=== PATIENT | male | born 1955 | race Caucasian/White ===

== ENCOUNTER 2019-10-07 10:50 | Outpatient (CLI) | payer MEDICARE, SELFPAY ==
[2019-10-07 11:14] LABS: Basophils Absolute Auto 0.09 K/mm3 (0.00-0.10); Basophils Percent Auto 1.2 % (0.0-1.0); Eosinophils Absolute Auto 0.19 K/mm3 (0.02-0.50); Eosinophils Percent Auto 2.5 % (1.0-6.0); Hematocrit 47.1 % (37.0-46.0); Hemoglobin 16.1 g/dL (12.4-15.3); Immature Granulocyte Absolute 0.02 K/mm3 (0.00-0.00); Immature Granulocyte Percent A 0.3 % (0.0-0.0); Lymphocytes Absolute Auto 2.39 K/mm3 (1.10-4.50); Lymphocytes Percent Auto 31.4 % (18.0-42.0); Mean Corpuscular HGB Conc 34.2 g/dL (32.0-36.0); Mean Corpuscular Volume 87.7 fL (78.0-102.0); Monocytes Absolute Auto 0.43 K/mm3 (0.10-0.90); Monocytes Percent Auto 5.7 % (2.0-11.0); Neutrophils Absolute Auto 4.5 K/mm3 (1.7-7.2); Neutrophils Percent Auto 58.9 % (50.0-70.0); Platelet Count Result 320 K/mm3 (150-420); Red Blood Count 5.37 M/mm3 (4.70-6.10); Red Cell Distribution Width 14.2 % (11.6-14.4); White Blood Count 7.6 K/mm3 (4.8-10.8)
[2019-10-07 11:36] LABS: Hemoglobin A1C 9.5 % (<5.7)
[2019-10-07 11:40] LABS: Total Protein Urine Random 47.6 mg/dL (0.0-11.9)
[2019-10-07 11:48] LABS: MALB Creatinine Ratio 54.6 mg/g (0-30); Microalbumin Urine Random 180.8 mg/L
[2019-10-07 12:22] LABS: Alanine Aminotransferase 33 U/L (16-63); Albumin Level 4.6 g/dL (3.4-5.0); Alkaline Phosphatase 84 U/L (46-116); Anion Gap 16.6 mmol/L (7-16); Aspartate Amino Transferase 26 U/L (15-37); Bilirubin,Total 0.6 mg/dL (0.00-1.00); Blood Urea Nitrogen 21 mg/dL (7-18); Calcium 9.4 mg/dL (8.5-10.1); Carbon Dioxide 27 mmol/L (21-32); Chloride 100 mmol/L (98-108); Estimated Glomerular Filt Rate 38; Glucose 193 mg/dL (70-99); Osmolality Calculated 296 mOsm/kg (285-295); Phosphorus 4.5 mg/dL (2.6-4.7); Potassium 4.6 mmol/L (3.5-5.1); Sodium 139 mmol/L (136-145); Total Protein 8.2 g/dL (6.4-8.2)
[2019-10-07 12:25] LABS: Thyroid Stimulating Hormone Reflex 73.31 u/IU/mL (0.36-3.74)
[2019-10-07 12:39] LABS: Free T4 Free Thyroxine Reflex 0.35 ng/dL (0.76-1.46)
[2019-10-10 12:03] LABS: Vitamin D 25 Hydroxy 12 ng/mL (30-100)
[2019-10-10 13:45] LABS: Parathyroid Intact 71 pg/mL (14-64)
== END 2019-10-07 10:51 | disposition home or self-care (01) ==
LOC: CHSLAB 10:56
PROVIDERS: Family Provider Nurse Practitioner Family; PCP Family Medicine; Visit Provider Internal Medicine Nephrology
DX: N18.3 Chronic kidney disease, stage 3 (moderate) (principal); E03.9 Hypothyroidism, unspecified; E11.9 Type 2 diabetes mellitus without complications
CPT/HCPCS: 36415; 80053; 82043; 82306; 82570; 83036; 83970; 84100; 84156; 84439; 84443; 85025

== ENCOUNTER 2019-11-22 12:46 | Observation (INO) | payer MEDICARE, SELFPAY ==
[2019-11-22] VITALS (7 sets, daily range): BP systolic 147–181; BP diastolic 70–103; PULSE 85–112; RESP 12–21; TEMP 36.6; O2SAT 94–97; BMI 44.6
--- NOTE | ~2019-11-22 | CT_ITS ---
EXAMINATION: CT brain wo con EXAM DATE: 11/22/2019 13:36 INDICATION: Right-sided hemiparesis. History of stroke. High blood pressure. TECHNIQUE: Spiral CT of the head was performed without contrast. Axial, coronal and sagittal images were reviewed. The dose-length product (DLP) for this examination was 605.33 mGy-cm. The exposure w as tailored according to patient size, and iterative reconstruction (ASIR) was used as additional dos e reduction technique. There is no prior study for comparison. FINDINGS: There is no acute intraparenchymal hemorrhage. No evidence of intraparenchymal brain mass lesion. No evidence of acute infarction. Please note that initial head CT has limited sensitivity f or small or acute infarctions. There is mild periventricular and subcortical hypodensity, nonspecific but probably related to small vessel ischemic disease. There is mild to moderate prominence of the sulci and ventricles related to cerebral atrophy. There is intracranial carotid arteriosclerosis. There are no extra-axial collections. There is no mass effect or midline shift. The orbits are unr emarkable. Soft tissue is unremarkable. The visualized sinuses and mastoid air cells are well aerat ed. IMPRESSION: 1. No acute intracranial findings. 2. Chronic age related findings. Reviewed, dictated and finalized at location A.
--- NOTE | 2019-11-22 12:58 | ECG_ITS ---
Measurements Intervals [place] Rate: 85 P: 47 FL: 176 QRS: -44 QRSD: 110 T: 96 QT: 387 QTc: 461 Interpretive Statements SINUS RHYTHM LEFT AXIS DEVIATION [QRS AXIS < -30] POSSIBLE LEFT VENTRICULAR HYPERTROPHY MINIMAL Q WAVES- LATERAL LEADS CANNOT RULE OUT SEPTAL INFARCT, AGE INDETERMINATE ST-T WAVE ABNORMALITY IN LATERAL LEADS- CONSIDER ISCHEMIA BASELINE ARTIFACT- I, III, AVR, AVL ABNORMAL ECG Electronically Signed On 11-23-2019 8:10:11 CDT by Edward Paula D.O.
--- NOTE | 2019-11-22 13:09 | ED.GENADULT ---
HPI - General Adult General Chief complaint: Neuro Symptoms/Deficit Stated complaint: possible stroke Source: patient History of Present Illness HPI narrative: Ant is a 53M with a complex PMH most significant for hx of TIA, obesity, HTN, hx of tobacco abuse, PAD, DMII, and HLD presented to the ED with weakness in his left leg thinking he had a stroke. He went home from shopping and took a nap around 1400 yesterday (13 hours ago) and took a nap. He woke up and had pain on his right shoulder and had weakness in his left leg. He was unable to flex the leg at the hip. He also reported tingling in the right distal upper extremity. No CP, SOB, dizziness, vertigo, vision changes, hearing changes, syncope or near syncope. Related Data Home Medications Medication Instructions Recorded Confirmed albuterol 90 mcg/actuation aerosol mcg INHALATION 07/02/19 09/29/19 inhaler amlodipine 10 mg tablet 10 mg PO DAILY 07/02/19 09/29/19 aspirin 325 mg tablet 325 mg PO DAILY 07/02/19 09/29/19 atorvastatin 80 mg tablet 80 mg PO DAILY 07/02/19 09/29/19 carvedilol 25 mg tablet 25 mg PO Q12H 07/02/19 09/29/19 diclofenac sodium 50 mg 50 mg PO TID PRN 07/02/19 09/29/19 tablet,delayed release insulin aspart U-100 100 unit/mL 28 unit SUB-Q TID ml 07/02/19 09/29/19 subcutaneous solution insulin glargine 100 unit/mL 60 unit SUB-Q DAILY ml 07/02/19 09/29/19 subcutaneous solution nitroglycerin 0.4 mg sublingual 0.4 mg SUBLINGUAL Q5M PRN 07/02/19 09/29/19 tablet ranitidine HCl 150 mg tablet 150 mg PO BID PRN tablet 07/02/19 09/29/19 terazosin 5 mg capsule 5 mg PO DAILY 07/02/19 09/29/19 tiotropium bromide 18 mcg capsule 1 cap INHALATION DAILY 07/02/19 09/29/19 with inhalation device albuterol sulfate 90 mcg/actuation 1 inhalation INHALATION Q4-6H PRN 09/01/19 09/29/19 breath activated powder inhaler Allergies Allergy/AdvReac Type Severity Reaction Status Date / Time Penicillins Allergy Intermediate Unknown Verified 09/26/19 07:11 semaglutide [From Ozempic] Allergy Mild Unknown Verified 09/26/19 07:11 amoxicillin Allergy Unknown HEAD TURNS Verified 09/26/19 07:11 RED Review of Systems Constitutional: Constitutional: Denies chills, Reports fatigue, Denies fever(s) and Reports weakness Eyes: Eyes: Reports no additional eye complaints ENT: Comments: no additional complaints Cardiovascular: Cardiovascular: Denies chest pain and Denies radiating jaw, neck or arm pain Respiratory: Respiratory: Denies cough, Denies dyspnea and Denies wheezing Gastrointestinal: Gastrointestinal: Reports no additional gastrointestinal complaints Genitourinary: Genitourinary: Reports no additional male genitourinary complaints Musculoskeletal: Musculoskeletal: Reports as per HPI Integumentary/Breasts: Skin/Breast: Reports system reviewed and no additional complaints, except as docu Neurologic: Reports as per HPI Psychiatric: Psychiatric: Reports no additional psychiatric complaints Endocrine: Endocrine: Reports no additional endocrine complaints Hematologic/Lymphatic: Hematologic/Lymphatic: Reports no additional hematologic/lymphatic complaints Allergic/Immunologic: Allergic/Immunologic: Reports no additional allergic/immunologic complaints [facility] Past Medical History Medical History Chronic urticaria Colon cancer screening COPD (chronic obstructive pulmonary disease) Hyperlipidemia Hypothyroidism Morbid obesity with BMI of 45.0-49.9, adult Tobacco dependence Type 2 diabetes mellitus Surgical History Surgical History History of carpal tunnel surgery History of cervical discectomy History of vasectomy Status post trigger finger release Family History Family History Father , Unknown cause of No problems noted. Mother , Unknown cause o
[2019-11-22 13:37] LABS: Basophils Absolute Auto 0.06 K/mm3 (0.00-0.10); Basophils Percent Auto 0.8 % (0.0-1.0); Eosinophils Absolute Auto 0.13 K/mm3 (0.02-0.50); Eosinophils Percent Auto 1.6 % (1.0-6.0); Immature Granulocyte Absolute 0.04 K/mm3 (0.00-0.00); Immature Granulocyte Percent A 0.5 % (0.0-0.0); Lymphocytes Absolute Auto 1.99 K/mm3 (1.10-4.50); Lymphocytes Percent Auto 24.9 % (18.0-42.0); Mean Corpuscular HGB Conc 34.1 g/dL (32.0-36.0); Mean Corpuscular Hemoglobin 30.3 pg (27.0-31.0); Mean Corpuscular Volume 88.9 fL (78.0-102.0); Mean Platelet Volume 9.6 fl (8.7-11.0); Monocytes Absolute Auto 0.58 K/mm3 (0.10-0.90); Monocytes Percent Auto 7.3 % (2.0-11.0); Neutrophils Absolute Auto 5.2 K/mm3 (1.7-7.2); Neutrophils Percent Auto 64.9 % (50.0-70.0); Platelet Count Result 418 K/mm3 (150-420); Red Blood Count 4.95 M/mm3 (4.70-6.10)
[2019-11-22 13:43] LABS: Prothrombin Time 10.3 Seconds (9.64-11.0)
[2019-11-22 13:50] LABS: Alanine Aminotransferase 44 U/L (16-63); Albumin Level 4.1 g/dL (3.4-5.0); Alkaline Phosphatase 78 U/L (46-116); Aspartate Amino Transferase 27 U/L (15-37); Bilirubin,Total 0.5 mg/dL (0.00-1.00); Blood Urea Nitrogen 15 mg/dL (7-18); Calcium 8.8 mg/dL (8.5-10.1); Carbon Dioxide 28 mmol/L (21-32); Chloride 102 mmol/L (98-108); Estimated Glomerular Filt Rate 44; Glucose 106 mg/dL (70-99); Osmolality Calculated 294 mOsm/kg (285-295); Sodium 142 mmol/L (136-145); Total Protein 7.5 g/dL (6.4-8.2); Troponin I < 0.02 ng/mL (0.00-0.056)
[2019-11-22 14:28] LABS: Thyroid Stimulating Hormone 35.61 uIU/mL (0.36-3.74)
--- NOTE | 2019-11-22 15:36 | PM.IMHP ---
H&P: HPI History of Present Illness Chief complaint: possible stroke <Yolanda Taylor, ADINA - Last Filed: 11/22/19 17:06> Narrative: Ant Kinney is a 64 year old male admitted due to possible neuro symptoms similar to a TIA (or CVA at this point) that started yesterday afternoon. He was admitted for possible stroke due to right leg unilateral weakness. Head CT showed: no acute intraparenchymal hemorrhage. No evidence of intraparenchymal brain mass lesion. No evidence of acute infarction. There is mild periventricular and subcortical hypodensity, nonspecific but probably related to small vessel ischemic disease. There is mild to moderate prominence of the sulci and ventricles related to cerebral atrophy. There is intracranial carotid arteriosclerosis. There are no extra-axial collections. There is no mass effect or midline shift. The orbits are unremarkable. Soft tissue is unremarkable. The visualized sinuses and mastoid air cells are well aerated. IMPRESSION: 1. No acute intracranial findings. 2. Chronic age related findings Ant has a complex PMH most significant for hx of TIA, Morbid obesity with BMI of 45.0-49.9, deconditioning, Status post trigger finger release, chronic back pain with medical marijuana use, HTN, hx of tobacco abuse, PAD, DMII, pancreatic cyst (with history of biopsy in 2018 showing no cancer), pulmonary nodule, non-aneurysmal thoraco-abdominal aortic dissection, smoking cessation approximately 2 months ago, Chronic urticaria, COPD (chronic obstructive pulmonary disease), Hypothyroidism and HLD. He uses medical marijuana for chronic back pain. He presented to the ED with weakness in his left leg thinking he had a stroke. He went home from shopping and took a nap around 1400 yesterday (13 hours ago) and took a nap. He woke up and had pain on his right shoulder and had weakness in his left leg. He was unable to flex the leg at the hip. He also reported tingling in the right distal upper extremity. No CP, SOB, dizziness, vertigo, vision changes, hearing changes, syncope or near syncope. His blood pressure was elevated, with systolics greater than 180, so I restarted his Coreg. He has history of an aortic dissection, he claims it is from his heart down into his abdomen, and why he also has renal disease. He has had the advertising statistical clerk in [facility] as well as his PCP Dr. Schaefer who is monitoring this aortic dissection over the years. He has had CT scans completed at the [facility] as well as here at [facility]. His last CT scan in our system was April of 2019 that stated the chronic dissection was poorly visualized. So it is important that we control his blood pressure is to prevent further injury to the aortic dissection. He stated that he has had weakness in the past in the right leg and the physician that follows his aortic dissection stated that it may be contributing to his weakness in that leg. Ant specifically noticed changes in his right leg after prolonged walking, when the pain and claudication is at its worst. Upon my examination on the floor, He states that his right leg was significantly weak and felt like it was asleep , and continues to be heavy to lift finding himself shuffling his right leg/foot to walk across the room. He stated that he has had left hand numbness over the past 3-4 years, that includes the left hand thumb tip as well as 2nd and 3rd finger of the left hand. Over the course of the last 2-3 years he finds that this numbness is now spreading, affecting the bottom of both his feet, and starting in his right hand of the right hand thumb tip as well as 2nd and 3rd finger of the right hand. Ant is now seen Dr. Mirtha Kraft an parking enforcement officer in [place], [place]. He states that his best A1c was 7.9, but his last A1c was 9.8. He sees Dr. Brumfield the Mine Exploration Engineer for his chronic renal disease, his last visit with him was October 2019. Ant has hypothyroidism th
[2019-11-22 15:42] LABS: CRP < 0.2 mg/dL (0.0-0.9)
[2019-11-22 16:04] LABS: BNP 15 pg/mL (0-100)
[2019-11-22 16:11] LABS: Glucose Point of Care 92 (65-105)
[2019-11-22] MEDS: metFORMIN HCL XR 500 MG TAB.SR.24H PO (16:46)
[2019-11-22] MEDS: carvediloL 12.5 MG TABLET PO (16:50)
--- NOTE | 2019-11-22 18:21 | PC.NURSE ---
1815 ambulance here. hospice and aware of him being loaded per amb at this time.
[2019-11-22 18:35] LABS: Add Urine Microscopic? YES; Appearance Urine Clear (Clear); Bilirubin Urine Negative (Negative); Blood Urine Negative (Negative); Color Urine Yellow (Yellow); Glucose Urine UA Negative (Negative); Ketones Urine Negative (Negative); Leukocyte Esterase Ur Negative LEU/UL (Negative); Nitrate Urine Negative (Negative); Protein Urine 1+ (Negative); Specific Grav Ur >= 1.030 (1.010-1.020); Urobilinogen Urine 0.2 mg/dL (0.2-1.0)
[2019-11-22 19:08] LABS: Bacteria Urine None seen /hpf; RBC Urine None seen /hpf (0-2); Squamous Epithelial Cell Urine Rare /hpf (Few); WBC Urine None seen /hpf (0-3)
[2019-11-22 19:09] LABS: Mucus Urine Rare /lpf
[2019-11-22 19:51] LABS: Glucose Point of Care 95 (65-105)
[2019-11-22] MEDS: AMITRIPTYLINE HCL 25 MG TABLET 50 MG PO (21:08)
[2019-11-22] MEDS: carvediloL 12.5 MG TABLET 25 MG PO (21:08)
[2019-11-23] VITALS: BP 136/76; PULSE 66; RESP 12; TEMP 37.1; O2SAT 96
[2019-11-23 04:00] VITALS: BP 154/82; PULSE 53; RESP 12; TEMP 37.2; O2SAT 99
[2019-11-23 05:37] LABS: Mean Corpuscular HGB Conc 33.3 g/dL (32.0-36.0); Mean Corpuscular Hemoglobin 30.1 pg (27.0-31.0); Mean Corpuscular Volume 90.3 fL (78.0-102.0); Mean Platelet Volume 9.6 fl (8.7-11.0); Platelet Count Result 360 K/mm3 (150-420); Red Blood Count 4.65 M/mm3 (4.70-6.10); Red Cell Distribution Width 14.2 % (11.6-14.4); White Blood Count 7.3 K/mm3 (4.8-10.8)
[2019-11-23 06:13] LABS: Alanine Aminotransferase 39 U/L (16-63); Albumin Level 3.8 g/dL (3.4-5.0); Alkaline Phosphatase 67 U/L (46-116); Anion Gap 14.3 mmol/L (7-16); Aspartate Amino Transferase 23 U/L (15-37); Bilirubin,Total 0.5 mg/dL (0.00-1.00); Blood Urea Nitrogen 19 mg/dL (7-18); Calcium 8.8 mg/dL (8.5-10.1); Carbon Dioxide 28 mmol/L (21-32); Chloride 103 mmol/L (98-108); Creatine Kinase 585 U/L (39-308); Estimated CRCL calculation 54 ml/min; Estimated Glomerular Filt Rate 41; Glucose 130 mg/dL (70-99); Osmolality Calculated 296 mOsm/kg (285-295); Potassium 4.3 mmol/L (3.5-5.1); Sodium 141 mmol/L (136-145); Total Protein 6.6 g/dL (6.4-8.2)
[2019-11-23 06:23] LABS: Troponin I < 0.02 ng/mL (0.00-0.056)
[2019-11-23] MEDS: LEVOTHYROXINE SODIUM 75 MCG TABLET 150 MCG PO (06:27)
--- NOTE | 2019-11-23 06:30 | PC.NURSE ---
Doctor notified of CK-MB critical result
[2019-11-23 07:02] LABS: Glucose Point of Care 152 (65-105)
[2019-11-23 08:00] VITALS: BP 158/86; PULSE 63; PULSE 67; RESP 16; TEMP 36.6; O2SAT 95
--- NOTE | 2019-11-23 08:00 | ECG_ITS ---
Measurements Intervals [place] Rate: 62 P: 66 [place]: 172 QRS: -26 QRSD: 106 T: 105 QT: 460 QTc: 471 Interpretive Statements SINUS RHYTHM BORDERLINE ST-T WAVE ABNORMALITY- LATERAL LEADS BORDERLINE ECG Electronically Signed On 11-23-2019 15:14:55 CDT by Edward Paula D.O.
[2019-11-23 08:05] VITALS: BP 166/85; PULSE 71
[2019-11-23 08:10] VITALS: BP 155/80; PULSE 77
[2019-11-23 08:27] VITALS: PULSE 63
[2019-11-23] MEDS: ENOXAPARIN 40 MG/0.4 ML SYRINGE SUB-Q (08:27)
[2019-11-23] MEDS: TERAZOSIN HCL 5 MG CAPSULE PO (08:27)
[2019-11-23] MEDS: ASPIRIN 325 MG ENTERIC TABLET PO (08:27)
[2019-11-23] MEDS: carvediloL 12.5 MG TABLET 25 MG PO (08:27)
[2019-11-23] MEDS: metFORMIN HCL XR 500 MG TAB.SR.24H PO (08:28)
[2019-11-23] MEDS: AMLODIPINE BESYLATE 5 MG TABLET 10 MG PO (08:28)
[2019-11-23] MEDS: ACETAMINOPHEN 325 MG TABLET 650 MG PO (08:28)
[2019-11-23] MEDS: ATORVASTATIN 40 MG TABLET 80 MG PO (08:28)
[2019-11-23] MEDS: INSULIN GLARGINE (*BKC) 100 UNITS/ML 60 UNITS SUB-Q (08:31)
[2019-11-23] MEDS: SODIUM CHLORIDE 0.9% IV 500 ML IV CONT (10:12)
[2019-11-23 11:28] LABS: Glucose Point of Care 276 (65-105)
[2019-11-23] MEDS: CLOPIDOGREL BISULFATE 75 MG TABLET PO (12:47)
--- NOTE | 2019-11-23 12:47 | PM.DS ---
DS: Diagnosis Admitting Diagnosis Admitting Diagnosis: Hypothyroidism, unspecified Discharge Diagnosis (1) Hypothyroidism: Code(s): E03.9 - Hypothyroidism, unspecified Status: Acute Assessment and Plan: his TSH was over 30 at admission his levothyroxine dose at home was 100 mcg daily increased his levothyroxine dose to 150 mcg daily today he will have to follow-up with his PCP and get a repeat TSH blood work in 6 weeks continue to work on obesity with diet and exercise with a goal of significant weight loss in mind PT OT evaluation and treatment would greatly benefit from outpatient PT OT and can follow up with his PCP Dr. Ryan for those orders. 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 bedside glucose checks ordered hypoglycemia p.r.n. medications in place continued his home dose of metformin continued his home dose of aspart t.i.d., Glargine daily Ant is now seen Dr. Mirtha Kraft an globe mounter in [place], [place]. He states that his best A1c was 7.9, but his last A1c was 9.8. Dr. Brumfield the Treatment Coordinator for his chronic renal disease, his last visit with him was October 2019. he is having comorbidities such as peripheral neuropathy, vascular changes, hypertension, renal failure due to uncontrolled glucose levels for long periods of time would greatly benefit from outpatient PT OT and can follow up with his PCP Dr. Ryan for those orders. (3) Unilateral weakness: Code(s): R53.1 - Weakness Status: Acute Assessment and Plan: CVA likely as symptoms of right upper arm/right hand/right leg weakness have lasted since Sunday afternoon to this morning approximately 36 hours. history of TIAs in early with unilateral right facial numbness that lasted only seconds/minutes per patient report. Neurochecks without acute concerns. glucose checks showed control at this time CT head showed no acute findings. EKG showed NSR with a rate of 85, No ST elevation/depression, did have inverted T waves in aVL Telemetry monitoring overnight without acute concerns. TROPS x 2 WNL, elevated CKMB likely due to patient vasculopathy, encouraging him to follow up with his PCP and his Vascular surgeon this week for F/U Imaging on his Aortic Dissection. TSH elevated, increased levothryoxine dose. checking CRP <0.2, BNP 15 , Mag 2.0, phos levels 4.0. Today - patient stated that he was back to his baseline and ready to go home. would greatly benefit from outpatient PT OT and can follow up with his PCP Dr. Ryan for those orders. maintain systolic blood pressures from 100 to 150s. must continue to control blood pressure and diabetes to avoid further damage to vessels currently no symptoms of carotid stenosis affecting neuro status, no headaches, no vision changes, no loss of consciousness, no blindness, no new or acute unilateral weakness in upper extremities, no facial weakness is noted, and no weakness is noted in lower extremities today - resolved - no longer shuffling with ambulation and able to lift right leg completely off his bed and hold it and strength returned in dorsiflexion as well. (4) CKD (chronic kidney disease): Code(s): N18.9 - Chronic kidney disease, unspecified Status: Acute Assessment and Plan: creatinine today was 1.58 yesterday and 1.69 today (baseline past values 12/24/2018 Creatinine 1.4 and 10/07/2019 Creatinine 1.80) his creatinine level appears to be about baseline or better for his chronic renal disease
--- NOTE | 2019-11-23 13:47 | P.PNCROSS_ITS ---
Event Note Event Note Event Note: Dr. Coburn's and Yolanda Taylor's notes reviewed. Case discussed with both providers. Pt. alert and oriented. He has appropriate dialogue regarding his past symptoms, work up and need to follow up. There is occasional speech hesitancy which is not new. Sensory exam intact. Holds arms extends/finger to nose tests normal and equal. He walks without a limp or need of assistance. Mr. Henderson had weakness for 36 hours in right leg interfering with ambulation wh ich has now resolved. On yesterday's exam in the e.d. there was weakness with extending the right arm which resolved shortly thereafter. Yolanda Taylor's note documents carotid pathology which warrants vascular surgeon eval. Mr. Henderson has been on clopidogrel in the past for PAD but was taken off it because it wasn't necessary. There were no side effects. Pt does not have a. fib. Carotid ultrasound not available on Sunday, today. Pt needs vascular surgeon eval. In the mean time to continue statin, aspirin and start clopidogrel. He understands he's not to wait if he develops any symptoms of a CVA which were reviewed by Yolanda Taylor. I reviewed and agree with Yolanda Taylor's note.
--- NOTE | 2019-12-02 16:18 | PC.NURSE ---
DISCHARGE FOLLOW UP CALL: No answer, message left [phone]
--- NOTE | 2019-12-03 15:02 | PC.NURSE ---
DISCHARGE FOLLOW UP CALL: Doing ok, has had follow up and full body scan, indicates 100% blockage to left carotid. Patient has PT/OT and home health coming to house. States B/P still elevated 170/70's, educated on Na+ intake, pt reports eating a lot of processed foods (hot dogs, deli meat, canned soups, ramen...) States he saw his ordinary seaman 2 weeks ago and she wants him to start monitoring his carbohydrate intake, educated patient on reading labels. Pt has f/u appointment on December 09, 2019 with GI regarding mouth/throat swelling. Admission was great. Discharge went well. Staff were very good to me . No concerns.
== END 2019-11-23 13:15 | disposition home or self-care (01) ==
LOC: CHSED 12:48 → CHS2ND 14:27
PROVIDERS: Nurse Practitioner; Admitting Provider Family Medicine; Emergency Provider Family Medicine; PCP Family Medicine; Visit Provider Family Medicine
DX: R53.1 Weakness (principal); I73.9 Peripheral vascular disease, unspecified; J44.9 Chronic obstructive pulmonary disease, unspecified; I71.03 Dissection of thoracoabdominal aorta; N18.9 Chronic kidney disease, unspecified; I12.9 Hypertensive chronic kidney disease with stage 1 through stage 4 chronic kidney disease, or unspecified chronic kidney disease; E11.65 Type 2 diabetes mellitus with hyperglycemia; E11.22 Type 2 diabetes mellitus with diabetic chronic kidney disease; M54.9 Dorsalgia, unspecified; L50.8 Other urticaria; E78.5 Hyperlipidemia, unspecified; G89.29 Other chronic pain; E66.01 Morbid (severe) obesity due to excess calories; Z79.4 Long term (current) use of insulin; Z87.891 Personal history of nicotine dependence; Z86.73 Personal history of transient ischemic attack (TIA), and cerebral infarction without residual deficits; I65.22 Occlusion and stenosis of left carotid artery
CPT/HCPCS: 36415; 70450; 80053; 81001; 82550; 82553; 82948; 83735; 83880; 84100; 84443; 84484; 85025; 85027; 85610; 86140; 93005; 96360; 96361; 96372; 99285; A9270; G0378; J1650; J1815; J7040

== ENCOUNTER 2019-12-20 00:40 | Outpatient (CLI) | payer MEDICARE, SELFPAY | END 2019-12-20 00:41 | disposition home or self-care (01) | LOC: ANHCOVIDDT 00:40 | PROVIDERS: PCP Family Medicine; Visit Provider Internal Medicine Gastroenterology | DX: Z01.818 Encounter for other preprocedural examination (principal); Z11.59 Encounter for screening for other viral diseases | CPT/HCPCS: 87635; U0003 ==

== ENCOUNTER 2019-12-22 08:22 | Outpatient (CLI) | payer MEDICARE, SELFPAY ==
[2019-12-22 08:57] LABS: Hemoglobin A1C 8.5 % (<5.7)
[2019-12-22 10:00] LABS: Alanine Aminotransferase 30 U/L (16-63); Alkaline Phosphatase 63 U/L (46-116); Aspartate Amino Transferase 21 U/L (15-37); Bilirubin,Total 0.4 mg/dL (0.00-1.00); Blood Urea Nitrogen 16 mg/dL (7-18); Calcium 8.8 mg/dL (8.5-10.1); Carbon Dioxide 31 mmol/L (21-32); Chloride 102 mmol/L (98-108); Cholesterol 119 mg/dL (0-200); Estimated Glomerular Filt Rate 47; Free T3 1.29 pg/mL (2.18-3.98); Glucose 127 mg/dL (70-99); HDL Direct 44 mg/dL (40-60); LDL Cholesterol Calculated 58 mg/dL (<130); Osmolality Calculated 297 mOsm/kg (285-295); Sodium 142 mmol/L (136-145); Thyroid Stimulating Hormone 42.23 uIU/mL (0.36-3.74); Triglycerides 84 mg/dL (0-150)
[2019-12-22 10:23] LABS: MALB Creatinine Ratio 31.9 mg/g (0-30); Microalbumin Urine Random 45.3 mg/L
== END 2019-12-22 08:23 | disposition home or self-care (01) ==
LOC: CHSLAB 08:24
PROVIDERS: PCP Family Medicine; Visit Provider Internal Medicine Endocrinology, Diabetes & Metabolism
DX: E11.65 Type 2 diabetes mellitus with hyperglycemia (principal); E03.9 Hypothyroidism, unspecified; E78.5 Hyperlipidemia, unspecified
CPT/HCPCS: 36415; 80053; 80061; 82043; 83036; 84439; 84443; 84481

== ENCOUNTER 2019-12-23 00:39 | Day surgery (SDC) | payer MEDICARE, SELFPAY ==
[2019-12-04 13:51] VITALS: BMI 45.9
[2019-12-23 08:38] VITALS: BP 144/59; PULSE 109; RESP 22; TEMP 36.1; O2SAT 98
[2019-12-23] MEDS: LACTATED RINGERS 1,000 ML 150 ML IV CONT (08:59)
[2019-12-23 09:04] LABS: Glucose Point of Care 173 (65-105)
--- NOTE | 2019-12-23 09:14 | WPDANESEPPF ---
Anes - Initial Pre Proc Eval Procedure: Operation Date: 12/23/19 09:30 Proposed Procedures p Esophagogastroduodenoscopy - Neil De Leon MD Date/Time: 12/23/19 09:14 Surgeon: Neil De Leon MD Pre Op Diagnosis: Dysphagia Patient Data Age: 64 Gender: M Height: 5 ft 8 in Weight: 138 kg Last Vital Signs Temp 36.1 C L 12/23/19 08:38 Pulse 109 H 12/23/19 08:38 Resp 22 H 12/23/19 08:38 BP 144/59 H 12/23/19 08:38 Pulse Ox 98 12/23/19 08:38 Allergies Allergy/AdvReac Type Severity Reaction Status Date / Time Penicillins Allergy Intermediate Unknown Verified 12/23/19 08:37 semaglutide [From Ozempic] Allergy Mild Unknown Verified 12/23/19 08:37 amoxicillin Allergy Unknown HEAD TURNS Verified 12/23/19 08:37 RED Home Medications Medication Instructions Recorded Confirmed Type amlodipine 10 mg tablet 10 mg PO DAILY 07/02/19 12/17/19 History aspirin 325 mg tablet 325 mg PO DAILY 07/02/19 12/17/19 History atorvastatin 80 mg tablet 80 mg PO DAILY 07/02/19 12/17/19 History carvedilol 25 mg tablet 25 mg PO Q12H 07/02/19 12/23/19 History insulin aspart U-100 100 unit/mL 28 unit SUB-Q TID ml 07/02/19 12/17/19 History subcutaneous solution insulin glargine 100 unit/mL 60 unit SUB-Q DAILY ml 07/02/19 12/17/19 History subcutaneous solution nitroglycerin 0.4 mg sublingual 0.4 mg SUBLINGUAL Q5M PRN 07/02/19 12/17/19 History tablet ranitidine HCl 150 mg tablet 150 mg PO BID PRN tablet 07/02/19 12/04/19 History terazosin 5 mg capsule 5 mg PO DAILY 07/02/19 12/17/19 History tiotropium bromide 18 mcg capsule 1 cap INHALATION DAILY 07/02/19 12/17/19 History with inhalation device albuterol sulfate 90 mcg/actuation 1 inhalation INHALATION Q4-6H PRN 09/01/19 12/17/19 History breath activated powder inhaler ergocalciferol (vitamin D2) 1,250 1,250 mcg PO WEEKLY #10 cap 10/10/19 12/17/19 Rx mcg (50,000 unit) capsule clopidogrel 75 mg PO QAM 30 Days #30 tablet 11/23/19 12/17/19 Rx levothyroxine [Synthroid] 150 mcg PO DAILY@0630 30 Days #60 11/23/19 12/17/19 Rx tablet metformin 500 mg PO BID 30 Days #120 tablet 11/23/19 12/17/19 Rx losartan 50 mg tablet 50 mg PO DAILY #90 tablet 12/08/19 12/17/19 Rx diclofenac potassium 50 mg PO TID PRN 12/17/19 12/17/19 History finasteride [Proscar] 5 mg PO DAILY 12/17/19 12/17/19 History Laboratory Tests 12/23/19 09:01 POC Capillary Glucose 173 mg/dl H mg/dl (65-105) Patient hx anesthesia problems: none Family hx anesthesia problems: none PMFSH Past Medical History Medical History (Updated 12/23/19 @ 09:15 by Dillon Pretty MD) Chronic urticaria Colon cancer screening COPD (chronic obstructive pulmonary disease) Hyperlipidemia Hypothyroidism Morbid obesity with BMI of 45.0-49.9, adult PAYAM (obstructive sleep apnea) Tobacco dependence Type 2 diabetes mellitus Surgical History Surgical History History of carpal tunnel surgery History of cervical discectomy History of vasectomy Status post trigger finger release Family History Family History Father , Unknown cause of No problems noted. Mother , Unknown cause of No problems noted. Social History Social History Smoking packs per day: 1 Smoking cigarettes per day: 20.0 Years smoked: 50 Smoking pack-years: 50.00 Smoking status: Former smoker Tobacco type: cigarettes Second hand tobacco smoke exposure: No Smoking end date: 09/21/19 Alcohol intake: former Substance use: never Substance use type: marijuana Additional living arrangements comments: . 2 Children. Additional occupation/education comments: Worked at [employer] in [facility]. Gender identity (if verbalized by the patient): Male
--- NOTE | 2019-12-23 10:03 | PM.HPGS ---
History of Present Illness History of Present Illness Consent: Risks, benefits, and alternatives have been discussed and questions answered. Patient agrees to proceed with procedure. Chief complaint: Dysphagia Narrative: Ant Kinney is a 64 year old male here with dysphagia Review of Systems Constitutional: Constitutional: Denies headache(s) and Denies weakness Eyes: Eyes: Denies blurry vision ENT: Reports Normal hearing present, Denies headache(s) and Denies neck pain Cardiovascular: Cardiovascular: Denies chest pain and Denies dyspnea Respiratory: Respiratory: Denies dyspnea Gastrointestinal: Gastrointestinal: Reports no additional gastrointestinal complaints Genitourinary: Genitourinary: Denies dysuria Musculoskeletal: Musculoskeletal: Denies neck pain Integumentary/Breasts: Skin/Breast: Denies dry skin Neurologic: Reports Normal hearing present, Denies headache(s) and Denies weakness Psychiatric: Psychiatric: Denies anxiety Endocrine: Endocrine: Denies change in body appearance Hematologic/Lymphatic: Hematologic/Lymphatic: Denies easy bleeding Allergic/Immunologic: Allergic/Immunologic: Denies urticaria PMFSH Past Medical History Medical History (Updated 12/23/19 @ 09:15 by Dillon Pretty MD) Chronic urticaria Colon cancer screening COPD (chronic obstructive pulmonary disease) Hyperlipidemia Hypothyroidism Morbid obesity with BMI of 45.0-49.9, adult PAYAM (obstructive sleep apnea) Tobacco dependence Type 2 diabetes mellitus Surgical History Surgical History History of carpal tunnel surgery History of cervical discectomy History of vasectomy Status post trigger finger release Family History Family History Father , Unknown cause of No problems noted. Mother , Unknown cause of No problems noted. Social History Social History Smoking packs per day: 1 Smoking cigarettes per day: 20.0 Years smoked: 50 Smoking pack-years: 50.00 Smoking status: Former smoker Tobacco type: cigarettes Second hand tobacco smoke exposure: No Smoking end date: 09/21/19 Alcohol intake: former Substance use: never Substance use type: marijuana Additional living arrangements comments: . 2 Children. Additional occupation/education comments: Worked at [employer] in [facility]. Gender identity (if verbalized by the patient): Male Spiritual care concerns: No Agree to blood products: Yes Meds Home Medications and Allergies Home Medications Medication Instructions Recorded Confirmed Type amlodipine 10 mg tablet 10 mg PO DAILY 07/02/19 12/17/19 History aspirin 325 mg tablet 325 mg PO DAILY 07/02/19 12/17/19 History atorvastatin 80 mg tablet 80 mg PO DAILY 07/02/19 12/17/19 History carvedilol 25 mg tablet 25 mg PO Q12H 07/02/19 12/23/19 History insulin aspart U-100 100 unit/mL 28 unit SUB-Q TID ml 07/02/19 12/17/19 History subcutaneous solution insulin glargine 100 unit/mL 60 unit SUB-Q DAILY ml 07/02/19 12/17/19 History subcutaneous solution nitroglycerin 0.4 mg sublingual 0.4 mg SUBLINGUAL Q5M PRN 07/02/19 12/17/19 History tablet ranitidine HCl 150 mg tablet 150 mg PO BID PRN tablet 07/02/19 12/04/19 History terazosin 5 mg capsule 5 mg PO DAILY 07/02/19 12/17/19 History tiotropium bromide 18 mcg capsule 1 cap INHALATION DAILY 07/02/19 12/17/19 History with inhalation device albuterol sulfate 90 mcg/actuation 1 inhalation INHALATION Q4-6H PRN 09/01/19 12/17/19 History breath activated powder inhaler ergocalciferol (vitamin D2) 1,250 1,250 mcg PO WEEKLY #10 cap 10/10/19 12/17/19 Rx mcg (50,000 unit) capsule clopidogrel 75 mg PO QAM 30 Days #30 tablet 11/23/19 12/17/19 Rx levothyroxine [Synthroid] 150 mcg PO DAILY@0630 3
[2019-12-23 10:15] VITALS: BP 111/72; PULSE 88; RESP 16; O2SAT 92
[2019-12-23 10:25] VITALS: BP 120/69; PULSE 96; RESP 18; O2SAT 95
[2019-12-23 10:35] VITALS: BP 135/60; PULSE 94; RESP 18; O2SAT 95
[2019-12-23 10:55] LABS: Glucose Point of Care 153 (65-105)
== END 2019-12-23 10:55 | disposition home or self-care (01) ==
PROVIDERS: PCP Family Medicine; Visit Provider Internal Medicine Gastroenterology
PROC: 0DJ08ZZ Inspection of Upper Intestinal Tract, Via Natural or Artificial Opening Endoscopic (ICD-10-PCS; CPT 43235; principal; 2019-12-23 09:30)
DX: K21.9 Gastro-esophageal reflux disease without esophagitis (principal); K22.10 Ulcer of esophagus without bleeding; B37.81 Candidal esophagitis; K44.9 Diaphragmatic hernia without obstruction or gangrene; K29.50 Unspecified chronic gastritis without bleeding; K25.9 Gastric ulcer, unspecified as acute or chronic, without hemorrhage or perforation; K29.80 Duodenitis without bleeding; J44.9 Chronic obstructive pulmonary disease, unspecified; E11.9 Type 2 diabetes mellitus without complications; E78.5 Hyperlipidemia, unspecified; E03.9 Hypothyroidism, unspecified; G47.33 Obstructive sleep apnea (adult) (pediatric); E66.01 Morbid (severe) obesity due to excess calories; Z68.42 Body mass index [BMI] 45.0-49.9, adult; Z87.891 Personal history of nicotine dependence; Z79.82 Long term (current) use of aspirin; Z79.4 Long term (current) use of insulin; Z79.02 Long term (current) use of antithrombotics/antiplatelets; Z79.84 Long term (current) use of oral hypoglycemic drugs
CPT/HCPCS: 43239; 87081; 87635; 88305; 88312; C9803; J2704; J7120; U0003

== ENCOUNTER 2020-03-11 13:00 | Outpatient (RCR) | payer MEDICARE, SELFPAY ==
[2020-01-08 13:00] VITALS: BMI 46.4
== END 2020-04-07 23:59 | disposition home or self-care (01) ==
LOC: ANHDMC 13:00
PROVIDERS: PCP Family Medicine; Visit Provider Family Medicine
DX: E11.65 Type 2 diabetes mellitus with hyperglycemia (principal); Z71.3 Dietary counseling and surveillance; Z71.89 Other specified counseling
CPT/HCPCS: 97802; G0108

== ENCOUNTER 2020-03-17 10:28 | Outpatient (CLI) | payer MEDICARE, SELFPAY ==
[2020-03-17 10:53] LABS: Creatinine Urine 111.28 mg/dL (40-278)
[2020-03-17 10:57] LABS: Hemoglobin A1C 10.3 % (<5.7)
[2020-03-17 10:58] LABS: Microalbumin Urine Random 27.9 mg/L
[2020-03-17 12:11] LABS: Alanine Aminotransferase 40 U/L (16-63); Albumin Level 3.8 g/dL (3.4-5.0); Alkaline Phosphatase 69 U/L (46-116); Anion Gap 6 mmol/L (8-16); Aspartate Amino Transferase 22 U/L (15-37); Bilirubin,Total 0.6 mg/dL (0.00-1.00); Blood Urea Nitrogen 16 mg/dL (7-18); Calcium 9.3 mg/dL (8.5-10.1); Carbon Dioxide 32 mmol/L (21-32); Chloride 103 mmol/L (98-108); Estimated Glomerular Filt Rate 49; Free T3 1.59 pg/mL (2.18-3.98); Free T4 Free Thyroxine 0.89 ng/dL (0.76-1.46); Glucose 106 mg/dL (70-99); Osmolality Calculated 293 mOsm/kg (285-295); Potassium 4.7 mmol/L (3.5-5.1); Sodium 141 mmol/L (136-145); Thyroid Stimulating Hormone 28.96 uIU/mL (0.36-3.74)
== END 2020-03-17 10:29 | disposition home or self-care (01) ==
LOC: CHSLAB 10:30
PROVIDERS: PCP Family Medicine; Visit Provider Internal Medicine Endocrinology, Diabetes & Metabolism
DX: E03.9 Hypothyroidism, unspecified (principal); E11.65 Type 2 diabetes mellitus with hyperglycemia
CPT/HCPCS: 36415; 80053; 82043; 83036; 84439; 84443; 84481

== ENCOUNTER 2020-03-30 12:15 | Outpatient (CLI) | payer MEDICARE, SELFPAY ==
--- NOTE | ~2020-03-30 | XR_ITS ---
EXAMINATION: XR knee LT 3V DATE: 03/30/2020 13:18 INDICATION: Left knee pain. Osteoarthritis. TECHNIQUE: 3 views of left knee were obtained. COMPARISON: None. FINDINGS: Bone alignment is normal. No fracture. There is mild osteoarthritis of lateral and patellof emoral compartments. There is a small knee joint effusion. IMPRESSION: 1. Mild left knee osteoarthritis. 2. Small left knee joint effusion. Reviewed, dictated and finalized at location B.
--- NOTE | ~2020-03-30 | XR_ITS ---
EXAMINATION: XR knee RT 3V DATE: 03/30/2020 13:19 INDICATION: Right knee chronic pain. Osteoarthritis. TECHNIQUE: 3 views of right knee were obtained. COMPARISON: None. FINDINGS: Bone alignment is normal. No fracture. There is mild osteoarthritis of patellofemoral kaden rtment. No knee joint effusion. IMPRESSION: 1. Mild right knee osteoarthritis. Reviewed, dictated and finalized at location B.
--- NOTE | ~2020-03-30 | XR_ITS ---
EXAMINATION: XR shoulder LT min 2V DATE: 03/30/2020 13:19 INDICATION: Chronic left shoulder pain. TECHNIQUE: 5 views of left shoulder were obtained. COMPARISON: None. FINDINGS: Bone alignment is normal. No fracture. There is mild osteoarthritis of glenohumeral joint a nd moderate osteoarthritis of acromioclavicular joint. IMPRESSION: 1. Polyarticular osteoarthritis. Reviewed, dictated and finalized at location B.
--- NOTE | ~2020-03-30 | XR_ITS ---
EXAMINATION: XR hip RT 2V w AP pelvis DATE: 03/30/2020 13:19 INDICATION: Osteoarthritis. Chronic right hip pain. TECHNIQUE: An anteroposterior view of the pelvis on 2 radiographs and 2 views of right hip were obtai oseas. COMPARISON: None. FINDINGS: Bone alignment is normal. No fracture. There is mild osteoarthritis of the hips. IMPRESSION: 1. Mild osteoarthritis of the hips. Reviewed, dictated and finalized at location B.
== END 2020-03-30 12:16 | disposition home or self-care (01) ==
LOC: CHSIMG 12:19
PROVIDERS: PCP Family Medicine; Visit Provider Family Medicine
DX: M19.90 Unspecified osteoarthritis, unspecified site (principal)
CPT/HCPCS: 73030; 73502; 73562

== ENCOUNTER 2020-04-14 00:49 | Outpatient (CLI) | payer MEDICARE, SELFPAY ==
[2020-04-14 19:21] LABS: SARS-CoV-2 RNA PCR Negative
== END 2020-04-14 00:50 | disposition home or self-care (01) ==
LOC: ANHCOVIDDT 00:49
PROVIDERS: PCP Family Medicine; Visit Provider Internal Medicine Gastroenterology
DX: Z01.812 Encounter for preprocedural laboratory examination (principal); Z20.828 Contact with and (suspected) exposure to other viral communicable diseases
CPT/HCPCS: 87635; C9803; U0003

== ENCOUNTER 2020-04-16 01:43 | Day surgery (SDC) | payer MEDICARE, SELFPAY ==
[2020-04-07 10:36] VITALS: BMI 46.9
[2020-04-16 08:15] VITALS: BP 156/79; PULSE 65; RESP 20; TEMP 36.2; O2SAT 96; BMI 47.0
[2020-04-16 08:18] LABS: Glucose Point of Care 214 (65-105)
--- NOTE | 2020-04-16 08:18 | WPDANESEPPF ---
Anes - Initial Pre Proc Eval Procedure: Operation Date: 04/16/20 08:30 Proposed Procedures p Esophagogastroduodenoscopy - Neil De Leon MD Date/Time: 04/16/20 08:18 Surgeon: Neil De Leon MD Pre Op Diagnosis: Esophageal Ulcers without Bleeding Patient Data Age: 64 Gender: M Height: 1.73 m Weight: 140 kg Allergies Allergy/AdvReac Type Severity Reaction Status Date / Time Penicillins Allergy Intermediate Unknown Verified 04/16/20 08:04 semaglutide [From Ozempic] Allergy Mild Unknown Verified 04/16/20 08:04 amoxicillin Allergy Unknown HEAD TURNS Verified 04/16/20 08:04 RED Home Medications Medication Instructions Recorded Confirmed Type amlodipine 10 mg tablet 10 mg PO DAILY 07/02/19 04/16/20 History aspirin 325 mg tablet 325 mg PO DAILY 07/02/19 04/16/20 History atorvastatin 80 mg tablet 20 mg PO DAILY 07/02/19 12/17/19 History carvedilol 25 mg tablet 25 mg PO Q12H 07/02/19 04/16/20 History insulin aspart U-100 100 unit/mL 28 unit SUB-Q TID ml 07/02/19 04/16/20 History subcutaneous solution nitroglycerin 0.4 mg sublingual 0.4 mg SUBLINGUAL Q5M PRN 07/02/19 04/07/20 History tablet tiotropium bromide 18 mcg capsule 1 cap INHALATION DAILY 07/02/19 04/07/20 History with inhalation device albuterol sulfate 90 mcg/actuation 1 inhalation INHALATION Q4-6H PRN 09/01/19 04/16/20 History breath activated powder inhaler ergocalciferol (vitamin D2) 1,250 1,250 mcg PO WEEKLY #10 cap 10/10/19 04/07/20 Rx mcg (50,000 unit) capsule clopidogrel 75 mg PO QAM 30 Days #30 tablet 11/23/19 04/16/20 Rx metformin 500 mg PO BID 30 Days #120 tablet 11/23/19 04/16/20 Rx finasteride [Proscar] 5 mg PO DAILY 12/17/19 04/07/20 History pantoprazole [Protonix] 40 mg PO BID #60 tablet 12/23/19 04/07/20 Rx fluconazole 150 mg tablet 150 mg PO DAILY #7 tablet 12/31/19 04/07/20 Rx insulin degludec 100 unit/mL (3 75 unit SUB-Q DAILY ml 03/23/20 04/16/20 History mL) subcutaneous pen levothyroxine 125 mcg tablet 125 mcg PO DAILY 03/23/20 04/07/20 History losartan 50 mg tablet 50 mg PO DAILY #90 tablet 04/09/20 04/16/20 Rx Laboratory Tests 04/16/20 08:16 POC Capillary Glucose 214 mg/dl H mg/dl (65-105) Patient hx anesthesia problems: none Family hx anesthesia problems: none [facility] Past Medical History Medical History (Updated 03/23/20 @ 14:58 by Livan Ryan DO) Chronic urticaria Colon cancer screening COPD (chronic obstructive pulmonary disease) Hyperlipidemia Hypothyroidism Morbid obesity with BMI of 45.0-49.9, adult PAYAM (obstructive sleep apnea) Polyarthritis Tobacco dependence Type 2 diabetes mellitus Surgical History Surgical History History of carpal tunnel surgery History of cervical discectomy History of vasectomy Status post trigger finger release Social History Social History Smoking packs per day: 1 Smoking cigarettes per day: 20.0 Years smoked: 50 Smoking pack-years: 50.00 Smoking status: Former smoker Tobacco type: cigarettes Second hand tobacco smoke exposure: No Smoking end date: 09/21/19 Alcohol intake: former Substance use: never Substance use type: marijuana Living arrangements: alone Additional living arrangements comments: . 2 Children. Additional occupation/education comments: Worked at [employer] in [facility]. Gender identity (if verbalized by the patient): Male Spiritual care concerns: No Agree to blood products: Yes Anes - Eval Final PreProcedure Day of Procedure 04/16/20 08:18 Patient weight: morbidly obese Heart: regular rate and rhythm Lungs: clear to auscultation and normal air movement Airway: Mallampati scale class II Neurological: alert and oriented Last oral intake: >/= 8 hours ASA classification: IV Emergent: no Anesthetic plan: proceed Anesthesia type a
[2020-04-16] MEDS: LACTATED RINGERS 1,000 ML 150 ML IV CONT (08:26)
--- NOTE | 2020-04-16 08:29 | PM.HPGS ---
History of Present Illness History of Present Illness Consent: Risks, benefits, and alternatives have been discussed and questions answered. Patient agrees to proceed with procedure. Chief complaint: Esophageal Ulcers without Bleeding Narrative: Ant Kinney is a 64 year old male with esophagitis and erosive gastritis 12/2019 now on ppi bid and avoiding nsaid's, also treated for coleen esophagitis. Review of Systems Constitutional: Constitutional: Denies headache(s) and Denies weakness Eyes: Eyes: Denies blurry vision ENT: Reports Normal hearing present, Denies headache(s) and Denies neck pain Cardiovascular: Cardiovascular: Denies chest pain and Denies dyspnea Respiratory: Respiratory: Denies dyspnea Gastrointestinal: Gastrointestinal: Reports no additional gastrointestinal complaints Genitourinary: Genitourinary: Denies dysuria Musculoskeletal: Musculoskeletal: Denies neck pain Integumentary/Breasts: Skin/Breast: Denies dry skin Neurologic: Reports Normal hearing present, Denies headache(s) and Denies weakness Psychiatric: Psychiatric: Denies anxiety Endocrine: Endocrine: Denies change in body appearance Hematologic/Lymphatic: Hematologic/Lymphatic: Denies easy bleeding Allergic/Immunologic: Allergic/Immunologic: Denies urticaria PMFSH Past Medical History Medical History (Updated 04/16/20 @ 08:30 by Neil De Leon MD) Chronic urticaria Colon cancer screening COPD (chronic obstructive pulmonary disease) Functional burping disorder GERD (gastroesophageal reflux disease) Hyperlipidemia Hypothyroidism Morbid obesity with BMI of 45.0-49.9, adult PAYAM (obstructive sleep apnea) Polyarthritis Tobacco dependence Type 2 diabetes mellitus Ulcer, esophagus Surgical History Surgical History History of carpal tunnel surgery History of cervical discectomy History of vasectomy Status post trigger finger release Social History Social History Smoking packs per day: 1 Smoking cigarettes per day: 20.0 Years smoked: 50 Smoking pack-years: 50.00 Smoking status: Former smoker Tobacco type: cigarettes Second hand tobacco smoke exposure: No Smoking end date: 09/21/19 Alcohol intake: former Substance use: never Substance use type: marijuana Living arrangements: alone Additional living arrangements comments: . 2 Children. Additional occupation/education comments: Worked at [employer] in [facility]. Gender identity (if verbalized by the patient): Male Spiritual care concerns: No Agree to blood products: Yes Meds Home Medications and Allergies Home Medications Medication Instructions Recorded Confirmed Type amlodipine 10 mg tablet 10 mg PO DAILY 07/02/19 04/16/20 History aspirin 325 mg tablet 325 mg PO DAILY 07/02/19 04/16/20 History atorvastatin 80 mg tablet 20 mg PO DAILY 07/02/19 12/17/19 History carvedilol 25 mg tablet 25 mg PO Q12H 07/02/19 04/16/20 History insulin aspart U-100 100 unit/mL 28 unit SUB-Q TID ml 07/02/19 04/16/20 History subcutaneous solution nitroglycerin 0.4 mg sublingual 0.4 mg SUBLINGUAL Q5M PRN 07/02/19 04/07/20 History tablet tiotropium bromide 18 mcg capsule 1 cap INHALATION DAILY 07/02/19 04/07/20 History with inhalation device albuterol sulfate 90 mcg/actuation 1 inhalation INHALATION Q4-6H PRN 09/01/19 04/16/20 History breath activated powder inhaler ergocalciferol (vitamin D2) 1,250 1,250 mcg PO WEEKLY #10 cap 10/10/19 04/07/20 Rx mcg (50,000 unit) capsule clopidogrel 75 mg PO QAM 30 Days #30 tablet 11/23/19 04/16/20 Rx metformin 500 mg PO BID 30 Days #120 tablet 11/23/19 04/16/20 Rx finasteride [Proscar] 5 mg PO DAILY 12/17/19 04/07/20 History pantoprazole [Protonix] 40 mg PO BID #60 tablet 12/23/19 04/07/20 Rx fluconazole 150 mg tablet 150 mg PO DAILY #7 tablet 12/31/19 04/07/20 Rx insu
[2020-04-16] MEDS: BENZOCAINE (*SP) 60 ML SPRAY CAN (HURRICAINE) 1 SPRAY MUCOUS MEM (08:42)
[2020-04-16 08:52] VITALS: BP 118/73; PULSE 57; RESP 17; O2SAT 97
[2020-04-16 09:02] VITALS: BP 116/63; PULSE 59; RESP 19; O2SAT 97
[2020-04-16 09:12] VITALS: BP 117/62; PULSE 59; RESP 19; O2SAT 98
--- NOTE | 2020-04-16 09:38 | SUR.OPER ---
ENDOSCOPY PHASE 2 TEACHING COMPLETED. PT AND FAMILY VERBALIZED UNDERSTANDING.
== END 2020-04-16 09:45 | disposition home or self-care (01) ==
PROVIDERS: PCP Family Medicine; Visit Provider Internal Medicine Gastroenterology
PROC: 0DJ08ZZ Inspection of Upper Intestinal Tract, Via Natural or Artificial Opening Endoscopic (ICD-10-PCS; CPT 43235; principal; 2020-04-16 08:30)
DX: Z09 Encounter for follow-up examination after completed treatment for conditions other than malignant neoplasm (principal); K29.50 Unspecified chronic gastritis without bleeding; K44.9 Diaphragmatic hernia without obstruction or gangrene; J44.9 Chronic obstructive pulmonary disease, unspecified; E78.5 Hyperlipidemia, unspecified; E03.9 Hypothyroidism, unspecified; G47.33 Obstructive sleep apnea (adult) (pediatric); E11.9 Type 2 diabetes mellitus without complications; E66.01 Morbid (severe) obesity due to excess calories; Z68.42 Body mass index [BMI] 45.0-49.9, adult; Z79.4 Long term (current) use of insulin; Z79.82 Long term (current) use of aspirin; Z79.02 Long term (current) use of antithrombotics/antiplatelets; Z79.84 Long term (current) use of oral hypoglycemic drugs; Z87.891 Personal history of nicotine dependence
CPT/HCPCS: 43239; 88305; J2704; J7120

== ENCOUNTER 2020-04-25 12:21 | Outpatient (CLI) | payer MEDICARE, SELFPAY ==
--- NOTE | ~2020-04-25 | MR_ITS ---
. EXAMINATION: MR shoulder LT wo con DATE: 04/25/2020 13:36 INDICATION: Left shoulder pain. TECHNIQUE: Magnetic resonance imaging (MRI) of the left shoulder was performed without intravenous co ntrast. Sequences included axial PD-weighted FS FSE, coronal oblique PD-weighted FS FSE and T2-weight ed FS FSE, and sagittal oblique T2-weighted FS FSE and T1-weighted FSE. COMPARISON: Left shoulder radiographs 03/30/2020 FINDINGS: Coracoacromial arch: The acromion undersurface is flat in morphology (type I). There is moderate acromioclavicular joint o steoarthritis. There is mild subacromial/subdeltoid bursitis. Rotator cuff: There is severe supraspinatus tendinopathy. There is an articular sided partial-thickness tear of sup raspinatus and infraspinatus tendons measuring 1.9 cm anterior to posterior by 11 mm proximal to dist al by up to 90% tendon thickness in infraspinatus tendon. Teres minor tendon is normal. There is shelby re subscapularis tendinopathy with partial-thickness interstitial tear superiorly. There is no asymme tric fatty atrophy of the rotator cuff muscle bellies. Biceps tendon and glenoid labrum: Biceps tendon is partially medially displaced into the subscapularis tendon tear superiorly. There is a partial tear of intra-articular biceps tendon. There is extensive tearing of the glenoid labrum (S LAP tear). There is a 7 mm paralabral cyst at 8:00-9:00. Fluid: There is a small glenohumeral joint effusion. Bones/cartilage: The humeral head cartilage is normal. There is glenoid cartilage surface regularity. IMPRESSION: 1. Severe rotator cuff tendinopathy with partial-thickness tears involving supraspinatus, infraspinat us, and subscapularis tendons. 2. Partial-thickness tear of intra-articular biceps tendon, which is partially medially displaced int o the subscapularis tendon tear. 3. Mild glenoid chondrosis. SLAP tear. 4. Small glenohumeral joint effusion. 5. Moderate acromioclavicular joint osteoarthritis. 6. Mild subacromial/subdeltoid bursitis. Reviewed, dictated and finalized at location A. IMPRESSION: 1. Severe rotator cuff tendinopathy with partial-thickness tears involving supr aspinatus, infraspinatus, and subscapularis tendons. 2. Partial-thickness tear of intra-articular biceps tendon, which is partially medially displaced into the subscapularis tendon tear. 3. Mild glenoid chondrosis. SLAP tear. 4. Small glenohumeral joint effusion. 5. Moderate acromioclavicular joint osteoarthritis. 6. Mild subacromial/subdeltoid bursitis.
== END 2020-04-25 12:22 | disposition home or self-care (01) ==
PROVIDERS: PCP Family Medicine; Visit Provider Orthopaedic Surgery
DX: M75.102 Unspecified rotator cuff tear or rupture of left shoulder, not specified as traumatic (principal); S43.432A Superior glenoid labrum lesion of left shoulder, initial encounter; S46.212A Strain of muscle, fascia and tendon of other parts of biceps, left arm, initial encounter; M25.412 Effusion, left shoulder; M19.012 Primary osteoarthritis, left shoulder; M75.52 Bursitis of left shoulder
CPT/HCPCS: 73221

== ENCOUNTER 2020-05-05 10:02 | Outpatient (CLI) | payer MEDICARE, SELFPAY ==
[2020-05-05 10:15] LABS: Basophils Absolute Auto 0.07 K/mm3 (0.00-0.10); Basophils Percent Auto 0.9 % (0.0-1.0); Eosinophils Absolute Auto 0.21 K/mm3 (0.02-0.50); Eosinophils Percent Auto 2.6 % (1.0-6.0); Hematocrit 46.6 % (37.0-46.0); Hemoglobin 15.1 g/dL (12.4-15.3); Immature Granulocyte Absolute 0.03 K/mm3 (0.00-0.00); Immature Granulocyte Percent A 0.4 % (0.0-0.0); Lymphocytes Percent Auto 22.6 % (18.0-42.0); Mean Corpuscular HGB Conc 32.4 g/dL (32.0-36.0); Mean Corpuscular Hemoglobin 29.4 pg (27.0-31.0); Mean Corpuscular Volume 90.7 fL (78.0-102.0); Mean Platelet Volume 9.6 fl (8.7-11.0); Monocytes Absolute Auto 0.54 K/mm3 (0.10-0.90); Monocytes Percent Auto 6.8 % (2.0-11.0); Neutrophils Absolute Auto 5.3 K/mm3 (1.7-7.2); Neutrophils Percent Auto 66.7 % (50.0-70.0); Platelet Count Result 396 K/mm3 (150-420); Red Blood Count 5.14 M/mm3 (4.70-6.10); Red Cell Distribution Width 13.7 % (11.6-14.4)
[2020-05-05 10:34] LABS: Creatinine Urine 207.14 mg/dL (40-278); Total Protein Urine Random 39.7 mg/dL (0.0-11.9)
[2020-05-05 11:05] LABS: Albumin Level 4.3 g/dL (3.4-5.0); Anion Gap 10 mmol/L (8-16); Blood Urea Nitrogen 12 mg/dL (7-18); Calcium 9.2 mg/dL (8.5-10.1); Carbon Dioxide 28 mmol/L (21-32); Chloride 100 mmol/L (98-108); Estimated Glomerular Filt Rate 49; Glucose 318 mg/dL (70-99); Osmolality Calculated 297 mOsm/kg (285-295); Phosphorus 3.8 mg/dL (2.6-4.7); Potassium 4.9 mmol/L (3.5-5.1); Sodium 138 mmol/L (136-145)
[2020-05-08 11:14] LABS: Vitamin D 25 Hydroxy 14 ng/mL (30-100)
[2020-05-08 13:24] LABS: Parathyroid Intact 79 pg/mL (14-64)
== END 2020-05-05 10:03 | disposition home or self-care (01) ==
LOC: CHSLAB 10:04
PROVIDERS: PCP Family Medicine; Visit Provider Internal Medicine Nephrology
DX: N18.3 Chronic kidney disease, stage 3 (moderate) (principal)
CPT/HCPCS: 36415; 80069; 82306; 82570; 83970; 84156; 85025

== ENCOUNTER 2020-06-14 09:19 | Outpatient (CLI) | payer MEDICARE, SELFPAY ==
[2020-06-14 09:52] LABS: Creatinine Urine 175.73 mg/dL (40-278); MALB Creatinine Ratio 33.7 mg/g (0-30); Microalbumin Urine Random 59.3 mg/L
[2020-06-14 10:04] LABS: Hemoglobin A1C 9.1 % (<5.7)
[2020-06-14 10:55] LABS: Alanine Aminotransferase 35 U/L (16-63); Albumin Level 4.2 g/dL (3.4-5.0); Alkaline Phosphatase 66 U/L (46-116); Anion Gap 8 mmol/L (8-16); Aspartate Amino Transferase 15 U/L (15-37); Bilirubin,Total 0.6 mg/dL (0.00-1.00); Blood Urea Nitrogen 20 mg/dL (7-18); Carbon Dioxide 29 mmol/L (21-32); Chloride 100 mmol/L (98-108); Cholesterol 220 mg/dL (0-200); Estimated Glomerular Filt Rate 48; Free T4 Free Thyroxine 0.63 ng/dL (0.76-1.46); Glucose 203 mg/dL (70-99); HDL Direct 49 mg/dL (40-60); LDL Cholesterol Calculated 153 mg/dL (<130); Osmolality Calculated 292 mOsm/kg (285-295); Potassium 5.1 mmol/L (3.5-5.1); Sodium 137 mmol/L (136-145); Thyroid Stimulating Hormone 34.99 uIU/mL (0.36-3.74); Triglycerides 90 mg/dL (0-150)
== END 2020-06-14 09:20 | disposition home or self-care (01) ==
PROVIDERS: PCP Family Medicine; Visit Provider Internal Medicine Endocrinology, Diabetes & Metabolism
DX: E78.5 Hyperlipidemia, unspecified (principal); E11.65 Type 2 diabetes mellitus with hyperglycemia; E03.9 Hypothyroidism, unspecified
CPT/HCPCS: 36415; 80053; 80061; 82043; 83036; 84439; 84443

== ENCOUNTER 2020-06-22 14:15 | Outpatient (RCR) | payer MEDICARE, SELFPAY ==
[2020-04-08 12:59] VITALS: BMI 47.0
[2020-04-08 13:00] VITALS: BMI 47.0
[2020-05-25 09:30] VITALS: BMI 46.9
[2020-05-25 09:32] VITALS: BMI 46.9
== END 2020-06-22 16:51 | disposition home or self-care (01) ==
LOC: ANHDMC 14:15
PROVIDERS: PCP Family Medicine; Visit Provider Family Medicine
DX: E11.65 Type 2 diabetes mellitus with hyperglycemia (principal); Z71.3 Dietary counseling and surveillance; Z71.89 Other specified counseling
CPT/HCPCS: 97803; G0108

== ENCOUNTER 2020-09-13 08:38 | Outpatient (CLI) | payer MEDICARE, SELFPAY ==
[2020-09-13 09:08] LABS: Hemoglobin A1C 8.7 % (<5.7)
[2020-09-13 09:12] LABS: Creatinine Urine 220.31 mg/dL (40-278)
[2020-09-13 09:13] LABS: MALB Creatinine Ratio 84.8 mg/g (0-30); Microalbumin Urine Random 186.9 mg/L
[2020-09-13 10:03] LABS: Alanine Aminotransferase 35 U/L (16-63); Albumin Level 4.2 g/dL (3.4-5.0); Alkaline Phosphatase 79 U/L (46-116); Anion Gap 8 mmol/L (8-16); Aspartate Amino Transferase 16 U/L (15-37); Bilirubin,Total 0.4 mg/dL (0.00-1.00); Blood Urea Nitrogen 16 mg/dL (7-18); Calcium 9.3 mg/dL (8.5-10.1); Carbon Dioxide 32 mmol/L (21-32); Chloride 102 mmol/L (98-108); Cholesterol 173 mg/dL (0-200); Estimated Glomerular Filt Rate 33; Free T3 0.79 pg/mL (2.18-3.98); Free T4 Free Thyroxine 0.25 ng/dL (0.76-1.46); Glucose 162 mg/dL (70-99); HDL Direct 52 mg/dL (40-60); LDL Cholesterol Calculated 100 mg/dL (<130); Osmolality Calculated 299 mOsm/kg (285-295); Potassium 4.3 mmol/L (3.5-5.1); Sodium 142 mmol/L (136-145); Thyroid Stimulating Hormone 72.38 uIU/mL (0.36-3.74); Total Protein 7.5 g/dL (6.4-8.2); Triglycerides 104 mg/dL (0-150)
[2020-09-16 05:55] LABS: Thyroid Peroxidase Antibodies 2039 IU/mL (<9)
== END 2020-09-13 08:39 | disposition home or self-care (01) ==
LOC: CHSLAB 08:40
PROVIDERS: PCP Family Medicine; Visit Provider Internal Medicine Endocrinology, Diabetes & Metabolism
DX: E11.65 Type 2 diabetes mellitus with hyperglycemia (principal); E03.9 Hypothyroidism, unspecified; E78.5 Hyperlipidemia, unspecified
CPT/HCPCS: 36415; 80053; 80061; 82043; 83036; 84439; 84443; 84481; 86376

== ENCOUNTER 2020-10-06 12:40 | Outpatient (CLI) | payer MEDICARE, SELFPAY ==
--- NOTE | ~2020-10-06 | XR_ITS ---
EXAMINATION: XR barium swallow modified EXAM DATE: 10/06/2020 13:30 INDICATION: Dysphagia, dyspnea, enlarged tonsils. TECHNIQUE: Modified barium esophagram was performed by myself to administered fluoroscopy, in conjun ction with speech pathologist who administered barium in varying consistencies as per speech patholog ist documentation. This was recorded on tape. The DAP for this procedure was 7.0 Gycm2. FINDINGS: Oral stage: Reduced left labial closure. Pharyngeal phase: Reduced laryngeal elevation and tongue base retraction. Laryngeal penetration: Demonstrated mostly with uncontrolled thin liquids, mostly ejected. Aspiration: None. Laryngeal sensitivity: Present. IMPRESSION: Oral feedings recommended with limitations as per speech pathologist. Please refer to narendra nichole pathologist findings and specific feeding recommendations. Reviewed, dictated and finalized at location A. CE MACHINE INSPECTOR IMPRESSION: Oral feedings recommended with limitations as per speech pathologis t. Please refer to speech pathologist findings and specific feeding recommend ations.
--- NOTE | 2020-10-06 15:19 | STOPEVAL ---
SWALLOW STUDY Thank you for referring Ant Kinney to [facility].?This was an evaluation only. See results below. Referring Physician Date Admitting Provider: Attending Provider: Livan Ryan DO Referring Provider: AVELINO Outpatient Evaluation Start: 10/06/20 13:35 Freq: Status: Active Protocol: Document 10/06/20 13:35 MJB (Rec: 10/06/20 13:56 MJB [id number]) Therapy Assessment Status Assessment Status Assessment Status Evaluation Outpatient Past Medical History Past Medical History Source of Past Medical History Patient Neurological History Hx Transient Ischemic Attacks (TIA) Yes: 11/2019 Cardiovascular History Hx Vascular Surgery Yes: STATES NO SURGERY DISSECTED [place] 50% BLOOD FLOW TO RT LEG, DR. MARCUS @ [place] Respiratory History Hx Bronchitis Yes Hx Chronic Obstructive Pulmonary Disease Yes (COPD) Hx Sleep Apnea Yes Gastrointestinal History Hx Esophageal Disorders Yes: esophageal ulcers Hx Gastroesophageal Reflux Disease Yes: Takes Pantoprazole Hx Other Gastrointestinal Disorders Yes: 2017 GROWTH ON PANCERATIES = BX BENIGN Genitourinary History Hx Renal Disease Yes Musculoskeletal History Hx Spinal Surgery Yes: C SPINE DISKECTOMY Hematological History Hx Hematological Disorders No Significant History Endocrine History Hx Diabetes Yes: Type 2 Hx Hypothyroidism Yes HEENT History Hx Dental Problems Yes: FULL UPPER DENTURES Hx Other HEENT Disorders Yes: GLASSES, BILATERAL HEARING AIDS, [place] Integumentary History Hx Excision Skin Lesion Yes: MOLES X2 REMOVED-BENIGN Psychosocial History Hx Psychiatric Disorders No Significant History Pain History Has Past Pain Affected Your Daily Life Yes Anesthesia History Hx Anesthesia Reactions No Significant History Prior Level of Function Medications Home Meds (Include: OTC, RX, Vitamins, patient takes medication for Herbals, Dose, Route,and Frequency) GERD. See list of medications Query Text:Home Med Entries Will No for detail Longer Recall From Past Visits. Home Meds Must Be Re-entered With Each Visit. Home Setting Home Type House Living Situation Alone Support Available None Mobility Assistive Devices (Used Last 3 None Months) Prior Swallow Level Prior Intake Method Oral Prior Diet Regular (Level 7 Diet) Prior Liquid Consistency Thin (Level 0 Diet) Prior Cognition/Communication Prior Communication Level No Impairment Prior Cognitive Function Able
== END 2020-10-06 12:41 | disposition home or self-care (01) ==
LOC: CHSIMG 12:41
PROVIDERS: PCP Family Medicine; Visit Provider Family Medicine
DX: R13.10 Dysphagia, unspecified (principal)
CPT/HCPCS: 92611

== ENCOUNTER 2020-11-04 08:58 | Outpatient (CLI) | payer MEDICARE, SELFPAY ==
[2020-11-04 09:11] LABS: Basophils Absolute Auto 0.08 K/mm3 (0.00-0.10); Basophils Percent Auto 1.1 % (0.0-1.0); Eosinophils Absolute Auto 0.13 K/mm3 (0.02-0.50); Eosinophils Percent Auto 1.8 % (1.0-6.0); Hemoglobin 14.5 g/dL (12.4-15.3); Immature Granulocyte Absolute 0.03 K/mm3 (0.00-0.00); Immature Granulocyte Percent A 0.4 % (0.0-0.0); Lymphocytes Absolute Auto 1.81 K/mm3 (1.10-4.50); Lymphocytes Percent Auto 25.7 % (18.0-42.0); Mean Corpuscular Hemoglobin 30.2 pg (27.0-31.0); Mean Corpuscular Volume 91.7 fL (78.0-102.0); Mean Platelet Volume 9.6 fl (8.7-11.0); Monocytes Absolute Auto 0.49 K/mm3 (0.10-0.90); Neutrophils Absolute Auto 4.5 K/mm3 (1.7-7.2); Platelet Count Result 389 K/mm3 (150-420); Red Cell Distribution Width 13.3 % (11.6-14.4); White Blood Count 7.1 K/mm3 (4.8-10.8)
[2020-11-04 09:38] LABS: Creatinine Urine 142.37 mg/dL (40-278); Total Protein Urine Random 81.9 mg/dL (0.0-11.9); Ur Ttl Prot Creatinine Ratio 0.58 mg/mg (0-0.20)
[2020-11-04 09:51] LABS: Anion Gap 6 mmol/L (8-16); Blood Urea Nitrogen 19 mg/dL (7-18); Calcium 9.1 mg/dL (8.5-10.1); Carbon Dioxide 32 mmol/L (21-32); Chloride 103 mmol/L (98-108); Estimated Glomerular Filt Rate 33; Glucose 136 mg/dL (70-99); Osmolality Calculated 296 mOsm/kg (285-295); Phosphorus 4.2 mg/dL (2.6-4.7); Potassium 4.1 mmol/L (3.5-5.1); Sodium 141 mmol/L (136-145)
[2020-11-07 11:09] LABS: Parathyroid Intact 100 pg/mL (14-64)
[2020-11-08 13:43] LABS: Vitamin D 25 Hydroxy 20 ng/mL (30-100)
== END 2020-11-04 08:59 | disposition home or self-care (01) ==
LOC: CHSLAB 09:00
PROVIDERS: PCP Family Medicine; Visit Provider Internal Medicine Nephrology
DX: N18.31 Chronic kidney disease, stage 3a (principal)
CPT/HCPCS: 36415; 80069; 82306; 82570; 83970; 84156; 85025

== ENCOUNTER 2021-08-24 09:21 | Outpatient (CLI) | payer MEDICARE, SELFPAY ==
[2021-08-24 10:02] LABS: Hemoglobin A1C 9.7 % (<5.7)
[2021-08-24 10:42] LABS: Creatinine Urine 79.24 mg/dL (40-278)
[2021-08-24 11:17] LABS: MALB Creatinine Ratio 504.7 mg/g (0-30); Microalbumin Urine Random > 400.0 mg/L
[2021-08-24 11:49] LABS: Alanine Aminotransferase 40 U/L (16-63); Albumin Level 3.9 g/dL (3.4-5.0); Alkaline Phosphatase 104 U/L (46-116); Anion Gap 12 mmol/L (8-16); Aspartate Amino Transferase 15 U/L (15-37); Bilirubin,Total 0.5 mg/dL (0.00-1.00); Blood Urea Nitrogen 24 mg/dL (7-18); Calcium 8.7 mg/dL (8.5-10.1); Carbon Dioxide 27 mmol/L (21-32); Chloride 98 mmol/L (98-108); Cholesterol 264 mg/dL (0-200); Estimated Glomerular Filt Rate 29; Free T4 Free Thyroxine 0.81 ng/dL (0.76-1.46); Glucose 334 mg/dL (70-99); HDL Direct 47 mg/dL (40-60); LDL Cholesterol Calculated 179 mg/dL (<130); Osmolality Calculated 301 mOsm/kg (285-295); Potassium 4.7 mmol/L (3.5-5.1); Sodium 137 mmol/L (136-145); Thyroid Stimulating Hormone 37.62 uIU/mL (0.36-3.74); Total Protein 7.1 g/dL (6.4-8.2); Triglycerides 190 mg/dL (0-150)
== END 2021-08-24 09:22 | disposition home or self-care (01) ==
LOC: CHSLAB 09:25
PROVIDERS: PCP Family Medicine; Visit Provider Internal Medicine Endocrinology, Diabetes & Metabolism
DX: E11.65 Type 2 diabetes mellitus with hyperglycemia (principal); E78.5 Hyperlipidemia, unspecified
CPT/HCPCS: 36415; 80053; 80061; 82043; 83036; 84439; 84443

== ENCOUNTER 2021-09-28 09:41 | Observation (INO) | payer MEDICARE, SELFPAY ==
[2021-09-28] VITALS (10 sets, daily range): BP systolic 141–171; BP diastolic 56–92; PULSE 50–96; RESP 17–20; TEMP 35.7–36.3; O2SAT 96–100; BMI 46.1
--- NOTE | ~2021-09-28 | XR_ITS ---
XR chest 1V portable 09/28/2021 10:53 Indication: Shortness of breath. Procedure: AP portable chest Comparison: 11/12/2018 Findings: Heart size is normal. There is subsegmental atelectasis left midlung zone. Stable nodule ri ght upper lung, likely calcified granuloma. No focal pneumonia, edema, pleural effusion or pneumothor ax. Impression: 1: Subsegmental atelectasis left midlung. Reviewed, dictated and finalized at location B. YBOAT DECKHAND Impression: 1: Subsegmental atelectasis left midlung.
--- NOTE | ~2021-09-28 | CT_ITS ---
EXAMINATION: CT brain wo con DATE: 09/28/2021 10:52 INDICATION: Left leg weakness TECHNIQUE: Computed tomography (CT) of the head was performed without intravenous contrast. The dose- length product was 605.33 mGy-cm. Automated exposure control and iterative reconstruction technique w ere employed. COMPARISON: CT dated 11/22/2019 FINDINGS: There is a chronic right frontal lobe infarction anterior to the lateral ventricle. No vent riculomegaly or midline shift. No acute intracranial hemorrhage, infarction, mass or mass effect. Bas ilar cisterns are patent. Midline sagittal images are unremarkable. Structures of the posterior fossa are unremarkable. Paranasal sinuses and mastoids are pneumatized. No depressed skull fractures. Ther e is intracranial atherosclerosis. There are scattered mild periventricular and subcortical white mat ter changes, most likely related to small vessel ischemic disease (microangiopathy). IMPRESSION: 1. No acute intracranial abnormality. 2: Chronic right frontal lobe infarction. 3: Chronic age-related findings. Reviewed, dictated and finalized at location B. BORER
--- NOTE | 2021-09-28 09:56 | ED.NEUROSD ---
HPI - Neuro Symptoms/Deficit General Chief Complaint: Weakness Stated Complaint: thinks he is having a stroke Time Seen by Provider: 09/28/21 10:00 Source: patient Mode of arrival: ambulatory History of Present Illness HPI Narrative: 66-year-old male with obesity, smoker with hypertension, diabetes mellitus, hypothyroidism, dyslipidemia, CVA with chronic right-sided weakness, peripheral vascular disease( involvement of right superficial femoral artery and carotids), COPD, PAYAM presents to the ER with 2 day history of -- numbness of the left side of the face -- left leg weakness -- right-sided headache -- elevated blood sugars the patient has chronic right-sided weakness with intermittent weakness. Onset (ago): day(s) ( Two days.) Severity: moderate Quality: weak and numb Relieving factors: none Context: gradual onset On Anticoagulants: No Associated symptoms: denies other symptoms Treatments Prior to Arrival: other ( on Plavix) Related Data Home Medications Medication Instructions Recorded Confirmed amlodipine 10 mg tablet 10 mg PO DAILY 07/02/19 10/25/20 carvedilol 25 mg tablet 25 mg PO Q12H 07/02/19 10/25/20 melatonin 10 mg capsule 10 mg PO HS 04/20/20 10/25/20 albuterol 90 mcg INHALATION PRN PRN 06/15/20 10/25/20 insulin regular hum U-500 conc 60 unit SUBCUT QHS ml 11/11/20 insulin regular hum U-500 conc 75 unit SUBCUT .Q AM ml 11/11/20 levothyroxine 75 mcg capsule 75 mcg PO DAILY 11/11/20 tiotropium bromide 2.5 2 puff INHALATION DAILY 11/11/20 mcg/actuation mist for inhalation atorvastatin 20 mg tablet 80 mg PO DAILY tablet 08/04/21 levothyroxine 50 mcg capsule 100 mcg PO DAILY cap 08/04/21 dapagliflozin [Farxiga] 10 mg PO DAILY 09/28/21 09/28/21 insulin regular hum U-500 conc 20 unit SUBCUT QACLUNCH 09/28/21 09/28/21 [Humulin R U-500 (Conc) Insulin] insulin regular human [Humulin R 50 unit SUBCUT BID 09/28/21 09/28/21 Regular U-100 Insuln] semaglutide [Rybelsus] 7 mg PO DAILY 09/28/21 09/28/21 varenicline 0.5 mg PO BID 09/28/21 09/28/21 Allergies Allergy/AdvReac Type Severity Reaction Status Date / Time Penicillins Allergy Intermediate HEAD TURNS Verified 09/28/21 10:00 RED semaglutide [From Ozempic] Allergy Mild Rash Verified 09/28/21 10:00 amoxicillin Allergy Unknown HEAD TURNS Verified 09/28/21 10:00 RED dulaglutide [From Trulicity] Allergy Swelling Verified 09/28/21 10:00 of Lip/Tongue/Throat niacin AdvReac Unknown Verified 09/28/21 10:00 Review of Systems Review of Systems: All systems reviewed & are unremarkable except as noted in HPI and below Constitutional: Constitutional: Reports as per HPI and Reports no additional constitutional complaints Eyes: Eyes: Reports as per HPI and Reports no additional eye complaints ENT: Reports system reviewed and no additional complaints, except as documented Comments: hard of and uses hearing aids Cardiovascular: Cardiovascular: Reports as per HPI and Reports no additional cardiovascular complaints Respiratory: Comments: no cough or shortness of breath. Increased sputum production Gastrointestinal: Gastrointestinal: Reports as per HPI and Reports no additional gastrointestinal complaints Genitourinary: Genitourinary: Reports no additional male genitourinary complaints Musculoskeletal: Comments: diffuse joint pain predominantly of the right and right knee. Integumentary/Breasts: Skin/Breast: Reports system reviewed and no additional complaints, except as docu Neurologic: Reports system reviewed and no additional complaints, except as documented and Reports headache(s) Comments: Left facial numbness and left leg weakness. Chronic right-sided weakness Psychiatric: Psychiatric: Reports no additional psychiatric complaints and Reports as per HPI Hematologic/Lymphatic: Hematologic/Lymphatic: Reports no additional hematologic/lymphatic complaints Allergic/Immunologic: Allergic/Immunologic: Reports no additional allergi
--- NOTE | 2021-09-28 10:11 | ECG_ITS ---
Measurements Intervals [place] Rate: 47 P: 76 IA: 188 QRS: -48 QRSD: 108 T: 100 QT: 506 QTc: 447 Interpretive Statements SINUS BRADYCARDIA LEFT ANTERIOR FASCICULAR BLOCK LEFT VENTRICULAR HYPERTROPHY AND ST-T CHANGE MINIMAL Q WAVES- HIGH LATERAL LEADS CANNOT RULE OUT SEPTAL INFARCT, AGE INDETERMINATE BASELINE ARTIFACT- V5 ABNORMAL ECG Electronically Signed On 09-28-2021 14:01:39 WELDING MACHINE OPERATOR RESISTANCE by Edward Paula D.O.
[2021-09-28 10:39] LABS: Basophils Absolute Auto 0.06 K/mm3 (0.00-0.10); Basophils Percent Auto 0.8 % (0.0-1.0); Eosinophils Absolute Auto 0.21 K/mm3 (0.02-0.50); Eosinophils Percent Auto 2.7 % (1.0-6.0); Hematocrit 46.1 % (37.0-46.0); Hemoglobin 15.1 g/dL (12.4-15.3); Immature Granulocyte Absolute 0.05 K/mm3 (0.00-0.00); Immature Granulocyte Percent A 0.6 % (0.0-0.0); Lymphocytes Absolute Auto 1.37 K/mm3 (1.10-4.50); Lymphocytes Percent Auto 17.7 % (18.0-42.0); Mean Corpuscular HGB Conc 32.8 g/dL (32.0-36.0); Mean Corpuscular Hemoglobin 29.3 pg (27.0-31.0); Mean Corpuscular Volume 89.3 fL (78.0-102.0); Mean Platelet Volume 9.9 fl (8.7-11.0); Monocytes Absolute Auto 0.45 K/mm3 (0.10-0.90); Monocytes Percent Auto 5.8 % (2.0-11.0); Neutrophils Absolute Auto 5.6 K/mm3 (1.7-7.2); Neutrophils Percent Auto 72.4 % (50.0-70.0); Platelet Count Result 375 K/mm3 (150-420); Red Blood Count 5.16 M/mm3 (4.70-6.10); Red Cell Distribution Width 13.8 % (11.6-14.4); White Blood Count 7.7 K/mm3 (4.8-10.8)
[2021-09-28 10:55] LABS: INR 0.9; Partial Thromboplastin Time 27.9 SEC (23.90-30.70); Prothrombin Time 10.1 Seconds (9.50-12.10)
[2021-09-28 10:59] LABS: Lactic Acid Reflex 1.2 mmol/L (0.4-2.0); SARS-CoV-2 Ag Negative (Negative)
[2021-09-28 11:02] LABS: Alanine Aminotransferase 81 U/L (16-63); Albumin Level 3.3 g/dL (3.4-5.0); Alkaline Phosphatase 142 U/L (46-116); Anion Gap 9 mmol/L (8-16); Aspartate Amino Transferase 28 U/L (15-37); Bilirubin,Total 0.4 mg/dL (0.00-1.00); Blood Urea Nitrogen 20 mg/dL (7-18); Calcium 8.5 mg/dL (8.5-10.1); Carbon Dioxide 28 mmol/L (21-32); Chloride 103 mmol/L (98-108); Estimated CRCL calculation 34 ml/min; Estimated Glomerular Filt Rate 24; Glucose 262 mg/dL (70-99); NT Pro B Type Natriuretic Pept 364 pg/mL (0-125); Osmolality Calculated 301 mOsm/kg (285-295); Sodium 140 mmol/L (136-145); Total Protein 6.9 g/dL (6.4-8.2); Troponin I 15.9 ng/L (0.00-60.4)
--- NOTE | 2021-09-28 13:00 | ADMGEN ---
This patient, Ant Kinney, was admitted to 2nd Floor Room 204-1. Patient/family oriented to hospital policies and general routines including ID bracelet, bed and alarms, visiting hours, pain management, procedures, bathroom and other care routines, personal items, smoking policy, room service/diet, and visiting hours. Information on how to activate the Rapid Response Team has been discussed. Patient/Family are encouraged to report perceived risks to care and to ask questions if they do not understand what they are told or what they should do.
[2021-09-28] MEDS: SODIUM CHLORIDE 0.9% IV 1,000 ML 100 ML IV CONT ×2 (13:01→22:05)
--- NOTE | 2021-09-28 13:11 | PC.NURSE ---
Pt dexcom reading reports blood sugar of 135. Pt given lunch tray from kitchen. Per Malgorzata STOVE POLISHER, no insulin will be given at this time.
--- NOTE | 2021-09-28 14:00 | PCPTNOTE ---
No Care Plan initiated due to patient being discharged today.
--- NOTE | 2021-09-28 16:51 | PC.NURSE ---
PT blood sugar 140 on Dexcom device. Pt declines any insulin at this time.
[2021-09-28] MEDS: VARENICLINE 1 MG TABLET PO (16:54)
--- NOTE | 2021-09-28 21:30 | PC.NURSE ---
Patient's blood sugar is 157 per his Dexcom. Heart rate is 57. Patient refused his Coreg due to low heart rate. Patient denies pain/complaints/needs @ this time IV NS infusing to site in right hand without difficultly. No distress noted. Call light in reach.
[2021-09-28] MEDS: MELATONIN 5 MG TABLET 10 MG PO (21:36)
[2021-09-29] VITALS: BP 161/83; PULSE 58; RESP 18; TEMP 36.4; O2SAT 95
[2021-09-29] MEDS: HYDROcodone/acetaminophen (*CRX) 5-325 MG TABLET 1 TAB PO (00:54)
[2021-09-29 04:00] VITALS: BP 150/72; PULSE 55; RESP 18; TEMP 36.3; O2SAT 94
[2021-09-29 05:22] LABS: Hemoglobin 13.8 g/dL (12.4-15.3); Mean Corpuscular HGB Conc 32.9 g/dL (32.0-36.0); Mean Corpuscular Hemoglobin 29.7 pg (27.0-31.0); Mean Corpuscular Volume 90.3 fL (78.0-102.0); Mean Platelet Volume 9.9 fl (8.7-11.0); Platelet Count Result 373 K/mm3 (150-420); Red Blood Count 4.65 M/mm3 (4.70-6.10)
[2021-09-29 05:39] LABS: Alanine Aminotransferase 58 U/L (16-63); Albumin Level 2.9 g/dL (3.4-5.0); Alkaline Phosphatase 118 U/L (46-116); Anion Gap 9 mmol/L (8-16); Aspartate Amino Transferase 26 U/L (15-37); Bilirubin,Total 0.4 mg/dL (0.00-1.00); Blood Urea Nitrogen 18 mg/dL (7-18); Calcium 8.2 mg/dL (8.5-10.1); Carbon Dioxide 26 mmol/L (21-32); Chloride 105 mmol/L (98-108); Estimated CRCL calculation 39 ml/min; Estimated Glomerular Filt Rate 28; Glucose 202 mg/dL (70-99); Magnesium 2.3 mg/dL (1.8-2.4); Osmolality Calculated 297 mOsm/kg (285-295); Potassium 4.2 mmol/L (3.5-5.1); Sodium 140 mmol/L (136-145); Total Protein 6.1 g/dL (6.4-8.2)
[2021-09-29] MEDS: LEVOTHYROXINE SODIUM 100 MCG, LEVOTHYROXINE SODIUM 75 MCG 175 MCG PO (06:02)
--- NOTE | 2021-09-29 07:36 | PM.SD2 ---
Same Day Admit/Disch: HPI History of Present Illness Chief complaint: ACUTE KIDNEY INJURY TIA RULE OUT CVA Narrative: s a 66-year-old male who presented to our emergency department with complaints of right-sided facial numbness, and right-sided headache. Patient has a history of arthritis, constipation, COPD, diabetes, dysphagia, emphysema, GERD, hearing loss, hyperlipidemia, hypertension, hypothyroidism,, CAD, polyarthritis, stomach ulcer, stroke with left-sided residual, and tobacco dependency. According to patient he developed a headache with right-sided facial numbness on Sunday patient notes that he had numbness to his right lower extremity but that is not new to him he has neuropathy. During this assessment patient notes that he still continues to have slight numbness to the right side of his face but he no longer has a headache. WBCs 7.7, hemoglobin 15.1, hematocrit 46.1, platelets 375, sodium 140, potassium 4.0, BUN 20, creatinine 2.64, glucose 262, lactic acid 1.2, total bili 0.4, AST 28, ALT 81, magnesium 2.3, troponin 15.9, BNP 364, Covid negative, CT of the head does not indicate any acute intracranial abnormalities, CT of the chest indicates Subsegmental atelectasis left midlung. Patient being admitted to rule out CVA and acute on chronic kidney injury. The patient denies SOB, CP, palpitation, extremity numbness, lightheadedness, dizziness, constipation, diarrhea, chills, or fever. Spoke with patient's primary care physician recommended patient goes into a swing bed or SNF. Patient refuses to swing bed or SNF according to patient he has 5 cats at home that he needs to take care of and he has no one to take care of the cats. Patient did agree to outpatient PT/ OT. It was determined by physical therapy that patient did not require any additional therapy and he was safe to go home. During this hospital stay patient's heart rate in the 40s this day of discharge will decrease his carvedilol to 12.5 mg twice daily instead of 25 mg twice daily. [facility] Past Medical History Medical History Arthritis Chronic urticaria Colon cancer screening Constipation COPD (chronic obstructive pulmonary disease) Diabetes Dysphagia Emphysema of lung Functional burping disorder GERD (gastroesophageal reflux disease) Hearing loss Hospital discharge follow-up Hyperlipidemia Hypertension Hyperthyroidism Hypothyroidism Morbid obesity with BMI of 45.0-49.9, adult PAYAM (obstructive sleep apnea) Polyarthritis Stomach ulcer Stroke Tobacco dependence Type 2 diabetes mellitus Ulcer, esophagus Vision abnormalities Weight gain Surgical History Surgical History History of arthroscopy History of carpal tunnel surgery History of cervical discectomy History of vasectomy Status post trigger finger release Family History Family History Father , Unknown cause of No problems noted. Mother , Unknown cause of No problems noted. Sibling Hypertension Other Diabetes mellitus Parkinson disease Social History Social History Smoking packs per day: 1 Smoking cigarettes per day: 20.0 Years smoked: 40 Smoking pack-years: 40.00 Smoking status: Current every day smoker Tobacco type: cigarettes Second hand tobacco smoke exposure: No Additional smoking assessment comments: pt currently on Chantix to quit smoking Alcohol intake: current Alcohol use details: STATES MAYBE 1 DRINK/MONTH Substance use: never Substance use type: marijuana Last use: JANUARY 2020 Additional living arrangements comments: . 2 Children. Additional occupation/education comments: Worked at [employer] in [place]. 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 Gender identity (if verb
[2021-09-29 08:00] VITALS: BP 164/88; PULSE 64; RESP 20; TEMP 36; O2SAT 96
[2021-09-29] MEDS: VARENICLINE 1 MG TABLET PO (08:21)
--- NOTE | 2021-09-29 08:30 | ECG_ITS ---
Measurements Intervals [place] Rate: 65 P: 73 OK: 184 QRS: -43 QRSD: 125 T: 106 QT: 465 QTc: 485 Interpretive Statements SINUS RHYTHM LEFT AXIS DEVIATION INTRAVENTRICULAR CONDUCTION DELAY BORDERLINE R WAVE PROGRESSION, ANTERIOR LEADS MINIMAL Q WAVES- HIGH LATERAL LEADS ST-T WAVE ABNORMALITY IN HIGH LATERAL LEADS- CONSIDER ISCHEMIA ABNORMAL ECG Electronically Signed On 09-29-2021 9:16:50 INFORMATION AND DATA ARCHITECT ANALYST by Edward Paula D.O.
[2021-09-29 09:23] VITALS: PULSE 60
--- NOTE | 2021-09-29 09:53 | PC.NURSE ---
0948 dc instructions went over with him. vocalizes an understanding. iv removed and pressure applied. dc per wc to his personal auto.
--- NOTE | 2021-10-03 11:17 | PC.NURSE ---
discharge call back completed, no questions regarding stay, did receive dc instructions and did understand them, encouraged to call if questions arise
== END 2021-09-29 09:50 | disposition home or self-care (01) ==
LOC: CHSED 11:45 → CHS2ND 12:24
PROVIDERS: Nurse Practitioner; Admitting Provider Internal Medicine; Emergency Provider Internal Medicine Critical Care Medicine; PCP Family Medicine; Visit Provider Internal Medicine
DX: R20.0 Anesthesia of skin (principal); N17.9 Acute kidney failure, unspecified; N18.4 Chronic kidney disease, stage 4 (severe); I12.9 Hypertensive chronic kidney disease with stage 1 through stage 4 chronic kidney disease, or unspecified chronic kidney disease; E11.22 Type 2 diabetes mellitus with diabetic chronic kidney disease; E11.65 Type 2 diabetes mellitus with hyperglycemia; E11.51 Type 2 diabetes mellitus with diabetic peripheral angiopathy without gangrene; I73.9 Peripheral vascular disease, unspecified; I69.354 Hemiplegia and hemiparesis following cerebral infarction affecting left non-dominant side; E03.9 Hypothyroidism, unspecified; E66.01 Morbid (severe) obesity due to excess calories; E78.5 Hyperlipidemia, unspecified; J43.9 Emphysema, unspecified; K21.9 Gastro-esophageal reflux disease without esophagitis; L50.8 Other urticaria; G47.33 Obstructive sleep apnea (adult) (pediatric); R29.701 NIHSS score 1; F17.210 Nicotine dependence, cigarettes, uncomplicated; Z20.822 Contact with and (suspected) exposure to COVID-19; Z79.4 Long term (current) use of insulin; Z79.01 Long term (current) use of anticoagulants
CPT/HCPCS: 36415; 70450; 71045; 80053; 83605; 83735; 83880; 84484; 85025; 85027; 85610; 85730; 87426; 93005; 96360; 96361; 97161; 97165; 99285; A9270; C9803; G0378; J7030

== ENCOUNTER 2021-10-01 08:00 | Outpatient (CLI) | payer MEDICARE, SELFPAY ==
[2021-10-01 08:47] LABS: Alanine Aminotransferase 53 U/L (16-63); Albumin Level 3.3 g/dL (3.4-5.0); Alkaline Phosphatase 139 U/L (46-116); Anion Gap 6 mmol/L (8-16); Aspartate Amino Transferase 25 U/L (15-37); Bilirubin,Total 0.4 mg/dL (0.00-1.00); Blood Urea Nitrogen 16 mg/dL (7-18); Calcium 8.8 mg/dL (8.5-10.1); Carbon Dioxide 32 mmol/L (21-32); Chloride 104 mmol/L (98-108); Estimated Glomerular Filt Rate 26; Glucose 184 mg/dL (70-99); Osmolality Calculated 300 mOsm/kg (285-295); Sodium 142 mmol/L (136-145); Total Protein 7.1 g/dL (6.4-8.2)
== END 2021-10-01 08:01 | disposition home or self-care (01) ==
LOC: CHSIMG 08:02
PROVIDERS: PCP Family Medicine; Visit Provider Nurse Practitioner
DX: N17.9 Acute kidney failure, unspecified (principal); I63.9 Cerebral infarction, unspecified
CPT/HCPCS: 36415; 80053

== ENCOUNTER 2021-10-04 06:56 | Outpatient (CLI) | payer MEDICARE, SELFPAY ==
--- NOTE | ~2021-10-04 | MR_ITS ---
EXAMINATION: MR brain/brain stem wo con DATE: 10/04/2021 07:49 INDICATION: Cerebral infarction. TECHNIQUE: Magnetic resonance imaging (MRI) of the brain and brainstem was performed without intraven ous contrast. Sequences included sagittal and axial T1-weighted FSE, axial diffusion-weighted FS EPI, axial T2*-weighted GRE, axial T2-weighted FLAIR Propeller, and axial T2-weighted Propeller. Apparent diffusion coefficient (ADC) maps were created. COMPARISON: Head CT 09/28/2021 FINDINGS: There are scattered areas of nonspecific increased T2-weighted signal intensity in the cere bral white matter. There is a small acute infarct in right temporal lobe. There is a small old infarc t in right frontal lobe. There is no intracranial hemorrhage or abnormal mass lesion. The ventricles are normal in size. The mastoid air cells are normal. There is loss of the normal flow void in left i nternal carotid artery. There is mucosal thickening in the paranasal sinuses. IMPRESSION: 1. Small acute infarct in right temporal lobe. 2. Small old infarct in right frontal lobe. 3. Mild nonspecific cerebral white matter disease, which likely represents chronic small vessel ische edinson disease. 4. Loss of the normal flow void in left internal carotid artery, which may be secondary to thrombosis or slow flow. Consider carotid ultrasound. Reviewed, dictated and finalized at location A. STUDY MANAGER IMPRESSION: 1. Small acute infarct in right temporal lobe. 2. Small old infarct in right frontal lobe. 3. Mild nonspecific cerebral white matter disease, which likely represents brick pitcher sheila small vessel ischemic disease. 4. Loss of the normal flow void in left internal carotid artery, which may be s econdary to thrombosis or slow flow. Consider carotid ultrasound.
--- NOTE | 2021-10-04 09:16 | ECG_ITS ---
Measurements Intervals [place] Rate: 86 P: 72 [place]: 184 QRS: -48 QRSD: 123 T: 108 QT: 400 QTc: 481 Interpretive Statements SINUS RHYTHM LEFT ANTERIOR FASCICULAR BLOCK LEFT VENTRICULAR HYPERTROPHY AND ST-T CHANGE POSSIBLE ANTEROSEPTAL MYOCARDIAL INFARCTION , OF INDETERMINATE AGE Electronically Signed On 10-04-2021 12:32:51 PROBE OPERATOR by Jarret Rojas M.D.
[2021-10-04 10:03] LABS: Alanine Aminotransferase 56 U/L (16-63); Albumin Level 3.6 g/dL (3.4-5.0); Alkaline Phosphatase 165 U/L (46-116); Anion Gap 11 mmol/L (8-16); Aspartate Amino Transferase 28 U/L (15-37); Bilirubin,Total 0.4 mg/dL (0.00-1.00); Blood Urea Nitrogen 23 mg/dL (7-18); Calcium 9.2 mg/dL (8.5-10.1); Carbon Dioxide 28 mmol/L (21-32); Chloride 99 mmol/L (98-108); Estimated Glomerular Filt Rate 23; Potassium 4.3 mmol/L (3.5-5.1); Sodium 138 mmol/L (136-145); Total Protein 7.4 g/dL (6.4-8.2); Troponin I 18.2 ng/L (0.00-60.4)
[2021-10-04 10:08] LABS: Glucose 529 mg/dL (70-99); Osmolality Calculated 313 mOsm/kg (285-295)
== END 2021-10-04 06:57 | disposition home or self-care (01) ==
PROVIDERS: PCP Family Medicine; Visit Provider Nurse Practitioner
DX: N17.9 Acute kidney failure, unspecified (principal); I63.9 Cerebral infarction, unspecified; E11.59 Type 2 diabetes mellitus with other circulatory complications; I15.2 Hypertension secondary to endocrine disorders
CPT/HCPCS: 36415; 70551; 80053; 84484; 93005

== ENCOUNTER 2021-10-05 09:33 | Outpatient (CLI) | payer MEDICARE, SELFPAY ==
--- NOTE | ~2021-10-05 | US_ITS ---
EXAMINATION: US carotid duplex BI DATE: 10/05/2021 10:08 INDICATION: Cerebral infarction. Atherosclerosis. TECHNIQUE: Grayscale, color Doppler, and pulsed Doppler images of the cervical carotid arteries were obtained. The degree of vessel stenosis is placed in one of the following categories: normal, <50%, 5 0-69%, >=70% but less than near-occlusion, near-occlusion, or total occlusion. Note that percent sten osis relative to normal distal artery lumen diameter is indirectly measured from velocity measurement s as described by Jasper, et al. Radiology 2003; 229:340-346. Notes: Normal: Peak systolic velocity <125 centimeters/sec and no plaque <50%. Peak systolic velocity <125 ( EDV <40; ICA/CCA PSV ratio <2.0; used these factors only a tandem lesions or low cardiac output or co ntralateral disease) 50-69 %: PSV 125-230 (EDV 40-100; ratio 2-4) >= 70% but less than near occlusion: PSV greater than 230 (EDV > 100; ratio> 4.0) Near Occlusion: PSV that is variable; markedly narrowed lumen Occlusion: Absent flow on color/spectral Doppler and no lumen on hammonds scale. COMPARISON: None. FINDINGS: RIGHT: The right common carotid artery (CCA) peak systolic velocity (PSV) is 130 cm/s. The right internal ca rotid artery (ICA) PSV is 130 cm/s. The right ICA end-diastolic velocity (EDV) is 22 cm/s. The right ICA/CCA PSV ratio is 1.0. The external carotid artery (ECA) PSV is 114 cm/s. There is antegrade flow in the right vertebral artery. LEFT: No identifiable flow in the left common carotid artery. The left ICA PSV is 25 cm/s. The left ICA EDV is 13 cm/s. The ECA PSV is 61 cm/s. There is antegrade flow in the left vertebral artery. IMPRESSION: 1. 50-69% stenosis in the right internal carotid artery by sonographic criteria. 2. No identifiable flow in the left common carotid artery consistent with occlusion or near occlusion . Consider correlation with CT angiography. Reviewed, dictated and finalized at location A. INE FURNACE TENDER IMPRESSION: 1. 50-69% stenosis in the right internal carotid artery by sonographic criteria . 2. No identifiable flow in the left common carotid artery consistent with occlu simon or near occlusion. Consider correlation with CT angiography.
== END 2021-10-05 09:34 | disposition home or self-care (01) ==
LOC: CHSIMG 09:34
PROVIDERS: PCP Family Medicine; Visit Provider Family Medicine
DX: I63.9 Cerebral infarction, unspecified (principal)
CPT/HCPCS: 93880

== ENCOUNTER 2021-10-11 10:39 | Outpatient (CLI) | payer MEDICARE, SELFPAY ==
--- NOTE | ~2021-10-11 | US_ITS ---
EXAMINATION: US retroperitoneal comp DATE: 10/11/2021 10:57 INDICATION: Vitamin D deficiency, chronic kidney disease TECHNIQUE: Multiple grayscale and Doppler ultrasound images of the kidneys were obtained. COMPARISON: 12/22/2018 FINDINGS: The right kidney measures 12.1 x 5.8 x 6.7 cm. The left kidney measures 8.7 x 5.1 x 4.2 cm. The kidneys demonstrate normal parenchymal echogenicity. There is no hydronephrosis. The bladder is normal. IMPRESSION: 1. Chronic atrophy of the left kidney. Reviewed, dictated and finalized at location B. ESALE ACCOUNT MANAGER
[2021-10-11 11:08] LABS: Basophils Absolute Auto 0.08 K/mm3 (0.00-0.10); Basophils Percent Auto 0.9 % (0.0-1.0); Eosinophils Absolute Auto 0.24 K/mm3 (0.02-0.50); Eosinophils Percent Auto 2.7 % (1.0-6.0); Hematocrit 47.5 % (37.0-46.0); Hemoglobin 15.8 g/dL (12.4-15.3); Immature Granulocyte Absolute 0.04 K/mm3 (0.00-0.00); Immature Granulocyte Percent A 0.5 % (0.0-0.0); Lymphocytes Absolute Auto 1.99 K/mm3 (1.10-4.50); Lymphocytes Percent Auto 22.6 % (18.0-42.0); Mean Corpuscular HGB Conc 33.3 g/dL (32.0-36.0); Mean Corpuscular Hemoglobin 29.6 pg (27.0-31.0); Mean Platelet Volume 9.6 fl (8.7-11.0); Monocytes Absolute Auto 0.52 K/mm3 (0.10-0.90); Monocytes Percent Auto 5.9 % (2.0-11.0); Neutrophils Absolute Auto 5.9 K/mm3 (1.7-7.2); Neutrophils Percent Auto 67.4 % (50.0-70.0); Platelet Count Result 473 K/mm3 (150-420); Red Blood Count 5.34 M/mm3 (4.70-6.10); Red Cell Distribution Width 13.7 % (11.6-14.4); White Blood Count 8.8 K/mm3 (4.8-10.8)
[2021-10-11 11:18] LABS: Add Urine Microscopic? YES; Appearance Urine Clear (Clear); Bilirubin Urine Negative (Negative); Blood Urine 2+ (Negative); Color Urine Light Yellow (Yellow); Glucose Urine UA 3+ (Negative); Ketones Urine Negative (Negative); Leukocyte Esterase Ur Negative LEU/UL (Negative); Nitrate Urine Negative (Negative); Protein Urine 3+ (Negative); Urobilinogen Urine 0.2 mg/dL (0.2-1.0); pH Urine 6.5 (5.0-8.0)
[2021-10-11 11:37] LABS: WBC Urine None seen /hpf (0-3)
[2021-10-11 11:38] LABS: Bacteria Urine Trace /hpf
[2021-10-11 11:41] LABS: Creatinine Urine 95.06 mg/dL (40-278); Sodium Urine Random 53 mmol/L (20-110)
[2021-10-11 11:42] LABS: Total Protein Urine Random > 250.0 mg/dL (0.0-11.9); Ur Ttl Prot Creatinine Ratio 2.63 mg/mg (0-0.20)
[2021-10-11 11:53] LABS: Albumin Level 3.9 g/dL (3.4-5.0); Anion Gap 8 mmol/L (8-16); Blood Urea Nitrogen 18 mg/dL (7-18); Calcium 9.1 mg/dL (8.5-10.1); Carbon Dioxide 34 mmol/L (21-32); Chloride 102 mmol/L (98-108); Estimated Glomerular Filt Rate 25; Glucose 155 mg/dL (70-99); Osmolality Calculated 302 mOsm/kg (285-295); Phosphorus 4.6 mg/dL (2.6-4.7); Potassium 4.1 mmol/L (3.5-5.1); Sodium 144 mmol/L (136-145)
[2021-10-13 15:47] LABS: Vitamin D 25 Hydroxy 12 ng/mL (30-100)
[2021-10-14 16:36] LABS: Parathyroid Intact 199 pg/mL (14-64)
== END 2021-10-11 10:40 | disposition home or self-care (01) ==
LOC: CHSIMG 10:40
PROVIDERS: PCP Family Medicine; Visit Provider Internal Medicine Nephrology
DX: N18.4 Chronic kidney disease, stage 4 (severe) (principal); E55.9 Vitamin D deficiency, unspecified
CPT/HCPCS: 36415; 76770; 80069; 81001; 82306; 82570; 83970; 84156; 84300; 85025

== ENCOUNTER 2021-12-29 14:23 | Emergency (ER) | payer MEDICARE, SELFPAY ==
--- NOTE | ~2021-12-29 | XR_ITS ---
EXAMINATION: XR chest 1V portable 12/29/2021 15:22 INDICATION: History of COPD. PROCEDURE: AP portable chest COMPARISON: Comparison to multiple prior studies sequentially, with oldest reviewed study dated 07/06. FINDINGS: The lungs are clear. Stable calcified granuloma right upper lobe. The cardiomediastinal grover houette is within normal limits. There are no pleural effusions. There is no pneumothorax suspected . IMPRESSION: 1: NO ACUTE CARDIOPULMONARY DISEASE. Reviewed, dictated and finalized at location A.
--- NOTE | ~2021-12-29 | CT_ITS ---
EXAMINATION: CT brain wo con DATE: 12/29/2021 15:21 INDICATION: Blurred vision. Double vision. Dizziness. TECHNIQUE: Computed tomography (CT) of the head was performed without intravenous contrast. The dose- length product was 605.33 mGy-cm. Automated exposure control and iterative reconstruction technique w ere employed. COMPARISON: CT dated 09/28/2021 FINDINGS: There is a focal chronic right frontal lobe infarction. There are scattered mild periventri cular and subcortical white matter changes, most likely related to small vessel ischemic disease (edinson roangiopathy). No ventriculomegaly or midline shift. Basilar cisterns are patent. There is mucosal th ickening of the ethmoid air cells. Mastoids are pneumatized. No depressed skull fractures. No acute i ntracranial hemorrhage, infarction, mass or mass effect. IMPRESSION: 1. No acute intracranial abnormality. 2: Chronic right frontal lobe infarction. 3: Chronic age-related findings. Reviewed, dictated and finalized at location A.
[2021-12-29 14:23] VITALS: BP 178/107; PULSE 95; RESP 20; TEMP 36.5; O2SAT 95
--- NOTE | 2021-12-29 14:36 | ECG_ITS ---
Measurements Intervals [place] Rate: 84 P: [place]: 0 QRS: -53 QRSD: 123 T: 102 QT: 401 QTc: 475 Interpretive Statements SINUS RHYTHM LEFT ANTERIOR FASCICULAR BLOCK LEFT VENTRICULAR HYPERTROPHY AND ST-T CHANGE ABNORMAL ECG Electronically Signed On 12-29-2021 14:53:16 CDT by Edward Paula D.O.
[2021-12-29] MEDS: ONDANSETRON INJ 4 MG/2 ML VIAL IV PUSH (14:47)
--- NOTE | 2021-12-29 14:51 | ECG_ITS ---
Measurements Intervals [place] Rate: 95 P: 77 [place]: 184 QRS: -58 QRSD: 116 T: 95 QT: 396 QTc: 500 Interpretive Statements SINUS RHYTHM LEFT ANTERIOR FASCICULAR BLOCK LEFT VENTRICULAR HYPERTROPHY AND ST-T CHANGE ABNORMAL ECG Electronically Signed On 12-29-2021 15:18:05 CDT by Edward Paula D.O.
[2021-12-29 15:12] LABS: Basophils Absolute Auto 0.09 K/mm3 (0.00-0.10); Eosinophils Absolute Auto 0.16 K/mm3 (0.02-0.50); Eosinophils Percent Auto 1.7 % (1.0-6.0); Hematocrit 48.5 % (37.0-46.0); Hemoglobin 15.9 g/dL (12.4-15.3); Immature Granulocyte Absolute 0.04 K/mm3 (0.00-0.00); Immature Granulocyte Percent A 0.4 % (0.0-0.0); Lymphocytes Absolute Auto 1.58 K/mm3 (1.10-4.50); Mean Corpuscular HGB Conc 32.8 g/dL (32.0-36.0); Mean Corpuscular Hemoglobin 30.1 pg (27.0-31.0); Mean Corpuscular Volume 91.7 fL (78.0-102.0); Mean Platelet Volume 10.3 fl (8.7-11.0); Monocytes Absolute Auto 0.55 K/mm3 (0.10-0.90); Monocytes Percent Auto 5.9 % (2.0-11.0); Neutrophils Absolute Auto 6.9 K/mm3 (1.7-7.2); Platelet Count Result 414 K/mm3 (150-420); Red Blood Count 5.29 M/mm3 (4.70-6.10); Red Cell Distribution Width 13.3 % (11.6-14.4); White Blood Count 9.3 K/mm3 (4.8-10.8)
[2021-12-29 15:19] VITALS: PULSE 95
[2021-12-29 15:20] LABS: Hemoglobin A1C 8.8 % (<5.7)
--- NOTE | 2021-12-29 15:20 | ED.GENADULT ---
HPI - General Adult General Chief complaint: Unspecified Stated complaint: AMBULANCE Source: patient Mode of arrival: EMS Limitations: no limitations History of Present Illness HPI narrative: this is 66-year-old gentleman with a history of peripheral vascular disease has a stent placed in femoral artery has had carotid arterial occlusion is currently a tobacco user, with a history of diabetes and COPD with hypertension. All the patient stated that about 3:00 a.m. this morning about 12hours ago he developed blurry vision, with no other symptoms no neurological deficits there is no chest pain no shortness of breath no abdominal pain no fever chills no headaches. Patient does have peripheral vascular disease and had a ultrasound of his carotids performed in October which shows near occlusion of the left carotid with right carotid showing 50 to 69% blockage. Patient states it is his blood pressure and diabetes have not been well controlled. history of stroke, With no history of heart attacks. Otherwise no flank pain no dysuria no hematuria. Onset (ago): hour(s) Location: eyes Radiation: non-radiation Severity: mild Relieving factors: none Exacerbating factors: none Associated symptoms: denies other symptoms Treatments prior to arrival: none Related Data Home Medications Medication Instructions Recorded Confirmed amlodipine 10 mg tablet 10 mg PO DAILY 07/02/19 12/29/21 albuterol 90 mcg/actuation aerosol 90 mcg inhalation PRN PRN 06/15/20 12/29/21 inhaler Shortness Of Breath Or Wheezing levothyroxine 75 mcg capsule 75 mcg PO DAILY 11/11/20 12/29/21 tiotropium bromide 2.5 2 puff inhalation DAILY 11/11/20 12/29/21 mcg/actuation mist for inhalation (Spiriva Respimat) levothyroxine 50 mcg capsule 100 mcg PO DAILY 08/04/21 12/29/21 dapagliflozin 10 mg tablet 10 mg PO DAILY 09/28/21 12/29/21 ([facility]) insulin regular human 100 unit/mL 80 unit subcut BID 09/28/21 12/29/21 injection solution (Humulin R Regular U-100 Insulin) semaglutide 7 mg tablet (Rybelsus) 7 mg PO DAILY 09/28/21 12/29/21 varenicline 0.5 mg tablet 0.5 mg PO BID 09/28/21 12/29/21 Allergies Allergy/AdvReac Type Severity Reaction Status Date / Time Penicillins Allergy Intermediate HEAD TURNS Verified 10/04/21 07:31 RED semaglutide [From Ozempic] Allergy Mild Rash Verified 10/04/21 07:31 amoxicillin Allergy Unknown HEAD TURNS Verified 10/04/21 07:31 RED dulaglutide [From Trulicity] Allergy Swelling Verified 10/04/21 07:31 of Lip/Tongue/Throat niacin AdvReac Unknown Verified 10/04/21 07:31 Review of Systems Review of Systems: All systems reviewed & are unremarkable except as noted in HPI and below PMFSH Past Medical History Medical History Arthritis Chronic urticaria Colon cancer screening Constipation COPD (chronic obstructive pulmonary disease) Diabetes Dysphagia Emphysema of lung Functional burping disorder GERD (gastroesophageal reflux disease) Hearing loss Hospital discharge follow-up Hyperlipidemia Hypertension Hyperthyroidism Hypothyroidism Morbid obesity with BMI of 45.0-49.9, adult PAYAM (obstructive sleep apnea) Polyarthritis Stomach ulcer Stroke Tobacco dependence Type 2 diabetes mellitus Ulcer, esophagus Vision abnormalities Weight gain Surgical History Surgical History History of arthroscopy History of carpal tunnel surgery History of cervical discectomy History of vasectomy Status post trigger finger release Family History Family History Father , Unknown cause of No problems noted. Mother , Unknown cause of No problems noted. Sibling Hypertension Other Diabetes mellitus Parkinson disease Social History Social History Smo
[2021-12-29 15:25] VITALS: PULSE 98; RESP 18; O2SAT 95
[2021-12-29 15:38] VITALS: PULSE 100; RESP 18; O2SAT 100
[2021-12-29 15:39] LABS: Alanine Aminotransferase 26 U/L (16-63); Albumin Level 3.7 g/dL (3.4-5.0); Alkaline Phosphatase 85 U/L (46-116); Anion Gap 10 mmol/L (8-16); Aspartate Amino Transferase < 10 U/L (15-37); Bilirubin,Total 0.6 mg/dL (0.00-1.00); Blood Urea Nitrogen 18 mg/dL (7-18); CRP 0.8 mg/dL (0.0-0.9); Carbon Dioxide 26 mmol/L (21-32); Chloride 101 mmol/L (98-108); Estimated CRCL calculation 34 ml/min; Estimated Glomerular Filt Rate 25; Glucose 216 mg/dL (70-99); NT Pro B Type Natriuretic Pept 476 pg/mL (0-125); Osmolality Calculated 292 mOsm/kg (285-295); Potassium 3.5 mmol/L (3.5-5.1); Sodium 137 mmol/L (136-145); Total Protein 7.2 g/dL (6.4-8.2); Troponin I 12.3 ng/L (0.00-60.4)
[2021-12-29 15:46] LABS: Appearance Urine Clear (Clear); Bilirubin Urine Negative (Negative); Color Urine Light Yellow (Yellow); Glucose Urine UA 3+ (Negative); Ketones Urine Trace (Negative); Leukocyte Esterase Ur Negative (Negative); Nitrate Urine Negative (Negative); Protein Urine 3+ (Negative); Specific Grav Ur 1.025 (1.010-1.020); Urobilinogen Urine 0.2 mg/dL (0.2-1.0)
[2021-12-29 15:52] LABS: Amphetamine Screen Urine Negative (Negative); Barbiturate Screen Urine Negative (Negative); Benzodiazepines Screen Urine Negative (Negative); Cannabinoid Screen Urine Negative (Negative); Cocaine Screen Urine Negative (Negative); Methadone Screen Urine Negative (Negative); Opiate Screen Urine Negative (Negative); Phencyclidine Screen Urine Negative (Negative)
--- NOTE | 2021-12-29 15:52 | PC.NURSE ---
pt speaking with daughter on the phone, dr syed in with patient.
[2021-12-29 15:53] VITALS: BP 149/97; PULSE 88; RESP 20; TEMP 37.1; O2SAT 97
[2021-12-29 15:57] LABS: Add Urine Microscopic? YES; Blood Urine Trace-Intact (Negative); RBC Urine 0-2 /hpf (0-2); Squamous Epithelial Cell Urine Rare /hpf (Few); WBC Urine None seen /hpf (0-3)
[2021-12-29 15:58] LABS: Bacteria Urine Trace /hpf
[2021-12-29 15:59] VITALS: BP 149/98; PULSE 88; RESP 20; TEMP 36.6; O2SAT 97
[2021-12-29 16:04] LABS: Partial Thromboplastin Time 28.9 SEC (23.90-30.70); Prothrombin Time 10.3 Seconds (9.50-12.10)
[2022-01-03 14:43] LABS: Thyroid Stimulating Hormone Reflex 51.76 u/IU/mL (0.36-3.74)
[2022-01-03 15:00] LABS: Free T4 Free Thyroxine Reflex 0.66 ng/dL (0.76-1.46)
== END 2021-12-29 16:03 | disposition home or self-care (01) ==
PROVIDERS: Nurse Practitioner Family; Emergency Provider Emergency Medicine; PCP Family Medicine
DX: H53.8 Other visual disturbances (principal); I65.23 Occlusion and stenosis of bilateral carotid arteries; E11.51 Type 2 diabetes mellitus with diabetic peripheral angiopathy without gangrene; I73.9 Peripheral vascular disease, unspecified; I10 Essential (primary) hypertension; J44.9 Chronic obstructive pulmonary disease, unspecified; E78.5 Hyperlipidemia, unspecified; E03.9 Hypothyroidism, unspecified; E66.9 Obesity, unspecified; K27.9 Peptic ulcer, site unspecified, unspecified as acute or chronic, without hemorrhage or perforation; K21.9 Gastro-esophageal reflux disease without esophagitis; M13.0 Polyarthritis, unspecified; G47.33 Obstructive sleep apnea (adult) (pediatric); R13.10 Dysphagia, unspecified; Z95.820 Peripheral vascular angioplasty status with implants and grafts; Z79.4 Long term (current) use of insulin; Z86.73 Personal history of transient ischemic attack (TIA), and cerebral infarction without residual deficits; Z79.899 Other long term (current) drug therapy
CPT/HCPCS: 36415; 70450; 71045; 80053; 80307; 81001; 83036; 83605; 83880; 84439; 84443; 84484; 85025; 85610; 85730; 86140; 93005; 94640; 96374; 99284; J2405

== ENCOUNTER 2022-01-19 11:46 | Outpatient (CLI) | payer MEDICARE, SELFPAY ==
[2022-01-19 12:23] LABS: Hemoglobin A1C 9.1 % (<5.7)
[2022-01-19 12:28] LABS: Creatinine Urine 95.11 mg/dL (40-278)
[2022-01-19 12:38] LABS: Alanine Aminotransferase 29 U/L (16-63); Albumin Level 3.7 g/dL (3.4-5.0); Alkaline Phosphatase 101 U/L (46-116); Anion Gap 5 mmol/L (8-16); Aspartate Amino Transferase 15 U/L (15-37); Bilirubin,Total 0.4 mg/dL (0.00-1.00); Blood Urea Nitrogen 19 mg/dL (7-18); Calcium 8.7 mg/dL (8.5-10.1); Carbon Dioxide 29 mmol/L (21-32); Chloride 101 mmol/L (98-108); Cholesterol 183 mg/dL (0-200); Estimated Glomerular Filt Rate 29; Free T3 1.73 pg/mL (2.18-3.98); Free T4 Free Thyroxine 1.09 ng/dL (0.76-1.46); Glucose 273 mg/dL (70-99); HDL Direct 41 mg/dL (40-60); LDL Cholesterol Calculated 112 mg/dL (<130); Osmolality Calculated 292 mOsm/kg (285-295); Potassium 4.1 mmol/L (3.5-5.1); Sodium 135 mmol/L (136-145); Thyroid Stimulating Hormone 14.69 uIU/mL (0.36-3.74); Total Protein 7.9 g/dL (6.4-8.2); Triglycerides 148 mg/dL (0-150)
[2022-01-19 12:51] LABS: MALB Creatinine Ratio 420.5 mg/g (0-30); Microalbumin Urine Random > 400.0 mg/L
== END 2022-01-19 11:47 | disposition home or self-care (01) ==
LOC: CHSLAB 11:49
PROVIDERS: PCP Family Medicine; Visit Provider Nurse Practitioner
DX: E78.5 Hyperlipidemia, unspecified (principal); E11.65 Type 2 diabetes mellitus with hyperglycemia; E03.9 Hypothyroidism, unspecified
CPT/HCPCS: 36415; 80053; 80061; 82043; 83036; 84439; 84443; 84481

== ENCOUNTER 2022-02-10 10:48 | Outpatient (CLI) | payer MEDICARE, SELFPAY ==
[2022-02-10 11:11] LABS: Basophils Absolute Auto 0.05 K/mm3 (0.00-0.10); Basophils Percent Auto 0.6 % (0.0-1.0); Eosinophils Absolute Auto 0.17 K/mm3 (0.02-0.50); Eosinophils Percent Auto 2.1 % (1.0-6.0); Hematocrit 46.6 % (37.0-46.0); Hemoglobin 15.3 g/dL (12.4-15.3); Immature Granulocyte Absolute 0.04 K/mm3 (0.00-0.00); Immature Granulocyte Percent A 0.5 % (0.0-0.0); Lymphocytes Absolute Auto 1.61 K/mm3 (1.10-4.50); Lymphocytes Percent Auto 19.9 % (18.0-42.0); Mean Corpuscular HGB Conc 32.8 g/dL (32.0-36.0); Mean Corpuscular Hemoglobin 29.1 pg (27.0-31.0); Mean Corpuscular Volume 88.6 fL (78.0-102.0); Mean Platelet Volume 9.8 fl (8.7-11.0); Monocytes Absolute Auto 0.48 K/mm3 (0.10-0.90); Monocytes Percent Auto 5.9 % (2.0-11.0); Neutrophils Absolute Auto 5.8 K/mm3 (1.7-7.2); Platelet Count Result 400 K/mm3 (150-420); Red Blood Count 5.26 M/mm3 (4.70-6.10); Red Cell Distribution Width 13.2 % (11.6-14.4); White Blood Count 8.1 K/mm3 (4.8-10.8)
[2022-02-10 11:29] LABS: Albumin Level 3.6 g/dL (3.4-5.0); Anion Gap 6 mmol/L (8-16); Blood Urea Nitrogen 25 mg/dL (7-18); Calcium 9.1 mg/dL (8.5-10.1); Carbon Dioxide 30 mmol/L (21-32); Chloride 102 mmol/L (98-108); Estimated Glomerular Filt Rate 27; Glucose 300 mg/dL (70-99); Osmolality Calculated 301 mOsm/kg (285-295); Phosphorus 3.7 mg/dL (2.6-4.7); Potassium 4.5 mmol/L (3.5-5.1); Sodium 138 mmol/L (136-145)
[2022-02-10 11:34] LABS: Creatinine Urine 151.38 mg/dL (40-278)
[2022-02-10 11:35] LABS: Total Protein Urine Random > 250.0 mg/dL (0.0-11.9); Ur Ttl Prot Creatinine Ratio 1.65 mg/mg (0-0.20)
[2022-02-13 12:18] LABS: Parathyroid Intact 105 pg/mL (14-64)
[2022-02-14 20:22] LABS: Vitamin D 25 Hydroxy 15 ng/mL (30-100)
== END 2022-02-10 10:49 | disposition home or self-care (01) ==
LOC: CHSLAB 10:50
PROVIDERS: PCP Family Medicine; Visit Provider Internal Medicine Nephrology
DX: N18.4 Chronic kidney disease, stage 4 (severe) (principal); E53.9 Vitamin B deficiency, unspecified
CPT/HCPCS: 36415; 80069; 82306; 82570; 83970; 84156; 85025

== ENCOUNTER 2022-04-14 10:16 | Outpatient (CLI) | payer MEDICARE, SELFPAY ==
[2022-04-14 10:45] LABS: Hemoglobin A1C 8.9 % (<5.7)
[2022-04-14 11:05] LABS: Alanine Aminotransferase 22 U/L (16-63); Alkaline Phosphatase 70 U/L (46-116); Anion Gap 10 mmol/L (8-16); Aspartate Amino Transferase 14 U/L (15-37); Bilirubin,Total 0.4 mg/dL (0.00-1.00); Blood Urea Nitrogen 20 mg/dL (7-18); Calcium 8.9 mg/dL (8.5-10.1); Carbon Dioxide 26 mmol/L (21-32); Chloride 101 mmol/L (98-108); Cholesterol 188 mg/dL (0-200); Estimated Glomerular Filt Rate 27; Free T3 1.64 pg/mL (2.18-3.98); Free T4 Free Thyroxine 0.95 ng/dL (0.76-1.46); Glucose 210 mg/dL (70-99); HDL Direct 43 mg/dL (40-60); LDL Cholesterol Calculated 111 mg/dL (<130); Osmolality Calculated 292 mOsm/kg (285-295); Potassium 3.9 mmol/L (3.5-5.1); Sodium 137 mmol/L (136-145); Thyroid Stimulating Hormone 19.73 uIU/mL (0.36-3.74); Total Protein 7.5 g/dL (6.4-8.2); Triglycerides 172 mg/dL (0-150)
[2022-04-17 07:42] LABS: Microalbumin Urine Random 146.3 mg/L
[2022-04-17 07:43] LABS: MALB Creatinine Ratio 88.6 mg/g (0-30)
== END 2022-04-14 10:17 | disposition home or self-care (01) ==
LOC: CHSLAB 10:21
PROVIDERS: PCP Family Medicine; Visit Provider Nurse Practitioner
DX: E78.5 Hyperlipidemia, unspecified (principal); E11.65 Type 2 diabetes mellitus with hyperglycemia; E03.9 Hypothyroidism, unspecified
CPT/HCPCS: 36415; 80053; 80061; 82043; 83036; 84439; 84443; 84481

== ENCOUNTER 2023-02-13 12:10 | Outpatient (CLI) | payer MEDICARE, SELFPAY ==
[2023-02-13 12:25] LABS: Basophils Absolute Auto 0.08 K/mm3 (0.00-0.10); Basophils Percent Auto 1.5 % (0.0-1.0); Eosinophils Absolute Auto 0.14 K/mm3 (0.02-0.50); Eosinophils Percent Auto 2.7 % (1.0-6.0); Hematocrit 44.3 % (37.0-46.0); Hemoglobin 14.5 g/dL (12.4-15.3); Immature Granulocyte Absolute 0.01 K/mm3 (0.00-0.00); Immature Granulocyte Percent A 0.2 % (0.0-0.0); Lymphocytes Absolute Auto 1.42 K/mm3 (1.10-4.50); Mean Corpuscular HGB Conc 32.7 g/dL (32.0-36.0); Mean Corpuscular Hemoglobin 29.7 pg (27.0-31.0); Mean Corpuscular Volume 90.8 fL (78.0-102.0); Mean Platelet Volume 9.5 fl (8.7-11.0); Monocytes Absolute Auto 0.23 K/mm3 (0.10-0.90); Monocytes Percent Auto 4.4 % (2.0-11.0); Neutrophils Absolute Auto 3.4 K/mm3 (1.7-7.2); Neutrophils Percent Auto 64.2 % (50.0-70.0); Platelet Count Result 342 K/mm3 (150-420); Red Blood Count 4.88 M/mm3 (4.70-6.10); White Blood Count 5.3 K/mm3 (4.8-10.8)
[2023-02-13 13:10] LABS: Alanine Aminotransferase 42 U/L (16-63); Albumin Level 4.4 g/dL (3.4-5.0); Alkaline Phosphatase 102 U/L (46-116); Anion Gap 8 mmol/L (8-16); Aspartate Amino Transferase 47 U/L (15-37); Bilirubin,Total 0.6 mg/dL (0.00-1.00); Blood Urea Nitrogen 21 mg/dL (7-18); Carbon Dioxide 32 mmol/L (21-32); Chloride 102 mmol/L (98-108); Cholesterol 417 mg/dL (0-200); Estimated Glomerular Filt Rate 18; Glucose 79 mg/dL (70-99); HDL Direct 68 mg/dL (40-60); LDL Cholesterol Calculated 303 mg/dL (<130); Osmolality Calculated 296 mOsm/kg (285-295); Potassium 4.2 mmol/L (3.5-5.1); Sodium 142 mmol/L (136-145); Total Protein 7.6 g/dL (6.4-8.2); Triglycerides 228 mg/dL (0-150)
[2023-02-13 13:12] LABS: Thyroid Stimulating Hormone Reflex > 96.00 u/IU/mL (0.36-3.74)
[2023-02-13 13:14] LABS: Free T4 Free Thyroxine Reflex 0.16 ng/dL (0.76-1.46)
[2023-02-13 13:27] LABS: Hemoglobin A1C 9.6 % (<5.7)
== END 2023-02-13 12:11 | disposition home or self-care (01) ==
PROVIDERS: PCP Family Medicine; Visit Provider Family Medicine
DX: I15.2 Hypertension secondary to endocrine disorders (principal); E11.59 Type 2 diabetes mellitus with other circulatory complications
CPT/HCPCS: 36415; 80053; 80061; 83036; 84439; 84443; 85025

== ENCOUNTER 2023-03-17 09:14 | Emergency (ER) | payer MEDICARE, SELFPAY ==
[2023-03-17] VITALS (19 sets, daily range): BP systolic 155–179; BP diastolic 86–109; PULSE 60–68; RESP 14–20; TEMP 35.7–36.2; O2SAT 97–100
--- NOTE | ~2023-03-17 | XR_ITS ---
EXAMINATION: XR chest 1V portable INDICATION: Wheezing and congestion TECHNIQUE: Portable AP chest at 1007 hours COMPARISON: 12/09/2021 FINDINGS: There is a chronic calcified nodule of the right upper lobe. There are minimal airspace opa cities of the right midlung zone. No pleural effusion or pneumothorax. The cardiomediastinal silhouet te is normal. IMPRESSION: 1. Minimal airspace opacities of the right midlung zone, consistent with atelectasis versus pneumonia . Reviewed, dictated and finalized at location A. IMPRESSION: 1. Minimal airspace opacities of the right midlung zone, consistent with atelec tasis versus pneumonia.
--- NOTE | ~2023-03-17 | XR_ITS ---
EXAMINATION: XR finger 5th RT min 2V INDICATION: Right fifth finger pain, initial encounter TECHNIQUE: Three views of the right fifth finger are obtained. COMPARISON: None available FINDINGS: There is an acute, traumatic, closed, oblique intra-articular fracture at the lateral base of the fifth proximal phalanx which extends to the metacarpophalangeal joint. There is mild osteoarth ritis of the visualized interphalangeal joints. There is soft tissue swelling of the fifth finger. IMPRESSION: 1. Acute intra-articular fracture at the lateral base of the fifth proximal phalanx. Reviewed, dictated and finalized at location A. IMPRESSION: 1. Acute intra-articular fracture at the lateral base of the fifth proximal pha lanx.
--- NOTE | ~2023-03-17 | XR_ITS ---
EXAMINATION: XR knee LT 3V DATE: 03/17/2023 10:21 INDICATION: Left knee pain TECHNIQUE: Three views of the left knee were obtained on four radiographs. COMPARISON: 03/30/2020 FINDINGS: Alignment is normal. No fracture or osteochondral lesion. There is mild osteoarthritis. The re is a small knee joint effusion. There is mild anterior soft tissue swelling of the knee. IMPRESSION: 1. Mild soft tissue swelling of the knee without acute osseous abnormality. 2. Small knee joint effusion mild osteoarthritis. Reviewed, dictated and finalized at location A.
--- NOTE | 2023-03-17 09:18 | ECG_ITS ---
Measurements Intervals [place] Rate: 61 P: 79 CT: 201 QRS: -67 QRSD: 125 T: 92 QT: 473 QTc: 478 Interpretive Statements SINUS RHYTHM LEFT ANTERIOR FASCICULAR BLOCK [QRS AXIS <= -45, QR IN I, RS IN II] ABNORMAL QRS-T ANGLE [QRS-T AXIS DIFFERENCE > 60] PROLONGED QT INTERVAL ABNORMAL ECG COMPARED TO ECG 12/29/2021 14:57:21 PROLONGED QT INTERVAL NOW PRESENT Electronically Signed On 03-17-2023 12:44:28 CDT by Tunde Barrett M.D.
--- NOTE | 2023-03-17 09:20 | ED.FALL ---
HPI - Fall General Chief Complaint: Fall Stated Complaint: fall Time Seen by Provider: 03/17/23 09:18 Source: patient and EMS Mode of arrival: EMS Limitations: no limitations History of Present Illness HPI Narrative: patient is a 67-year-old diabetic male with 3 falls yesterday. Patient declines and denies any LOC or any neurological complaints. His falls were all mechanical and secondary to his peripheral neuropathy of diabetes. He injured his right small finger and his left knee. Unfortunately, the 3rd fall he stayed on the floor and could not get to help until this morning which was about 8-10 hours on the floor. No sustained head or neck injuries. MD complaint: fall Onset (ago): hour(s) (8) Fall from: standing Fall witnessed: no Place fall occurred: home Loss of consciousness: none Prolonged down time: yes Symptoms prior to fall: none Context: tripped/slipped and new medication ( Peripheral neuropathy medication makes him sleepy) Location of injury: other ( left knee and right small finger) Severity: mild Severity scale (1-10): 2 Quality: dull and aching Associated symptoms (after fall): denies Related Data Home Medications Medication Instructions Recorded Confirmed albuterol 90 mcg/actuation aerosol 90 mcg inhalation PRN PRN 06/15/20 02/20/23 inhaler Shortness Of Breath Or Wheezing tiotropium bromide 2.5 2 puff inhalation DAILY 11/11/20 02/20/23 mcg/actuation mist for inhalation (Spiriva Respimat) insulin regular human 100 unit/mL 80 unit subcut BID 09/28/21 02/20/23 injection solution (Humulin R Regular U-100 Insulin) varenicline 0.5 mg tablet 1 mg PO BID 01/03/22 02/20/23 Allergies Allergy/AdvReac Type Severity Reaction Status Date / Time Penicillins Allergy Intermediate HEAD TURNS Verified 03/17/23 09:45 RED semaglutide [From Ozempic] Allergy Mild Rash Verified 02/13/23 08:11 amoxicillin Allergy Unknown HEAD TURNS Verified 02/13/23 08:11 RED dulaglutide [From Trulicity] Allergy Swelling Verified 02/13/23 08:11 of Lip/Tongue/Throat niacin AdvReac Unknown Verified 02/13/23 08:11 Review of Systems Review of Systems: All systems reviewed & are unremarkable except as noted in HPI and below Constitutional: Constitutional: Reports no additional constitutional complaints Eyes: Eyes: Reports no additional eye complaints ENT: Reports system reviewed and no additional complaints, except as documented Cardiovascular: Cardiovascular: Reports no additional cardiovascular complaints Respiratory: Respiratory: Reports no additional respiratory complaints Gastrointestinal: Gastrointestinal: Reports no additional gastrointestinal complaints Genitourinary: Genitourinary: Reports no additional male genitourinary complaints Musculoskeletal: Musculoskeletal: Reports no additional musculoskeletal complaints Integumentary/Breasts: Skin/Breast: Reports system reviewed and no additional complaints, except as docu Neurologic: Reports system reviewed and no additional complaints, except as documented Psychiatric: Psychiatric: Reports no additional psychiatric complaints Endocrine: Endocrine: Reports no additional endocrine complaints Hematologic/Lymphatic: Hematologic/Lymphatic: Reports no additional hematologic/lymphatic complaints Allergic/Immunologic: Allergic/Immunologic: Reports no additional allergic/immunologic complaints PMFSH Past Medical History Medical History Abnormal EKG Acute CVA (cerebrovascular accident) Arthritis Chronic urticaria Colon cancer screening Constipation COPD (chronic obstructive pulmonary disease) Diabetes Dysphagia Emphysema of lung Functional burping disorder GERD (gastroesophageal reflux disease) Hearing loss Hospital discharge follow-up Hyperlipidemia Hypertension Hyperthyroidism Hypothyroidism Left facial numbness Morbid obesity with BMI of 45.0-49.9, adult PAYAM (obstructive sleep
[2023-03-17 09:38] LABS: Basophils Absolute Auto 0.07 K/mm3 (0.00-0.10); Basophils Percent Auto 1.2 % (0.0-1.0); Eosinophils Absolute Auto 0.14 K/mm3 (0.02-0.50); Eosinophils Percent Auto 2.4 % (1.0-6.0); Hematocrit 42.3 % (37.0-46.0); Immature Granulocyte Absolute 0.03 K/mm3 (0.00-0.00); Immature Granulocyte Percent A 0.5 % (0.0-0.0); Lymphocytes Absolute Auto 1.25 K/mm3 (1.10-4.50); Lymphocytes Percent Auto 21.3 % (18.0-42.0); Mean Corpuscular HGB Conc 33.1 g/dL (32.0-36.0); Mean Corpuscular Hemoglobin 30.1 pg (27.0-31.0); Mean Platelet Volume 9.6 fl (8.7-11.0); Monocytes Absolute Auto 0.27 K/mm3 (0.10-0.90); Monocytes Percent Auto 4.6 % (2.0-11.0); Neutrophils Absolute Auto 4.1 K/mm3 (1.7-7.2); Platelet Count Result 302 K/mm3 (150-420); Red Blood Count 4.65 M/mm3 (4.70-6.10); Red Cell Distribution Width 14.7 % (11.6-14.4); White Blood Count 5.9 K/mm3 (4.8-10.8)
[2023-03-17 09:53] LABS: Alanine Aminotransferase 37 U/L (16-63); Albumin Level 4.2 g/dL (3.4-5.0); Alkaline Phosphatase 109 U/L (46-116); Anion Gap 8 mmol/L (8-16); Aspartate Amino Transferase 33 U/L (15-37); Bilirubin,Total 0.7 mg/dL (0.00-1.00); Blood Urea Nitrogen 28 mg/dL (7-18); Calcium 10.1 mg/dL (8.5-10.1); Carbon Dioxide 29 mmol/L (21-32); Chloride 100 mmol/L (98-108); Estimated CRCL calculation 22 ml/min; Estimated Glomerular Filt Rate 16; Glucose 169 mg/dL (70-99); Magnesium 2.4 mg/dL (1.8-2.4); Osmolality Calculated 293 mOsm/kg (285-295); Potassium 4.1 mmol/L (3.5-5.1); Sodium 137 mmol/L (136-145); Total Protein 7.3 g/dL (6.4-8.2); Troponin I 25.7 ng/L (0.00-60.4)
[2023-03-17] MEDS: SODIUM CHLORIDE 0.9% IV 1,000 ML 999 ML IV CONT ×2 (09:53→10:52)
[2023-03-17 09:56] LABS: Lactic Acid Reflex 0.9 mmol/L (0.4-2.0)
[2023-03-17 10:07] LABS: Creatine Kinase 768 U/L (39-308)
[2023-03-17 12:28] LABS: Anion Gap 9 mmol/L (8-16); Blood Urea Nitrogen 27 mg/dL (7-18); Calcium 9.5 mg/dL (8.5-10.1); Carbon Dioxide 28 mmol/L (21-32); Chloride 103 mmol/L (98-108); Estimated CRCL calculation 24 ml/min; Estimated Glomerular Filt Rate 18; Glucose 159 mg/dL (70-99); Osmolality Calculated 298 mOsm/kg (285-295); Potassium 4.1 mmol/L (3.5-5.1); Sodium 140 mmol/L (136-145)
[2023-03-17 13:32] LABS: Appearance Urine Clear (Clear); Color Urine Yellow (Yellow); Protein Urine 3+ (Negative); Specific Grav Ur >= 1.030 (1.010-1.020)
[2023-03-17 13:33] LABS: Bilirubin Urine Negative (Negative); Blood Urine 1+ (Negative); Glucose Urine UA Negative (Negative); Ketones Urine Negative (Negative); Leukocyte Esterase Ur Negative LEU/UL (Negative); Nitrate Urine Negative (Negative); Urobilinogen Urine 0.2 mg/dL (0.2-1.0)
[2023-03-17] MEDS: AZITHROMYCIN 250 MG TABLET 500 MG PO (13:35)
[2023-03-17 13:38] LABS: Add Urine Microscopic? YES; Squamous Epithelial Cell Urine Rare /hpf (Few); WBC Urine None seen /hpf (0-3)
[2023-03-17 13:39] LABS: Bacteria Urine Trace /hpf
--- NOTE | 2023-03-23 13:34 | PC.NURSE ---
blood culture reviewed, no growth
== END 2023-03-17 15:01 | disposition short-term general hospital (02) ==
PROVIDERS: Emergency Provider Emergency Medicine; PCP Family Medicine
DX: S37.009A Unspecified injury of unspecified kidney, initial encounter (principal); R34 Anuria and oliguria; J18.9 Pneumonia, unspecified organism; S62.616A Displaced fracture of proximal phalanx of right little finger, initial encounter for closed fracture; E11.42 Type 2 diabetes mellitus with diabetic polyneuropathy; E78.5 Hyperlipidemia, unspecified; E03.9 Hypothyroidism, unspecified; I10 Essential (primary) hypertension; J43.9 Emphysema, unspecified; Z86.73 Personal history of transient ischemic attack (TIA), and cerebral infarction without residual deficits; W18.30XA Fall on same level, unspecified, initial encounter; Y92.009 Unspecified place in unspecified non-institutional (private) residence as the place of occurrence of the external cause
CPT/HCPCS: 29130; 36415; 71045; 73140; 73562; 80048; 80053; 81001; 82550; 83605; 83735; 84484; 85025; 87040; 93005; 96360; 96361; 99285; A9270; J7030

== ENCOUNTER 2023-03-17 15:40 | Inpatient (IN) | payer MEDICARE, SELFPAY ==
[2023-03-17] VITALS (7 sets, daily range): BP systolic 138–174; BP diastolic 63–94; PULSE 50–74; RESP 18–20; TEMP 36.2–36.4; O2SAT 97–100; BMI 43.4
--- NOTE | ~2023-03-17 | US_ITS ---
EXAMINATION: US venous doppler [facility] DATE: 03/23/2023 18:00 INDICATION: hypoxia . TECHNIQUE: Grayscale images without and with compression and Doppler images of the bilateral lower ex tremity veins were obtained. COMPARISON: 12/10/2018 FINDINGS: The right common femoral vein, profunda (deep) femoral vein, femoral vein, popliteal vein, peroneal v ein, posterior tibial veins, gastrocnemius vein, and greater saphenous vein are patent. The left common femoral vein, profunda (deep) femoral vein, femoral vein, popliteal vein, peroneal v ein, posterior tibial veins, gastrocnemius vein, and greater saphenous vein are patent. IMPRESSION: Patent bilateral lower extremity veins. No evidence of deep venous thrombosis. Reviewed, dictated and finalized at location K.
--- NOTE | ~2023-03-17 | XR_ITS ---
EXAMINATION: XR chest 2V DATE: 03/23/2023 16:46 INDICATION: Hypoxia TECHNIQUE: AP and lateral views of the chest are obtained. COMPARISON: 03/21/2023 FINDINGS: There are small pleural effusions. Minimal bibasilar airspace opacities are unchanged. A ca lcified nodule of the right lung is consistent with old granulomatous disease. The heart size is norm al. IMPRESSION: 1. Small pleural effusions with minimal bibasilar airspace opacities, atelectasis versus pneumonia. Reviewed, dictated and finalized at location B. IMPRESSION: 1. Small pleural effusions with minimal bibasilar airspace opacities, atelectas is versus pneumonia.
--- NOTE | ~2023-03-17 | CT_ITS ---
EXAMINATION: CT brain wo con DATE: 03/17/2023 20:01 INDICATION: Fall. TECHNIQUE: Computed tomography (CT) of the head was performed without intravenous contrast. The mA wa s adjusted according to patient size. Iterative reconstruction technique was employed. The dose-lengt h product was 681.00 mGy-cm. COMPARISON: Head CT 12/29/2021 FINDINGS: There is an old infarct in right frontal lobe. There is an old infarct in left frontopariet al region. There are scattered areas of low attenuation in the cerebral white matter. There is no int racranial hemorrhage, acute infarction, or abnormal intracranial mass lesion. The ventricles are norm al in size. There is mucosal thickening in the paranasal sinuses. The orbits are normal. The mastoid air cells are normal. There is a subcutaneous lipoma in left posterior scalp. IMPRESSION: 1. Old infarcts in right frontal lobe and left frontoparietal region. 2. Mild nonspecific cerebral white matter disease, which likely represents chronic small vessel ische edinson disease. Reviewed, dictated and finalized at location E. IMPRESSION: 1. Old infarcts in right frontal lobe and left frontoparietal region. 2. Mild nonspecific cerebral white matter disease, which likely represents sales producer sheila small vessel ischemic disease.
--- NOTE | ~2023-03-17 | XR_ITS ---
EXAM: XR abdomen/kub 1V DATE: 03/20/2023 15:41 HISTORY: Constipation . COMPARISON: None available. FINDINGS: Clear lung bases. Air distended stomach, otherwise normal bowel gas pattern. No organomega ly. No abnormal abdominal calcification. Regional bones and soft tissues normal for age. IMPRESSION: Air distended stomach. No radiographic evidence of obstruction or ileus. Reviewed, dictated and finalized at location K. IMPRESSION: Air distended stomach. No radiographic evidence of obstruction or i leus.
--- NOTE | ~2023-03-17 | XR_ITS ---
EXAMINATION: XR chest 1V portable DATE: 03/21/2023 05:26 INDICATION: Oxygen desaturation. TECHNIQUE: A single frontal view of the chest was obtained. COMPARISON: Chest single view 03/17/2023, chest CT 07/18/2018 FINDINGS: A calcified right lung nodule is consistent with old granulomatous disease. There are airsp sofía opacities in right lower lung zone. No pleural effusion or pneumothorax. The heart size is normal . IMPRESSION: 1. Airspace opacities in right lower lung zone, consistent with atelectasis versus pneumonia. Reviewed, dictated and finalized at location A. IMPRESSION: 1. Airspace opacities in right lower lung zone, consistent with atelectasis callie bobby pneumonia.
--- NOTE | ~2023-03-17 | US_ITS ---
EXAMINATION: US venous doppler UE DATE: 03/23/2023 18:01 INDICATION: edema . TECHNIQUE: Grayscale ultrasound images without and with compression and Doppler ultrasound images of the bilateral upper extremity veins were obtained. COMPARISON: None. FINDINGS: The visualized portions of the bilateral internal jugular vein, subclavian vein, axillary vein, brach ial veins, basilic vein, cephalic vein, radial vein, and ulnar vein are patent. IMPRESSION: No deep venous thrombosis. Reviewed, dictated and finalized at location K. IMPRESSION: No deep venous thrombosis.
--- NOTE | ~2023-03-17 | XR_ITS ---
EXAMINATION: XR barium swallow modified DATE: 03/24/2023 12:16 INDICATION: Dysphagia. TECHNIQUE: The patient was given barium-containing material of multiple consistencies to swallow by t he speech pathologist while I performed fluoroscopy. Fluoroscopy exposure time was 1.8 minutes. The n umber of fluoroscopy images saved to the PACS was 1. Dose-area product was 3.992 Gy-cm^2. FINDINGS: Sensitivity is decreased by obesity. There is reduced lingual movement. There is reduced tongue base retraction, reduced pharyngeal squeeze, and pyriform sinus residue. There is laryngeal penetration wi th thin liquids via cup. IMPRESSION: 1. Laryngeal penetration with thin liquids via cup. 2. Please refer to the speech therapy report for recommendations. Reviewed, dictated and finalized at location A.
--- NOTE | 2023-03-17 16:03 | ADMGEN ---
This patient, Ant Kinney, was admitted to 2 Medical Room 256-01. Patient/family oriented to hospital policies and general routines including ID bracelet, bed and alarms, visiting hours, pain management, procedures, bathroom and other care routines, personal items, smoking policy, room service/diet, and visiting hours. Information on how to activate the Rapid Response Team has been discussed. Patient/Family are encouraged to report perceived risks to care and to ask questions if they do not understand what they are told or what they should do. Report taken from Nida QUIROGA at [facility].
[2023-03-17 16:54] LABS: Glucose Point of Care 144 mg/dl (65-105)
[2023-03-17 16:59] LABS: Sodium 136 mmol/L (137-145)
[2023-03-17 17:04] LABS: Anion Gap 8 mmol/L (8-16); Blood Urea Nitrogen 26 mg/dL (9-20); Calcium 9.7 mg/dL (8.4-10.2); Carbon Dioxide 27 mmol/L (22-30); Chloride 101 mmol/L (98-107); Creatine Kinase 790 U/L (55-170); Estimated CRCL calculation 28 ml/min; Estimated Glomerular Filt Rate 21; Glucose 152 mg/dL (65-110); Magnesium 2.4 mg/dL (1.6-2.3); Phosphorus 4.2 mg/dL (2.5-4.5); Potassium 4.4 mmol/L (3.4-5.0)
--- NOTE | 2023-03-17 19:09 | PM.IMHP ---
H&P: HPI History of Present Illness Date/Time: 03/17/23 18:45 Chief Complaint: Fall, weakness. Narrative: This is a 67-year-old male smoker with chronic kidney disease, insulin-dependent diabetes, hypertension, chronic obstructive pulmonary disease, and hypothyroidism who presented to the emergency department the [facility] this morning via EMS from home for evaluation of weakness after a fall. The patient provides the following history. Last night around 21:00 he went to let his cats inside when he started to feel weak and ?my legs gave out? and he fell forward onto the floor. He apparently had 3 such falls yesterday and he believes there due to his diabetic peripheral neuropathy. After the 3rd fall he was unable to get himself up and he lay on the floor about 8 to 10 hours before he was able to call for help. He denies syncope, near syncope, head trauma, chest pain, pleuritic pain, shortness a breath, nausea, vomiting, sweats, fever, chills, and sweats. On arrival to the ED he complained of mild pain in the right 5th finger and the left knee with movement. Left knee x-ray showed mild soft tissue swelling. Right 5th finger x-ray showed an acute intra-articular fracture at the lateral base of the 5th proximal phalanx which was splinted. Labs were significant for a BUN of 28, creatinine 3.79, and a CK of 768. He was hydrated and despite IV fluids he was unable to produce a urine sample. Bladder scan showed nearly 400 cc of urine in the bladder and a Tatum catheter was inserted. Transfer was initiated to this facility for nephrology consultation given worsening renal function. With further questioning the patient reports that he saw Dr. Brumfield last month regarding his increasing creatinine. Review of Systems Review of Systems: Twelve systems were reviewed and are negative except for as per HPI. [facility] Past Medical History Medical History (Updated 03/17/23 @ 19:32 by Antionette Matias PA-C) Arthritis Cerebrovascular accident Chronic kidney disease, stage 4 (severe) Chronic obstructive pulmonary disease Chronic urticaria Dysphagia Emphysema of lung Functional burping disorder Gastroesophageal reflux disease Hearing loss Hyperlipidemia Hypertension Hyperthyroidism Hypothyroidism Left facial numbness Polyarthritis Stenosis of left carotid artery greater than 50% Stomach ulcer Tobacco dependence Type 2 diabetes mellitus Ulcer, esophagus Surgical History Surgical History History of arthroscopy History of carpal tunnel surgery History of cervical discectomy History of vasectomy Status post trigger finger release Family History Family History Father , Unknown cause of Cerebrovascular accident Mother , Unknown cause of Acute myocardial infarction Cerebrovascular accident Sibling Hypertension Other Diabetes mellitus Parkinson disease Social History Social History (Updated 03/17/23 @ 19:26 by Antionette Matias PA-C) Social History: Surrogate medical decision maker: Jaelyn Hankins, daughter. Code status: Full code. Smoking packs per day: 1 Smoking cigarettes per day: 20.0 Years smoked: 40 Smoking pack-years: 40.00 Smoking status: Former smoker Tobacco type: cigarettes Second hand tobacco smoke exposure: No Additional smoking assessment comments: pt currently on Chantix to quit smoking. Alcohol intake: never Alcohol use details: Perhaps 1 drink a month. Substance use: never Lack of Transportation: No Lack of Food: Never True Current Housing: I Have Housing Concerned About Future Housing: No Difficulty Paying Gas/Electric Bills: No Difficulty Paying for Meds: No Currently Unemployed: No Education: Bachelor's Degree Difficulty w/ Childcare or Family Care: No Living arrangements: alone Additional li
[2023-03-17 20:11] LABS: Free T4 Free Thyroxine Reflex < 0.07 ng/dL (0.78-2.19)
[2023-03-17] MEDS: LACTATED RINGERS 1,000 ML 100 ML IV CONT (20:20)
[2023-03-17] MEDS: carvediloL 12.5 MG TABLET PO (20:21)
[2023-03-17] MEDS: MELATONIN 5 MG TABLET 10 MG PO (20:21)
[2023-03-17] MEDS: amLODIPine BESYLATE 5 MG TABLET PO (20:22)
[2023-03-17 21:41] LABS: Glucose Point of Care 227 mg/dl (65-105)
[2023-03-17] MEDS: INSULIN ASPART (*BKC) 100 UNITS/ML SUB-Q (21:50)
[2023-03-18] VITALS (7 sets, daily range): BP systolic 119–145; BP diastolic 58–79; PULSE 44–59; RESP 18; TEMP 36.3–36.7; O2SAT 91–100
[2023-03-18 05:34] LABS: Hematocrit 37.9 % (42.0-52.0); Hemoglobin 12.3 g/dL (14.0-18.0); Mean Corpuscular HGB Conc 32.5 g/dl (32-36); Mean Corpuscular Hemoglobin 29.9 pg (26-34); Mean Corpuscular Volume 92.2 fl (80-100); Platelet Count Result 268 k/mm3 (150-375); Red Blood Count 4.11 M/mm3 (4.6-6.20); Red Cell Distribution Width 14.7 % (11.5-14.5)
[2023-03-18 05:39] LABS: Anion Gap 8 mmol/L (8-16); Blood Urea Nitrogen 25 mg/dL (9-20); Calcium 9.4 mg/dL (8.4-10.2); Carbon Dioxide 25 mmol/L (22-30); Chloride 102 mmol/L (98-107); Creatine Kinase 897 U/L (55-170); Estimated CRCL calculation 27 ml/min; Estimated Glomerular Filt Rate 20; Glucose 153 mg/dL (65-110); Potassium 3.9 mmol/L (3.4-5.0); Sodium 135 mmol/L (137-145)
[2023-03-18] MEDS: LACTATED RINGERS 1,000 ML 100 ML IV CONT ×2 (05:46→18:04)
[2023-03-18] MEDS: LEVOTHYROXINE SODIUM 125 MCG TABLET PO (05:47)
[2023-03-18 08:16] LABS: Glucose Point of Care 156 mg/dl (65-105)
[2023-03-18] MEDS: GABAPENTIN 300 MG CAPSULE PO ×3 (08:47→18:04)
[2023-03-18] MEDS: amLODIPine BESYLATE 5 MG TABLET 10 MG PO (08:48)
[2023-03-18] MEDS: CLOPIDOGREL BISULFATE 75 MG TABLET PO (08:48)
[2023-03-18] MEDS: carvediloL 12.5 MG TABLET PO (08:50)
[2023-03-18] MEDS: UMECLIDINIUM BROMIDE 62.5 MCG ELLIPTA 1 PUFF INHALATION (08:51)
--- NOTE | 2023-03-18 10:52 | PM.IMPN ---
Progress Note: A&P Assessment and Plan (1) Fall from ground level: Code(s): W18.30XA - Fall on same level, unspecified, initial encounter Status: Acute (2) Elevated creatine kinase level: Code(s): R74.8 - Abnormal levels of other serum enzymes Status: Acute (3) Urinary retention: Code(s): R33.9 - Retention of urine, unspecified Status: Acute (4) Chronic kidney disease, stage 4 (severe): Code(s): N18.4 - Chronic kidney disease, stage 4 (severe) Status: Acute (5) Fracture of phalanx of right little finger: Code(s): S62.606A - Fracture of unspecified phalanx of right little finger, initial encounter for closed fracture Status: Acute (6) Hypertension: Code(s): I10 - Essential (primary) hypertension Status: Acute (7) Hypothyroidism: Code(s): E03.9 - Hypothyroidism, unspecified Status: Acute (8) Type 2 diabetes mellitus: Qualifiers: Diabetes mellitus penitentiary insulin use: with intermediate frame tender use Diabetes mellitus complication status: with hyperglycemia Qualified Code(s): E11.65 - Type 2 diabetes mellitus with hyperglycemia; Z79.4 - long-term (current) use of insulin Code(s): E11.9 - Type 2 diabetes mellitus without complications Status: Acute Plan The patient presented to the emergency department for evaluation after his 3rd fall yesterday as detailed in HPI. Labs, imaging, EKG, and all reports were personally reviewed. The patient reports that it felt as though his legs gave out but he goes on to say that his neuropathy occasionally causes him to fall as well. He denied head trauma and loss of consciousness in the fall. Left knee x-ray did not show any acute fractures but noted mild swelling. He was found to have an intra-articular fracture of the proximal right 5th finger extending into the metacarpal phalangeal joint. Splint is currently in place and he will need to follow-up with the hand surgeon. His creatinine is a bit elevated from baseline but has improved with IV fluids. Total CK is up as well, likely due to being on the ground overnight. Continue judicious IV fluids with close monitoring of CK. Tatum catheter has been inserted for urinary retention, and this may be playing a part in his increasing creatinine as well. Blood pressures have been high however he did not take his medications yet today. Continue antihypertensives and monitor blood pressures closely. Resume levothyroxine and check TSH. Continue basal insulin. Initiate sliding scale insulin, Accu-Cheks, and hypoglycemic protocol. The rest of his home medications will be reviewed and resumed as appropriate. PT/OT consulted. Subjective Date/time seen: 03/18/23 10:52 Interval history: No new complaints Exam Narrative: General: Chronically ill-appearing male sitting up in bed eating dinner in no distress. Weight: 129.8 kg. BMI: 43.5. HEENT: Normocephalic, atraumatic. PERRL, EOMI. Sclera anicteric. Mild crusting over the right upper eyelid. Tacky mucous membranes. Oropharynx is crowded. Neck: Supple. Respiratory: Lungs are clear to auscultation bilaterally. Cardiovascular: Regular rate and rhythm with S1-S2. Gastrointestinal: Abdomen is soft, protuberant, nontender, and nondistended with positive bowel sounds. Skin: Warm and dry. Extremities: No cyanosis or clubbing. Trace pretibial edema bilaterally. Mild redness and swelling over the left knee. Right 5th finger is splinted. Peripheral pulses palpable. Neurological: Alert and oriented. Cranial nerves 2-12 are grossly intact. Speech is clear. No facial asymmetry. No gross focal deficits to casual conversation. Psychiatric: Pleasant and cooperative with appropriate mood and affect. Objective Data Vital Signs Vital Signs: Vital Signs - 24 hr 03/17/23 16:34 03/17/23 19:19 03/17/23 19:25 Temperature 97.1 F L 97.4 F L Pulse Rate 61 65 68 Respiratory Rate 20 18 18 Blood Pressure 174/94 H 163/6
[2023-03-18 11:50] LABS: Glucose Point of Care 149 mg/dl (65-105)
--- NOTE | 2023-03-18 13:50 | PC.NURSE ---
Refiner Operator reviewed Glory Pickard charting/assessments and agree with findings
[2023-03-18 17:03] LABS: Glucose Point of Care 195 mg/dl (65-105)
--- NOTE | 2023-03-18 19:34 | PC.NURSE ---
attempted to clarify patient's regular insulin dosage from home medications. patient unsure of which dose he takes and does not think his daughter would know, as she does not live close by.
[2023-03-18 20:06] LABS: Glucose Point of Care 155 mg/dl (65-105)
[2023-03-19] VITALS (12 sets, daily range): BP systolic 92–152; BP diastolic 60–92; PULSE 47–75; RESP 14–18; TEMP 36.3–37; O2SAT 92–100
[2023-03-19 05:35] LABS: Anion Gap 4 mmol/L (8-16); Blood Urea Nitrogen 24 mg/dL (9-20); Calcium 9.3 mg/dL (8.4-10.2); Carbon Dioxide 28 mmol/L (22-30); Chloride 100 mmol/L (98-107); Estimated CRCL calculation 29 ml/min; Estimated Glomerular Filt Rate 21; Glucose 157 mg/dL (65-110); Potassium 3.9 mmol/L (3.4-5.0); Sodium 132 mmol/L (137-145)
[2023-03-19] MEDS: LEVOTHYROXINE SODIUM 125 MCG TABLET PO (06:11)
[2023-03-19] MEDS: LACTATED RINGERS 1,000 ML 100 ML IV CONT ×2 (06:12→22:38)
[2023-03-19] MEDS: UMECLIDINIUM BROMIDE 62.5 MCG ELLIPTA 1 PUFF INHALATION (08:07)
[2023-03-19 08:11] LABS: Glucose Point of Care 144 mg/dl (65-105)
[2023-03-19] MEDS: GABAPENTIN 300 MG CAPSULE PO ×2 (08:49→17:37)
[2023-03-19] MEDS: polyethylene glycoL 3350 17 GM POWD.PACK PO (08:49)
[2023-03-19] MEDS: carvediloL 12.5 MG TABLET PO ×2 (08:50→21:03)
[2023-03-19] MEDS: amLODIPine BESYLATE 5 MG TABLET 10 MG PO (08:50)
[2023-03-19] MEDS: CLOPIDOGREL BISULFATE 75 MG TABLET PO (08:50)
--- NOTE | 2023-03-19 11:34 | PM.DS ---
DS: Admitting Diagnosis Discharge Date 03/19/23 Admitting Diagnosis weakness, fall, ckd DS: Discharge Diagnosis Discharge Diagnosis (1) Fall from ground level: Code(s): W18.30XA - Fall on same level, unspecified, initial encounter Status: Acute Assessment and Plan: pt ot recs noted, patient refused placement (2) Urinary retention: Code(s): R33.9 - Retention of urine, unspecified Status: Acute (3) Chronic kidney disease, stage 4 (severe): Code(s): N18.4 - Chronic kidney disease, stage 4 (severe) Status: Acute (4) Fracture of phalanx of right little finger: Code(s): S62.606A - Fracture of unspecified phalanx of right little finger, initial encounter for closed fracture Status: Acute (5) Hypertension: Code(s): I10 - Essential (primary) hypertension Status: Acute (6) Hypothyroidism: Code(s): E03.9 - Hypothyroidism, unspecified Status: Acute (7) Type 2 diabetes mellitus: Qualifiers: Diabetes mellitus application architect insulin use: with correction use Diabetes mellitus complication status: with hyperglycemia Qualified Code(s): E11.65 - Type 2 diabetes mellitus with hyperglycemia; Z79.4 - homebirth midwife (current) use of insulin Code(s): E11.9 - Type 2 diabetes mellitus without complications Status: Acute DS: Summary Hospital Course Hospital Course: Admitted for dehydration, ckd, weakness. He apparently has been weak over last several weeks and has had some falls. NO fractures or injuries. cr is 3.0 which is likely a new baseline. He does follow with renal and will need a follow up appointment.He missed his last appointment w nephrology and I explained to him that he needs a fu and he agreed to see them upon dc. He has also refused placement in rehab facility despite therapy and my recommendations. Otherwise patient can be dc. Time Spent with Patient Time attestation: Total time spent providing and/or coordinating discharge services: Exam Narrative: General: Chronically ill-appearing male sitting up in bed eating dinner in no distress. Weight: 129.8 kg. BMI: 43.5. HEENT: Normocephalic, atraumatic. PERRL, EOMI. Sclera anicteric. Mild crusting over the right upper eyelid. Tacky mucous membranes. Oropharynx is crowded. Neck: Supple. Respiratory: Lungs are clear to auscultation bilaterally. Cardiovascular: Regular rate and rhythm with S1-S2. Gastrointestinal: Abdomen is soft, protuberant, nontender, and nondistended with positive bowel sounds. Skin: Warm and dry. Extremities: No cyanosis or clubbing. Trace pretibial edema bilaterally. Mild redness and swelling over the left knee. Right 5th finger is splinted. Peripheral pulses palpable. Neurological: Alert and oriented. Cranial nerves 2-12 are grossly intact. Speech is clear. No facial asymmetry. No gross focal deficits to casual conversation. Psychiatric: Pleasant and cooperative with appropriate mood and affect. DS: Data Data Completed and Pending Labs on day of discharge: Labs from last 24 hours 03/19/23 03/19/23 03/18/23 08:00 04:59 20:02 Sodium 132 L Potassium 3.9 Chloride 100 Carbon Dioxide 28 Anion Gap 4 L BUN 24 H Creatinine 3.00 H Estim Creat Clear Calc 29 Estimated GFR 21 L Glucose 157 H POC Capillary Glucose 144 H 155 H Calcium 9.3 03/18/23 03/18/23 16:50 11:40 Sodium Potassium Chloride Carbon Dioxide Anion Gap BUN Creatinine Estim Creat Clear Calc Estimated GFR Glucose POC Capillary Glucose 195 H 149 H Calcium Discharge Plan Discharge Attending physician on discharge: Matt Allison Discharging Clinician: Matt Allison Patient Disposition: Home Health Service Activity: as tolerated Diet: as tolerated Patient Instructions: Antibiotic Form, Clopidogrel (By mouth), Urinary Retention in Men (GEN), Chronic Kidney Disease (DC), Pain Managemen
[2023-03-19 12:20] LABS: Glucose Point of Care 171 mg/dl (65-105)
[2023-03-19 12:53] LABS: Creatine Kinase 787 U/L (55-170)
--- NOTE | 2023-03-19 17:02 | PC.NURSE ---
Dr. Allison placed discharge orders for patient to go home. Expressed safety concerns to the doctor due to weakness and immobility. Dr. Allison stated that he's clear from medical standpoint to go home but will look at this chart for any concerns and place orders.
--- NOTE | 2023-03-19 17:09 | PC.NURSE ---
03/19/[address] Allison called to call results of his creatinine kinase. Results were read 1230pm.
[2023-03-19 17:17] LABS: Glucose Point of Care 182 mg/dl (65-105)
[2023-03-19 20:41] LABS: Glucose Point of Care 181 mg/dl (65-105)
[2023-03-19] MEDS: MELATONIN 5 MG TABLET 10 MG PO (21:03)
[2023-03-20] VITALS (12 sets, daily range): BP systolic 102–165; BP diastolic 53–99; PULSE 48–66; RESP 14–20; TEMP 35.7–36.7; O2SAT 91–97
[2023-03-20] MEDS: LEVOTHYROXINE SODIUM 125 MCG TABLET PO (06:40)
[2023-03-20 08:05] LABS: Creatine Kinase 850 U/L (55-170)
[2023-03-20 08:17] LABS: Glucose Point of Care 184 mg/dl (65-105)
[2023-03-20] MEDS: polyethylene glycoL 3350 17 GM POWD.PACK PO (09:39)
[2023-03-20] MEDS: LACTATED RINGERS 1,000 ML 100 ML IV CONT (09:39)
[2023-03-20] MEDS: GABAPENTIN 300 MG CAPSULE PO ×3 (09:40→17:18)
[2023-03-20] MEDS: CLOPIDOGREL BISULFATE 75 MG TABLET PO (09:40)
[2023-03-20] MEDS: UMECLIDINIUM BROMIDE 62.5 MCG ELLIPTA 1 PUFF INHALATION (10:11)
--- NOTE | 2023-03-20 10:57 | PM.IMPN ---
Progress Note: A&P Assessment and Plan (1) Fall from ground level: Code(s): W18.30XA - Fall on same level, unspecified, initial encounter Status: Acute Assessment and Plan: pt ot recs noted, patient refused placement (2) Urinary retention: Code(s): R33.9 - Retention of urine, unspecified Status: Acute (3) Chronic kidney disease, stage 4 (severe): Code(s): N18.4 - Chronic kidney disease, stage 4 (severe) Status: Acute Assessment and Plan: monitor cr, electrolytes (4) Fracture of phalanx of right little finger: Code(s): S62.606A - Fracture of unspecified phalanx of right little finger, initial encounter for closed fracture Status: Acute Assessment and Plan: splint (5) Hypertension: Code(s): I10 - Essential (primary) hypertension Status: Acute Assessment and Plan: monitor bp (6) Hypothyroidism: Code(s): E03.9 - Hypothyroidism, unspecified Status: Acute Assessment and Plan: chronic (7) Type 2 diabetes mellitus: Qualifiers: Diabetes mellitus terminal computer operator insulin use: with nursing home use Diabetes mellitus complication status: with hyperglycemia Qualified Code(s): E11.65 - Type 2 diabetes mellitus with hyperglycemia; Z79.4 - [facility] (current) use of insulin Code(s): E11.9 - Type 2 diabetes mellitus without complications Status: Acute Assessment and Plan: monitor bs (8) Rhabdomyolysis: Code(s): M62.82 - Rhabdomyolysis Status: Acute Assessment and Plan: will increase ivf ck elevated despite ivf consider muscle bx or outpatient referral if no improvement in next day or two recheck ck tomorrow Plan patient refusing placement Subjective Date/time seen: 03/20/23 10:57 Interval history: no new complaints still having weakness ck noted Exam Narrative: General: Chronically ill-appearing male sitting up in bed eating dinner in no distress. Weight: 129.8 kg. BMI: 43.5. HEENT: Normocephalic, atraumatic. PERRL, EOMI. Sclera anicteric. Mild crusting over the right upper eyelid. Tacky mucous membranes. Oropharynx is crowded. Neck: Supple. Respiratory: Lungs are clear to auscultation bilaterally. Cardiovascular: Regular rate and rhythm with S1-S2. Gastrointestinal: Abdomen is soft, protuberant, nontender, and nondistended with positive bowel sounds. Skin: Warm and dry. Extremities: No cyanosis or clubbing. Trace pretibial edema bilaterally. Mild redness and swelling over the left knee. Right 5th finger is splinted. Peripheral pulses palpable. Neurological: Alert and oriented. Cranial nerves 2-12 are grossly intact. Speech is clear. No facial asymmetry. No gross focal deficits to casual conversation. Psychiatric: Pleasant and cooperative with appropriate mood and affect. Objective Data Vital Signs Vital Signs: Vital Signs - 24 hr 03/19/23 14:04 03/19/23 14:05 03/19/23 14:00 Temperature 97.4 F L 97.4 F L 97.6 F Pulse Rate 47 L 51 L 48 L Respiratory Rate 18 18 18 Blood Pressure 108/69 152/63 H 92/60 L Pulse Oximetry 97 97 93 Oxygen Delivery 03/19/23 20:18 03/19/23 20:21 03/19/23 20:24 Temperature 98.0 F 98.0 F 98.0 F Pulse Rate 75 53 L 55 L Respiratory Rate 18 18 18 Blood Pressure 126/68 129/71 135/80 Pulse Oximetry 97 97 97 Oxygen Delivery 03/19/23 20:52 03/19/23 21:03 03/19/23 20:00 Temperature 98.0 F Pulse Rate 53 L 53 L Respiratory Rate 18 Blood Pressure 135/80 Pulse Oximetry 97 Oxygen Delivery Room Air 03/20/23 05:32 03/20/23 09:43 Temperature 98.0 F Pulse Rate 55 L 48 L Respiratory Rate 18 14 Blood Pressure 152/75 H 102/53 L Pulse Oximetry 92 97 Oxygen Delivery Intake/Output Intake/Output: Intake & Output 03/17/23 03/18/23 03/19/23 03/20/23 23:59 23:59 23:59 23:59 Intake Total 240 3420 3130 1240 Output Total 716 373 7830 1300 Balance -260 2608 1780 -60 Meds/Results Medicati
[2023-03-20 12:36] LABS: Glucose Point of Care 241 mg/dl (65-105)
[2023-03-20] MEDS: INSULIN ASPART (*BKC) 100 UNITS/ML SUB-Q ×3 (12:40→21:28)
[2023-03-20 17:11] LABS: Glucose Point of Care 219 mg/dl (65-105)
[2023-03-20] MEDS: LACTATED RINGERS 1,000 ML 150 ML IV CONT (17:18)
[2023-03-20] MEDS: carvediloL 12.5 MG TABLET PO (21:27)
[2023-03-20] MEDS: MELATONIN 5 MG TABLET 10 MG PO (21:27)
[2023-03-20 23:13] LABS: Glucose Point of Care 203 mg/dl (65-105)
[2023-03-21] VITALS (24 sets, daily range): BP systolic 109–153; BP diastolic 59–78; PULSE 45–72; RESP 16–26; TEMP 35.4–36.6; O2SAT 89–99
[2023-03-21] MEDS: LACTATED RINGERS 1,000 ML 150 ML IV CONT ×2 (00:13→06:57)
--- NOTE | 2023-03-21 01:29 | PCRCNOTE ---
Pt unable to participate in Apnea Link study due to extreme desaturation. Pt had to be placed on non rebreather in orer to attain SPO2 > 92%. RN and PA aware.
[2023-03-21 05:09] LABS: Basophils Absolute Auto 0.1 K/mm3 (0.0-0.1); Basophils Percent Auto 1.1 % (0.2-1.2); Eosinophils Absolute Auto 0.1 K/mm3 (0-0.3); Eosinophils Percent Auto 2.4 % (0-4.4); Hematocrit 36.3 % (42.0-52.0); Hemoglobin 11.8 g/dL (14.0-18.0); Immature Granulocyte Absolute 0.01 K/mm3 (0.00-0.031); Immature Granulocyte Percent A 0.2 % (0-0.5); Lymphocytes Absolute Auto 1.13 K/mm3 (0.9-3.2); Lymphocytes Percent Auto 20.5 % (18.3-44.2); Mean Corpuscular HGB Conc 32.5 g/dl (32-36); Mean Corpuscular Hemoglobin 29.9 pg (26-34); Mean Corpuscular Volume 91.9 fl (80-100); Mean Platelet Volume 10.2 fl (7.4-10.4); Monocytes Absolute Auto 0.3 K/mm3 (0.1-0.6); Monocytes Percent Auto 5.6 % (2.6-8.5); Neutrophils Absolute Auto 3.9 K/mm3 (1.3-6.7); Neutrophils Percent Auto 70.2 % (45.5-73.1); Platelet Count Result 256 k/mm3 (150-375); Red Blood Count 3.95 M/mm3 (4.6-6.20); Red Cell Distribution Width 14.9 % (11.5-14.5); White Blood Count 5.5 K/mm3 (4.5-10.0)
[2023-03-21 05:21] LABS: Anion Gap 3 mmol/L (8-16); Blood Urea Nitrogen 26 mg/dL (9-20); Calcium 9.1 mg/dL (8.4-10.2); Carbon Dioxide 29 mmol/L (22-30); Chloride 102 mmol/L (98-107); Creatine Kinase 871 U/L (55-170); Estimated CRCL calculation 30 ml/min; Estimated Glomerular Filt Rate 22; Glucose 152 mg/dL (65-110); Potassium 4.3 mmol/L (3.4-5.0); Sodium 134 mmol/L (137-145)
[2023-03-21 05:30] LABS: Alveolar/Arterial O2 Gradient 153.9 mmHg; Base Excess ABG -1.4 mEq/l (+/-2.0); Fractional Inspired Oxygen 40 %; Oxygen Content ABG 17.2 %vol (16.0-22.0); Oxygen Saturation ABG 95.7 % (95.0-100.0); Oxyhemoglobin 94.5 % THb (90.0-100.0); PCO2 ABG 42.9 mmHg (35.0-45.0); PO2 FiO2 Ratio Arterial Blood 2.05 %; Total Hemoglobin 12.9 g/dL (12.0-18.0); pH ABG 7.365 (7.350-7.450)
[2023-03-21 05:31] LABS: Device BIPAP; Site Drawn RIGHT BRACHIAL
[2023-03-21 05:32] LABS: Expiratory Pressure 8 cmH2O; Inspiratory Pressure 16 cmH2O
[2023-03-21] MEDS: LEVOTHYROXINE SODIUM 125 MCG TABLET PO (06:09)
[2023-03-21 06:49] LABS: Glucose Point of Care 150 mg/dl (65-105)
--- NOTE | 2023-03-21 06:49 | ECG_ITS ---
Measurements Intervals [place] Rate: 53 P: 70 IL: 207 QRS: -54 QRSD: 121 T: 68 QT: 483 QTc: 455 Interpretive Statements SINUS BRADYCARDIA LEFT ANTERIOR FASCICULAR BLOCK [QRS AXIS <= -45, QR IN I, RS IN II] SEPTAL MYOCARDIAL INFARCTION , OF INDETERMINATE AGE [40+ ms Q WAVE IN V1/V2] COMPARED TO ECG 03/17/2023 09:36:24 SINUS BRADYCARDIA NOW PRESENT Electronically Signed On 03-21-2023 15:26:51 CDT by Manuel See M.D.
[2023-03-21 08:01] LABS: Glucose Point of Care 138 mg/dl (65-105)
[2023-03-21] MEDS: amLODIPine BESYLATE 5 MG TABLET 10 MG PO (09:04)
[2023-03-21] MEDS: polyethylene glycoL 3350 17 GM POWD.PACK PO (09:05)
[2023-03-21] MEDS: carvediloL 12.5 MG TABLET PO (09:05)
[2023-03-21] MEDS: GABAPENTIN 300 MG CAPSULE PO ×2 (09:05→17:15)
[2023-03-21] MEDS: CLOPIDOGREL BISULFATE 75 MG TABLET PO (09:05)
--- NOTE | 2023-03-21 10:25 | PC.NURSE ---
This patient, Ant Kinney, was transferred to IMU on 03/21/23 at 1025. Personal belongings sent with patient. Report given to Sandra QUIROGA. Appropriate documentation sent with patient.
--- NOTE | 2023-03-21 10:32 | PM.IMPN ---
Progress Note: A&P Assessment and Plan (1) Acute respiratory failure: Code(s): J96.00 - Acute respiratory failure, unspecified whether with hypoxia or hypercapnia Status: Acute Assessment and Plan: Patient became hypoxic overnight. Not fully document about by report, SpO2 dropped into the 70% range. BiPAP started. ABG showed 7.36/43/82 on BiPAP. Chest x-ray shows airspace opacities in the right lower lung zone. No fevers. White count normal. Patient however has become hypothermic. He may have undiagnosed sleep apnea. Consider also aspiration. He is been weaned to 2 L oxygen. Moved IMU. continue to follow. Will need apnea link when better. (2) Hypothermia: Code(s): T68.XXXA - Hypothermia, initial encounter Status: Acute Assessment and Plan: Patient's been afebrile since admission. Temperature is been normal range except for overnight hours and this morning where his temperature is dropped to 95.7? this morning. His TSH is markedly elevated and Synthroid has been increased. Hypothyroidism could be causing his hypothermia. Consider also sepsis related to untreated pneumonia. Moved to IMU. Start Monique Hugger. Repeat cultures. Repeat UA. Start antibiotics. Bradycardia could be related to the hypothermia and/or hypothyroid and/or undx PAYAM. Monitr on tele. parameters on Core[facility] (3) Pneumonia: Qualifiers: Laterality: unspecified laterality Lung location: unspecified part of lung Pneumonia type: due to unspecified organism Qualified Code(s): J18.9 - Pneumonia, unspecified organism Code(s): J18.9 - Pneumonia, unspecified organism Status: Acute Assessment and Plan: Chest x-ray on admission showed minimal airspace opacities in right mid lung zone. Patient was afebrile. White count was normal. KUB yesterday showed clear lung bases but chest x-ray overnight again shows airspace opacities in the right lower lung zone. Chest x-ray this morning was reviewed and compared to admission chest x-ray and does show improvement. Patient may have had an occult pneumonia on admission. Blood cultures are no growth to date from admission. Will repeat blood cultures. Start antibiotics. (4) Rhabdomyolysis: Code(s): M62.82 - Rhabdomyolysis Status: Acute Assessment and Plan: Patient with elevated total creatinine kinase on admission and climbed 897. He was on high-dose atorvastatin but this has been stopped. Total CK has been running in the 800 range for the past few days. Probably related to his CKD. He has been on IV fluids and is positive almost 7 L. will stop IV fluids. Continue to monitor. He may need further workup if this does not improve. (5) Acute on chronic kidney failure: Qualifiers: Acute renal failure type: unspecified Chronic kidney disease stage: stage 4 (severe) Qualified Code(s): N17.9 - Acute kidney failure, unspecified; N18.4 - Chronic kidney disease, stage 4 (severe) Code(s): N17.9 - Acute kidney failure, unspecified; N18.9 - Chronic kidney disease, unspecified Status: Acute Assessment and Plan: Last year, creatinine ran mostly 2.2-2.7. Creatinine was higher at 3.4 and February. Creatinine admission was 3.8 but with IV fluids, and has trended down to 2.9. Will stop IV fluids. Serum bicarb and potassium level remained normal. He did have urine retention that may have contributed to this as well. Continue to follow. Consider amyloid given the enlarged tongu and renal failure. Check SPEP/UPEP (6) Fall from ground level: Code(s): W18.30XA - Fall on same level, unspecified, initial encounter Status: Acute Assessment and Plan: Patient felt weak and ?my legs gave out? and he fell forward onto the floor. He apparently had 3 such falls the day prior to admission that he feels is related to his diabetic peripheral neuropathy. After the 3rd fall he was unable to get himself up and he lay o
[2023-03-21] MEDS: CEFEPIME 2 GM/NS 50 ML 2 GM/50 ML BAG IVPB ×2 (10:47→22:22)
[2023-03-21] MEDS: VANCOMYCIN 1,250 MG/NS 250 ML 1,250 MG/250 ML BAG 166.67 MG IVPB ×2 (11:23→13:46)
--- NOTE | 2023-03-21 11:51 | PC.NURSE ---
Pt transfered from [facility] at 1040 for hypothermia to room 204 today via bed bear hugger applied to patient and is being monitored close.
--- NOTE | 2023-03-21 12:13 | PCSTNOTE ---
Please refer to the Bedside Swallow Evaluation in the EMR. Please note, silent aspiration cannot be ruled out at bedside.
[2023-03-21 12:23] LABS: Glucose Point of Care 158 mg/dl (65-105)
[2023-03-21 12:34] LABS: Appearance Urine Clear (Clear); Bacteria Urine Rare /hpf; Bilirubin Urine Negative (Negative); Blood Urine 3+ (Negative); Color Urine Yellow (Yellow); Glucose Urine UA Negative (Negative); Ketones Urine Negative (Negative); Leukocyte Esterase Ur 1+ LEU/UL (Negative); Nitrate Urine Negative (Negative); Non Pathogenic Casts 0-2; Protein Urine 1+ mg/dL (Negative); RBC Urine 21-50 /hpf (0-2); Specific Grav Ur 1.007 (1.001-1.035); Squamous Epithelial Cell Urine None seen /hpf (Few); Urobilinogen Urine 0.2 mg/dL (<2.0); pH Urine 5.5 (5.0-9.0)
[2023-03-21 12:45] LABS: Add Urine Microscopic? YES
[2023-03-21] MEDS: ALBUTEROL SULFATE (*SP) AEROSOL 1 PUFF INHALATION (16:14)
[2023-03-21 17:11] LABS: Glucose Point of Care 141 mg/dl (65-105)
[2023-03-21 21:00] LABS: Glucose Point of Care 145 mg/dl (65-105)
[2023-03-22] VITALS (23 sets, daily range): BP systolic 105–152; BP diastolic 68–98; PULSE 46–63; RESP 16–22; TEMP 36.1–36.6; O2SAT 91–100
[2023-03-22] MEDS: LEVOTHYROXINE SODIUM 125 MCG TABLET PO (06:24)
[2023-03-22 07:54] LABS: Glucose Point of Care 134 mg/dl (65-105)
[2023-03-22] MEDS: UMECLIDINIUM BROMIDE 62.5 MCG ELLIPTA 1 PUFF INHALATION (08:28)
[2023-03-22] MEDS: amLODIPine BESYLATE 5 MG TABLET 10 MG PO (09:01)
[2023-03-22] MEDS: CLOPIDOGREL BISULFATE 75 MG TABLET PO (09:01)
[2023-03-22] MEDS: polyethylene glycoL 3350 17 GM POWD.PACK PO (09:01)
[2023-03-22] MEDS: CEFEPIME 2 GM/NS 50 ML 2 GM/50 ML BAG IVPB ×2 (09:01→20:50)
[2023-03-22] MEDS: TAMSULOSIN HCL 0.4 MG CAPSULE PO (09:01)
[2023-03-22] MEDS: carvediloL 12.5 MG TABLET PO (09:01)
[2023-03-22] MEDS: GABAPENTIN 300 MG CAPSULE PO ×3 (09:02→17:28)
[2023-03-22 10:00] LABS: Basophils Absolute Auto 0.1 K/mm3 (0.0-0.1); Basophils Percent Auto 1.3 % (0.2-1.2); Eosinophils Absolute Auto 0.1 K/mm3 (0-0.3); Hematocrit 37.8 % (42.0-52.0); Hemoglobin 12.2 g/dL (14.0-18.0); Immature Granulocyte Absolute 0.02 K/mm3 (0.00-0.031); Immature Granulocyte Percent A 0.4 % (0-0.5); Lymphocytes Absolute Auto 1.29 K/mm3 (0.9-3.2); Lymphocytes Percent Auto 23.7 % (18.3-44.2); Mean Corpuscular HGB Conc 32.3 g/dl (32-36); Mean Corpuscular Volume 92.9 fl (80-100); Mean Platelet Volume 10.2 fl (7.4-10.4); Monocytes Absolute Auto 0.3 K/mm3 (0.1-0.6); Monocytes Percent Auto 5.7 % (2.6-8.5); Neutrophils Absolute Auto 3.6 K/mm3 (1.3-6.7); Neutrophils Percent Auto 66.9 % (45.5-73.1); Platelet Count Result 290 k/mm3 (150-375); Red Blood Count 4.07 M/mm3 (4.6-6.20); Red Cell Distribution Width 15.2 % (11.5-14.5); White Blood Count 5.4 K/mm3 (4.5-10.0)
[2023-03-22 10:17] LABS: Alanine Aminotransferase 26 U/L (6-50); Albumin Level 3.6 g/dL (3.5-5.1); Alkaline Phosphatase 68 U/L (38-126); Anion Gap 2 mmol/L (8-16); Aspartate Amino Transferase 44 U/L (17-59); Bilirubin,Total 0.7 mg/dL (0.2-1.3); Blood Urea Nitrogen 24 mg/dL (9-20); CRP 0.7 mg/dL (<1.0); Calcium 9.3 mg/dL (8.4-10.2); Carbon Dioxide 28 mmol/L (22-30); Chloride 102 mmol/L (98-107); Estimated CRCL calculation 27 ml/min; Estimated Glomerular Filt Rate 19; Glucose 131 mg/dL (65-110); Potassium 4.3 mmol/L (3.4-5.0); Sodium 132 mmol/L (137-145)
[2023-03-22 11:05] LABS: Creatine Kinase 704 U/L (55-170)
[2023-03-22 11:42] LABS: Glucose Point of Care 139 mg/dl (65-105)
--- NOTE | 2023-03-22 13:56 | PCOTNOTE ---
Spoke with Hospitalist, who confirmed pt. able to continue to participate in therapy services on this date. Nursing Updated.
--- NOTE | 2023-03-22 14:11 | PCOTNOTE ---
Attempted to see pt. for occupational therapy re-evaluation. Pt. distracted and wanting to call daughter on the phone, declining therapy at this time. Nursing aware. Following.
--- NOTE | 2023-03-22 15:18 | PM.IMPN ---
Progress Note: A&P Assessment and Plan (1) Acute respiratory failure: Code(s): J96.00 - Acute respiratory failure, unspecified whether with hypoxia or hypercapnia Status: Acute Assessment and Plan: Patient developed hypoxic. Not fully document about by report, SpO2 dropped into the 70% range. BiPAP started. ABG showed 7.36/43/82 on BiPAP. Chest x-ray shows airspace opacities in the right lower lung zone. No fevers but became hypothermic. White count normal. He may have undiagnosed sleep apnea. Consider also aspiration. He is stable at 2 L oxygen. Continue to follow. Will need apnea link when better. Continue PT/OT. ST consulted as well. (2) Hypothermia: Code(s): T68.XXXA - Hypothermia, initial encounter Status: Acute Assessment and Plan: Patient became hypothermic with temperature that dropped to 95.7?. His TSH is markedly elevated and Synthroid was increased. Hypothyroidism could be causing his hypothermia. Consider also sepsis related to untreated pneumonia. Moved to IMU. Started Monique Hugger and emp improved and able to come off of this. BCx NGTD. UC pending. Continue antibiotics. Bradycardia could be related to the hypothermia and/or hypothyroid and/or undx PAYAM. Monitor on tele. (3) Pneumonia: Qualifiers: Laterality: unspecified laterality Lung location: unspecified part of lung Pneumonia type: due to unspecified organism Qualified Code(s): J18.9 - Pneumonia, unspecified organism Code(s): J18.9 - Pneumonia, unspecified organism Status: Acute Assessment and Plan: Chest x-ray on admission showed minimal airspace opacities in right mid lung zone. Patient was afebrile. White count was normal. Repeat CXR again shows airspace opacities in the right lower lung zone. Patient may have had an occult pneumonia on admission. Blood cultures are no growth to date from admission. Will repeat blood cultures NGTD. Continue antibiotics. (4) Rhabdomyolysis: Code(s): M62.82 - Rhabdomyolysis Status: Acute Assessment and Plan: Patient with elevated total creatinine kinase on admission and climbed 897. He was on high-dose atorvastatin but this has been stopped. Total CK has been running in the 800 range for the past few days. Probably related to his CKD. He was on IV fluids but positive almost 7 L. IV fluids stopped. Continue to monitor. He may need further workup if this does not improve. (5) Acute on chronic kidney failure: Qualifiers: Acute renal failure type: unspecified Chronic kidney disease stage: stage 4 (severe) Qualified Code(s): N17.9 - Acute kidney failure, unspecified; N18.4 - Chronic kidney disease, stage 4 (severe) Code(s): N17.9 - Acute kidney failure, unspecified; N18.9 - Chronic kidney disease, unspecified Status: Acute Assessment and Plan: Last year, creatinine ran mostly 2.2-2.7. Creatinine was higher at 3.4 in February. Creatinine admission was 3.8 but with IV fluids, Cr trended down to 2.9. Serum bicarb and potassium level remained normal. He did have urine retention that may have contributed to this as well. Cr up again to 3.2 today. Continue to follow. Consider amyloid given the enlarged tongue and renal failure; SPEP/UPEP ordered (6) Fall from ground level: Code(s): W18.30XA - Fall on same level, unspecified, initial encounter Status: Acute Assessment and Plan: Patient felt weak and ?my legs gave out? and he fell forward onto the floor. He apparently had 3 such falls the day prior to admission that he feels is related to his diabetic peripheral neuropathy. After the 3rd fall he was unable to get himself up and he lay on the floor about 8-10 hours before he was able to call for help. Patient presented after having falls at home. Rt hand xray showing acute fracture of the fifth proximal phalanx. Left knee xray showing mild soft tissue swelling and small effusion. CT brain
[2023-03-22 16:48] LABS: Glucose Point of Care 167 mg/dl (65-105)
[2023-03-22 20:30] LABS: Glucose Point of Care 141 mg/dl (65-105)
[2023-03-22] MEDS: MELATONIN 5 MG TABLET 10 MG PO (20:50)
[2023-03-22] MEDS: ALBUTEROL SULFATE NEB 2.5 MG/3 ML INH INHALATION (21:09)
[2023-03-23] VITALS (26 sets, daily range): BP systolic 127–156; BP diastolic 52–92; PULSE 49–63; RESP 17–22; TEMP 36.2–36.7; O2SAT 95–100
[2023-03-23] MEDS: ALBUTEROL SULFATE NEB 2.5 MG/3 ML INH INHALATION ×4 (02:40→19:23)
[2023-03-23 05:18] LABS: Basophils Absolute Auto 0.1 K/mm3 (0.0-0.1); Eosinophils Absolute Auto 0.1 K/mm3 (0-0.3); Eosinophils Percent Auto 1.8 % (0-4.4); Hematocrit 35.6 % (42.0-52.0); Hemoglobin 11.5 g/dL (14.0-18.0); Immature Granulocyte Absolute 0.02 K/mm3 (0.00-0.031); Immature Granulocyte Percent A 0.4 % (0-0.5); Lymphocytes Absolute Auto 1.24 K/mm3 (0.9-3.2); Lymphocytes Percent Auto 25.3 % (18.3-44.2); Mean Corpuscular HGB Conc 32.3 g/dl (32-36); Mean Corpuscular Hemoglobin 29.6 pg (26-34); Mean Corpuscular Volume 91.5 fl (80-100); Mean Platelet Volume 10.4 fl (7.4-10.4); Monocytes Absolute Auto 0.3 K/mm3 (0.1-0.6); Monocytes Percent Auto 5.5 % (2.6-8.5); Neutrophils Absolute Auto 3.2 K/mm3 (1.3-6.7); Platelet Count Result 258 k/mm3 (150-375); Red Blood Count 3.89 M/mm3 (4.6-6.20); Red Cell Distribution Width 14.9 % (11.5-14.5); White Blood Count 4.9 K/mm3 (4.5-10.0)
[2023-03-23 05:23] LABS: Estimated CRCL calculation 29 ml/min; Estimated Glomerular Filt Rate 21
[2023-03-23 05:27] LABS: Albumin Level 3.6 g/dL (3.5-5.1); Anion Gap 5 mmol/L (8-16); Blood Urea Nitrogen 25 mg/dL (9-20); Calcium 9.3 mg/dL (8.4-10.2); Carbon Dioxide 26 mmol/L (22-30); Chloride 102 mmol/L (98-107); Estimated CRCL calculation 28 ml/min; Estimated Glomerular Filt Rate 20; Glucose 151 mg/dL (65-110); Magnesium 2.3 mg/dL (1.6-2.3); Phosphorus 4.4 mg/dL (2.5-4.5); Sodium 133 mmol/L (137-145)
[2023-03-23] MEDS: LEVOTHYROXINE SODIUM 125 MCG TABLET PO (06:45)
[2023-03-23] MEDS: UMECLIDINIUM BROMIDE 62.5 MCG ELLIPTA 1 PUFF INHALATION (07:10)
[2023-03-23 08:35] LABS: Glucose Point of Care 136 mg/dl (65-105)
[2023-03-23] MEDS: carvediloL 12.5 MG TABLET PO ×2 (09:07→20:20)
[2023-03-23] MEDS: GABAPENTIN 300 MG CAPSULE PO ×3 (09:07→18:21)
[2023-03-23] MEDS: CLOPIDOGREL BISULFATE 75 MG TABLET PO (09:07)
[2023-03-23] MEDS: TAMSULOSIN HCL 0.4 MG CAPSULE PO (09:07)
[2023-03-23] MEDS: amLODIPine BESYLATE 5 MG TABLET 10 MG PO (09:07)
[2023-03-23] MEDS: CEFEPIME 2 GM/NS 50 ML 2 GM/50 ML BAG IVPB ×2 (09:07→20:22)
--- NOTE | 2023-03-23 10:33 | PM.IMPN ---
Progress Note: A&P Assessment and Plan (1) Acute respiratory failure: Code(s): J96.00 - Acute respiratory failure, unspecified whether with hypoxia or hypercapnia Status: Acute Assessment and Plan: Patient developed hypoxic with SpO2 dropping into the 70% range. BiPAP started. ABG showed 7.36/43/82 on BiPAP. Chest x-ray shows airspace opacities in the right lower lung zone. No fevers but became hypothermic. White count normal. Suspect PNA. He may have undiagnosed sleep apnea. Consider also aspiration. He is on 4L oxygen but can be weaned. Continue to follow. Check apnea link once off O2. Check UE venous doppler. Consider VQ scan. (2) Hypothermia: Code(s): T68.XXXA - Hypothermia, initial encounter Status: Acute Assessment and Plan: Patient became hypothermic with temperature that dropped to 95.7?. His TSH is markedly elevated and Synthroid was increased. Hypothyroidism could be causing his hypothermia. Consider also sepsis related to untreated pneumonia. Moved to IMU. Started Monique Hugger and Temp improved and able to come off of this. BCx NGTD. UCx negative. Continue antibiotics. Bradycardia could be related to the hypothermia and/or hypothyroid and/or undx PAYAM. Monitor on tele. (3) Pneumonia: Qualifiers: Laterality: unspecified laterality Lung location: unspecified part of lung Pneumonia type: due to unspecified organism Qualified Code(s): J18.9 - Pneumonia, unspecified organism Code(s): J18.9 - Pneumonia, unspecified organism Status: Acute Assessment and Plan: Chest x-ray on admission showed minimal airspace opacities in right mid lung zone. Patient was afebrile. White count was normal. Repeat CXR again shows airspace opacities in the right lower lung zone. Patient may have had an occult pneumonia on admission. Blood cultures are no growth to date from admission. Repeat blood cultures NGTD. Continue antibiotics. Wean o2 as toelrated (4) Rhabdomyolysis: Code(s): M62.82 - Rhabdomyolysis Status: Acute Assessment and Plan: Patient with elevated total creatinine kinase on admission and climbed 897. He was on high-dose atorvastatin but this has been stopped. Total CK has been running in the 800 range for the past few days. Probably related to his CKD. He was on IV fluids but positive almost 7 L. IV fluids stopped. Continue to monitor. He may need further workup if this does not improve. (5) Acute on chronic kidney failure: Qualifiers: Acute renal failure type: unspecified Chronic kidney disease stage: stage 4 (severe) Qualified Code(s): N17.9 - Acute kidney failure, unspecified; N18.4 - Chronic kidney disease, stage 4 (severe) Code(s): N17.9 - Acute kidney failure, unspecified; N18.9 - Chronic kidney disease, unspecified Status: Acute Assessment and Plan: Last year, creatinine ran mostly 2.2-2.7. Creatinine was higher at 3.4 in February. Creatinine admission was 3.8 but with IV fluids, Cr trended down to 2.9. Serum bicarb and potassium level remained normal. He did have urine retention that may have contributed to this as well. Cr stable at 3.0 today. Continue to follow. Consider amyloid given the enlarged tongue and renal failure; SPEP/UPEP ordered (6) Fall from ground level: Code(s): W18.30XA - Fall on same level, unspecified, initial encounter Status: Acute Assessment and Plan: Patient felt weak and ?my legs gave out? and he fell forward onto the floor. He apparently had 3 such falls the day prior to admission that he feels is related to his diabetic peripheral neuropathy. After the 3rd fall he was unable to get himself up and he lay on the floor about 8-10 hours before he was able to call for help. Patient presented after having falls at home. Rt hand xray showing acute fracture of the fifth proximal phalanx. Left knee xray showing mild soft tissue swelling and small effusion. C
[2023-03-23 12:53] LABS: Glucose Point of Care 139 mg/dl (65-105)
--- NOTE | 2023-03-23 15:16 | PCSTNOTE ---
Modified Barium Swallow will be completed Sunday.
[2023-03-23 17:17] LABS: Glucose Point of Care 139 mg/dl (65-105)
[2023-03-23 20:58] LABS: Glucose Point of Care 124 mg/dl (65-105)
[2023-03-24] VITALS (26 sets, daily range): BP systolic 114–150; BP diastolic 63–95; PULSE 52–82; RESP 16–22; TEMP 36.5–36.7; O2SAT 92–99
[2023-03-24] MEDS: ALBUTEROL SULFATE NEB 2.5 MG/3 ML INH INHALATION ×4 (01:39→20:28)
[2023-03-24 05:11] LABS: Basophils Absolute Auto 0.1 K/mm3 (0.0-0.1); Eosinophils Absolute Auto 0.1 K/mm3 (0-0.3); Hematocrit 34.3 % (42.0-52.0); Hemoglobin 10.9 g/dL (14.0-18.0); Immature Granulocyte Absolute 0.03 K/mm3 (0.00-0.031); Immature Granulocyte Percent A 0.6 % (0-0.5); Lymphocytes Absolute Auto 1.08 K/mm3 (0.9-3.2); Mean Corpuscular HGB Conc 31.8 g/dl (32-36); Mean Corpuscular Hemoglobin 29.9 pg (26-34); Mean Platelet Volume 10.5 fl (7.4-10.4); Monocytes Absolute Auto 0.3 K/mm3 (0.1-0.6); Monocytes Percent Auto 6.7 % (2.6-8.5); Neutrophils Absolute Auto 3.3 K/mm3 (1.3-6.7); Neutrophils Percent Auto 67.7 % (45.5-73.1); Platelet Count Result 237 k/mm3 (150-375); Red Blood Count 3.65 M/mm3 (4.6-6.20); Red Cell Distribution Width 15.1 % (11.5-14.5); White Blood Count 4.9 K/mm3 (4.5-10.0)
[2023-03-24 05:28] LABS: Anion Gap 8 mmol/L (8-16); Blood Urea Nitrogen 26 mg/dL (9-20); Carbon Dioxide 26 mmol/L (22-30); Chloride 101 mmol/L (98-107); Estimated CRCL calculation 30 ml/min; Estimated Glomerular Filt Rate 22; Glucose 127 mg/dL (65-110); Potassium 4.3 mmol/L (3.4-5.0); Sodium 135 mmol/L (137-145)
[2023-03-24 05:44] LABS: NT Pro B Type Natriuretic Pept 650 pg/mL (19.9-100)
[2023-03-24] MEDS: LEVOTHYROXINE SODIUM 125 MCG TABLET PO (06:23)
[2023-03-24] MEDS: UMECLIDINIUM BROMIDE 62.5 MCG ELLIPTA 1 PUFF INHALATION (08:09)
[2023-03-24] MEDS: GABAPENTIN 300 MG CAPSULE PO ×3 (08:49→19:30)
[2023-03-24] MEDS: amLODIPine BESYLATE 5 MG TABLET 10 MG PO (08:49)
[2023-03-24] MEDS: CLOPIDOGREL BISULFATE 75 MG TABLET PO (08:49)
[2023-03-24] MEDS: carvediloL 12.5 MG TABLET PO ×2 (08:49→22:18)
[2023-03-24] MEDS: TAMSULOSIN HCL 0.4 MG CAPSULE PO (08:50)
[2023-03-24] MEDS: CEFEPIME 2 GM/NS 50 ML 2 GM/50 ML BAG IVPB ×2 (08:51→22:19)
--- NOTE | 2023-03-24 10:05 | PM.IMPN ---
Progress Note: A&P Assessment and Plan (1) Acute respiratory failure: Code(s): J96.00 - Acute respiratory failure, unspecified whether with hypoxia or hypercapnia Status: Acute Assessment and Plan: Patient developed hypoxic with SpO2 dropping into the 70% range. BiPAP started. ABG showed 7.36/43/82 on BiPAP. Chest x-ray shows airspace opacities in the right lower lung zone. No fevers but became hypothermic. White count normal. Suspect PNA. He may have undiagnosed sleep apnea. Consider also aspiration. UE/LE venous doppler negative for DVT. Continue to follow. Check apnea link once off O2. Wean O2 as tolerated. (2) Hypothermia: Code(s): T68.XXXA - Hypothermia, initial encounter Status: Acute Assessment and Plan: Patient became hypothermic with temperature that dropped to 95.7?. His TSH is markedly elevated and Synthroid was increased. Hypothyroidism could be the etiology of hypothermia. Consider also sepsis related to untreated pneumonia. Moved to IMU. Started Monique Hugger and Temp improved and able to come off of this. BCx NGTD. UCx negative. Continue antibiotics. Bradycardia could be related to the hypothermia and/or hypothyroid and/or undx PAYAM. Monitor on tele. (3) Pneumonia: Qualifiers: Laterality: unspecified laterality Lung location: unspecified part of lung Pneumonia type: due to unspecified organism Qualified Code(s): J18.9 - Pneumonia, unspecified organism Code(s): J18.9 - Pneumonia, unspecified organism Status: Acute Assessment and Plan: Chest x-ray on admission showed minimal airspace opacities in right mid lung zone. Patient was afebrile. White count was normal. Repeat CXR again shows airspace opacities in the right lower lung zone. Patient may have had an occult pneumonia on admission. Blood cultures are NGTD from admission. Repeat blood cultures NGTD. CXR 03/23 reviewed showing minimal bibasilar airspace disease. Continue antibiotics and change to oral. Wean O2 as tolerated. ST saw him om 03/21 and recommended [address]PO. Repeat ST evaluation on 03/23 recommended MBS but could not complete so hopefully today. (4) Rhabdomyolysis: Code(s): M62.82 - Rhabdomyolysis Status: Acute Assessment and Plan: Patient with elevated total creatinine kinase on admission and climbed 897. He was on high-dose atorvastatin but this has been stopped. Total CK has been running in the 800 range for the past few days. Probably related to his CKD. He was on IV fluids and was fluid positive. IV fluids stopped. Continue to monitor. He may need further workup if this does not improve. (5) Acute on chronic kidney failure: Qualifiers: Acute renal failure type: unspecified Chronic kidney disease stage: stage 4 (severe) Qualified Code(s): N17.9 - Acute kidney failure, unspecified; N18.4 - Chronic kidney disease, stage 4 (severe) Code(s): N17.9 - Acute kidney failure, unspecified; N18.9 - Chronic kidney disease, unspecified Status: Acute Assessment and Plan: Last year, creatinine ran mostly 2.2-2.7. Creatinine was higher at 3.4 in February. Creatinine admission was 3.8 but with IV fluids, Cr trended down to 2.9. Serum bicarb and potassium level remained normal. He did have urine retention that may have contributed to this as well. Cr stable at 2.9 today. Continue to follow. Consider amyloid given the enlarged tongue and renal failure; SPEP/UPEP ordered (6) Fall from ground level: Code(s): W18.30XA - Fall on same level, unspecified, initial encounter Status: Acute Assessment and Plan: Patient felt weak and ?my legs gave out? and he fell forward onto the floor. He apparently had 3 such falls the day prior to admission that he feels is related to his diabetic peripheral neuropathy. After the 3rd fall he was unable to get himself up and he lay on the floor about 8-10 hours before he was able to call for help.
[2023-03-24 10:37] LABS: Vancomycin Trough 16.9 ug/mL (10.0-20.0)
[2023-03-24 10:38] LABS: Creatine Kinase 676 U/L (55-170)
[2023-03-24 11:26] LABS: Glucose Point of Care 130 mg/dl (65-105)
--- NOTE | 2023-03-24 12:35 | PCSTNOTE ---
Modified barium swallow study completed. Patient was given thin, mildly thickened, pureed, mixed, and solid consistencies in varying amounts. One episode of penetration occurred with thin liquid by cup. Patient consistently had trace residue in pyriform sinuses which was reduced with multiple swallows. No aspiration was observed. Recommendations: minced moist diet with mildly thickened liquids. Swallowing precaution recommendations placed in chart. Speech therapy treatment for improved swallowing function including laryngeal elevation, tongue base, and laryngeal adduction exercises. Thank you for the referral of this patient.
[2023-03-24 12:39] LABS: Glucose Point of Care 139 mg/dl (65-105)
[2023-03-24 12:58] LABS: Free T4 Free Thyroxine 0.33 ng/mL (0.78-2.19)
[2023-03-24] MEDS: ENOXAPARIN 40 MG/0.4 ML SYRINGE SUB-Q (13:31)
[2023-03-24] MEDS: DEXTROSE 5%/0.9% SOD CHL 1,000 ML 100 ML IV CONT (13:33)
[2023-03-24 16:49] LABS: Glucose Point of Care 146 mg/dl (65-105)
[2023-03-24 20:17] LABS: Glucose Point of Care 174 mg/dl (65-105)
[2023-03-24] MEDS: MELATONIN 5 MG TABLET 10 MG PO (22:24)
[2023-03-25] VITALS (27 sets, daily range): BP systolic 116–142; BP diastolic 60–75; PULSE 44–63; RESP 12–20; TEMP 36.2–36.6; O2SAT 92–99
[2023-03-25] MEDS: DEXTROSE 5%/0.9% SOD CHL 1,000 ML 100 ML IV CONT (01:50)
[2023-03-25] MEDS: ALBUTEROL SULFATE NEB 2.5 MG/3 ML INH INHALATION ×4 (02:15→20:06)
--- NOTE | 2023-03-25 05:02 | PCRCNOTE ---
Patient still requiring bipap overnight. Unable to do apnea link.
[2023-03-25 05:58] LABS: Anion Gap 4 mmol/L (8-16); Blood Urea Nitrogen 24 mg/dL (9-20); Carbon Dioxide 27 mmol/L (22-30); Chloride 103 mmol/L (98-107); Estimated CRCL calculation 31 ml/min; Estimated Glomerular Filt Rate 23; Glucose 187 mg/dL (65-110); Potassium 3.8 mmol/L (3.4-5.0); Sodium 134 mmol/L (137-145)
[2023-03-25] MEDS: LEVOTHYROXINE SODIUM INJ 100 MCG/5 ML VIAL 62.5 MCG IV PUSH (06:19)
[2023-03-25 08:38] LABS: Glucose Point of Care 179 mg/dl (65-105)
[2023-03-25] MEDS: UMECLIDINIUM BROMIDE 62.5 MCG ELLIPTA 1 PUFF INHALATION (08:58)
[2023-03-25] MEDS: CEFDINIR 300 MG CAPSULE PO ×2 (09:04→20:44)
[2023-03-25] MEDS: amLODIPine BESYLATE 5 MG TABLET 10 MG PO (09:04)
[2023-03-25] MEDS: DOXYCYCLINE HYCLATE 100 MG TABLET PO ×2 (09:05→20:44)
[2023-03-25] MEDS: TAMSULOSIN HCL 0.4 MG CAPSULE PO (09:05)
[2023-03-25] MEDS: ENOXAPARIN 40 MG/0.4 ML SYRINGE SUB-Q (09:06)
[2023-03-25] MEDS: GABAPENTIN 300 MG CAPSULE PO ×3 (09:06→20:44)
[2023-03-25] MEDS: CLOPIDOGREL BISULFATE 75 MG TABLET PO (09:07)
[2023-03-25] MEDS: polyethylene glycoL 3350 17 GM POWD.PACK PO (09:07)
[2023-03-25 12:14] LABS: Glucose Point of Care 180 mg/dl (65-105)
[2023-03-25 13:38] LABS: Creatine Kinase 500 U/L (55-170)
--- NOTE | 2023-03-25 14:50 | PM.IMPN ---
Progress Note: A&P Assessment and Plan (1) Acute respiratory failure: Code(s): J96.00 - Acute respiratory failure, unspecified whether with hypoxia or hypercapnia Status: Acute Assessment and Plan: Patient developed hypoxic with SpO2 dropping into the 70% range. BiPAP started. ABG showed 7.36/43/82 on BiPAP. Chest x-ray shows airspace opacities in the right lower lung zone. No fevers but became hypothermic. White count normal. Suspect PNA. He may have undiagnosed sleep apnea. Consider also aspiration. He did pass the swallow study but does required modifications. UE/LE venous doppler negative for DVT. Continue to follow. Wean O2 as tolerated. Will need sleep study after discharge. Check ABG in the morning. (2) Hypothermia: Code(s): T68.XXXA - Hypothermia, initial encounter Status: Acute Assessment and Plan: Patient became hypothermic with temperature that dropped to 95.7?. His TSH is markedly elevated and Synthroid was increased. Hypothyroidism could be the etiology of hypothermia. Consider also sepsis related to untreated pneumonia. Moved to IMU. Started Monique Hugger and Temp improved and able to come off of this. BCx NGTD. UCx negative. Continue antibiotics. Bradycardia could be related to the hypothermia and/or hypothyroid and/or undx PAYAM. Monitor on tele. (3) Pneumonia: Qualifiers: Laterality: unspecified laterality Lung location: unspecified part of lung Pneumonia type: due to unspecified organism Qualified Code(s): J18.9 - Pneumonia, unspecified organism Code(s): J18.9 - Pneumonia, unspecified organism Status: Acute Assessment and Plan: Chest x-ray on admission showed minimal airspace opacities in right mid lung zone. Patient was afebrile. White count was normal. Repeat CXR again shows airspace opacities in the right lower lung zone. Patient may have had an occult pneumonia on admission. Blood cultures are NGTD from admission. Repeat blood cultures NGTD. CXR 03/23 reviewed showing minimal bibasilar airspace disease. Continue antibiotics and change to oral. Wean O2 as tolerated. ST saw him om 03/21 and recommended NPO. MBS 03/24 recommended minced/moist with level 2 thickened liquids. (4) Rhabdomyolysis: Code(s): M62.82 - Rhabdomyolysis Status: Acute Assessment and Plan: Patient with elevated total creatinine kinase on admission and climbed 897 related to falls and laying on the ground. He was on high-dose atorvastatin but this has been stopped. Total CK was running in the 800 range but now trending down. Probably related to his CKD. He was on IV fluids and was fluid positive. IV fluids stopped. Continue to monitor. (5) Acute on chronic kidney failure: Qualifiers: Acute renal failure type: unspecified Chronic kidney disease stage: stage 4 (severe) Qualified Code(s): N17.9 - Acute kidney failure, unspecified; N18.4 - Chronic kidney disease, stage 4 (severe) Code(s): N17.9 - Acute kidney failure, unspecified; N18.9 - Chronic kidney disease, unspecified Status: Acute Assessment and Plan: Last year, creatinine ran mostly 2.2-2.7. Creatinine was higher at 3.4 in February. Creatinine on admission was 3.8 but with IV fluids, Cr trended down to 2.9. Serum bicarb and potassium level remained normal. He did have urine retention that may have contributed to this as well. SPEP/UPEP pending. Cr stable at 2.8 today. Continue to follow. (6) Fall from ground level: Code(s): W18.30XA - Fall on same level, unspecified, initial encounter Status: Acute Assessment and Plan: Patient felt weak and ?my legs gave out? and he fell forward onto the floor. He apparently had 3 such falls the day prior to admission that he feels is related to his diabetic peripheral neuropathy. After the 3rd fall he was unable to get himself up and he lay on the floor about 8-10 hours before he was able to call for
[2023-03-25 17:09] LABS: Glucose Point of Care 181 mg/dl (65-105)
--- NOTE | 2023-03-25 18:17 | PC.NURSE ---
This patient, Ant Kinney, was received from [facility] on 03/25/23 at 1817. Patient/family oriented to unit policies and routines.
[2023-03-25] MEDS: MELATONIN 5 MG TABLET 10 MG PO (20:44)
[2023-03-25 20:55] LABS: Glucose Point of Care 158 mg/dl (65-105)
[2023-03-26] VITALS (27 sets, daily range): BP systolic 136–161; BP diastolic 72–80; PULSE 27–94; RESP 15–22; TEMP 36.4–36.6; O2SAT 58–97
[2023-03-26] MEDS: ALBUTEROL SULFATE NEB 2.5 MG/3 ML INH INHALATION ×4 (02:05→19:47)
--- NOTE | 2023-03-26 02:09 | PCRCNOTE ---
Apnea Link not done this evening. pt still requiring bipap
--- NOTE | 2023-03-26 05:55 | PCRCNOTE ---
Pt refused ABG draw this AM
[2023-03-26] MEDS: LEVOTHYROXINE SODIUM INJ 100 MCG/5 ML VIAL 62.5 MCG IV PUSH (06:00)
[2023-03-26 06:45] LABS: Hematocrit 33.1 % (42.0-52.0); Hemoglobin 10.8 g/dL (14.0-18.0); Mean Corpuscular HGB Conc 32.6 g/dl (32-36); Mean Corpuscular Hemoglobin 30.3 pg (26-34); Platelet Count Result 230 k/mm3 (150-375); Red Blood Count 3.56 M/mm3 (4.6-6.20); Red Cell Distribution Width 15.3 % (11.5-14.5); White Blood Count 3.9 K/mm3 (4.5-10.0)
[2023-03-26 06:58] LABS: Albumin Level 3.3 g/dL (3.5-5.1); Anion Gap 1 mmol/L (8-16); Blood Urea Nitrogen 23 mg/dL (9-20); Calcium 9.3 mg/dL (8.4-10.2); Carbon Dioxide 26 mmol/L (22-30); Chloride 104 mmol/L (98-107); Estimated CRCL calculation 34 ml/min; Estimated Glomerular Filt Rate 25; Glucose 136 mg/dL (65-110); Magnesium 2.4 mg/dL (1.6-2.3); Phosphorus 3.9 mg/dL (2.5-4.5); Potassium 3.9 mmol/L (3.4-5.0); Sodium 131 mmol/L (137-145)
[2023-03-26] MEDS: UMECLIDINIUM BROMIDE 62.5 MCG ELLIPTA 1 PUFF INHALATION (07:49)
[2023-03-26] MEDS: DOXYCYCLINE HYCLATE 100 MG TABLET PO ×2 (10:06→20:35)
[2023-03-26] MEDS: amLODIPine BESYLATE 5 MG TABLET 10 MG PO (10:06)
[2023-03-26] MEDS: ENOXAPARIN 40 MG/0.4 ML SYRINGE SUB-Q (10:07)
[2023-03-26] MEDS: CEFDINIR 300 MG CAPSULE PO ×2 (10:07→20:35)
[2023-03-26] MEDS: GABAPENTIN 300 MG CAPSULE PO ×2 (10:07→20:35)
[2023-03-26] MEDS: TAMSULOSIN HCL 0.4 MG CAPSULE PO (10:07)
[2023-03-26] MEDS: polyethylene glycoL 3350 17 GM POWD.PACK PO (10:08)
--- NOTE | 2023-03-26 10:16 | PCSTNOTE ---
Spoke with JUNAID Collins, concerning patient's response to oral diet and she reported that he seems to be tolerating both thickened liquids and Minced and Moist Diet. Will consider advancing diet tomorrow if the rest of today's meals are consumed without difficulty.
[2023-03-26] MEDS: CLOPIDOGREL BISULFATE 75 MG TABLET PO (10:19)
--- NOTE | 2023-03-26 15:44 | PM.IMPN ---
Progress Note: A&P Assessment and Plan (1) Acute respiratory failure: Code(s): J96.00 - Acute respiratory failure, unspecified whether with hypoxia or hypercapnia Status: Acute Assessment and Plan: Patient developed hypoxic with SpO2 dropping into the 70% range. BiPAP started. ABG showed 7.36/43/82 on BiPAP. Chest x-ray shows airspace opacities in the right lower lung zone. No fevers but became hypothermic. White count normal. Suspect PNA. He may have undiagnosed sleep apnea. Consider also aspiration. He did pass the swallow study but does required modifications. UE/LE venous doppler negative for DVT. Continue to follow. Wean O2 as tolerated. Will need sleep study after discharge. He refused ABG this morning. (2) Hypothermia: Code(s): T68.XXXA - Hypothermia, initial encounter Status: Acute Assessment and Plan: Patient became hypothermic with temperature that dropped to 95.7?. His TSH is markedly elevated and Synthroid was increased. Hypothyroidism could be the etiology of hypothermia. Consider also sepsis related to untreated pneumonia. Moved to IMU. Started Monique Hugger and Temp improved and able to come off of this. BCx NGTD. UCx negative. Continue antibiotics. Bradycardia could be related to the hypothermia and/or hypothyroid and/or undx PAYAM. Monitor on tele. (3) Pneumonia: Qualifiers: Laterality: unspecified laterality Lung location: unspecified part of lung Pneumonia type: due to unspecified organism Qualified Code(s): J18.9 - Pneumonia, unspecified organism Code(s): J18.9 - Pneumonia, unspecified organism Status: Acute Assessment and Plan: Chest x-ray on admission showed minimal airspace opacities in right mid lung zone. Patient was afebrile. White count was normal. Repeat CXR again shows airspace opacities in the right lower lung zone. Patient may have had an occult pneumonia on admission. Blood cultures are NGTD from admission. Repeat blood cultures NGTD. CXR 03/23 reviewed showing minimal bibasilar airspace disease. ST saw him om 03/21 and recommended NPO. MBS 03/24 recommended minced/moist with level 2 thickened liquids. Diet started. Continue antibiotics and changed to oral. Wean O2 as tolerated. (4) Rhabdomyolysis: Code(s): M62.82 - Rhabdomyolysis Status: Acute Assessment and Plan: Patient with elevated total creatinine kinase on admission and climbed 897 related to falls and laying on the ground. He was on high-dose atorvastatin but this has been stopped. Total CK was running in the 800 range but now trending down. Probably related to his CKD. He was on IV fluids and was fluid positive. IV fluids stopped. Continue to monitor. (5) Acute on chronic kidney failure: Qualifiers: Acute renal failure type: unspecified Chronic kidney disease stage: stage 4 (severe) Qualified Code(s): N17.9 - Acute kidney failure, unspecified; N18.4 - Chronic kidney disease, stage 4 (severe) Code(s): N17.9 - Acute kidney failure, unspecified; N18.9 - Chronic kidney disease, unspecified Status: Acute Assessment and Plan: Last year, creatinine ran mostly 2.2-2.7. Creatinine was higher at 3.4 in February. Creatinine on admission was 3.8 but with IV fluids, Cr trended down. Serum bicarb and potassium level remained normal. He did have urine retention that may have contributed to this as well. SPEP/UPEP pending. Cr stable at 2.6 today. Continue to follow. (6) Fall from ground level: Code(s): W18.30XA - Fall on same level, unspecified, initial encounter Status: Acute Assessment and Plan: Patient felt weak and ?my legs gave out? and he fell forward onto the floor. He apparently had 3 such falls the day prior to admission that he feels is related to his diabetic peripheral neuropathy. After the 3rd fall he was unable to get himself up and he lay on the floor about 8-10 hours before he was able to
[2023-03-26 16:02] LABS: Albumin 3.7; Alpha 1 Globulin 0.2; Alpha 2 Globulin 0.5; Beta 1 Globulin 0.4; Gamma Globulin 0.7; Protein, Total 5.8
[2023-03-26 16:58] LABS: Glucose Point of Care 144 mg/dl (65-105)
[2023-03-26] MEDS: MELATONIN 5 MG TABLET 10 MG PO (20:35)
[2023-03-26] MEDS: carvediloL 12.5 MG TABLET PO (20:35)
[2023-03-26 21:28] LABS: Glucose Point of Care 144 mg/dl (65-105)
[2023-03-27] VITALS (15 sets, daily range): BP systolic 123–127; BP diastolic 64–67; PULSE 52–67; RESP 16–18; TEMP 36.3–36.6; O2SAT 93–97
[2023-03-27] MEDS: ALBUTEROL SULFATE NEB 2.5 MG/3 ML INH INHALATION ×3 (02:05→14:49)
[2023-03-27] MEDS: LEVOTHYROXINE SODIUM INJ 100 MCG/5 ML VIAL 62.5 MCG IV PUSH (04:47)
[2023-03-27 08:17] LABS: Glucose Point of Care 151 mg/dl (65-105)
[2023-03-27] MEDS: UMECLIDINIUM BROMIDE 62.5 MCG ELLIPTA 1 PUFF INHALATION (08:36)
[2023-03-27] MEDS: CLOPIDOGREL BISULFATE 75 MG TABLET PO (09:24)
[2023-03-27] MEDS: TAMSULOSIN HCL 0.4 MG CAPSULE PO (09:24)
[2023-03-27] MEDS: amLODIPine BESYLATE 5 MG TABLET 10 MG PO (09:24)
[2023-03-27] MEDS: CEFDINIR 300 MG CAPSULE PO (09:25)
[2023-03-27] MEDS: GABAPENTIN 300 MG CAPSULE PO (09:25)
[2023-03-27] MEDS: DOXYCYCLINE HYCLATE 100 MG TABLET PO (09:25)
[2023-03-27] MEDS: ENOXAPARIN 40 MG/0.4 ML SYRINGE SUB-Q (09:25)
[2023-03-27] MEDS: polyethylene glycoL 3350 17 GM POWD.PACK PO (09:25)
[2023-03-27] MEDS: carvediloL 12.5 MG TABLET PO (09:26)
--- NOTE | 2023-03-27 10:55 | PCNWS ---
Weekly nutritional screen. Patient is tolerating current diet with adequate intake. No weight loss reported. No nutritional needs at this time.
[2023-03-27 12:04] LABS: Glucose Point of Care 156 mg/dl (65-105)
[2023-03-27 12:42] LABS: Glucose Point of Care 179 mg/dl (65-105)
[2023-03-27 13:59] LABS: Glucose Point of Care 135 mg/dl (65-105)
--- NOTE | 2023-03-27 15:05 | PM.DS ---
DS: Admitting Diagnosis Discharge Date 03/27/23 Admitting Diagnosis Fall DS: Discharge Diagnosis Discharge Diagnosis (1) Acute respiratory failure: Code(s): J96.00 - Acute respiratory failure, unspecified whether with hypoxia or hypercapnia Status: Acute (2) Hypothermia: Code(s): T68.XXXA - Hypothermia, initial encounter Status: Acute (3) Pneumonia: Qualifiers: Laterality: unspecified laterality Lung location: unspecified part of lung Pneumonia type: due to unspecified organism Qualified Code(s): J18.9 - Pneumonia, unspecified organism Code(s): J18.9 - Pneumonia, unspecified organism Status: Acute (4) Rhabdomyolysis: Code(s): M62.82 - Rhabdomyolysis Status: Acute (5) Acute on chronic kidney failure: Qualifiers: Acute renal failure type: unspecified Chronic kidney disease stage: stage 4 (severe) Qualified Code(s): N17.9 - Acute kidney failure, unspecified; N18.4 - Chronic kidney disease, stage 4 (severe) Code(s): N17.9 - Acute kidney failure, unspecified; N18.9 - Chronic kidney disease, unspecified Status: Acute (6) Fall from ground level: Code(s): W18.30XA - Fall on same level, unspecified, initial encounter Status: Acute (7) Urinary retention: Code(s): R33.9 - Retention of urine, unspecified Status: Acute (8) Hypothyroidism: Code(s): E03.9 - Hypothyroidism, unspecified Status: Acute (9) Type 2 diabetes mellitus: Qualifiers: Diabetes mellitus complication status: with hyperglycemia Diabetes mellitus long wall mining machine helper insulin use: with long wall mining machine helper use Qualified Code(s): E11.65 - Type 2 diabetes mellitus with hyperglycemia; Z79.4 - termite control servicer (current) use of insulin Code(s): E11.9 - Type 2 diabetes mellitus without complications Status: Acute (10) Fracture of phalanx of right little finger: Code(s): S62.606A - Fracture of unspecified phalanx of right little finger, initial encounter for closed fracture Status: Acute (11) Hypertension: Code(s): I10 - Essential (primary) hypertension Status: Acute DS: Summary Hospital Course Reason for hospitalization: 67yo male with CKD, DM, HTN and COPD and hypothyroidism who was transferred from [facility] who initially was evaluated for weakness after a fall at home.?Please see H&P for details. Hospital Course: Patient felt weak and ?my legs gave out? and he fell forward onto the floor. He apparently had 3 such falls the day prior to admission that he feels is related to his diabetic peripheral neuropathy. After the 3rd fall he was unable to get himself up and he lay on the floor about 8-10 hours before he was able to call for help. Patient presented after having falls at home. Rt hand xray showing acute fracture of the fifth proximal phalanx. The Rt 5th finger was splinted. Left knee xray showing mild soft tissue swelling and small effusion. CT brain showing no acute findings. Patient had rhabdomyolysis with elevated total creatinine kinase on admission and climbed 897 related to falls and laying on the ground.? He was on high-dose atorvastatin and this was stopped.? Total CK trended down slowly probably related to his CKD.? He was started on IV fluids. He had urinary retention as well. He was unable to produce a urine sample. Bladder scan showed nearly 400 cc of urine in the bladder and a Tatum catheter was inserted. He was not able to move around well. Plan for Tatum trial when more ambulatory. Flomax was started. Patient has known hypothyroidism. TSH has been elevated since 2019. TSH was 82.5 here. FT4 <0.07. He is noncompliant with his medications at home. Treated with IV levothyroxine and oral dose was increased from 75mcg to 125mcg. Repeat TSH 74.8 and FT4 0.33. Encouraged compliance. Weakness felt related to his severe hypothyroidism. During his hospitalization, the patient developed hypoxic with SpO2 dropping int
[2023-03-27 17:16] LABS: Glucose Point of Care 172 mg/dl (65-105)
--- NOTE | 2023-03-27 19:49 | PC.NURSE ---
Patient was picked up by EMS. Report given to facility and packet given to patient.
[2023-03-29 01:20] LABS: Creatinine, Random Urine 77 mg/dL (20-320); Total Protein/Creatinine Ratio 532 mg/g creat (25-148)
[2023-04-01 14:56] LABS: Z Score Male -1.9 SD (-2.0 - +2.0)
== END 2023-03-27 19:59 | disposition swing bed (61) | DRG 643 ==
LOC: ANH2MED 03-20 14:53 → ANHIMU 03-21 10:20 → ANH3MED 03-25 18:07
PROVIDERS: Chiropractor; Internal Medicine; Physician Assistant; Admitting Provider Student in an Organized Health Care Education/Training Program; PCP Family Medicine; Visit Provider Internal Medicine
DX: E03.9 Hypothyroidism, unspecified (principal); J18.9 Pneumonia, unspecified organism; J96.01 Acute respiratory failure with hypoxia; M62.82 Rhabdomyolysis; J44.0 Chronic obstructive pulmonary disease with (acute) lower respiratory infection; N18.4 Chronic kidney disease, stage 4 (severe); N17.9 Acute kidney failure, unspecified; R53.1 Weakness; Z91.199 Patient's noncompliance with other medical treatment and regimen due to unspecified reason; E11.42 Type 2 diabetes mellitus with diabetic polyneuropathy; S62.616A Displaced fracture of proximal phalanx of right little finger, initial encounter for closed fracture; W18.30XA Fall on same level, unspecified, initial encounter; E11.22 Type 2 diabetes mellitus with diabetic chronic kidney disease; R68.0 Hypothermia, not associated with low environmental temperature; I12.9 Hypertensive chronic kidney disease with stage 1 through stage 4 chronic kidney disease, or unspecified chronic kidney disease; E11.65 Type 2 diabetes mellitus with hyperglycemia; G47.33 Obstructive sleep apnea (adult) (pediatric); M19.90 Unspecified osteoarthritis, unspecified site; K21.9 Gastro-esophageal reflux disease without esophagitis; R33.9 Retention of urine, unspecified; E78.5 Hyperlipidemia, unspecified; Z79.4 Long term (current) use of insulin; Z87.891 Personal history of nicotine dependence; Z86.73 Personal history of transient ischemic attack (TIA), and cerebral infarction without residual deficits
CPT/HCPCS: 36415; 36600; 70450; 71045; 71046; 74018; 80048; 80053; 80069; 80202; 81001; 82550; 82565; 82570; 82805; 82948; 83735; 83880; 84100; 84155; 84156; 84165; 84166; 84305; 84439; 84443; 85025; 85027; 86140; 87040; 87086; 87088; 92526; 92610; 92611; 93005; 93970; 94002; 94003; 94640; 96360; 96361; 97110; 97116; 97161; 97165; 97168; 97530; 97535; A9270; G0378; G0379; J0692; J1650; J1815; J3370; J7042; J7120

== ENCOUNTER 2023-03-27 20:37 | Inpatient (IN) | payer MEDICARE, SELFPAY ==
[2023-03-27 20:52] VITALS: BMI 45.8
--- NOTE | 2023-03-27 21:05 | ADMGEN ---
This patient, Ant Kinney, was admitted to 2nd Floor Room 205-2. Patient oriented to hospital policies and general routines including ID bracelet, bed and alarms, visiting hours, pain management, procedures, bathroom and other care routines, personal items, smoking policy, room service/diet, and visiting hours. Information on how to activate the Rapid Response Team has been discussed. Patientare encouraged to report perceived risks to care and to ask questions if they do not understand what they are told or what they should do.
[2023-03-27 21:15] VITALS: O2SAT 91
[2023-03-27] MEDS: MELATONIN 5 MG TABLET 10 MG PO (21:53)
[2023-03-27] MEDS: GABAPENTIN 300 MG CAPSULE PO (21:53)
[2023-03-27] MEDS: ACETAMINOPHEN 325 MG TABLET 650 MG PO (21:53)
[2023-03-27] MEDS: CEFDINIR 300 MG CAPSULE PO (21:53)
[2023-03-27] MEDS: DOXYCYCLINE HYCLATE 100 MG TABLET PO (21:53)
[2023-03-27 22:06] VITALS: O2SAT 91
--- NOTE | 2023-03-27 22:10 | PC.NURSE ---
This RN asked the pt, Ant, if he knew why he was taking antibiotics. Pt stated he believes it was to treat some slight pneumonia while he was at the previous facility.
[2023-03-27 23:22] VITALS: BP 140/80; PULSE 54; RESP 19; TEMP 36.1; O2SAT 91
[2023-03-28 00:34] LABS: Glucose Point of Care 158 mg/dl (65-105)
--- NOTE | 2023-03-28 01:49 | PC.NURSE ---
Pt had spilled his drink. This RN cleaned/dried up mess w/towels and wet cloth. Pt's phone and tablet did appear to have some liquid on them; phone working as usual thus far. Items placed near pt again once they were dried off. Pt ambulated using walker, gait belt, and 1 assist from the bottom of the bed to higher up nearer the HOB. Pt tolerated activity well, and had no c/o dizziness. Pt now laying in bed w/side railsx3 raised, call light w/in reach, bed in lowest position, night light on, and personal items near him for pt safety.
[2023-03-28 05:12] LABS: Basophils Absolute Auto 0.05 K/mm3 (0.00-0.10); Basophils Percent Auto 1.2 % (0.0-1.0); Eosinophils Absolute Auto 0.11 K/mm3 (0.02-0.50); Eosinophils Percent Auto 2.7 % (1.0-6.0); Hematocrit 34.7 % (37.0-46.0); Hemoglobin 11.3 g/dL (12.4-15.3); Immature Granulocyte Absolute 0.02 K/mm3 (0.00-0.00); Immature Granulocyte Percent A 0.5 % (0.0-0.0); Lymphocytes Absolute Auto 1.04 K/mm3 (1.10-4.50); Lymphocytes Percent Auto 25.5 % (18.0-42.0); Mean Corpuscular HGB Conc 32.6 g/dL (32.0-36.0); Mean Corpuscular Hemoglobin 30.1 pg (27.0-31.0); Mean Corpuscular Volume 92.5 fL (78.0-102.0); Mean Platelet Volume 10.6 fl (8.7-11.0); Monocytes Absolute Auto 0.35 K/mm3 (0.10-0.90); Monocytes Percent Auto 8.6 % (2.0-11.0); Neutrophils Absolute Auto 2.5 K/mm3 (1.7-7.2); Neutrophils Percent Auto 61.5 % (50.0-70.0); Platelet Count Result 239 K/mm3 (150-420); Red Blood Count 3.75 M/mm3 (4.70-6.10); Red Cell Distribution Width 15.5 % (11.6-14.4); White Blood Count 4.1 K/mm3 (4.8-10.8)
[2023-03-28 05:28] LABS: Alanine Aminotransferase 30 U/L (16-63); Albumin Level 3.3 g/dL (3.4-5.0); Alkaline Phosphatase 72 U/L (46-116); Anion Gap 8 mmol/L (8-16); Aspartate Amino Transferase 25 U/L (15-37); Bilirubin,Total 0.6 mg/dL (0.00-1.00); Blood Urea Nitrogen 20 mg/dL (7-18); Calcium 9.3 mg/dL (8.5-10.1); Carbon Dioxide 29 mmol/L (21-32); Chloride 103 mmol/L (98-108); Estimated CRCL calculation 33 ml/min; Estimated Glomerular Filt Rate 24; Glucose 162 mg/dL (70-99); Magnesium 2.2 mg/dL (1.8-2.4); Osmolality Calculated 296 mOsm/kg (285-295); Potassium 3.9 mmol/L (3.5-5.1); Sodium 140 mmol/L (136-145); Total Protein 6.3 g/dL (6.4-8.2)
[2023-03-28 05:30] VITALS: O2SAT 95
[2023-03-28] MEDS: LEVOTHYROXINE SODIUM 25 MCG TABLET PO (06:49)
[2023-03-28] MEDS: LEVOTHYROXINE SODIUM 100 MCG TABLET PO (06:49)
[2023-03-28 07:56] LABS: Glucose Point of Care 157 mg/dl (65-105)
[2023-03-28 08:00] VITALS: BP 129/60; PULSE 61; RESP 16; TEMP 35.9; O2SAT 91
[2023-03-28] MEDS: UMECLIDINIUM BROMIDE 62.5 MCG ELLIPTA 1 PUFF INHALATION (09:38)
[2023-03-28] MEDS: HEPARIN SODIUM 5,000 UNITS/ML VIAL 5000 UNITS SUB-Q ×2 (09:38→20:57)
[2023-03-28 09:39] VITALS: PULSE 61
[2023-03-28] MEDS: CLOPIDOGREL BISULFATE 75 MG TABLET PO (09:39)
[2023-03-28] MEDS: amLODIPine BESYLATE 5 MG TABLET 10 MG PO (09:39)
[2023-03-28] MEDS: CEFDINIR 300 MG CAPSULE PO ×2 (09:39→20:57)
[2023-03-28] MEDS: carvediloL 12.5 MG TABLET PO ×2 (09:39→16:48)
[2023-03-28] MEDS: TAMSULOSIN HCL 0.4 MG CAPSULE PO (09:40)
[2023-03-28] MEDS: DOXYCYCLINE HYCLATE 100 MG TABLET PO ×2 (09:40→20:58)
[2023-03-28] MEDS: polyethylene glycoL 3350 17 GM POWD.PACK PO (09:41)
--- NOTE | 2023-03-28 11:09 | PM.IMHP ---
H&P: HPI History of Present Illness Date/Time: 03/28/23 10:30 Chief Complaint: Generalized weakness Narrative: Mr. Kinney is a 67-year-old gentleman who presented to [facility] for rehab after a fall at home and hospitalization at outside facility. Patient was discharged from [facility] on 03/27/2023 after being hospitalized for rhabdomyolysis, acute kidney injury, and pneumonia. Patient had initially been hospitalized outside facility after falling at home and lying on the ground overnight. Patient was noted to be hypothermic, acute kidney injury have acute kidney injury, and elevation in his creatinine kinase, and a fracture to his 5th proximal phalanx of the right hand. Patient was hydrated throughout hospitalization. Unfortunately, patient was unable to urinate and a Tatum catheter had to be placed. Patient was then started on Flomax. Nephrology was also consulted during hospitalization for worsening renal function. nephrology was not able to see the patient as he was to be discharged for rehab at [facility], but patient refused to do so. Patient was then kept in the hospital and had physical therapy and occupational therapy working with him. In hospitalization patient did require a BiPAP at night. Patient states that he had never been diagnosed with sleep apnea and does not believe he has sleep apnea. Patient had an ABG while on BiPAP and a follow-up was to be performed, but patient refused to have a follow-up ABG. Patient was also noted to be bradycardic throughout hospitalization and it was stated was secondary to patient's hypothyroidism and most likely undiagnosed obstructive sleep apnea. On discharge patient's creatinine in was 2.6. Told patient states that who is ready for therapy so he can go home. Patient states that he has not had any shortness of breath recently. Patient states prior to admission he had no dyspnea on exertion or shortness of breath at home. Patient states that he does not believe he snores and he has never woken up gasping for air. Patient is now requiring oxygen at 3 L per nasal cannula continuously to keep saturations in the mid 90s. Patient states that he has never worn oxygen at home. Patient states that his been over a year, prior to hospitalization, since he has taken home medications. Patient states that he had been having trouble swallowing and he was unable to take his medications for the year. Patient did speak with care coordination and states that he had been sitting his medications up at home by himself, but did not speak of if he was taking them or not. At this time patient denies any chest pain, shortness of breath, lightheadedness, dizziness, syncopal, or near syncopal episodes. Patient is denying any pain. Patient denies any nausea, vomiting, constipation, or diarrhea. Review of Systems Review of Systems: A 12 point review of systems was completed with patient all pertinent positive and negative per HPI the remainder are unremarkable. COUNTS INCLUDE 234 BEDS AT THE [facility] Past Medical History Medical History Arthritis Cerebrovascular accident Chronic kidney disease, stage 4 (severe) Chronic obstructive pulmonary disease Chronic urticaria Dysphagia Emphysema of lung Functional burping disorder Gastroesophageal reflux disease Hearing loss Hyperlipidemia Hypertension Hyperthyroidism Hypothyroidism Left facial numbness Polyarthritis Stenosis of left carotid artery greater than 50% Stomach ulcer Tobacco dependence Type 2 diabetes mellitus Ulcer, esophagus Surgical History Surgical History History of arthroscopy History of carpal tunnel surgery History of cervical discectomy History of vasectomy Status post trigger finger release Family History Family History Father , Unknown
[2023-03-28 11:39] LABS: Glucose Point of Care 193 mg/dl (65-105)
[2023-03-28 15:39] VITALS: BP 145/75; PULSE 59; RESP 16; TEMP 36.6; O2SAT 93
--- NOTE | 2023-03-28 16:25 | PC.NURSE ---
pt up on commode, ST in room for eval
[2023-03-28 16:48] VITALS: PULSE 64
[2023-03-28 16:50] LABS: Glucose Point of Care 173 mg/dl (65-105)
[2023-03-28 19:17] VITALS: O2SAT 94
[2023-03-28] MEDS: GABAPENTIN 300 MG CAPSULE PO (20:57)
[2023-03-28] MEDS: MELATONIN 5 MG TABLET 10 MG PO (20:57)
[2023-03-29] VITALS (7 sets, daily range): BP systolic 122–141; BP diastolic 62–74; PULSE 49–62; RESP 14–18; TEMP 36.2–36.4; O2SAT 92–95
[2023-03-29 03:48] LABS: Glucose Point of Care 183 mg/dl (65-105)
--- NOTE | 2023-03-29 04:20 | PC.NURSE ---
Warehouse Delivery Driver called to pt room, states he needs to use bedside commode, attempts made to assist pt to sit up unsuccessful, pt states I can't get up , bedpan offered and accepted by pt, when commercial real estate underwriter returned from obtaining bedpan, pt was again attempting to get up, pt able to sit on side of bed with commercial real estate underwriter assist, transferred with walker, gait belt, and unsteady gait to commode, once sitting on commode, pt said ouch , when asked what hurt, pt started to handle his scrotum, when asked if his scrotum got pinched, pt said yes, then instructed commercial real estate underwriter that he needed help to release his pinched scrotum, assistance provided, but no pinching was noted, thickened fluids given.
[2023-03-29] MEDS: LEVOTHYROXINE SODIUM 100 MCG TABLET PO (05:41)
[2023-03-29] MEDS: BISACODYL 5 MG TABLET EC PO ×2 (05:41→08:53)
[2023-03-29] MEDS: LEVOTHYROXINE SODIUM 25 MCG TABLET PO (05:41)
[2023-03-29 07:45] LABS: Glucose Point of Care 322 mg/dl (65-105)
[2023-03-29] MEDS: DOXYCYCLINE HYCLATE 100 MG TABLET PO ×2 (08:24→20:20)
[2023-03-29] MEDS: CEFDINIR 300 MG CAPSULE PO ×2 (08:24→20:20)
[2023-03-29] MEDS: TAMSULOSIN HCL 0.4 MG CAPSULE PO (08:24)
[2023-03-29] MEDS: amLODIPine BESYLATE 5 MG TABLET 10 MG PO (08:24)
[2023-03-29] MEDS: CLOPIDOGREL BISULFATE 75 MG TABLET PO (08:24)
[2023-03-29] MEDS: HEPARIN SODIUM 5,000 UNITS/ML VIAL 5000 UNITS SUB-Q ×2 (08:25→20:18)
[2023-03-29] MEDS: carvediloL 12.5 MG TABLET PO (08:25)
[2023-03-29] MEDS: polyethylene glycoL 3350 17 GM POWD.PACK PO (08:28)
[2023-03-29] MEDS: UMECLIDINIUM BROMIDE 62.5 MCG ELLIPTA 1 PUFF INHALATION (08:31)
[2023-03-29] MEDS: INSULIN HUMAN LISPRO (*BKC) 1,000 UNITS/10 ML VIAL SUB-Q (08:32)
[2023-03-29 11:33] LABS: Hemoglobin A1C 8.5 % (<5.7)
[2023-03-29 11:56] LABS: Glucose Point of Care 136 mg/dl (65-105)
[2023-03-29 16:36] LABS: Glucose Point of Care 118 mg/dl (65-105)
[2023-03-29] MEDS: ACETAMINOPHEN 325 MG TABLET 650 MG PO (20:21)
[2023-03-29] MEDS: MELATONIN 5 MG TABLET 10 MG PO (20:21)
[2023-03-29] MEDS: GABAPENTIN 300 MG CAPSULE PO (20:21)
[2023-03-30] VITALS (8 sets, daily range): BP systolic 124–148; BP diastolic 60–78; PULSE 55–62; RESP 16–18; TEMP 36.3–36.6; O2SAT 92–96
[2023-03-30 00:30] LABS: Glucose Point of Care 185 mg/dl (65-105)
[2023-03-30] MEDS: LEVOTHYROXINE SODIUM 25 MCG TABLET PO (05:35)
[2023-03-30] MEDS: LEVOTHYROXINE SODIUM 100 MCG TABLET PO (05:35)
--- NOTE | 2023-03-30 05:57 | PC.NURSE ---
On 03/30/23, the SEO SPECIALIST, Teodora Shaikh, provided care and completed [facility] documentation on this patient. I have reviewed the SEO SPECIALIST's documentation and agree with the findings.
[2023-03-30 07:41] LABS: Glucose Point of Care 137 mg/dl (65-105)
[2023-03-30] MEDS: UMECLIDINIUM BROMIDE 62.5 MCG ELLIPTA 1 PUFF INHALATION (08:59)
[2023-03-30] MEDS: polyethylene glycoL 3350 17 GM POWD.PACK PO (09:00)
[2023-03-30] MEDS: TAMSULOSIN HCL 0.4 MG CAPSULE PO (09:00)
[2023-03-30] MEDS: HEPARIN SODIUM 5,000 UNITS/ML VIAL 5000 UNITS SUB-Q ×2 (09:00→20:17)
[2023-03-30] MEDS: amLODIPine BESYLATE 5 MG TABLET 10 MG PO (09:00)
[2023-03-30] MEDS: CEFDINIR 300 MG CAPSULE PO ×2 (09:00→20:18)
[2023-03-30] MEDS: carvediloL 12.5 MG TABLET PO ×2 (09:01→16:40)
[2023-03-30] MEDS: CLOPIDOGREL BISULFATE 75 MG TABLET PO (09:02)
[2023-03-30] MEDS: EMPAGLIFLOZIN 10 MG TABLET PO (09:02)
[2023-03-30] MEDS: DOXYCYCLINE HYCLATE 100 MG TABLET PO ×2 (09:03→20:18)
[2023-03-30 12:13] LABS: Glucose Point of Care 195 mg/dl (65-105)
[2023-03-30 16:27] LABS: Glucose Point of Care 135 mg/dl (65-105)
[2023-03-30] MEDS: GABAPENTIN 300 MG CAPSULE PO (20:18)
[2023-03-30] MEDS: MELATONIN 5 MG TABLET 10 MG PO (20:18)
[2023-03-30 20:21] LABS: Glucose Point of Care 175 mg/dl (65-105)
[2023-03-31] MEDS: LEVOTHYROXINE SODIUM 100 MCG TABLET PO (06:44)
[2023-03-31] MEDS: LEVOTHYROXINE SODIUM 25 MCG TABLET PO (06:44)
[2023-03-31 06:50] VITALS: PULSE 58; RESP 16; O2SAT 92
[2023-03-31 07:51] LABS: Glucose Point of Care 133 mg/dl (65-105)
[2023-03-31 08:00] VITALS: BP 133/69; PULSE 57; RESP 14; RESP 16; TEMP 36.3; O2SAT 95
[2023-03-31] MEDS: UMECLIDINIUM BROMIDE 62.5 MCG ELLIPTA 1 PUFF INHALATION (09:29)
[2023-03-31 09:30] VITALS: PULSE 57
[2023-03-31] MEDS: HEPARIN SODIUM 5,000 UNITS/ML VIAL 5000 UNITS SUB-Q ×2 (09:30→20:57)
[2023-03-31] MEDS: TAMSULOSIN HCL 0.4 MG CAPSULE PO (09:30)
[2023-03-31] MEDS: EMPAGLIFLOZIN 10 MG TABLET PO (09:30)
[2023-03-31] MEDS: CLOPIDOGREL BISULFATE 75 MG TABLET PO (09:30)
[2023-03-31] MEDS: carvediloL 12.5 MG TABLET PO ×2 (09:30→17:25)
[2023-03-31] MEDS: amLODIPine BESYLATE 5 MG TABLET 10 MG PO (09:31)
[2023-03-31 12:06] LABS: Glucose Point of Care 196 mg/dl (65-105)
[2023-03-31 16:35] VITALS: BP 127/77; PULSE 58; RESP 18; TEMP 36.4; O2SAT 98
[2023-03-31 17:04] LABS: Glucose Point of Care 136 mg/dl (65-105)
[2023-03-31 17:25] VITALS: PULSE 58
[2023-03-31 20:00] VITALS: O2SAT 92
[2023-03-31] MEDS: MELATONIN 5 MG TABLET 10 MG PO (20:56)
[2023-03-31] MEDS: GABAPENTIN 300 MG CAPSULE PO (20:56)
[2023-03-31 21:00] LABS: Glucose Point of Care 166 mg/dl (65-105)
[2023-04-01] VITALS (8 sets, daily range): BP systolic 116–139; BP diastolic 55–68; PULSE 53–60; RESP 14–18; TEMP 36.3–36.4; O2SAT 92–97
[2023-04-01] MEDS: LEVOTHYROXINE SODIUM 100 MCG TABLET PO (06:48)
[2023-04-01] MEDS: LEVOTHYROXINE SODIUM 25 MCG TABLET PO (06:48)
[2023-04-01 08:13] LABS: Glucose Point of Care 134 mg/dl (65-105)
[2023-04-01] MEDS: amLODIPine BESYLATE 5 MG TABLET 10 MG PO (09:04)
[2023-04-01] MEDS: polyethylene glycoL 3350 17 GM POWD.PACK PO (09:04)
[2023-04-01] MEDS: UMECLIDINIUM BROMIDE 62.5 MCG ELLIPTA 1 PUFF INHALATION (09:04)
[2023-04-01] MEDS: TAMSULOSIN HCL 0.4 MG CAPSULE PO (09:04)
[2023-04-01] MEDS: HEPARIN SODIUM 5,000 UNITS/ML VIAL 5000 UNITS SUB-Q ×2 (09:04→20:08)
[2023-04-01] MEDS: CLOPIDOGREL BISULFATE 75 MG TABLET PO (09:04)
[2023-04-01] MEDS: carvediloL 12.5 MG TABLET PO ×2 (09:05→17:12)
[2023-04-01] MEDS: EMPAGLIFLOZIN 10 MG TABLET PO (09:05)
[2023-04-01 11:53] LABS: Glucose Point of Care 163 mg/dl (65-105)
[2023-04-01 16:46] LABS: Glucose Point of Care 131 mg/dl (65-105)
[2023-04-01] MEDS: MELATONIN 5 MG TABLET 10 MG PO (20:08)
[2023-04-01] MEDS: GABAPENTIN 300 MG CAPSULE PO (20:08)
[2023-04-01 20:11] LABS: Glucose Point of Care 156 mg/dl (65-105)
[2023-04-02] VITALS (8 sets, daily range): BP systolic 117–135; BP diastolic 60–63; PULSE 48–61; RESP 18–20; TEMP 36.2–36.4; O2SAT 93–97
[2023-04-02] MEDS: LEVOTHYROXINE SODIUM 25 MCG TABLET PO (06:25)
[2023-04-02] MEDS: LEVOTHYROXINE SODIUM 100 MCG TABLET PO (06:25)
[2023-04-02 07:25] LABS: Glucose Point of Care 127 mg/dl (65-105)
[2023-04-02] MEDS: HEPARIN SODIUM 5,000 UNITS/ML VIAL 5000 UNITS SUB-Q ×2 (08:45→20:35)
[2023-04-02] MEDS: UMECLIDINIUM BROMIDE 62.5 MCG ELLIPTA 1 PUFF INHALATION (08:45)
[2023-04-02] MEDS: carvediloL 12.5 MG TABLET PO ×2 (08:46→16:50)
[2023-04-02] MEDS: polyethylene glycoL 3350 17 GM POWD.PACK PO (08:46)
[2023-04-02] MEDS: CLOPIDOGREL BISULFATE 75 MG TABLET PO (08:46)
[2023-04-02] MEDS: TAMSULOSIN HCL 0.4 MG CAPSULE PO (08:46)
[2023-04-02] MEDS: amLODIPine BESYLATE 5 MG TABLET 10 MG PO (08:46)
[2023-04-02] MEDS: EMPAGLIFLOZIN 10 MG TABLET PO (08:47)
[2023-04-02] MEDS: IPRATROPIUM 0.5 MG/ALBUTEROL SULFATE 2.5 MG AMPUL.NEB 3 ML INHALATION (10:01)
[2023-04-02 11:35] LABS: Glucose Point of Care 193 mg/dl (65-105)
[2023-04-02 16:28] LABS: Glucose Point of Care 135 mg/dl (65-105)
[2023-04-02] MEDS: MELATONIN 5 MG TABLET 10 MG PO (20:33)
[2023-04-02] MEDS: GABAPENTIN 300 MG CAPSULE PO (20:33)
[2023-04-02] MEDS: ACETAMINOPHEN 325 MG TABLET 650 MG PO (20:33)
[2023-04-02 20:38] LABS: Glucose Point of Care 151 mg/dl (65-105)
[2023-04-03] VITALS: BP 137/60; PULSE 54; RESP 17; TEMP 36.2; O2SAT 93
[2023-04-03] MEDS: LEVOTHYROXINE SODIUM 100 MCG TABLET PO (07:09)
[2023-04-03] MEDS: LEVOTHYROXINE SODIUM 25 MCG TABLET PO (07:09)
[2023-04-03 07:30] VITALS: BP 132/70; PULSE 59; RESP 18; TEMP 35.8; O2SAT 93
[2023-04-03 07:49] LABS: Glucose Point of Care 136 mg/dl (65-105)
[2023-04-03 09:31] VITALS: PULSE 59
[2023-04-03] MEDS: TAMSULOSIN HCL 0.4 MG CAPSULE PO (09:31)
[2023-04-03] MEDS: carvediloL 12.5 MG TABLET PO ×2 (09:31→16:53)
[2023-04-03] MEDS: CLOPIDOGREL BISULFATE 75 MG TABLET PO (09:31)
[2023-04-03] MEDS: EMPAGLIFLOZIN 10 MG TABLET PO (09:31)
[2023-04-03] MEDS: amLODIPine BESYLATE 5 MG TABLET 10 MG PO (09:31)
[2023-04-03] MEDS: HEPARIN SODIUM 5,000 UNITS/ML VIAL 5000 UNITS SUB-Q ×2 (09:32→20:39)
[2023-04-03] MEDS: UMECLIDINIUM BROMIDE 62.5 MCG ELLIPTA 1 PUFF INHALATION (09:32)
[2023-04-03 11:58] LABS: Glucose Point of Care 165 mg/dl (65-105)
--- OUTSIDE RECORDS SUMMARY | 2023-04-03 14:18 | XMS_ITS | Continuity of Care Document ---
Author Name Unknown Address [address] [place] [id number] [facility] Address [address] [place] [address] Phone Support Name Relationship Address Phone DO Livan Ryan Primary Care Provider [address] [place] [address] MD Ritesh Lu Emergency Provider [address] [place] [address] Unavailable DO Miryam Olmedo LKeyshawn Admit [place] [address] MD Johnathan Quispe [place]ending [place] [address] MD Matt [place] [address] MD Mer[place] [address] SARAI Matias Other [place] [address] MD Johnnie Almonte [place] [address] MD Manuel See K. Other Provider [address] [address] MD Steven Cao V. Other Provider [facility] [place] [place] [address] Care Teams Patient Care Team Team Status: Active Member Role Status Dates Anita Galeana NP Family Provider Active Livan Ryan DO Primary Care Provider Active Visit Care Team Team Status: Inactive Member Role Status Dates Livan Ryan , Primary Care Provider Active Ritesh Lu MD Emergency Provider Active
[2023-04-03 16:00] VITALS: BP 151/68; PULSE 55; RESP 18; TEMP 36.1; O2SAT 94
[2023-04-03 16:52] LABS: Glucose Point of Care 169 mg/dl (65-105)
[2023-04-03 16:53] VITALS: PULSE 55
[2023-04-03] MEDS: GABAPENTIN 300 MG CAPSULE PO (20:40)
[2023-04-03] MEDS: MELATONIN 5 MG TABLET 10 MG PO (20:40)
[2023-04-03 20:53] LABS: Glucose Point of Care 188 mg/dl (65-105)
[2023-04-04] VITALS (7 sets, daily range): BP systolic 123–135; BP diastolic 61–63; PULSE 49–68; RESP 14–20; TEMP 36.1–37; O2SAT 90–93
[2023-04-04] MEDS: LEVOTHYROXINE SODIUM 100 MCG TABLET PO (06:15)
[2023-04-04] MEDS: LEVOTHYROXINE SODIUM 25 MCG TABLET PO (06:15)
[2023-04-04] MEDS: HEPARIN SODIUM 5,000 UNITS/ML VIAL 5000 UNITS SUB-Q ×2 (08:56→20:04)
[2023-04-04] MEDS: UMECLIDINIUM BROMIDE 62.5 MCG ELLIPTA 1 PUFF INHALATION (08:56)
[2023-04-04] MEDS: amLODIPine BESYLATE 5 MG TABLET 10 MG PO (08:57)
[2023-04-04] MEDS: carvediloL 12.5 MG TABLET PO (08:57)
[2023-04-04] MEDS: TAMSULOSIN HCL 0.4 MG CAPSULE PO (08:58)
[2023-04-04] MEDS: CLOPIDOGREL BISULFATE 75 MG TABLET PO (08:58)
[2023-04-04] MEDS: EMPAGLIFLOZIN 10 MG TABLET PO (09:05)
[2023-04-04 11:30] LABS: Glucose Point of Care 161 mg/dl (65-105)
--- NOTE | 2023-04-04 12:07 | P.PNCROSS_ITS ---
Event Note Event Note Event Note: Patient is wanting the splint off and his finger efrain taped together order alondra magdalena and nursing staff monitoring .
--- NOTE | 2023-04-04 12:07 | PM.EVENT ---
Event Note Event Note Event Note: Patient is wanting the splint off and his finger efrain taped together order placed and nursing staff monitoring .
--- NOTE | 2023-04-04 16:23 | PC.NURSE ---
Patient's daughter here. Patient had her bring in dexometer blood glucose monitoring system. Explained process to both 2 times process for approval process for using system at the hospital
[2023-04-04 16:27] LABS: Glucose Point of Care 159 mg/dl (65-105)
[2023-04-04] MEDS: GABAPENTIN 300 MG CAPSULE PO (20:04)
[2023-04-04] MEDS: MELATONIN 5 MG TABLET 10 MG PO (20:04)
[2023-04-04 20:18] LABS: Glucose Point of Care 158 mg/dl (65-105)
[2023-04-05] MEDS: LEVOTHYROXINE SODIUM 100 MCG TABLET PO (06:19)
[2023-04-05] MEDS: LEVOTHYROXINE SODIUM 25 MCG TABLET PO (06:19)
--- NOTE | 2023-04-05 07:00 | PC.NURSE ---
Patient refusing blood sugar sticks. Patient has CGM Dex com on. Using to obtain blood sugar.
[2023-04-05 07:50] VITALS: BP 129/58; PULSE 55; RESP 18; TEMP 35.7; O2SAT 93
[2023-04-05 09:20] VITALS: PULSE 55
[2023-04-05] MEDS: CLOPIDOGREL BISULFATE 75 MG TABLET PO (09:20)
[2023-04-05] MEDS: UMECLIDINIUM BROMIDE 62.5 MCG ELLIPTA 1 PUFF INHALATION (09:20)
[2023-04-05] MEDS: EMPAGLIFLOZIN 10 MG TABLET PO (09:20)
[2023-04-05] MEDS: carvediloL 12.5 MG TABLET PO ×2 (09:20→17:45)
[2023-04-05] MEDS: TAMSULOSIN HCL 0.4 MG CAPSULE PO (09:21)
[2023-04-05] MEDS: amLODIPine BESYLATE 5 MG TABLET 10 MG PO (09:21)
[2023-04-05] MEDS: ACETAMINOPHEN 325 MG TABLET 650 MG PO (09:27)
[2023-04-05] MEDS: HEPARIN SODIUM 5,000 UNITS/ML VIAL 5000 UNITS SUB-Q ×2 (09:27→20:20)
--- NOTE | 2023-04-05 10:54 | PM.IMPN ---
Progress Note: A&P Assessment and Plan (1) Physical debility: Code(s): R53.81 - Other malaise Status: Acute Assessment and Plan: PT/OT consulted and recommendations are appreciated (2) Urinary retention: Code(s): R33.9 - Retention of urine, unspecified Status: Acute Assessment and Plan: Calle in place Flomax has been on for 1 week D/C Calle today and attempt voiding trial urology follow up at discharge (3) Chronic kidney disease, stage 4 (severe): Code(s): N18.4 - Chronic kidney disease, stage 4 (severe) Status: Acute Assessment and Plan: Cr is at baseline, 2.61 on recent labs. Follows with nephrology outpatient. Avoid nephrotoxic agents (4) Fracture of phalanx of right little finger: Code(s): S62.606A - Fracture of unspecified phalanx of right little finger, initial encounter for closed fracture Status: Acute Assessment and Plan: Patient refused splint yesterday due to it getting caught on things Praful tape applied Minimal swelling present and patient denies pain (5) Type 2 diabetes mellitus: Qualifiers: Diabetes mellitus terminal clerk insulin use: with care home use Diabetes mellitus complication status: with hyperglycemia Qualified Code(s): E11.65 - Type 2 diabetes mellitus with hyperglycemia; Z79.4 - watermaster (current) use of insulin Code(s): E11.9 - Type 2 diabetes mellitus without complications Status: Acute Assessment and Plan: 03/29 hgb A1C is 8.5 Blood glucose has been well controlled while hospitalized Sliding scale insulin and Jardiance Complaining of bilateral peripheral neuropathy. Was on gabapentin 300 mg HS. Will try changing to gabapentin 100 mg TID and see if this helps him work with therpay. Subjective Date/time seen: 04/05/23 10:54 Interval history: 04/05: Patient is seen today sitting up in his chair. He is finishing his breakfast and has already worked with therapy. He seems to have functional slowing likely related to his recent non-compliance with Synthroid and high TSH. He says that he is feeling okay but has had complaints of peripheral neuropathy to his bilateral lower extremities that has made it difficult to walk with therapy. Per therapy note from today he is demonstrating gait deviation and his ambulation distance has decreased. Patient states that he lives at home alone but his daughterJaelyn is close by to assist as needed. Per care coordination, patient had previously had help at home assistance but they were unable to provide much assistance as his living quarters is severely limited to pathways. There are concerns for hoarding tendencies. Care coordination has provided the patient with resources for assisted living. It seems as the safest option for him would to not return home as he has such gait instability and history of medication non-compliance. The patient is alert and orientated x 4 and has capacity to make his own decisions. He is due for his review today. He would likely benefit from further therapy services but care home placement needs to be discussed. He also has a calle catheter that has been in place for over a week. He has been on flomax during that time so I will attempt void trial again today in hopes that recent dosing with flomax will promote emptying. Review of Systems Review of Systems: All systems reviewed & are unremarkable except as noted in HPI and below Exam Narrative: General: well appearing, well developed, well nourished, appears stated age. HEENT: normocephalic, atraumatic. Mucous membranes moist. EOMI, PERRLA, bilateral sclera anicteric, no conjunctival injection. Neck supple without JVD, lymphadenopathy, or bruit. Respiratory: clear to auscultation bilaterally. No rales/rhonic/wheezes. Cardiovascular: Regular rate and rhythm, normal S1-S2 upon auscultation but difficult to hear likely due to habitus. No murmurs, rubs, or clicks. PMI is nondisplac
[2023-04-05] MEDS: GABAPENTIN 100 MG CAPSULE PO ×2 (13:16→17:45)
[2023-04-05 16:30] VITALS: BP 135/62; PULSE 54; RESP 18; TEMP 35.8; O2SAT 94
[2023-04-05 17:45] VITALS: PULSE 54
[2023-04-05] MEDS: MELATONIN 5 MG TABLET 10 MG PO (20:20)
[2023-04-05 23:12] VITALS: BP 132/55; PULSE 58; RESP 14; TEMP 36.2; O2SAT 93
--- NOTE | 2023-04-06 05:39 | PC.NURSE ---
Blankets changed after pt had incontinent void. Pt then used urinal to void completely.
[2023-04-06] MEDS: LEVOTHYROXINE SODIUM 25 MCG TABLET PO (06:35)
[2023-04-06] MEDS: LEVOTHYROXINE SODIUM 100 MCG TABLET PO (06:35)
[2023-04-06 08:00] VITALS: BP 157/72; PULSE 51; RESP 16; TEMP 35.8; O2SAT 93
--- NOTE | 2023-04-06 08:00 | PC.NURSE ---
Pt refused fingerstick blood sugar. Dexcom device reads 139.
--- NOTE | 2023-04-06 09:57 | PC.NURSE ---
SEC REPORTING CONSULTANT notified of patient continuing to refuse finger sticks. Order obtained to use CGM to obtain blood sugar. Patient CGM agreement signed and placed in chart.
[2023-04-06] MEDS: GABAPENTIN 100 MG CAPSULE PO ×2 (11:16→17:38)
[2023-04-06] MEDS: TAMSULOSIN HCL 0.4 MG CAPSULE PO (11:16)
[2023-04-06] MEDS: UMECLIDINIUM BROMIDE 62.5 MCG ELLIPTA 1 PUFF INHALATION (11:16)
[2023-04-06 11:17] VITALS: PULSE 55
[2023-04-06] MEDS: CLOPIDOGREL BISULFATE 75 MG TABLET PO (11:17)
[2023-04-06] MEDS: carvediloL 12.5 MG TABLET PO ×2 (11:17→17:38)
[2023-04-06] MEDS: EMPAGLIFLOZIN 10 MG TABLET PO (11:17)
[2023-04-06] MEDS: amLODIPine BESYLATE 5 MG TABLET 10 MG PO (11:17)
[2023-04-06] MEDS: HEPARIN SODIUM 5,000 UNITS/ML VIAL 5000 UNITS SUB-Q ×2 (11:17→20:50)
--- NOTE | 2023-04-06 12:00 | PC.NURSE ---
Pt has dexcom device. Blood sugar recorded at 212 at this time.
[2023-04-06] MEDS: INSULIN HUMAN LISPRO (*BKC) 1,000 UNITS/10 ML VIAL SUB-Q (12:17)
[2023-04-06 16:00] VITALS: BP 148/70; PULSE 57; RESP 17; TEMP 36; O2SAT 94
--- NOTE | 2023-04-06 17:00 | PC.NURSE ---
Pt has dex[employer] It device. Registering 128 at this time.
[2023-04-06 17:38] VITALS: PULSE 57
[2023-04-06] MEDS: MELATONIN 5 MG TABLET 10 MG PO (20:51)
--- NOTE | 2023-04-06 20:54 | PC.NURSE ---
Blood [id number]
[2023-04-07] VITALS: BP 145/63; PULSE 73; RESP 18; TEMP 35.9; O2SAT 95
[2023-04-07] MEDS: LEVOTHYROXINE SODIUM 100 MCG TABLET PO (06:05)
[2023-04-07] MEDS: LEVOTHYROXINE SODIUM 25 MCG TABLET PO (06:05)
--- NOTE | 2023-04-07 06:10 | PC.NURSE ---
On 04/07/23, the INSPECTOR METAL FABRICATING, [Iliana Franklin ], provided care and completed [facility] on this patient. I have reviewed the INSPECTOR METAL FABRICATING's documentation and agree with the findings.
[2023-04-07 08:00] VITALS: BP 143/62; PULSE 49; RESP 16; TEMP 36.2; O2SAT 93
[2023-04-07 08:15] VITALS: PULSE 49
[2023-04-07] MEDS: TAMSULOSIN HCL 0.4 MG CAPSULE PO (08:54)
[2023-04-07] MEDS: CLOPIDOGREL BISULFATE 75 MG TABLET PO (08:54)
[2023-04-07] MEDS: GABAPENTIN 100 MG CAPSULE PO ×3 (08:54→17:12)
[2023-04-07] MEDS: HEPARIN SODIUM 5,000 UNITS/ML VIAL 5000 UNITS SUB-Q ×2 (08:54→20:27)
[2023-04-07] MEDS: EMPAGLIFLOZIN 10 MG TABLET PO (08:54)
[2023-04-07] MEDS: amLODIPine BESYLATE 5 MG TABLET 10 MG PO (08:54)
[2023-04-07] MEDS: UMECLIDINIUM BROMIDE 62.5 MCG ELLIPTA 1 PUFF INHALATION (09:08)
--- NOTE | 2023-04-07 11:43 | PC.NURSE ---
BG 184 on patients glucose scanner
[2023-04-07 16:00] VITALS: BP 128/64; PULSE 57; RESP 16; TEMP 36.4; O2SAT 95
--- NOTE | 2023-04-07 16:55 | PC.NURSE ---
Blood glucose 192 on dexcom
[2023-04-07 17:12] VITALS: PULSE 57
[2023-04-07] MEDS: carvediloL 12.5 MG TABLET PO (17:12)
[2023-04-07] MEDS: MELATONIN 5 MG TABLET 10 MG PO (20:27)
--- NOTE | 2023-04-07 20:47 | PC.NURSE ---
AC of 192 per dexcom scanner
--- NOTE | 2023-04-07 23:58 | PC.NURSE ---
pt incont of urine, linen changed and gown, pt attempted to use urinal again with nurse assistance, warm blanket applied, call light in reach, no other complaints at this time
[2023-04-07 23:59] VITALS: BP 146/69; PULSE 53; RESP 16; TEMP 36.6; O2SAT 93
[2023-04-08] MEDS: LEVOTHYROXINE SODIUM 100 MCG TABLET PO (06:36)
[2023-04-08] MEDS: LEVOTHYROXINE SODIUM 25 MCG TABLET PO (06:36)
[2023-04-08 08:00] VITALS: BP 132/64; PULSE 55; RESP 16; TEMP 36.6; O2SAT 95
[2023-04-08] MEDS: amLODIPine BESYLATE 5 MG TABLET 10 MG PO (08:33)
[2023-04-08] MEDS: EMPAGLIFLOZIN 10 MG TABLET PO (08:33)
[2023-04-08 08:34] VITALS: PULSE 57
[2023-04-08] MEDS: CLOPIDOGREL BISULFATE 75 MG TABLET PO (08:34)
[2023-04-08] MEDS: HEPARIN SODIUM 5,000 UNITS/ML VIAL 5000 UNITS SUB-Q ×2 (08:34→20:10)
[2023-04-08] MEDS: carvediloL 12.5 MG TABLET PO ×2 (08:34→16:32)
[2023-04-08] MEDS: GABAPENTIN 100 MG CAPSULE PO ×3 (08:34→16:32)
[2023-04-08] MEDS: TAMSULOSIN HCL 0.4 MG CAPSULE PO (08:34)
[2023-04-08] MEDS: UMECLIDINIUM BROMIDE 62.5 MCG ELLIPTA 1 PUFF INHALATION (08:36)
[2023-04-08 16:00] VITALS: BP 146/61; PULSE 59; RESP 14; TEMP 36.4; O2SAT 96
[2023-04-08 16:32] VITALS: PULSE 59
[2023-04-08] MEDS: MELATONIN 5 MG TABLET 10 MG PO (20:10)
--- NOTE | 2023-04-08 20:14 | PC.NURSE ---
Pt refused finger stick w/our glucometer. Pt's Dexcom used in place to verify HS bg level.
[2023-04-08 23:03] VITALS: BP 130/64; PULSE 50; RESP 14; TEMP 36.6; O2SAT 95
[2023-04-09 05:19] LABS: Hematocrit 33.1 % (37.0-46.0); Hemoglobin 10.9 g/dL (12.4-15.3); Mean Corpuscular HGB Conc 32.9 g/dL (32.0-36.0); Mean Corpuscular Hemoglobin 30.6 pg (27.0-31.0); Mean Platelet Volume 10.2 fl (8.7-11.0); Platelet Count Result 345 K/mm3 (150-420); Red Blood Count 3.56 M/mm3 (4.70-6.10); Red Cell Distribution Width 15.6 % (11.6-14.4); White Blood Count 4.8 K/mm3 (4.8-10.8)
[2023-04-09 05:31] LABS: Alanine Aminotransferase 27 U/L (16-63); Albumin Level 3.5 g/dL (3.4-5.0); Alkaline Phosphatase 77 U/L (46-116); Anion Gap 7 mmol/L (8-16); Aspartate Amino Transferase 16 U/L (15-37); Bilirubin,Total 0.5 mg/dL (0.00-1.00); Blood Urea Nitrogen 35 mg/dL (7-18); Calcium 8.9 mg/dL (8.5-10.1); Carbon Dioxide 27 mmol/L (21-32); Chloride 104 mmol/L (98-108); Estimated CRCL calculation 33 ml/min; Estimated Glomerular Filt Rate 25; Glucose 130 mg/dL (70-99); Osmolality Calculated 296 mOsm/kg (285-295); Potassium 4.2 mmol/L (3.5-5.1); Sodium 138 mmol/L (136-145); Total Protein 6.5 g/dL (6.4-8.2)
[2023-04-09] MEDS: LEVOTHYROXINE SODIUM 100 MCG TABLET PO (05:34)
[2023-04-09] MEDS: LEVOTHYROXINE SODIUM 25 MCG TABLET PO (05:34)
[2023-04-09 05:47] LABS: INR 1.1; Partial Thromboplastin Time 31.9 SEC (23.90-30.70); Prothrombin Time 11.5 Seconds (9.50-12.10)
--- NOTE | 2023-04-09 07:55 | PC.NURSE ---
Pt has [employer] device. Registering 137 at this time.
[2023-04-09 08:00] VITALS: BP 124/54; PULSE 58; RESP 17; TEMP 36.2; O2SAT 95
[2023-04-09] MEDS: HEPARIN SODIUM 5,000 UNITS/ML VIAL 5000 UNITS SUB-Q ×2 (08:45→20:12)
[2023-04-09 08:46] VITALS: PULSE 58
[2023-04-09] MEDS: TAMSULOSIN HCL 0.4 MG CAPSULE PO (08:46)
[2023-04-09] MEDS: carvediloL 12.5 MG TABLET PO ×2 (08:46→17:31)
[2023-04-09] MEDS: CLOPIDOGREL BISULFATE 75 MG TABLET PO (08:46)
[2023-04-09] MEDS: UMECLIDINIUM BROMIDE 62.5 MCG ELLIPTA 1 PUFF INHALATION (08:46)
[2023-04-09] MEDS: GABAPENTIN 100 MG CAPSULE PO ×3 (08:46→17:31)
[2023-04-09] MEDS: EMPAGLIFLOZIN 10 MG TABLET PO (08:46)
[2023-04-09] MEDS: amLODIPine BESYLATE 5 MG TABLET 10 MG PO (08:46)
[2023-04-09 16:00] VITALS: BP 141/71; PULSE 70; RESP 17; TEMP 36.1; O2SAT 95
--- NOTE | 2023-04-09 16:49 | PC.NURSE ---
Pt has dex[employer]le[employer] device. Registering 190 at this time.
[2023-04-09 17:31] VITALS: PULSE 70
[2023-04-09] MEDS: MELATONIN 5 MG TABLET 10 MG PO (20:11)
--- NOTE | 2023-04-09 20:16 | PC.NURSE ---
dexcon scan of 214
[2023-04-10] VITALS: BP 134/64; PULSE 55; RESP 16; TEMP 36.4; O2SAT 94
[2023-04-10] MEDS: LEVOTHYROXINE SODIUM 100 MCG TABLET PO (06:48)
[2023-04-10] MEDS: LEVOTHYROXINE SODIUM 25 MCG TABLET PO (06:48)
[2023-04-10 08:00] VITALS: BP 148/64; PULSE 66; RESP 16; TEMP 36.2; O2SAT 92
--- NOTE | 2023-04-10 08:41 | PC.NURSE ---
Patient refused finger stick by nurse. Dexcom utilized for blood glucose result. Blood glucose at this time is 141.
[2023-04-10] MEDS: HEPARIN SODIUM 5,000 UNITS/ML VIAL 5000 UNITS SUB-Q ×2 (09:22→20:39)
[2023-04-10] MEDS: UMECLIDINIUM BROMIDE 62.5 MCG ELLIPTA 1 PUFF INHALATION (09:22)
[2023-04-10 09:23] VITALS: PULSE 70
[2023-04-10] MEDS: GABAPENTIN 100 MG CAPSULE PO ×3 (09:23→17:12)
[2023-04-10] MEDS: amLODIPine BESYLATE 5 MG TABLET 10 MG PO (09:23)
[2023-04-10] MEDS: CLOPIDOGREL BISULFATE 75 MG TABLET PO (09:23)
[2023-04-10] MEDS: EMPAGLIFLOZIN 10 MG TABLET PO (09:23)
[2023-04-10] MEDS: carvediloL 12.5 MG TABLET PO ×2 (09:23→17:12)
[2023-04-10] MEDS: TAMSULOSIN HCL 0.4 MG CAPSULE PO (09:23)
--- NOTE | 2023-04-10 13:36 | P.PNCROSS_ITS ---
Event Note Event Note Event Note: I have seen patient participate with PT/OT today and he requires the use of a w heeled walker for ambulation support at home. 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
[2023-04-10 16:35] VITALS: BP 133/55; PULSE 53; RESP 18; TEMP 36.3; O2SAT 96
[2023-04-10 17:12] VITALS: PULSE 53
[2023-04-10] MEDS: MELATONIN 5 MG TABLET 10 MG PO (20:39)
--- NOTE | 2023-04-10 20:41 | PC.NURSE ---
dexcom scan of 223
[2023-04-10 23:26] VITALS: BP 119/57; PULSE 65; RESP 18; TEMP 36.6; O2SAT 95
--- NOTE | 2023-04-10 23:28 | PC.NURSE ---
Pt sleeping, will open eyes slightly but doesn't want to be disturbed at this time since sleeping. VSS, call sparrow at pt. side. RR even and nonlabored.
--- NOTE | 2023-04-11 02:45 | PC.NURSE ---
Pt called stating he is wet and cold, pt urinated on floor and all over bedding. Pt assisted c changing and drying self, assisted to chair c SBA and then back to bed. Pt states he slept thru using his urinal.
[2023-04-11] MEDS: LEVOTHYROXINE SODIUM 100 MCG TABLET PO (06:19)
[2023-04-11] MEDS: LEVOTHYROXINE SODIUM 25 MCG TABLET PO (06:19)
--- NOTE | 2023-04-11 07:26 | PM.DS ---
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: with animal care worker use Qualified Code(s): E11.65 - Type 2 diabetes mellitus with hyperglycemia; Z79.4 - airplane pilot photogrammetry (current) use of insulin Code(s): E11.9 - Type 2 diabetes mellitus without complications Status: Acute (3) Urinary retention: Code(s): R33.9 - Retention of urine, unspecified Status: Acute (4) Hypothyroidism: Code(s): E03.9 - Hypothyroidism, unspecified Status: Acute (5) Chronic kidney disease, stage 4 (severe): Code(s): N18.4 - Chronic kidney disease, stage 4 (severe) Status: Acute DS: Summary Hospital Course Reason for hospitalization: patient was admitted to [facility] for acute rehabilitation. Hospital Course: During hospital stay patient participated with physical therapy and occupational therapy gaining strength and cup acid he to stand and sit, ambulate with wheeled walker, dress himself. initially patient was admitted on oxygen therapy but has since been on room air without dyspnea. Patient had Tatum catheter in place upon admission but was able to past void trial after 1 week of tamsulosin treatment. Tamsulosin is to continue upon discharge. Family was recommending fpc placement but patient wanted to return home to independent living. He will have home health to continue therapy treatment. He will have assistance with preparing his medications. He was noncompliant with medications for over a year prior to acute hospitalization. Patient is using continuous glucose monitor and blood sugars have been under control with use of Jardiance. Pharmacy was contacted and verified that Jardiance is 47 dollars per month. There was trial of insulin previously but patient having difficulty drawing up insulin or using a pen. Since he did so well on Jardiance in the hospital this was the preferred treatment method after consultation with social service coordinator and pharmacy. New prescriptions for all home medications were written. Status at Discharge Cognitive/behavioral status at discharge: awake, alert, oriented and pleasant Functional status at discharge: uses cane/walker Overall status at discharge: patient is progressing back to baseline Time Spent with Patient Time attestation: Total time spent providing and/or coordinating discharge services: 65 minutes Time spent: Greater than 30 minutes Exam Narrative: General: well appearing, well developed, well nourished, appears stated age. HEENT: normocephalic, atraumatic. Mucous membranes moist. EOMI, PERRLA, bilateral sclera anicteric, no conjunctival injection. Neck supple without JVD, lymphadenopathy, or bruit. Respiratory: clear to auscultation bilaterally. No rales/rhonic/wheezes. Cardiovascular: Regular rate and rhythm, normal S1-S2 upon auscultation but difficult to hear likely due to habitus. No murmurs, rubs, or clicks. PMI is nondisplaced, capillary re-fill less than 3 second. Abdomen: Soft, round, no pulsatile masses, non-distended and non-tender. No rebound, no guarding. No CVA tenderness, no hepatosplenomegaly. Bowel sounds present to all four quadrants. No high pitch or tinkling sounds, resonant to percussion. Extremities: No cyanosis or clubbing. Dependent non-pitting edema present. Pulses are palpable 2/2. Active ROM to all four extremities with generalized weakness. Neuro: Alert and orientated x 4. PERRLA. Functional slowing of speech pattern. Cranial nerves 2-12 intact without focal deficit. ambulatory with steady gait with the use of a 2 wh
[2023-04-11 08:00] VITALS: BP 157/64; PULSE 54; RESP 16; TEMP 36.2; O2SAT 93
--- NOTE | 2023-04-11 08:01 | PC.NURSE ---
Patient refused finger stick by nurse. Dexcom utilized for blood glucose result. Blood glucose at this time is 148.
[2023-04-11] MEDS: HEPARIN SODIUM 5,000 UNITS/ML VIAL 5000 UNITS SUB-Q (08:54)
[2023-04-11 08:56] VITALS: PULSE 54
[2023-04-11] MEDS: EMPAGLIFLOZIN 10 MG TABLET PO (08:56)
[2023-04-11] MEDS: CLOPIDOGREL BISULFATE 75 MG TABLET PO (08:56)
[2023-04-11] MEDS: amLODIPine BESYLATE 5 MG TABLET 10 MG PO (08:56)
[2023-04-11] MEDS: GABAPENTIN 100 MG CAPSULE PO ×2 (08:56→13:01)
[2023-04-11] MEDS: TAMSULOSIN HCL 0.4 MG CAPSULE PO (08:56)
[2023-04-11] MEDS: carvediloL 12.5 MG TABLET PO (08:56)
[2023-04-11] MEDS: UMECLIDINIUM BROMIDE 62.5 MCG ELLIPTA 1 PUFF INHALATION (08:57)
--- NOTE | 2023-04-11 11:38 | PC.NURSE ---
Patient refused finger stick by nurse. Dexcom utilized for blood glucose result. Blood glucose at this time is 196.
--- NOTE | 2023-04-11 16:52 | PC.NURSE ---
Discharge instructions reviewed with patient and daughter. All questions answered. Medications reviewed in depth and it was reinforced to call the hospital with any questions or issues after discharge. Pt was transported via wheelchair to front of hospital and assisted into private vehicle.
--- NOTE | 2023-04-12 11:31 | PC.NURSE ---
Discharge call back complete, states [facility] came in, walked out to make a call and came back in to tell him they can't help him, states needs someone to help clean, states daughter will not help him she wants to put him in a longterm, states needs assistance with groceries, can cook himself, states needs help cleaning, advised will check in with case management and see what arrangements they made for him at discharge for house cleaning, if any, advised lift chair is slow, leave a message on the phone if he doesn't pear picker,
--- NOTE | 2023-04-12 16:15 | PCCCNOTE ---
Followed up with [facility] following notification from [facility] product support manager that during the follow up phone call Ant told her that [facility] nurse came this morning and told him that they would not be able to come see him any more. Spoke to Patito QUIROGA and she states when the RN went to get the pt some pants to put on there where alot of flys sitting on his clothes and there was cat feces all over on the floor. This urgent care nurse practitioner called the pt back and explained to him the reason they would not be coming back and to reach out to his family MD to get a order for OP therapy if he could arrange transportation. He agreed his home is cluttered and there is cat feces on floor. He also has not berry picker his medication from the pharmacy as he did not think they would have it ready for him. Explained the importance of him taking his meds and reminded him that he thought they may deliver the meds to him. [facility] was making a report to [facility].
== END 2023-04-11 16:45 | disposition home health service (06) | DRG 948 ==
PROVIDERS: Nurse Practitioner; Nurse Practitioner Adult Health; Admitting Provider Internal Medicine; PCP Family Medicine; Visit Provider Internal Medicine
DX: R53.81 Other malaise (principal); N18.4 Chronic kidney disease, stage 4 (severe); I12.9 Hypertensive chronic kidney disease with stage 1 through stage 4 chronic kidney disease, or unspecified chronic kidney disease; E11.22 Type 2 diabetes mellitus with diabetic chronic kidney disease; E11.42 Type 2 diabetes mellitus with diabetic polyneuropathy; E03.9 Hypothyroidism, unspecified; E78.5 Hyperlipidemia, unspecified; I65.22 Occlusion and stenosis of left carotid artery; K21.9 Gastro-esophageal reflux disease without esophagitis; R13.10 Dysphagia, unspecified; R33.9 Retention of urine, unspecified; M19.90 Unspecified osteoarthritis, unspecified site; S62.606D Fracture of unspecified phalanx of right little finger, subsequent encounter for fracture with routine healing; Z87.11 Personal history of peptic ulcer disease; Z86.73 Personal history of transient ischemic attack (TIA), and cerebral infarction without residual deficits; Z87.891 Personal history of nicotine dependence; Z79.4 Long term (current) use of insulin
CPT/HCPCS: 36415; 80053; 82948; 83036; 83735; 85025; 85027; 85610; 85730; 92526; 92610; 94640; 97110; 97161; 97165; 97530; 97535; A9270; J1644; J1815

== ENCOUNTER 2024-06-03 17:52 | Observation (INO) | payer MEDICARE, SELFPAY ==
[2024-06-03] VITALS (15 sets, daily range): BP systolic 127–180; BP diastolic 80–118; PULSE 67–76; RESP 10–22; TEMP 36.2–36.6; O2SAT 93–97; BMI 37.7
--- NOTE | ~2024-06-03 | XR_ITS ---
EXAMINATION: XR chest 1V portable Exam Date/Time: 06/03/2024 16:20 CDT HISTORY: ams Comparison: 03/23/2023, 12/29/2021. RESULT: Lines, tubes, and devices: None. Lungs and pleura: Stable old granuloma/hamartoma in the right upper lung, otherwise clear. Cardiomediastinal silhouette: Stable. Other: No acute osseous or upper abdominal finding. IMPRESSION: No acute cardiopulmonary process. Reviewed, dictated and finalized at location K.
--- NOTE | ~2024-06-03 | CT_ITS ---
EXAMINATION: CT brain wo con DATE: 06/03/2024 18:36 INDICATION: ams . TECHNIQUE: Computed tomography (CT) of the head was performed without intravenous contrast. The mA wa s adjusted according to patient size. Iterative reconstruction technique was employed. The dose-lengt h product was 681.00 mGy-cm. COMPARISON: 03/17/2023. FINDINGS: No acute intracranial hemorrhage or extra-axial fluid collection. No hydrocephalus, mass, or herniation. No acute ischemic infarct. Unremarkable dural venous sinus attenuation. No acute osseous abnormality. The aerated spaces are clear. Moderate atrophy and chronic white matter change. Atherosclerotic intracranial calcification. Small o ld chronic infarct in the right frontal lobe white matter. Old focal right basal ganglia lacunar infa rcts. 3.6 cm subcutaneous lipoma in the posterior left upper neck/lower scalp IMPRESSION: No acute intracranial process. Reviewed, dictated and finalized at location K.
--- NOTE | 2024-06-03 17:54 | ED_ITS ---
HPI - Weakness General Chief complaint: Weakness Stated complaint: GENERALIZED WEAKNESS Time Seen by Provider: 06/03/24 17:52 Source: patient and EMS Mode of arrival: EMS Limitations: altered mental status ( Initially considered but EMS says that this is his baseline) History of Present Illness HPI Narrative: patient is a 5-year-old male with diabetes and hypertension here with generalized weakness. His power is out today as an aside. He is noncompliant with his medications and has stopped them at this time. No chest pain or shortness of breath. No nausea vomiting or diarrhea. He claims in March he wa s in the hospital and they left a urinary catheter in for a week or 2 and further has urinary incontinence and urgency. MD Complaint: generalized weakness Onset (ago): day(s) (3) Duration: constant Location: generalized Migration: none Severity: moderate Severity scale (1-10): 5 Quality: tingling, numbness and other ( Numbness and tingling is chronic in his hands and feet from his diabetic neuropathy) Relieving factors: none Exacerbating factors: other ( patient is not very mobile and uses a walker from time to time; family is concerned and would like to discuss placement) Context: other ( noncompliant and stopped home medications) Associated symptoms: denies other symptoms Related Data Allergies Allergy/AdvReac Type Severity Reaction Status Date / Time amoxicillin Allergy Unknown HEAD TURNS Verified 06/03/24 17:53 RED Penicillins Allergy Unknown Unknown,HEAD Verified 06/03/24 17:53 TURNS RED semaglutide Allergy Unknown Unknown,Kevin Verified 06/03/24 17:53 h dulaglutide [From Trulicity] Allergy Swelling Verified 06/03/24 17:53 of Lip/Tongue/Throat niacin AdvReac Unknown Verified 06/03/24 17:53 Review of Systems Review of Systems: All systems reviewed & are unremarkable except as noted in HPI and below Constitutional: Constitutional: Reports no additional constitutional complaints Eyes: Eyes: Reports no additional eye complaints ENT: Reports system reviewed and no additional complaints, except as documented Cardiovascular: Cardiovascular: Reports no additional cardiovascular complaints Respiratory: Respiratory: Reports no additional respiratory complaints Gastrointestinal: Gastrointestinal: Reports no additional gastrointestinal complaints Genitourinary: Genitourinary: Reports no additional male genitourinary complaints Musculoskeletal: Musculoskeletal: Reports no additional musculoskeletal comp laints Integumentary/Breasts: Skin/Breast: Reports system reviewed and no additional complaints, except as docu Neurologic: Reports system reviewed and no additional complaints, except as documented Psychiatric: Psychiatric: Reports no additional psychiatric complaints Endocrine: Endocrine: Reports no additional endocrine complaints Hematologic/Lymphatic: Hematologic/Lymphatic: Reports no additional hematologic/lymphatic complaints Allergic/Immunologic: Allergic/Immunologic: Reports no additional allergic/immunologic complaints FOR[facility]LY [facility] Past Medical History Medical History Acute kidney injury Arthritis Cerebrovascular accident Chronic kidney disease, stage 4 (severe) Chronic obstructive pulmonary disease Chronic urticaria Dysphagia Emphysema of lung Functional burping disorder Gastroesophageal reflux disease Hearing loss Hyperlipidemia Hypertension Hyperthyroidism Hypothyroidism Left facial numbness Polyarthritis Stenosis of left carotid artery greater than 50% Stomach ulcer Tobacco dependence Type 2 diabetes mellitus Ulcer, esophagus Surgical History Surgical History History of arthroscopy History of carpal tunnel surgery History of cervical discectomy History of vasectomy Status post trigger finger release Family History Family History Father , Unknown cause of Cerebrovascular accident Mother , Unknown cause of Acute myocardial infarction Cerebrovascular accident Sibling Hypertension Other Diabetes mellitus Parkinson disease Social History Social History Social History: Surrogate medical decision maker: Jaelyn Hankins, daughter. Code status: Full code. Smoking packs per day: 0.5 Smoking cigarettes per day: 10.0 Years smoked: 52 Smoking pack-years: 26.00 Smoking status: Former smoker Tobacco type: cigarettes Second hand tobacco smoke exposure: No Additional smoking assessment comments: pt currently on Chantix to quit smoking. Alcohol intake: never Alcohol use details: Perhaps 1 drink a month. Substance use: never Substance use type: prescription drug Lack of Transportation: No Lack of Food: Never True Current Housing: I Have Housing Concerned About Future Housing: YES Difficulty Paying Gas/Electric Bills: No Difficulty Paying for Meds: No Currently Unemployed: No Education: Bachelor's Degree Difficulty w/ Childcare or Family Care: No Living arrangements: alone Additional living arrangements comments: . 2 Children. Lives in [place]. Occupation/Education: occupation Additional occupation/education comments: Worked at [employer] in [employer] [facility] [employer]. Currently working at [employer]. Spiritual care concerns: No Agree to blood products: Yes Exam Const: General: healthy appearing Nutritional Appearance: well nourished Orientation/consciousness: patient oriented x3 ( baseline according to EMS at this time) Limitations: no limitations Other: no altered mental status appreciated based on EMS knowing the patient and said this is his baseline HENMT: Head: normal to inspection Ears: external ears normal Face/Nose/Sinus: Normal external nose present Eyes: Conjunctivae: conjunctivae normal Pupils: Equal, round and reactive pupils present EOM: EOMs intact bilaterally Neck: Neck: normal visual inspection Chest: Chest palpation & inspection: normal inspection of the chest Resp: Effort & Inspection: normal respiratory effort and not labored Auscultation: clear to auscultation bilaterally and no crackles Cardio: Rate: regular rate Rhythm: regular rhythm Heart sounds: no murmurs GI: Inspection: non-distended GI Palp: Yes Soft to palpation and No Tenderness to palpation present (GI) Auscultation: normal bowel sounds : General: Yes bladder normal to palpation Back/Spine/Pelvis: Back: no CVA tenderness Skin: General skin exam: normal color Rashes: rash noted Wounds: no wounds Other: right lower abdomen and right upper thigh have a conglomerate of dermatitis seen but does not appear to be infectious at this time or insect related Neuro: General: patient oriented x3, moves all extremities, no meningeal signs, no focal motor deficits and CN's II-XI intact bilaterally Cranial nerves: Yes Nystagmus not present Speech: normal speech Gait exam (Neuro): gait abnormal ( patient required full assistance to get onto the stretcher via EMS) Extrem: General: normal to inspection, no clubbing, cyanosis or edema and no pedal edema Psych: Mental Status: mental status grossly normal Affect: normal affect Attitude: cooperative Course Vital Signs Vital signs: Vital Signs Pulse Rate 76 06/03/24 17:52 Oxygen Delivery Room Air 06/03/24 17:52 Temperature 36.6 C 06/03/24 18:16 Pulse Rate 71 06/03/24 19:31 Respiratory Rate 12 06/03/24 19:31 Blood Pressure 163/83 H 06/03/24 19:31 Pulse Oximetry 96 06/03/24 19:31 Oxygen Delivery Room Air 06/03/24 19:31 MDM - Weakness MDM Narrative Medical decision making narrative: patient is a 68 year-old male with multiple medical problems here with noncompl iance of medications and generalized weakness. We will do a complete workup at this time. Plans to admit the patient at this facility if stable for further discussion of treatment and placement. Lab Data Attestation: I reviewed the patient's lab results. 06/03/24 18:15 06/03/24 18:15 Labs: Lab Results 06/03/24 06/03/24 Range/Units 18:15 19:31 WBC 6.9 (4.8-10.8) K/mm3 RBC 4.31 L (4.70-6.10) M/mm3 Hgb 13.0 (12.4-15.3) g/dL Hct 38.5 (37.0-46.0) % MCV 89.3 (78.0-102.0) fL MCH 30.2 (27.0-31.0) pg MCHC 33.8 (32-36) g/dL RDW 13.8 (11.6-14.4) % Plt Count 425 H (150-420) K/mm3 MPV 9.6 (8.7-11.0) fl Immature Gran % (Auto) 0.4 H (0.0-0.0) % Neut % (Auto) 72.6 H (50.0-70.0) % Lymph % (Auto) 18.5 (18.0-42.0) % [place] % (Auto) 5.7 (2.0-11.0) % Eos % (Auto) 1.5 (1.0-6.0) % Baso % (Auto) 1.3 H (0.0-1.0) % Lymph # (Auto) 1.27 (1.10-4.50) K/mm3 [place] # (Auto) 0.39 (0.10-0.90) K/mm3 Eos # (Auto) 0.10 (0.02-0.50) K/mm3 Baso # (Auto) 0.09 (0.00-0.10) K/mm3 Abs Immat Gran (auto) 0.03 H (0.00-0.00) K/mm3 Absolute Neuts (auto) 4.98 (1.70-7.20) K/mm3 Absolute Nucleated RBC 0.00 (0.00-0.00) K/mm3 Nucleated RBC % 0.0 (0-0.0) % Sodium 137 (136-145) mmol/L Potassium 4.4 (3.5-5.1) mmol/L Chloride 100 (98-108) mmol/L Carbon Dioxide 29 (21-32) mmol/L Anion Gap 8 (4-12) mmol/L BUN 30 H (7-18) mg/dL Creatinine 3.03 H (0.70-1.30) mg/dL Estim Creat Clear Calc 29 ml/min Estimated GFR 21 L (59 - ) Glucose 286 H (70-99) mg/dL Hemoglobin A1c 9.9 H (<5.7) % Calculated Osmolality 300 H (285-295) mOsm/kg Lactic Acid 0.9 (0.4-2.0) mmol/L Calcium 9.4 (8.5-10.1) mg/dL Magnesium 2.4 (1.8-2.4) mg/dL Total Bilirubin 0.5 (0.00-1.00) mg/dL AST 25 (15-37) U/L ALT 38 (16-63) U/L Alkaline Phosphatase 113 (46-116) U/L Troponin I 30.9 (0.00-60.4) ng/L Total Protein 7.0 (6.4-8.2) g/dL Albumin 3.7 (3.4-5.0) g/dL TSH > 96.00 H (0.36-3.74) uIU/mL Urine Color Yellow (Yellow) Urine Appearance Clear (Clear) Urine pH 5.5 (5.0-8.0) Ur Specific [place] >= 1.030 H (1.010-1.020) Urine Protein 3+ H (Negative) Urine Glucose (UA) Trace H (Negative) Urine Ketones Negative (Negative) Ur Blood (Man) Negative (Negative) Urine Nitrate Negative (Negative) Urine Bilirubin Negative (Negative) Urine Urobilinogen 1.0 (0.2-1.0) mg/dL Leukocyte Esterase Rfl Negative (Negative) KYRA/UL Urine RBC 0-2 (0-2) /hpf Urine WBC 0-3 (0-3) /hpf Amorphous Sediment Few H (None) Urine Bacteria Trace (None) /hpf Imaging Data Attestation: I personally reviewed and interpreted this imaging study as follows: Radiologist's impression: CT scan of the head is negative for acute process chest x-ray is negative for acute process ECG Data EKG #1: Attestation: I personally reviewed and interpreted this ECG as follows: ECG completion date: 06/03/24 ECG completion time: 19:10 EKG Interpretation: normal rate, sinus rhythm, no ectopy, non-specific ST changes, normal QRS, widened QRS ( IVCD), normal QT and NL axis Discharge Plan Discharge Clinical Impression: Chronic renal disease, Hypertension, Diabetes mellitus type 2 with complications, Hypothyroidism Patient Disposition: Acute Care Hospital [facility] Condition: Stable Prescriptions: No Action gabapentin 100 mg Capsule 100 mg PO TID Qty: 90 0RF Jardiance 10 mg Tablet 10 mg PO DAILY Qty: 30 0RF albuterol sulfate 90 mcg/actuation HFA aerosol inhaler 2 puff inhalation QID PRN (Reason: shortness of breath or wheezing) Qty: 8.5 0RF atorvastatin 80 mg tablet 80 mg PO DAILY Qty: 30 0RF polyethylene glycol 3350 [Miralax] 17 gram Powder In Packet 17 g PO QAM Qty: 30 0RF amlodipine 10 mg Tablet 10 mg PO DAILY Qty: 30 0RF Spiriva Respimat 2.5 mcg/actuation mist 2 puff inhalation DAILY 30 Days Qty: 4 0RF clopidogrel [Plavix] 75 mg Tablet 75 mg PO DAILY Qty: 30 0RF carvedilol 25 mg tablet 25 mg PO Q12H Qty: 180 0RF Rx Instructions: must administer with a meal/food levothyroxine 75 mcg tablet 75 mcg PO DAILY Qty: 90 0RF insulin glargine U-300 conc 300 unit/mL (3 mL) insulin pen 30 unit subcut QHS Qty: 6 1RF Lyumjev KwikPen U-100 Insulin 100 unit/mL insulin pen 30 unit subcut .TID with meal Qty: 15 3RF Rx Instructions: please check your blood sugar before eating and 2 hours after you eat. DO NOT TAKE if you do not eat your meal. Follow-up/Referrals: Livan Ryan DO [Primary Care Provider] - Time of Disposition: 20:07
--- NOTE | 2024-06-03 17:58 | ECG_ITS ---
Test Date: 2024-06-03 18:38:42 Measurements Intervals Russell Rate: 70 P: 64 NV: 189 QRS: -66 QRSD: 122 T: 85 QT: 443 QTc: 480 Interpretive Statements SINUS RHYTHM POSSIBLE RIGHT VENTRICULAR CONDUCTION DELAY [RSR (QR) IN V1/V2] LEFT ANTERIOR FASCICULAR BLOCK [QRS AXIS <= -45, QR IN I, RS IN II] SEPTAL MYOCARDIAL INFARCTION , PROBABLY OLD [40+ ms Q WAVE IN V1/V2] No previous ECG available for comparison Electronically Signed On 06-04-2024 14:20:45 CDT by Manuel See M.D.
[2024-06-03 18:18] LABS: Basophils Absolute Auto 0.09 K/mm3 (0.00-0.10); Basophils Percent Auto 1.3 % (0.0-1.0); Eosinophils Percent Auto 1.5 % (1.0-6.0); Hematocrit 38.5 % (37.0-46.0); Immature Granulocyte Absolute 0.03 K/mm3 (0.00-0.00); Immature Granulocyte Percent A 0.4 % (0.0-0.0); Lymphocytes Absolute Auto 1.27 K/mm3 (1.10-4.50); Lymphocytes Percent Auto 18.5 % (18.0-42.0); Mean Corpuscular HGB Conc 33.8 g/dL (32-36); Mean Corpuscular Hemoglobin 30.2 pg (27.0-31.0); Mean Corpuscular Volume 89.3 fL (78.0-102.0); Mean Platelet Volume 9.6 fl (8.7-11.0); Monocytes Absolute Auto 0.39 K/mm3 (0.10-0.90); Monocytes Percent Auto 5.7 % (2.0-11.0); Neutrophils Absolute Auto 4.98 K/mm3 (1.70-7.20); Neutrophils Percent Auto 72.6 % (50.0-70.0); Platelet Count Result 425 K/mm3 (150-420); Red Blood Count 4.31 M/mm3 (4.70-6.10); Red Cell Distribution Width 13.8 % (11.6-14.4); White Blood Count 6.9 K/mm3 (4.8-10.8)
[2024-06-03 18:31] LABS: Hemoglobin A1C 9.9 % (<5.7)
[2024-06-03 18:40] LABS: Lactic Acid Reflex 0.9 mmol/L (0.4-2.0)
--- NOTE | 2024-06-03 18:41 | PC.NURSE ---
PT HAS RETURNED FROM CT, IS AWAITING RESULTS AT THIS TIME. PT DENIES ANY NEEDS OR COMPLAINTS. BLANKET PROVIDED. IV SITE ESTABLISHED WITHOUT DIFFICULTY. PT REPORTS HE NORMALLY AMBULATES WITH A WALKER AT HOME, BUT IS ONLY ABLE TO MAKE IT FROM HIS CHAIR TO THE RR AND BACK BEFORE HIS LEGS ARE TOO TIRED TO CONTINUE. PER EMS THE HOME IS UNKEMPT, AND DAUGHTER IS WANTING PT PLACED IN A ALF.
[2024-06-03 18:44] LABS: Alanine Aminotransferase 38 U/L (16-63); Albumin Level 3.7 g/dL (3.4-5.0); Alkaline Phosphatase 113 U/L (46-116); Anion Gap 8 mmol/L (4-12); Aspartate Amino Transferase 25 U/L (15-37); Bilirubin,Total 0.5 mg/dL (0.00-1.00); Blood Urea Nitrogen 30 mg/dL (7-18); Calcium 9.4 mg/dL (8.5-10.1); Carbon Dioxide 29 mmol/L (21-32); Chloride 100 mmol/L (98-108); Estimated CRCL calculation 29 ml/min; Estimated Glomerular Filt Rate 21; Glucose 286 mg/dL (70-99); Magnesium 2.4 mg/dL (1.8-2.4); Osmolality Calculated 300 mOsm/kg (285-295); Potassium 4.4 mmol/L (3.5-5.1); Sodium 137 mmol/L (136-145); Troponin I 30.9 ng/L (0.00-60.4)
--- NOTE | 2024-06-03 18:45 | PC.NURSE ---
PT IS PLACED IN URINAL, AWARE OF THE NEED FOR URINE COLLECTION, REPORTS HE WILL LET US KNOW WHEN HE HAS GONE.
[2024-06-03 18:50] LABS: Thyroid Stimulating Hormone > 96.00 uIU/mL (0.36-3.74)
--- NOTE | 2024-06-03 18:55 | PC.NURSE ---
assumed care. report received from demar gordon
--- NOTE | 2024-06-03 19:10 | PC.NURSE ---
patient is resting on stretcher. call light in reach. patient has urinal in the bed.
--- NOTE | 2024-06-03 19:21 | PC.NURSE ---
nato Mcgarry, at the bedside completing straight cath
[2024-06-03 19:34] LABS: Add Urine Microscopic? YES; Appearance Urine Clear (Clear); Bilirubin Urine Negative (Negative); Blood Urine Negative (Negative); Color Urine Yellow (Yellow); Glucose Urine UA Trace (Negative); Ketones Urine Negative (Negative); Leukocyte Esterase Ur Negative LEU/UL (Negative); Nitrate Urine Negative (Negative); Protein Urine 3+ (Negative); Specific Grav Ur >= 1.030 (1.010-1.020); pH Urine 5.5 (5.0-8.0)
[2024-06-03 19:39] LABS: Amorphous Sediment Urine Few; Bacteria Urine Trace /hpf; RBC Urine 0-2 /hpf (0-2); WBC Urine 0-3 /hpf (0-3)
[2024-06-03 20:38] LABS: Glucose Point of Care 281 mg/dl (65-105)
--- NOTE | 2024-06-03 21:30 | ADMGEN ---
This patient, Ant Kinney, was admitted to 2nd Floor Room 227-1. Patient/family oriented to hospital policies and general routines including ID bracelet, bed and alarms, visiting hours, pain management, procedures, bathroom and other care routines, personal items, smoking policy, room service/diet, and visiting hours. Information on how to activate the Rapid Response Team has been discussed. Patient/Family are encouraged to report perceived risks to care and to ask questions if they do not understand what they are told or what they should do. Pt thinks it has been over week since his bowels have moved, however, he had dried bm on his buttocks. Patient would like information on nursing homes; says he's ready to go to one.
[2024-06-04] VITALS: BP 133/85; PULSE 72; RESP 18; TEMP 36.4; O2SAT 94
[2024-06-04 04:00] VITALS: BP 136/78; PULSE 48; RESP 18; TEMP 36.1; O2SAT 93
[2024-06-04 05:41] LABS: Basophils Absolute Auto 0.12 K/mm3 (0.00-0.10); Basophils Percent Auto 1.9 % (0.0-1.0); Eosinophils Absolute Auto 0.18 K/mm3 (0.02-0.50); Eosinophils Percent Auto 2.8 % (1.0-6.0); Hematocrit 41.1 % (37.0-46.0); Hemoglobin 13.5 g/dL (12.4-15.3); Immature Granulocyte Absolute 0.03 K/mm3 (0.00-0.00); Immature Granulocyte Percent A 0.5 % (0.0-0.0); Lymphocytes Absolute Auto 1.61 K/mm3 (1.10-4.50); Lymphocytes Percent Auto 25.2 % (18.0-42.0); Mean Corpuscular HGB Conc 32.8 g/dL (32-36); Mean Corpuscular Hemoglobin 29.5 pg (27.0-31.0); Mean Corpuscular Volume 89.7 fL (78.0-102.0); Mean Platelet Volume 9.6 fl (8.7-11.0); Monocytes Absolute Auto 0.37 K/mm3 (0.10-0.90); Monocytes Percent Auto 5.8 % (2.0-11.0); Neutrophils Absolute Auto 4.09 K/mm3 (1.70-7.20); Neutrophils Percent Auto 63.8 % (50.0-70.0); Platelet Count Result 414 K/mm3 (150-420); Red Blood Count 4.58 M/mm3 (4.70-6.10); White Blood Count 6.4 K/mm3 (4.8-10.8)
[2024-06-04 05:56] LABS: Alanine Aminotransferase 42 U/L (16-63); Albumin Level 3.6 g/dL (3.4-5.0); Alkaline Phosphatase 109 U/L (46-116); Anion Gap 6 mmol/L (4-12); Aspartate Amino Transferase 26 U/L (15-37); Bilirubin,Total 0.7 mg/dL (0.00-1.00); Blood Urea Nitrogen 28 mg/dL (7-18); Calcium 9.4 mg/dL (8.5-10.1); Carbon Dioxide 29 mmol/L (21-32); Chloride 100 mmol/L (98-108); Estimated CRCL calculation 28 ml/min; Estimated Glomerular Filt Rate 21; Glucose 216 mg/dL (70-99); Osmolality Calculated 292 mOsm/kg (285-295); Potassium 4.3 mmol/L (3.5-5.1); Sodium 135 mmol/L (136-145)
[2024-06-04 08:00] VITALS: BP 141/80; PULSE 62; RESP 16; TEMP 35.5; O2SAT 94
[2024-06-04] MEDS: INSULIN HUMAN LISPRO (*BKC) 1,000 UNITS/10 ML VIAL SUB-Q ×2 (08:20→12:58)
--- NOTE | 2024-06-04 08:32 | PC.NURSE ---
Pt blood sugar is 216 per AM labs. sliding scale insulin given.
[2024-06-04] MEDS: UMECLIDINIUM BROMIDE 62.5 MCG ELLIPTA 1 PUFF INHALATION (09:14)
[2024-06-04] MEDS: ATORVASTATIN 40 MG TABLET 80 MG PO (09:15)
[2024-06-04] MEDS: ENOXAPARIN 40 MG/0.4 ML SYRINGE SUB-Q (09:15)
[2024-06-04] MEDS: polyethylene glycoL 3350 17 GM POWD.PACK PO (09:15)
[2024-06-04] MEDS: LEVOTHYROXINE SODIUM 75 MCG TABLET PO (09:16)
[2024-06-04] MEDS: GABAPENTIN 100 MG CAPSULE PO ×3 (09:16→16:57)
[2024-06-04] MEDS: EMPAGLIFLOZIN 10 MG TABLET PO (09:16)
[2024-06-04] MEDS: amLODIPine BESYLATE 5 MG TABLET 10 MG PO (09:16)
[2024-06-04 09:17] VITALS: PULSE 62
[2024-06-04] MEDS: carvediloL 12.5 MG TABLET 25 MG PO ×2 (09:17→20:37)
[2024-06-04] MEDS: CLOPIDOGREL BISULFATE 75 MG TABLET PO (09:22)
[2024-06-04 10:06] LABS: Free T3 < 0.50 pg/mL (2.18-3.98)
[2024-06-04 12:00] VITALS: BP 141/80; PULSE 78; RESP 16; TEMP 36.4; O2SAT 94
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
[2024-06-04 12:47] LABS: Glucose Point of Care 254 mg/dl (65-105)
[2024-06-04] MEDS: IPRATROPIUM 0.5 MG/ALBUTEROL SULFATE 2.5 MG AMPUL.NEB 3 ML INHALATION (13:29)
[2024-06-04 16:00] VITALS: BP 107/51; PULSE 58; RESP 18; TEMP 36.6; O2SAT 95
[2024-06-04 17:04] LABS: Glucose Point of Care 184 mg/dl (65-105)
[2024-06-04] MEDS: TOLNAFTATE 1% POWDER 45 GM BTL 1 APPLIC TOPICAL (20:37)
[2024-06-04] MEDS: INSULIN GLARGINE (*BKC) 1,000 UNITS/10 ML VIAL 30 UNITS SUB-Q (20:39)
[2024-06-04 20:42] LABS: Glucose Point of Care 145 mg/dl (65-105)
[2024-06-05] VITALS: BP 131/76; PULSE 64; RESP 18; TEMP 36.8; O2SAT 95
[2024-06-05] MEDS: LEVOTHYROXINE SODIUM 75 MCG TABLET PO (05:40)
[2024-06-05 07:57] LABS: Glucose Point of Care 173 mg/dl (65-105)
[2024-06-05 08:00] VITALS: BP 120/66; PULSE 84; RESP 20; TEMP 35.8; O2SAT 98
--- NOTE | 2024-06-05 08:33 | P.PNIM_ITS ---
Progress Note: A&P Assessment and Plan (1) Physical debility: Code(s): R53.81 - Other malaise Status: Acute Assessment and Plan: patient with worsening weakness and inability to complete ADLs. He has been admitted for PT and OT and assistance in [place] [facility] [place]. * PT OT consulted, recommendations appreciated * care coordination is assisting with [place] [facility] [place] * fall precautions (2) Hypothyroidism: Qualifiers: Hypothyroidism type: unspecified Qualified Code(s): E03.9 - Hypothyroidism, unspecified Code(s): E03.9 - Hypothyroidism, unspecified Status: Acute Assessment and Plan: patient has not been taking his medications for over a month. TSH was greater than 96 on admission. * T3-T4 pending * resume levothyroxine 75 mcg (3) Diabetes mellitus type 2 with complications: Code(s): E11.8 - Type 2 diabetes mellitus with unspecified complications Status: Acute Assessment and Plan: history of diabetes previously had a DEXAcom but has not had refills on that for over a month. Hemoglobin A1c 9.6% on admission. * Lantus 30 units at night * Accu-Cheks a.c. HS * high-dose sliding scale insulin with 6 units lispro during meals * hypoglycemia protocol ordered (4) Chronic renal disease: Qualifiers: Chronic kidney disease stage: unspecified stage Qualified Code(s): N18.9 - Chronic kidney disease, unspecified Code(s): N18.9 - Chronic kidney disease, unspecified Status: Acute Assessment and Plan: CKD 2.92, BUN 28 * Stable CKD * renally dose medications * avoid nephrotoxins (5) COPD (chronic obstructive pulmonary disease): Qualifiers: COPD type: unspecified COPD Qualified Code(s): J44.9 - Chronic obstructive pulmonary disease, unspecified Code(s): J44.9 - Chronic obstructive pulmonary disease, unspecified Status: Acute Assessment and Plan: respiratory status stable. He has a chronic runny nose but no shortness of breath, cough, or congestion. Chest x-ray shows no cardiopulmonary active disease. * Resume inhalers * DuoNebs p.r.n. * Claritin daily Plan referrals have been sent for [place] [facility] placement. Subjective Date/time seen: 06/05/24 08:33 Interval history: No acute events overnight. He has been [facility] [place] [facility] And we are awaiting insurance authorization. he has no complaints. Review of Systems Review of Systems: Chronic runny nose, generalized weakness, excoriation to right thigh, groin irritation Exam Narrative: General: appears comfortable, in no acute distress Respiratory: breathing is unlabored with even chest rise/fall, lungs are clear without wheezing, rhonchi, and crackles Cardiovascular: Rate and rhythm regular, normal s1s2, no murmur Abdomen: Soft, round, non-tender, active bowel sounds Extremities: No cyanosis, edema, clubbing. Pulses 2/2 Neuro: A&O x 4 with delayed responses, appears to have cognitive delays Skin: Warm, dry, intact. Erythema with excoriation to right upper thigh, bilater al groin with moisture Objective Data Vital Signs Vital Signs: Vital Signs - 24 hr 06/04/24 09:17 06/04/24 12:00 06/04/24 16:00 Temperature 97.6 F 98 F Pulse Rate 62 78 58 L Respiratory Rate 16 18 Blood Pressure 141/80 H 107/51 L Pulse Oximetry 94 95 Oxygen Delivery Room Air Room Air 06/05/24 00:00 Temperature 98.2 F Pulse Rate 64 Respiratory Rate 18 Blood Pressure 131/76 Pulse Oximetry 95 Oxygen Delivery Room Air Intake/Output Intake/Output: Intake & Output 06/02/24 06/03/24 06/04/24 06/05/24 23:59 23:59 23:59 23:59 Intake Total 1050 550 Output Total 100 200 Balance -100 850 550 Meds/Results Medications: Active Medications Generic Name Dose Route Start Last Admin Trade Name Freq PRN Reason Stop Dose Admin Acetaminophen 650 mg 06/03/24 19:55 Acetaminophen 325 Mg Tablet PO Q4H PRN Mild Pain (1-3) or Fever Albuterol 2 puff 06/04/24 08:17 Albuterol Sulfate (*Sp) Inhaler INHALATION QID PRN shortness of breath or wheezing Albuterol/Ipratropium 3 ml 06/04/24 12:50 06/05/24 06:31 Ipratropium 0.5 Mg/Albuterol Sulfate 2.5 Mg Ampul.Neb 3 Ml INHALATION Not Given Q6HRT KRUPA Amlodipine Besylate 10 mg 06/04/24 09:00 06/04/24 09:16 Amlodipine Besylate 5 Mg Tablet PO 10 mg DAILY KRUPA Administration Atorvastatin Calcium 80 mg 06/04/24 09:00 06/04/24 09:15 Atorvastatin 40 Mg Tablet PO 80 mg DAILY KRUPA Administration Carvedilol 25 mg 06/04/24 09:00 06/04/24 20:37 Carvedilol 12.5 Mg Tablet PO 25 mg Q12HR KRUPA Administration Clopidogrel Bisulfate 75 mg 06/04/24 09:00 06/04/24 09:22 Clopidogrel Bisulfate 75 Mg Tablet PO 75 mg DAILY KRUPA Administration Dextrose 12.5 gm 06/03/24 21:04 Dextrose 50% 25 Gm/50 Ml Syringe IV PUSH PRN PRN Hypoglycemia Protocol Empagliflozin 10 mg 06/04/24 09:00 06/04/24 09:16 Empagliflozin 10 Mg Tablet PO 10 mg DAILY KRUPA Administration Enoxaparin Sodium 40 mg 06/04/24 09:00 06/04/24 09:15 Enoxaparin 40 Mg/0.4 Ml Syringe SUB-Q 40 mg DAILY KRUPA Administration Gabapentin 100 mg 06/04/24 09:00 06/04/24 16:57 Gabapentin 100 Mg Capsule PO 100 mg TID KRUPA Administration Glucagon 1 mg 06/03/24 21:04 Glucagon For Inj 1 Mg Vial IM PRN PRN Hypoglycemia Protocol Glucose 15 gm 06/03/24 21:04 Glucose Oral Gel 15 Gm Of Glucse In 37.5 Gm Tube PO PRN PRN Hypoglycemia Protocol Dextrose 1,000 mls @ 100 mls/hr 06/03/24 21:04 Dextrose 5% 1,000 Ml IVPB PRN PRN Hypoglycemia Protocol Insulin Glargine 30 units 06/04/24 21:00 06/04/24 20:39 Insulin Glargine (*Bkc) 1,000 Units/10 Ml Vial SUB-Q 30 units HS KRUPA Administration Insulin Human Lispro 4 - 8 units 06/04/24 12:00 06/04/24 16:59 Insulin Human Lispro (*Bkc) 1,000 Units/10 Ml Vial SUB-Q Not Given TIDWM [facility] Protocol Insulin Human Lispro 6 units 06/04/24 17:00 06/04/24 17:02 Insulin Human Lispro (*Bkc) 1,000 Units/10 Ml Vial 0.05 units/kg (6 units) Not Given SUB-Q TIDWM [facility] Levothyroxine Sodium 75 mcg 06/04/24 09:00 06/05/24 05:40 Levothyroxine Sodium 75 Mcg Tablet PO 75 mcg DAILY@0630 KRUPA Administration Loratadine 10 mg 06/05/24 09:00 Loratadine 10 Mg Tablet PO QAM KRUPA Ondansetron HCl 4 mg 06/03/24 19:55 Ondansetron Inj 4 Mg/2 Ml Vial IV PUSH Q8H PRN Nausea Polyethylene Glycol 17 gm 06/04/24 09:00 06/04/24 09:15 Polyethylene Glycol 3350 17 Gm Powd.Pack PO 17 gm QAM KRUPA Administration Tolnaftate 1 applic 06/04/24 21:00 06/04/24 20:37 Tolnaftate 1% Powder 45 Gm Btl TOPICAL 1 applic Q12HR KRUPA Administration Umeclidinium [place] 1 puff 06/04/24 09:00 06/04/24 09:14 Umeclidinium [place] 62.5 Mcg Ellipta INHALATION 1 puff DAILY KRUPA Administration Radiology Results: ITS Impressions Head CT 06/03/24 18:54 IMPRESSION: No acute intracranial process. Chest X-Ray 06/03/24 18:58 IMPRESSION: No acute cardiopulmonary process. Labs Labs: Laboratory Results - last 24 hr 06/04/24 06/04/24 06/04/24 05:03 12:41 16:59 POC Capillary Glucose 254 H 184 H Free T3 pg/mL < 0.50 L 06/04/24 06/05/24 20:36 07:51 POC Capillary Glucose 145 H 173 H Free T3 pg/mL Quality VTE Prophylaxis VTE prophylaxis: pharmacologic ordered
[2024-06-05] MEDS: ENOXAPARIN 40 MG/0.4 ML SYRINGE SUB-Q (09:27)
[2024-06-05] MEDS: polyethylene glycoL 3350 17 GM POWD.PACK PO (09:27)
[2024-06-05] MEDS: ATORVASTATIN 40 MG TABLET 80 MG PO (09:27)
[2024-06-05] MEDS: LORATADINE 10 MG TABLET PO (09:27)
[2024-06-05 09:28] VITALS: PULSE 84
[2024-06-05] MEDS: carvediloL 12.5 MG TABLET 25 MG PO (09:28)
[2024-06-05] MEDS: amLODIPine BESYLATE 5 MG TABLET 10 MG PO (09:28)
[2024-06-05] MEDS: GABAPENTIN 100 MG CAPSULE PO (09:28)
[2024-06-05] MEDS: UMECLIDINIUM BROMIDE 62.5 MCG ELLIPTA 1 PUFF INHALATION (09:29)
[2024-06-05] MEDS: EMPAGLIFLOZIN 10 MG TABLET PO (09:29)
[2024-06-05] MEDS: TOLNAFTATE 1% POWDER 45 GM BTL 1 APPLIC TOPICAL (09:30)
[2024-06-05] MEDS: INSULIN HUMAN LISPRO (*BKC) 1,000 UNITS/10 ML VIAL 6 UNITS SUB-Q (09:57)
[2024-06-05 11:50] LABS: Glucose Point of Care 260 mg/dl (65-105)
[2024-06-05 12:02] LABS: Free T4 Free Thyroxine 0.15 ng/dL (0.76-1.46)
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
--- NOTE | 2024-06-05 13:33 | PC.NURSE ---
Called discharge report to Katina at [facility].
--- NOTE | 2024-06-05 16:15 | PC.NURSE ---
nh staff here with wc. up with 2 assist and pauline lugo to wc. incont of urine. bath given. care turned over to nh staff.
--- NOTE | 2024-06-06 09:44 | PC.NURSE ---
Patient returned to ED from [facility] due to low heart rate, patient transfered to another facility from the ED
[2024-06-07 12:08] LABS: T4 Thyroxine <0.7 mcg/dL (4.9-10.5)
== END 2024-06-05 16:00 ==
LOC: CHSED 19:08 → CHS2ND 20:07
PROVIDERS: Nurse Practitioner Acute Care; Admitting Provider Internal Medicine; Emergency Provider Emergency Medicine; PCP Family Medicine; Visit Provider Internal Medicine
DX: R53.81 Other malaise (principal); I12.9 Hypertensive chronic kidney disease with stage 1 through stage 4 chronic kidney disease, or unspecified chronic kidney disease; E11.22 Type 2 diabetes mellitus with diabetic chronic kidney disease; N18.4 Chronic kidney disease, stage 4 (severe); J43.9 Emphysema, unspecified; E78.5 Hyperlipidemia, unspecified; E11.40 Type 2 diabetes mellitus with diabetic neuropathy, unspecified; E03.9 Hypothyroidism, unspecified; K21.9 Gastro-esophageal reflux disease without esophagitis; M13.0 Polyarthritis, unspecified; Z86.73 Personal history of transient ischemic attack (TIA), and cerebral infarction without residual deficits; Z87.891 Personal history of nicotine dependence; Z79.84 Long term (current) use of oral hypoglycemic drugs; Z79.51 Long term (current) use of inhaled steroids; Z79.02 Long term (current) use of antithrombotics/antiplatelets; Z79.4 Long term (current) use of insulin
CPT/HCPCS: 36415; 70450; 71045; 80053; 81001; 82948; 83036; 83605; 83735; 84436; 84439; 84443; 84481; 84484; 85025; 87040; 93005; 96372; 97162; 97165; 97530; 99285; A9270; G0378; J1650; J1815

== ENCOUNTER 2024-06-05 18:16 | Emergency (ER) | payer MEDICARE, SELFPAY ==
[2024-06-05] VITALS (59 sets, daily range): BP systolic 76–145; BP diastolic 51–109; PULSE 41–52; RESP 8–21; TEMP 36.3; O2SAT 90–100
[2024-06-05] MEDS: SODIUM CHLORIDE 0.9% IV 1,000 ML 999 ML IV CONT (18:30)
--- NOTE | 2024-06-05 18:43 | ECG_ITS ---
Test Date: 2024-06-05 19:01:32 Measurements Intervals [place] Rate: 44 P: 248 ID: [id number] QRS: -61 QRSD: 126 T: 180 QT: 577 QTc: 495 Interpretive Statements SINUS BRADYCARDIA LEFT ANTERIOR FASCICULAR BLOCK CANNOT R/O SEPTAL INFARCT, AGE INDETERMINATE PROLONGED QT INTERVAL BASELINE ARTIFACT- I, II, III, AVR, AVL, AVF, V1-V6 ABNORMAL ECG Compared to ECG 06/03/2024 18:38:42 HEART RATE HAS DECREASED Prolonged QT interval now present Electronically Signed On 06-06-2024 06:38:22 CDT by Edward Paula D.O.
[2024-06-05] MEDS: GLUCAGON FOR INJ 1 MG VIAL 0.5 MG IV PUSH ×3 (18:48→19:13)
[2024-06-05 19:03] LABS: Basophils Absolute Auto 0.14 K/mm3 (0.00-0.10); Basophils Percent Auto 1.8 % (0.0-1.0); Eosinophils Percent Auto 2.5 % (1.0-6.0); Hematocrit 37.3 % (37.0-46.0); Hemoglobin 12.3 g/dL (12.4-15.3); Immature Granulocyte Absolute 0.07 K/mm3 (0.00-0.00); Immature Granulocyte Percent A 0.9 % (0.0-0.0); Lymphocytes Absolute Auto 1.59 K/mm3 (1.10-4.50); Lymphocytes Percent Auto 20.2 % (18.0-42.0); Mean Corpuscular Hemoglobin 30.4 pg (27.0-31.0); Mean Corpuscular Volume 92.1 fL (78.0-102.0); Mean Platelet Volume 10.4 fl (8.7-11.0); Monocytes Absolute Auto 0.46 K/mm3 (0.10-0.90); Monocytes Percent Auto 5.9 % (2.0-11.0); Neutrophils Percent Auto 68.7 % (50.0-70.0); Platelet Count Result 392 K/mm3 (150-420); Red Blood Count 4.05 M/mm3 (4.70-6.10); Red Cell Distribution Width 14.4 % (11.6-14.4); White Blood Count 7.9 K/mm3 (4.8-10.8)
--- NOTE | 2024-06-05 19:20 | ED_ITS ---
HPI - Arrhythmia/Palpitations General Chief Complaint: Arrhythmia/Palpitations Stated Complaint: hypotensive; bradycardic Source: patient and EMS Mode of arrival: EMS Limitations: physical limitation History of Present Illness HPI narrative: this is a 68-year-old male patient recently discharged from the hospital to a care home with history of CVA/COPD hyperlipidemia diabetes hypertension, presents with some hypotensive episode along with bradycardia has been on Coreg 25mg b.i.d.. Otherwise patient denies any chest pain or shortness of breath no abdominal pain no dysuria no flank pain no fever chills no nausea vomiting. Patient is a DNR. Onset (ago): hour(s) Duration: constant Severity: moderate Arrhythmia history: other ( bradycardia) Associated symptoms: denies other symptoms Related Data Home Medications Medication Instructions Recorded Confirmed loratadine 10 mg tablet 10 mg PO DAILY 06/05/24 06/05/24 Allergies Allergy/AdvReac Type Severity Reaction Status Date / Time amoxicillin Allergy Unknown HEAD TURNS Verified 06/05/24 18:39 RED Penicillins Allergy Unknown Unknown,HEAD Verified 06/05/24 18:39 TURNS RED semaglutide Allergy Unknown Unknown,Kevin Verified 06/05/24 18:39 h dulaglutide [From Trulicity] Allergy Swelling Verified 06/05/24 18:39 of Lip/Tongue/Throat niacin AdvReac Unknown Verified 06/05/24 18:39 Review of Systems Review of Systems: All systems reviewed & are unremarkable except as noted in HPI and below PMFSH Past Medical History Medical History Acute kidney injury Arthritis Cerebrovascular accident Chronic kidney disease, stage 4 (severe) Chronic obstructive pulmonary disease Chronic urticaria Dysphagia Emphysema of lung Functional burping disorder Gastroesophageal reflux disease Hearing loss Hyperlipidemia Hypertension Hyperthyroidism Hypothyroidism Left facial numbness Polyarthritis Stenosis of left carotid artery greater than 50% Stomach ulcer Tobacco dependence Type 2 diabetes mellitus Ulcer, esophagus Surgical History Surgical History History of arthroscopy History of carpal tunnel surgery History of cervical discectomy History of vasectomy Status post trigger finger release Family History Family History Father , Unknown cause of Cerebrovascular accident Mother , Unknown cause of Acute myocardial infarction Cerebrovascular accident Sibling Hypertension Other Diabetes mellitus Parkinson disease Social History Social History Social History: Surrogate medical decision maker: Jaelyn Hankins, daughter. Code status: Full code. Smoking packs per day: 1 Smoking cigarettes per day: 20.0 Years smoked: 40 Smoking pack-years: 40.00 Smoking status: Former smoker Tobacco type: cigarettes Second hand tobacco smoke exposure: No Smoking end date: 12/05/23 Alcohol intake: former Alcohol use details: Perhaps 1 drink a month. Substance use: former Substance use type: does not use Do You Feel Safe in your Home?: No Lack of Transportation: YES Lack of Food: Sometimes True Current Housing: I Have Housing Concerned About Future Housing: YES Difficulty Paying Gas/Electric Bills: No Difficulty Paying for Meds: No Currently Unemployed: YES Education: Bachelor's Degree Difficulty w/ Childcare or Family Care: No Living arrangements: alone Additional living arrangements comments: . 2 Children. Lives in [place]. Occupation/Education: occupation Additional occupation/education comments: Worked at [employer] in [facility]. Spiritual care concerns: No Agree to blood products: Yes Exam Const: General: no acute distress Nutritional Appearance: obese Orientation/consciousness: patient oriented x3 Limitations: no limitations Eyes: Conjunctivae: conjunctivae normal Neck: Neck: normal visual inspection Chest: Chest palpation & inspection: normal inspection of the chest Resp: Effort & Inspection: normal respiratory effort Auscultation: clear to auscultation bilaterally Cardio: Rate: bradycardic Rhythm: regular rhythm GI: GI Palp: Yes Soft to palpation Auscultation: normal bowel sounds Skin: General skin exam: normal color Rashes: no rashes Neuro: General: patient oriented x3, moves all extremities and no meningeal signs Cranial nerves: Yes Nystagmus not present Speech: normal speech Extrem: General: normal to inspection and no pedal edema Course Course Emergency Course: Patient discharged today hospital to the care home patient is a DNR history of diabetes with blood sugars are 193 prior to arrival, patient was bradycardic in the low 40s and hypotensive received a L of fluid and 1.5mg IV glucagon for a beta clement reversal. Current blood pressure 123/62 and heart rate currently between 46 and 50 to and has been steady. EKG shows a junctional bradycardia with a left anterior fascicular block. Patient with elevated TSH of over 100 and lethargic with being hypotensive and bradycardic consistent with myxedema. Patient started on dobutamine 2.5mcg and given a dose of hydrocortisone 100mg IV and Synthroid 50mcg IV. Spoke with general lithographic worker at in [facility] which accepts the patient for transfer. Vital Signs Vital signs: Vital Signs Temperature 36.3 C L 06/05/24 18:31 Pulse Rate 44 L 06/05/24 18:31 Respiratory Rate 11 L 06/05/24 18:31 Blood Pressure 81/71 L 06/05/24 18:31 Pulse Oximetry 92 06/05/24 18:31 Oxygen Delivery High Flow Nasal Cannula 06/05/24 18:31 Oxygen Flow Rate 4 06/05/24 18:31 Temperature 36.3 C L 06/05/24 18:31 Pulse Rate 49 L 06/05/24 21:30 Respiratory Rate 18 06/05/24 21:30 Blood Pressure 120/60 06/05/24 21:21 Pulse Oximetry 96 06/05/24 21:21 Oxygen Delivery Nasal Cannula 06/05/24 20:05 Oxygen Flow Rate 2 06/05/24 20:32 MDM - Arrhythmia/Palpitations Lab Data 06/05/24 18:58 06/05/24 18:58 Labs: Lab Results 06/05/24 Range/Units 18:58 WBC 7.9 (4.8-10.8) K/mm3 RBC 4.05 L (4.70-6.10) M/mm3 Hgb 12.3 L (12.4-15.3) g/dL Hct 37.3 (37.0-46.0) % MCV 92.1 (78.0-102.0) fL MCH 30.4 (27.0-31.0) pg MCHC 33.0 (32-36) g/dL RDW 14.4 (11.6-14.4) % Plt Count 392 (150-420) K/mm3 MPV 10.4 (8.7-11.0) fl Immature Gran % (Auto) 0.9 H (0.0-0.0) % Neut % (Auto) 68.7 (50.0-70.0) % Lymph % (Auto) 20.2 (18.0-42.0) % [place] % (Auto) 5.9 (2.0-11.0) % Eos % (Auto) 2.5 (1.0-6.0) % Baso % (Auto) 1.8 H (0.0-1.0) % Lymph # (Auto) 1.59 (1.10-4.50) K/mm3 [place] # (Auto) 0.46 (0.10-0.90) K/mm3 Eos # (Auto) 0.20 (0.02-0.50) K/mm3 Baso # (Auto) 0.14 H (0.00-0.10) K/mm3 Abs Immat Gran (auto) 0.07 H (0.00-0.00) K/mm3 Absolute Neuts (auto) 5.40 (1.70-7.20) K/mm3 Absolute Nucleated RBC 0.00 (0.00-0.00) K/mm3 Nucleated RBC % 0.0 (0-0.0) % Sodium 134 L (136-145) mmol/L Potassium 5.3 H (3.5-5.1) mmol/L Chloride 101 (98-108) mmol/L Carbon Dioxide 24 (21-32) mmol/L Anion Gap 9 (4-12) mmol/L BUN 37 H (7-18) mg/dL Creatinine 3.10 H (0.70-1.30) mg/dL Estim Creat Clear Calc 28 ml/min Estimated GFR 20 L (59 - ) Glucose 235 H (70-99) mg/dL Calculated Osmolality 294 (285-295) mOsm/kg Calcium 8.9 (8.5-10.1) mg/dL Total Bilirubin 0.5 (0.00-1.00) mg/dL AST 28 (15-37) U/L ALT 35 (16-63) U/L Alkaline Phosphatase 90 (46-116) U/L NT-Pro-B Natriuret Pep 1999 H (0-125) pg/mL Total Protein 6.0 L (6.4-8.2) g/dL Albumin 2.8 L (3.4-5.0) g/dL TSH > 100.00 H (0.36-3.74) uIU/mL Discharge Plan Discharge Clinical Impression: Myxedema Patient Disposition: Acute Care Hospital Condition: Stable Prescriptions: No Action tolnaftate 1 % Powder 1 applic topical Q12HR Qty: 45 0RF insulin lispro 100 unit/mL insulin pen See Rx Instructions .ROUTE .COMPLEX Qty: 15 0RF Rx Instructions: Lispro insulin 6 units TID with meals Lispro insulin per sliding scale Glucose less than 70-200 mg/dl-------no insulin glucose 201-250------4 units sub-q glucose 251-300------5 units sub-q glucose 301-350------6 units sub-q glucose 351-400------8 units sub-q glucose greater than 401----call your primary care provider for further instructions. loratadine 10 mg Tablet 10 mg PO DAILY gabapentin 100 mg Capsule 100 mg PO TID Qty: 90 0RF Jardiance 10 mg Tablet 10 mg PO DAILY Qty: 30 0RF albuterol sulfate 90 mcg/actuation HFA aerosol inhaler 2 puff inhalation QID PRN (Reason: shortness of breath or wheezing) Qty: 8.5 0RF atorvastatin 80 mg tablet 80 mg PO DAILY Qty: 30 0RF polyethylene glycol 3350 [Miralax] 17 gram Powder In Packet 17 g PO QAM Qty: 30 0RF amlodipine 10 mg Tablet 10 mg PO DAILY Qty: 30 0RF Spiriva Respimat 2.5 mcg/actuation mist 2 puff inhalation DAILY 30 Days Qty: 4 0RF clopidogrel [Plavix] 75 mg Tablet 75 mg PO DAILY Qty: 30 0RF carvedilol 25 mg tablet 25 mg PO Q12H Qty: 180 0RF Rx Instructions: must administer with a meal/food levothyroxine 75 mcg tablet 75 mcg PO DAILY Qty: 90 0RF insulin glargine U-300 conc 300 unit/mL (3 mL) insulin pen 30 unit subcut QHS Qty: 6 1RF Follow-up/Referrals: Livan Ryan DO [Primary Care Provider] - Time of Disposition: 22:17
[2024-06-05 19:29] LABS: Alanine Aminotransferase 35 U/L (16-63); Albumin Level 2.8 g/dL (3.4-5.0); Alkaline Phosphatase 90 U/L (46-116); Anion Gap 9 mmol/L (4-12); Aspartate Amino Transferase 28 U/L (15-37); Bilirubin,Total 0.5 mg/dL (0.00-1.00); Blood Urea Nitrogen 37 mg/dL (7-18); Calcium 8.9 mg/dL (8.5-10.1); Carbon Dioxide 24 mmol/L (21-32); Chloride 101 mmol/L (98-108); Estimated CRCL calculation 28 ml/min; Estimated Glomerular Filt Rate 20; Glucose 235 mg/dL (70-99); NT Pro B Type Natriuretic Pept 1999 pg/mL (0-125); Osmolality Calculated 294 mOsm/kg (285-295); Potassium 5.3 mmol/L (3.5-5.1); Sodium 134 mmol/L (136-145)
[2024-06-05 19:31] LABS: Thyroid Stimulating Hormone > 100.00 uIU/mL (0.36-3.74)
--- NOTE | 2024-06-05 19:31 | PC.NURSE ---
pt aware urine specimen is needed. unable to urinate at this time
[2024-06-05] MEDS: LEVOTHYROXINE SODIUM INJ 100 MCG/5 ML VIAL 50 MCG IV PUSH (19:52)
[2024-06-05] MEDS: SODIUM CHLORIDE 0.9% IV 1,000 ML 150 ML IV CONT (19:55)
[2024-06-05] MEDS: DOPamine 400 MG/D5W 250 ML 400 MG/250 ML BAG 25.52 MG IV CONT (20:54)
--- NOTE | 2024-06-05 21:02 | PC.NURSE ---
attempted to call daughter (spring) to give update, will call back, did leave a voicemail.
[2024-06-05] MEDS: DOBUTamine 250 MG/D5W 250 ML 250 MG/250 ML BAG 20.41 MG IV CONT (21:14)
[2024-06-05] MEDS: HYDROCORTISONE SODIUM SUCCINATE 100 MG/2 ML VIAL IV PUSH (21:15)
[2024-06-05 23:02] LABS: Add Urine Microscopic? YES; Appearance Urine Clear (Clear); Bilirubin Urine Negative (Negative); Blood Urine Negative (Negative); Color Urine Light Yellow (Yellow); Glucose Urine UA 3+ (Negative); Ketones Urine Negative (Negative); Leukocyte Esterase Ur Negative LEU/UL (Negative); Nitrate Urine Negative (Negative); Protein Urine 1+ (Negative); Urobilinogen Urine 0.2 mg/dL (0.2-1.0); pH Urine 5.5 (5.0-8.0)
[2024-06-05 23:09] LABS: Bacteria Urine None seen /hpf; RBC Urine 0-2 /hpf (0-2); Squamous Epithelial Cell Urine None seen /hpf (Few); WBC Urine 0-3 /hpf (0-3)
== END 2024-06-05 23:37 | disposition short-term general hospital (02) ==
PROVIDERS: Emergency Provider Emergency Medicine; PCP Family Medicine
DX: E03.9 Hypothyroidism, unspecified (principal); E78.5 Hyperlipidemia, unspecified; I12.9 Hypertensive chronic kidney disease with stage 1 through stage 4 chronic kidney disease, or unspecified chronic kidney disease; E11.22 Type 2 diabetes mellitus with diabetic chronic kidney disease; N18.4 Chronic kidney disease, stage 4 (severe); J44.9 Chronic obstructive pulmonary disease, unspecified; Z86.73 Personal history of transient ischemic attack (TIA), and cerebral infarction without residual deficits; Z79.899 Other long term (current) drug therapy; Z87.891 Personal history of nicotine dependence
CPT/HCPCS: 36415; 80053; 81001; 83880; 84443; 85025; 93005; 96361; 96365; 96366; 96375; 96376; 99285; J0650; J1250; J1265; J1610; J1720; J7030

== ENCOUNTER 2024-12-03 07:01 | Outpatient (NON) | payer MEDICARE, SELFPAY ==
--- OUTSIDE RECORDS SUMMARY | 2024-12-03 07:05 | XMS_ITS | Clinical Summary ---
Author Organization [facility] Address [address] [place] [address] Care Team Providers Care Blanket Inspector Name Role Phone Unavailable Primary Care Provider Unavailabl e Source Comments [facility],non-owned Affiliates and Associated Physician Practices is amultiple site organization consisting of ambulatory clinics and hospital sitesin [place], [place], [place] and [place]. This disclosure is being madepursuant to the Care Everywhere program and may not contain all information available regarding this patient. Last updated 18.[facility] Allergies Active Allergy Reactions Criticality Noted Date Comments Amoxicillin Other Medium 06/06/2024 Flushing (redness) of head Dulaglutide Angioedema High 06/06/2024 Niacin Unknown 06/06/2024 Penicillins Other Medium 06/06/2024 Flushing (redness) of head Semaglutide Rash Medium 06/06/2024 Medications * Be aware that medications may not be up to date on this document. Alwaysverify current medications with the patient. aspirin (Aspirin) 325 MG tablet Take 1 (one) tablet by mouth once daily Active carvedilol (Coreg) 25 MG tablet Take 1 (one) tablet by mouth 2 times daily with morning and evening meal Active hydrALAZINE (Apresoline) 25 MG tablet Take 1 (one) tablet by mouth 2 times daily Active levothyroxine (Synthroid) 200 MCG tablet Take 1 (one) tablet by mouth daily before breakfast Active meloxicam (Mobic) 15 MG tablet Take 1 (one) tablet by mouth once daily Active amLODIPine (Norvasc) 10 MG tablet Take 1 (one) tablet by mouth once daily Active senna-docusate (SB Docusate Sodium/Senna) 8.6-50 MG tablet Take 1 (one) tablet by mouth once daily Active albuterol HFA (Proventil; Ventolin; Proair) 108 (90 Base) MCG/ACT inhaler Inhale 2 (two) puffs by mouth every 6 hours as needed Active Insulin Glargine, 2 Unit Dial, (Toujeo Max SoloStar) pen Inject 30 (thirty) Units subcutaneously at bedtime Active Insulin Lispro-aabc (Lyumjev) 100 UNIT/ML SOLN 30 Units by Injection route 3 times daily before meals Active pantoprazole EC (Protonix) 40 MG tablet Take 1 (one) tablet by mouth once daily Active atorvastatin (Lipitor) 80 MG tablet Take 1 (one) tablet by mouth at bedtime Active Melatonin (MelatoninMax Gummies) 10 MG CHEW Take 10 mg by mouth at bedtime Active sodium bicarbonate 650 MG tablet Take 1 (one) tablet by mouth 2 times daily 60 tablet 06/16/20 24 Active sertraline (Zoloft) 50 MG tablet Take 1 (one) tablet by mouth once daily 30 tablet 06/17/20 24 Active sevelamer carbonate (Renvela) 800 MG Take 1 (one) tablet by mouth 3 times daily with meals 90 tablet 06/16/20 24 Active levothyroxine (Synthroid) 175 MCG tablet Take 1 (one) tablet by mouth once daily 30 tablet 06/16/20 24 Active liothyronine (Cytomel) 5 MCG tablet Take 2 (two) tablets by mouth once daily 30 tablet 06/16/20 24 Active Active Problems Problem Noted Date Diagnosed Date Suicide ideation 06/14/2024 Assessment & Plan (06/15/2024 9:16 AM SUGGESTION CLERK): Patient has talked to multiple members of the medical care team and told them that he wants to . Evaluated by psych. Started on Zoloft Assessment & Plan (06/14/2024 2:34 PM SUGGESTION CLERK): Patient has talked to multiple members of the medical care team and told them that he wants to . Evaluated by psych. Started on Zoloft Acute hypoxic respiratory failure 06/14/2024 Assessment & Plan (06/15/2024 10:54 AM SUGGESTION CLERK): Respiratory failure occurred during hospital stay due to aspiration. Patient is now on comfort care measures. Patient understands risk of continuing with comfort eating. Appreciate pulmonary's assistance. Continue with oxygen as needed. Last dose of Rocephin today. Assessment & Plan (06/14/2024 2:34 PM SUGGESTION CLERK): Respiratory failure occurred during hospital stay due to aspiration. Patient is now on comfort care measures. Patient understands risk of continuing with comfort eating.. Appreciate pulmonary's assistance. Continue with oxygen as needed. Continue with Rocephin (today is day 4.) Aspiration pneumonia of left lower lobe 06/14/20 24 Assessment & Plan (06/15/2024 10:54 AM SUGGESTION CLERK): Patient now comfort care only. Waiting on hospice. Patient understands risk of aspiration with comfort eating. Complete antibiotic treatment today. Assessment & Plan (06/14/2024 2:34 PM SUGGESTION CLERK): Patient now comfort care only. Waiting on hospice. Patient understands risk of aspiration with comfort eating. Continue antibiotic treatment to complete course. Depressive disorder 06/06/2024 Benign essential hypertension 06/06/2024 Gastroesophageal reflux disease 06/06/2024 History of colonic polyps 06/06/2024 Overview (06/06/2024): Aug 18, 2014 Entered By: FRANK SHUKLA Comment: S/P Excision of 7 polyps, May 2014. History of stroke without residual deficits 08/2023 Multiple nodules of lung 06/06/2024 Overview (06/06/2024): Feb 05, 2018 Entered By: TANYA LOPEZ Comment: RUL nodule [id number] Assessment & Plan (06/15/2024 9:16 AM SUGGESTION CLERK): No further workup needed. Assessment & Plan (06/14/2024 2:34 PM SUGGESTION CLERK): No further workup needed. 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 Initially treated with levothyroxine IV. Endocrinology on case. Symptoms improved since receiving treatment. Continue current regimen of levothyroxine 175 mcg and Cytomel 10 mg a day Patient is now refusing to take levothyroxine. Continue with comfort care measures and encourage him to take medication. Assessment & Plan (06/14/2024 2:34 PM SUGGESTION CLERK): Secondary to severe hypothyroidism due to noncompliance. Initially treated with levothyroxine IV. Endocrinology on case. Symptoms improved since receiving treatment. Continue current regimen of levothyroxine 175 mcg and Cytomel 10 mg a day Bradycardia 06/05/2024 Assessment & Plan (06/15/2024 9:16 AM SUGGESTION CLERK): Secondary to severe hypothyroidism Resolved as hypothyroid treatment continues. Assessment & Plan (06/14/2024 2:34 PM SUGGESTION CLERK): Secondary to severe hypothyroidism Resolved as hypothyroid treatment continues. Aortic dissection 03/03/2022 Abdominal aortic aneurysm (AAA) 03/02/2022 Alcohol abuse 03/02/2022 Carotid arterial disease 03/02/2022 Morbid obesity 03/02/2022 Tobacco dependence syndrome 03/02/2022 Chronic kidney disease, stage IV (severe) 2021 Assessment & Plan (06/15/2024 9:16 AM SUGGESTION CLERK): Most likely due to diabetic nephropathy. Nephrology on case. Patient now comfort care. Assessment & Plan (06/14/2024 2:34 PM SUGGESTION CLERK): Most likely due to diabetic nephropathy. Nephrology on case. Patient now comfort care. Dyslipidemia 09/27/2021 Diabetes mellitus, type 2 11/14/2018 Overview (06/06/2024): Nov 14, 2013 Entered By: FRANK SHUKLA Comment: [facility] [employer] Oct 02, 2014 Entered By: FRANK SHUKLA Comment: Discharged 09/30/2014 Feb 08, 2017 Entered By: TANYA LOPEZ Comment: HOME [employer]LEHE[employer] 02/08/17 Assessment & Plan (06/15/2024 10:54 AM SUGGESTION CLERK): Patient refusing blood sugar monitoring. Discontinue insulin. Assessment & Plan (06/14/2024 2:34 PM SUGGESTION CLERK): Continue with insulin sliding scale and insulin Lantus Social History Tobacco Use Types Packs/Day Years Used Date Smoking Tobacco: Former Cigarettes 1 51 1 - 2022 Smokeless Tobacco: Never Tobacco Cessation:Counseling Given: Not Answered AUDIT-C Answer Date Recorded Q1: How often do you have a drink containing alcohol? Never 06/10/2024 Q2: How many drinks containi ng alcohol do you have on a typical day when you are drinking? Patient does not drink Q3: How often do you have si x or more drinks on one occasion? Never 06/10/2024 Overall Financial Resource Strain (CARDIA) Answe r Date Recorded How hard is it for you to pa y for the very basics like food, housing, medical care, and heating? Not very hard 06/13/2024 [facility] - Occupational Stress Questionnaire Answer Date Recorded Do you feel stress - tense, restless, nervous, or anxious, or unable to sleep at night because your mind is troubled all the time - these days? To some extent 06/13/2024 Hunger Vital Sign Answer Date Recorded Within the past 12 months, y ou worried that your food would run out before you got the money to buy more. Never true 06/13/20 24 Within the past 12 months, t he food you bought just didn't last and you didn't have money to get more. Never true 06/13/2024 PRAPARE - Transportation Answer Date Re corded In the past 12 months, has l ack of transportation kept you from medical appointments or from getting medications? No 03/2024 In the past 12 months, has l ack of transportation kept you from meetings, work, or from getting things needed for daily living? No 06/13/2024 Housing Stability Vital Sign Answer Fer e Recorded In the last 12 months, was t here a time when you were not able to pay the mortgage or rent on time? No 06/13/2024 In the past 12 months, how m any times have you moved where you were living? 1 06/13/2024 At any time in the past 12 m [place], were you homeless or living in a long term (including now)? No 06/13/2024 Sex and Gender Information Value Date Recorded Sex Assigned at Not on file Legal Sex Male 12:18 PM CDT Gender Identity Not on file Sexual Orientation Not on file Occupation Industry Job Start Date Job End Date Not on file Not on file Not on file Last Filed Vital Signs Vital Sign Reading Time Taken Comments Blood Pressure 195/116 06/16/2024 10:38 AM SUGGESTION CLERK Pulse 69 06/16/2024 10:38 AM SUGGESTION CLERK Temperature 36.6 C (97.9 F) 06/16/2024 10:38 AM SUGGESTION CLERK Respiratory Rate 22 06/16/2024 10:3 8 AM SUGGESTION CLERK Oxygen Saturation 97% 06/16/2024 10: 38 AM SUGGESTION CLERK Inhaled Oxygen Concentration 35% 06/12/2024 9 :15 AM SUGGESTION CLERK Weight 112.6 kg (248 lb 4.8 oz) 06/16/2024 5:20 AM SUGGESTION CLERK Height 177.8 cm (5' 10 ) 06/06/2024 1:55 AM CDT Body Mass Index 35.63 06/06/2024 1:55 AM CDT Plan of Treatment Health Maintenance Due Date Last Done Comments COLOGUARD (AGES 45-75) - COLON CA SCREENING 1953 COLON MONITORING 1953 COLONOSCOPY - COLON CA SCREENING 1953 CT COLONOGRAPHY - COLON CA SCREENING 1953 Colorectal Cancer Screening 1953 FIT - COLON CA SCREENING 1953 FLEX SIG - COLON CA SCREENING 1953 HEPATITIS C SCREENING 08/02/1971 DTAP/TDAP/TD VACCINES (1 - Tdap) 1972 PNEUMOCOCCAL VACCINE 50+ (1 of 2 - PCV) 1972 LUNG CANCER SCREENING 2003 ZOSTER VACCINE (1 of 2) 2003 Respiratory Syncytial Virus (RSV) Vaccine Pt: or over 60 yrs (1 - Risk 60-74 years 1-dose series) 2013 AAA SCREENING 2018 COVID-19 VACCINE ( season) 2024 06/13/2021, 11/12/2020, 10/13/2020 DIABETES RETINOPATHY SCREENING 06/06/2024 DIABETES-FOOT EXAM WITH MONOFILAMENT 06/06/2024 DEPRESSION SCREENING 2024 DIABETES - URINE PROTEIN SCREENING 2024 MEDICARE AWV CALENDAR YEAR 2024 DIABETES-HGB A1C 12/04/2024 06/06/2024 INFLUENZA VACCINE (Season Ended) 2025 09/25/2019, 08/07/2019, 07/06/2018 DIABETES-SERUM CREATININE 06/12/20252023, 06/11/2024, 06/10/2024, Additional history exists HEPATITIS B VACCINE Aged Out No longe r eligible based on patient's age to complete this topic HIB VACCINE Aged Out No longer eligi ble based on patient's age to complete this topic HPV VACCINE Aged Out No longer eligi ble based on patient's age to complete this topic MENINGOCOCCAL (Group B) VACCINE SHARED DECISION-MAKING Aged Out No longer eligible based on patient's age to complete this topic MENINGOCOCCAL GROUPS A/C/Y/W VACCINE Aged Out No longer eligible based on patient's age to complete this topic Procedures Procedure Name Priority Date/Time Associated Diagnosis Comments BASIC METABOLIC PANEL (CALCIUM TOTAL) AM Draw 06/12/2024 4:22 AM SUGGESTION CLERK HEMOGLOBIN A1C STAT 06/06/2024 3:07 AM CDT from Last 3 Months or Most Recently Relevant to Health Maintenance Results * (ABNORMAL) BASIC METABOLIC PANEL (CALCIUM TOTAL) (06/12/2024 4:22 AM SUGGESTION CLERK) Glucose 173(H) 70 - 99 mg/dL 06/12/2024 4:51 AM SUGGESTION CLERK [facility] Sodium 139 136 - 145 mmol/L 06/12/2024 4:51 AM SUGGESTION CLERK [facility] Potassium 3.9 3.5 - 5.1 mmol/L 06/12/2024 4:51 AM SUGGESTION CLERK [facility] Chloride 107 98 - 107 mmol/L 06/12/2024 4:51 AM SUGGESTION CLERK [facility] CO2 21(L) 22 - 29 mmol/L 06/12/2024 4:51 AM [facility] Calcium 8.6 8.4 - 10.4 mg/dL 06/12/2024 4:51 AM [facility] Anion Gap 11 6 - 16 mmol/L 06/12/2024 4:51 AM [facility] BUN 56(H) 7 - 26 mg/dL 06/12/2024 4:51 AM [facility] Creatinine 2.91(H) 0.72 - 1.25 mg/dL 06/12/2024 4:51 AM [facility] eGFR by CKD-EPI 22(L) >=90 mL/min/1.7 3 m2 06/12/2024 4:51 AM [facility] Blood BLOOD SPECIMEN / Unknown Lab Venipuncture / Unknown 06/12/2024 4:22 AM SUGGESTION CLERK 06/12/2024 4:33 AM [facility] Devika Vincent MD LAB - CHEMISTRY ORD ERABLES Final Result [facility] [address] [place] [address] * (ABNORMAL) HEMOGLOBIN A1C (06/06/2024 3:07 AM CDT) Hemoglobin A1c 9.6(H) <5.7 % 06/06/2024 3:20 AM T [facility] Estimated Average Glucose 229 mg/dL 06/06/2024 3:20 AM T [facility] Blood BLOOD SPECIMEN / Unknown Venipuncture / Unknown 06/06/2024 3:07 AM CDT 06/06/2024 3:09 AM CDT Narrative [facility] - 06/06/2024 3:20 AM CDT HbA1c Interpretation: Normal: < 5.7% Pre-diabetes: 5.7-6.4% Diabetes: Equal to or greater than 6.5% Test results diagnostic of diabetes should be repeated for confirmation. Treatment target values recommended by ADA and other clinical organizations should be used to evaluate metabolic control in patients. This test should not replace glucose testing for patients with Type 1 diabetes, pediatric patients, or women. Falsely low HbA1c results may be observed in patients with clinical conditions that shorten erythrocyte life span or decrease mean erythrocyte age such as the presence of unstable hemoglobin variants, elevated hemoglobin F level or other causes of hemolytic anemia. HbA1c may not accurately reflect glycemic control when clinical conditions that affect erythrocyte survival are present. Severe Iron deficiency anemia may yield falsely high results. Hemoglobin A1c assay should not be used to diagnose or monitor diabetes in patients with malignancy, recent blood transfusion, chronic kidney or liver disease. This method may yield falsely low results when hemoglobin (HbF) exceeds 5% in the specimen. The Ragland Alinity assay for the measurement of HbA1c is a National Glycohemoglobin Standardization Program (NGSP) certified method. Matt Jones MD LAB - CHEMISTRY ORDERA BLES Final Result Performing Organization Address City/State/[facility] Co de Phone Number [facility] [address] [place] [address] from Last 3 Months or Most Recently Relevant to Health Maintenance Insurance Advance Directives Documents on File Type Date Recorded Patient Pets Salesperson Expl anation Adv Directive/Living Will/POA 06/17/2024 11:08 PM * DNR WITH COMFORT MEASURES (Latest Code Status on File) Date Activated Date Inactivated Comments 06/12/2024 12:50 PM 06/16/2024 6:03 PM Question Answer Comments : DO NOT discontinue a ny active orders without asking attending physician. Comfort Measures: yes * LIMITED RESUSCITATION-PRIOR AND AFTER ARREST Date Activated Date Inactivated Comments 06/07/2024 8:23 AM 06/12/2024 12:50 PM Question Answer Comments Limited Resuscitation: No Chest Compress ionNo Intubation, No Invasive VentilationNo Cardioversion, No Defibrilation, No External or Internal Pacemaker * DNR - IF PULSELESS NO CPR, NO SHOCK Date Activated Date Inactivated Comments 06/06/2024 7:54 AM 06/07/2024 8:23 AM Question Answer Comments : DO NOT discontinue a ny active orders without asking attending physician. * Full Code Date Activated Date Inactivated Comments 06/06/2024 5:03 AM 06/06/2024 7:54 AM
--- OUTSIDE RECORDS SUMMARY | 2024-12-03 07:05 | XMS_ITS | CONTINUITY OF CARE DOCUMENT ---
Author Name florencia jorge luisrancho Address Unknown Organization [facility] Address [address] [place] [address] Phone [phone] Care Team Providers Care Gasket Notcher Name Role Phone Fabio GAMBLE, Yariel Unavailable [phone] Fabio GAMBLE, Yariel Unavailable [phone] KYRIE MISHRA DO Unavailable PROBLEMS Condition Status Date Provider Notes AAA active Brant Barlow Alcohol abuse active Brant Torresi Tobacco abuse active Brant Barlow COPD active Brant Barlow CKD active Brant Barlow Carotid arterial disease active Brant robins Peripheral artery disease active Brant loya Morbid obesity active Brant Barlow Hypothyroidism active Brant Barlow Hyperlipidemia active Brant Barlow Essential hypertension active Brant Barlow GERD active Brant Barlow Diabetes mellitus, type 2 active Brant loya Aortic dissection active Yariel Mccarthy MD Diabetes, Type 2 active Yariel Elliott Hypertension active Yariel Mccarthy MD Peripheral Vascular Disease active Yariel Mccarthy MD C O P D active Yariel Mccarthy MD ENCOUNTERS Date Type Provider Location Encounter Diagnosis - In-person encounter Office Visit Yariel Mccarthy MD [place] [facility] - In-person encounter Office Visit Yariel Mccarthy MD [facility] Aortic dissectionDiabetes , Type 2HypertensionPerip heral Vascular DiseaseC O P D VITAL SIGNS Date Observation Value Provider Body Mass Index (Ratio) 40.90 kg/m2 Brant Torrescarrie blood pressure, cuff size large [facility] blood pressure, diastolic 86 mm[Hg] [facility] blood pressure, systolic 176 mm[Hg] [facility] theresa [place] oxygen saturation, oximetry 97 % Arti [place] respiratory rate E&M 16 /min Veronica olson [place] pulse rate 109 /min Arti elliott weight E&M 277 [lb_av] Arti elliott height E&M 69 [in_i] Arti elliott Body Mass Index (Ratio) 42.08 kg/m2 Alexis Mccarthy MD blood pressure, cuff size large Ke patriciai Ki blood pressure, diastolic 80 mm[Hg] Ke rri Ki blood pressure, systolic 122 mm[Hg] Luciano Emerson oxygen saturation, oximetry 98 % Iliana Emerson respiratory rate E&M 16 /min Iliana segoviaeneblas pulse rate 103 /min Iliana Simental lder weight E&M 285 [lb_av] Iliana Simental lder height E&M 69 [in_i] Iliana Simental lder ALLERGIES Allergy Name Onset Date Reaction Criticality Status NIACIN High Criticality active AMOXICILLIN High Criticality active HISTORY OF MEDICATION USE Medication Status Instructions Dates Provider Indications Com ments magnesium oxide 400 mg magnesium tablet active Take 1 tablet by mouth twice a day 9 Brant Barlow pantoprazole 40 mg tablet,delayed release (DR/EC) active Take 1 tablet by mouth once a day 9 Brant Torrescarrie Plavix 75 mg tablet active Brant Barlow Rybelsus 14 mg tablet active Brant Torrescarrie Farxiga 10 mg tablet active Brant Barlow ergocalciferol (vitamin D2) 1,250 mcg (50,000 unit) capsule active Brant Barlow terazosin 2 mg capsule active Brant Barlow carvedilol 25 mg tablet active TAKE 1 TABLET BY MOUTH TWICE DAILY Brant Barlow losartan 50 mg tablet active Brant Barlow SOCIAL HISTORY Date Observation Value Provider social history E&M S moking History: Lee shaffer currently smokes every day. Brant Melissacarrie social history reviewed E&M revi ewed - no changes required Brant Torrescarrie smoking status Current every day smoker Elly carson Mcgill social history E&M S moking History: P deena currently smokes every day. Brant Melissacarrie social history reviewed E&M revi ewed - no changes required Brantmarianna Torrescarrie smoking status Current every day smoker K cristina Emerson INSURANCE PROVIDERS Payer name Policy type / Coverage type [place] [employer] party ID UHC MEDICARE COMPLETE HMO Other [id number] ADVANCE DIRECTIVES Name Date DISCUSSED - NO DECISION MADE TREATMENT PLAN Date Name Performer [id number],C,P atlouann was advised to stop smoking. Brant Barlow [id number],S, Brant Torres carrie [id number],C, H is updated medication list for this problem includes: Rybelsus 14 Mg Tablet (Semaglutide) Farxiga 10 Mg Tablet (Dapagliflozin) Losartan 50 Mg Tablet (Losartan) [facility] [id number],C, B P today: 176/86 P rior BP: 122/80 (03/03/2022) His updated medication list for this problem includes: Carvedilol 25 Mg Tablet (Carvedilol) ..... Take 1 tablet by mouth twice daily Terazosin 2 Mg Capsule (Terazosin) Losartan 50 Mg Tablet (Losartan) [facility] [id number],S, H is updated medication list for this problem includes: Plavix 75 Mg Tablet (Clopidogrel) Orders: 9 9205 HIGH 60-74 min (CPT-37748) C omplete Echo (CPT-11110) A yulia Duplex Ultrasound (CPT-36914) A yulia Duplex Ultrasound (CPT-42214) F VC - 97924 (76878) F RC - 02948 (82812) D LCO - 52864 (30668) R PM (remote patient monitoring) (33070) [facility] [id number],C,P er PCP H is updated medication list for this problem includes: Rybelsus 14 Mg Tablet (Semaglutide) Farxiga 10 Mg Tablet (Dapagliflozin) Losartan 50 Mg Tablet (Losartan) Orders: 9 9205 HIGH 60-74 min (CPT-43054) C omplete Echo (CPT-90089) A yulia Duplex Ultrasound (CPT-75321) A yulia Duplex Ultrasound (CPT-04495) F VC - 61629 (90302) F RC - 00887 (55958) D LCO - 53982 (43979) R PM (remote patient monitoring) (46537) [facility] [id number],C,P atient was advised to stop smoking. Orders: 9 9205 HIGH 60-74 min (CPT-17317) C omplete Echo (CPT-58280) A yulia Duplex Ultrasound (CPT-82705) A yulia Duplex Ultrasound (CPT-98959) F VC - 60513 (94815) F RC - 22752 (60221) D LCO - 67727 (45397) R PM (remote patient monitoring) (21068) [facility] [id number],C, O rders: 9 9205 HIGH 60-74 min (CPT-55124) C omplete Echo (CPT-65618) A yulia Duplex Ultrasound (CPT-06397) A yulia Duplex Ultrasound (CPT-95454) F VC - 08668 (91244) F RC - 03593 (88350) D LCO - 11762 (31931) R PM (remote patient monitoring) (41871) [facility] [id number],C,a dvised limiting sodium intake H is updated medication list for this problem includes: Terazosin 2 Mg Capsule (Terazosin) Carvedilol 12.5 Mg Tablet (Carvedilol) Losartan 50 Mg Tablet (Losartan) Orders: E KG (CPT-76068) 9 9205 HIGH 60-74 min (CPT-87455) C omplete Echo (CPT-40969) A yulia Duplex Ultrasound (CPT-56506) A yulia Duplex Ultrasound (CPT-68793) F VC - 21825 (26916) F RC - 72950 (75718) D LCO - 06232 (13115) R PM (remote patient monitoring) (91725) [facility] [id number],C,W ill obtain AAA to evaluate O rders: 9 9205 HIGH 60-74 min (CPT-66733) C omplete Echo (CPT-38437) A yulia Duplex Ultrasound (CPT-66686) F VC - 91902 (10748) F RC - 93767 (52849) D LCO - 82089 (40423) R PM (remote patient monitoring) (43854) [facility] [id number],C,H x of carotid disease, will request results. O rders: 9 9205 HIGH 60-74 min (CPT-64845) C omplete Echo (CPT-83633) A yulia Duplex Ultrasound (CPT-73404) A yulia Duplex Ultrasound (CPT-62819) F VC - 89637 (25972) F RC - 25295 (56424) D LCO - 96659 (48871) R PM (remote patient monitoring) (02083) Brantmarianna Torrescarrie [id number],C,H as significant weight loss recently. O rders: 9 9205 HIGH 60-74 min (CPT-59591) C omplete Echo (CPT-98944) A yulia Duplex Ultrasound (CPT-86872) A yulia Duplex Ultrasound (CPT-46980) F VC - 37318 (03384) F RC - 44685 (09644) D LCO - 81610 (87032) R PM (remote patient monitoring) (97780) Brant Augustinshalini Electrophysiology:Toro min was advised to stop smoking. Brant nabor Electrophysiology [facility] Electrophysiology: H is updated medication list for this problem includes: Rybelsus 14 Mg Tablet (Semaglutide) Farxiga 10 Mg Tablet (Dapagliflozin) Losartan 50 Mg Tablet (Losartan) [facility] Electrophysiology: B P today: 176/86 P rior BP: 122/80 (03/03/2022) His updated medication list for this problem includes: Carvedilol 25 Mg Tablet (Carvedilol) ..... Take 1 tablet by mouth twice daily Terazosin 2 Mg Capsule (Terazosin) Losartan 50 Mg Tablet (Losartan) [facility] Electrophysiology: H is updated medication list for this problem includes: Plavix 75 Mg Tablet (Clopidogrel) Orders: 9 9205 HIGH 60-74 min (CPT-25171) C omplete Echo (CPT-01033) A yulia Duplex Ultrasound (CPT-73763) A yulia Duplex Ultrasound (CPT-06787) F VC - 59796 (18278) F RC - 31726 (38857) D LCO - 31731 (56820) R PM (remote patient monitoring) (91026) Yariel Mccarthy MD Electrophysiology:Pe r PCP H is updated medication list for this problem includes: Rybelsus 14 Mg Tablet (Semaglutide) Farxiga 10 Mg Tablet (Dapagliflozin) Losartan 50 Mg Tablet (Losartan) Orders: 9 9205 HIGH 60-74 min (CPT-66517) C omplete Echo (CPT-86833) A yulia Duplex Ultrasound (CPT-10584) A yulia Duplex Ultrasound (CPT-43456) F VC - 86254 (44221) F RC - 79973 (70767) D LCO - 63535 (63245) R PM (remote patient monitoring) (22520) Yariel Mccarthy MD Electrophysiology:Toro min was advised to stop smoking. Orders: 9 9205 HIGH 60-74 min (CPT-95477) C omplete Echo (CPT-72769) A yulia Duplex Ultrasound (CPT-20340) A yulia Duplex Ultrasound (CPT-50369) F VC - 28338 (44753) F RC - 44911 (82689) D LCO - 85784 (46315) R PM (remote patient monitoring) (86048) Yariel Mccarthy MD Electrophysiology: O rders: 9 9205 HIGH 60-74 min (CPT-39823) C omplete Echo (CPT-25324) A yulia Duplex Ultrasound (CPT-03586) A yulia Duplex Ultrasound (CPT-84814) F VC - 01702 (06710) F RC - 62153 (59527) D LCO - 37606 (41884) R PM (remote patient monitoring) (45777) Yariel Mccarthy MD Electrophysiology:ad vised limiting sodium intake H is updated medication list for this problem includes: Terazosin 2 Mg Capsule (Terazosin) Carvedilol 12.5 Mg Tablet (Carvedilol) Losartan 50 Mg Tablet (Losartan) Orders: E KG (CPT-49481) 9 9205 HIGH 60-74 min (CPT-83393) C omplete Echo (CPT-39106) A yulia Duplex Ultrasound (CPT-42884) A yulia Duplex Ultrasound (CPT-13961) F VC - 38747 (28888) F RC - 83146 (28362) D LCO - 86696 (20733) R PM (remote patient monitoring) (80052) Yariel Mccarthy MD Electrophysiology:Wi ll obtain AAA to evaluate O rders: 9 9205 HIGH 60-74 min (CPT-74782) C omplete Echo (CPT-88361) A yulia Duplex Ultrasound (CPT-47408) F VC - 83784 (16839) F RC - 87702 (07142) D LCO - 29512 (49418) R PM (remote patient monitoring) (03925) Yariel Mccarthy MD Electrophysiology:Hx of carotid disease, will request results. O rders: 9 9205 HIGH 60-74 min (CPT-37274) C omplete Echo (CPT-97033) A yulia Duplex Ultrasound (CPT-73845) A yulia Duplex Ultrasound (CPT-87635) F VC - 49111 (53965) F RC - 85207 (60849) D LCO - 13365 (18524) R PM (remote patient monitoring) (36624) Yariel Mccarthy MD Electrophysiology:Shen s significant weight loss recently. O rders: 9 9205 HIGH 60-74 min (CPT-91715) C omplete Echo (CPT-65634) A yulia Duplex Ultrasound (CPT-83140) A yulia Duplex Ultrasound (CPT-29055) F VC - 43094 (07199) F RC - 12634 (71691) D LCO - 12693 (55311) R PM (remote patient monitoring) (88171) Yariel Mccarthy MD Date Name DLCO - 04436 FRC - 96438 FVC - 81380 RPM (remote patient monitoring) DLCO - 18982 FRC - 62414 FVC - 29152 Aorta Duplex Ultraso und Complete Echo HISTORY OF PROCEDURES Procedure Date Procedure Name Provider Procedure Notes S tatus Spirometry Yariel mackey MD completed FVC / MVV with bronchodilator - 93148 Yariel Mccarthy MD completed BLOOD COUNT HEMOGLOBIN Yariel ruelas MD completed FRC - 32406 Yariel mackey MD completed SpO2 w/o 6min walk/titration Yariel Mccarthy MD completed SVC - 78275 Yariel mackey MD completed DLCO - 25238 Yariel mackey MD completed EKG Yariel mackey MD completed EKG Yariel mackey MD completed
--- OUTSIDE RECORDS SUMMARY | 2024-12-03 07:06 | XMS_ITS | Clinical Summary ---
Author Organization [facility] Address [facility] [place] [address] Care Team Providers Care Policy And Planning Manager Name Role Phone None, Provider MD Primary Care Provider Unavaila ble Allergies Active Allergy Reactions Criticality Noted Date Comments Dulaglutide Anaphylaxis High 11/14/2018 Insulin Degludec Unknown 11/10/2020 Niacin Unknown 05/14/2018 Semaglutide(0.25 Or 0.5mg-Dos) Angioedema 12/01 Penicillins Rash,Unknown High 10/30/2011 Semaglutide Rash Low 11/10/2020 Social History Tobacco Use Types Packs/Day Years Used Date Smoking Tobacco: Former Cigarettes Smokeless Tobacco: Never Tobacco Cessation:Counseling Given: Not Answered Alcohol Use Standard Drinks/Week Comments Never 0 (1 standard drink = 0.6 oz pur e alcohol) Sex and Gender Information Value Date Recorded Sex Assigned at Not on file Legal Sex Male 4:47 PM CDT Gender Identity Not on file Sexual Orientation Not on file Last Filed Vital Signs Vital Sign Reading Time Taken Comments Blood Pressure 197/109 12/01/2022 1:54 PM CDT Pulse 78 12/01/2022 1:54 PM CDT Temperature 36.2 C (97.1 F) 12/01/2022 1:54 PM CDT Respiratory Rate 22 12/01/2022 1:54 PM CDT Oxygen Saturation 98% 12/01/2022 1:54 PM CDT Inhaled Oxygen Concentration - - Weight 133.1 kg (293 lb 6.4 oz) 12/01/2022 1:54 PM CDT Height 175.3 cm (5' 9 ) 12/01/2022 1:54 PM CDT Body Mass Index 43.33 12/01/2022 1:54 PM CDT Plan of Treatment Health Maintenance Due Date Last Done Comments Colorectal Cancer Screening Colonoscopy (10 Years) 1955 1899 Hepatitis C 1971 Zoster Vaccines (1 of 2) 2003 RSV Immunization or 60+ Years (1 - Risk 60-74 years 1-dose series) 2013 COVID-19 Vaccine (4 - 2023-2 5 season) 2024 06/13/2021, 11/12/2020, 10/13/2020 Pneumococcal Vaccine: 50+ Years (3 of 3 - PCV20 or PCV21) 09/25/2024 09/25/2019, 07/09/2018, 04/06/2018 DTaP, Tdap and Td Vaccines ( 2 - Td or Tdap) 07/09/2028 07/09/2018 Meningococcal B Vaccine Aged Out No l onger eligible based on patient's age to complete this topic Meningococcal Vaccine Aged Out No henna brett eligible based on patient's age to complete this topic RSV Immunizations Under 20 Months Aged Out No longer eligible b ased on patient's age to complete this topic Procedures Procedure Name Priority Date/Time Associated Diagnosis Comments COLONOSCOPY Routine 1899 12:00 AM NUCLEAR REACTOR ENGINEER from Last 3 Months or Most Recently Relevant to Health Maintenance Results * Colonoscopy (1899 12:00 AM NUCLEAR REACTOR ENGINEER) 1899 1899 Narrative [facility] TO EPIC CONVERSION - 1899 12:00 AM NUCLEAR REACTOR ENGINEER Documented hx of procedure Procedure Note , Generic Conversion, - 06/09/2018 Documented hx of procedure us Generic Conversion Md GAMBLE GI PROCEDURE ORDERABLES Final Result [facility] TO EPIC CONVERSION from Last 3 Months or Most Recently Relevant to Health Maintenance Insurance [facility] Care Teams Policy And Planning Manager Relationship Specialty Start Date End Date None, Provider, PCP - General UNKNOWN PHYSICIAN SPECIALTY 12/01/22
--- OUTSIDE RECORDS SUMMARY | 2024-12-03 07:06 | XMS_ITS | Encounter Summary ---
Author Organization [facility] Address [address] [place] [address] Care Team Providers Care Continuous Mining Machine Coal Miner Name Role Phone None, Provider Primary Care Provider Unavaila ble Encounter Details Date Type Department Care Team (Late st Contact Info) Description 01/11/2019 Abstract [facility]FL CONVERSION [address] [place] [address] , Generic Conversion, Social History Tobacco Use Types Packs/Day Years Used Date Smoking Tobacco: Never Assessed Sex and Gender Information Value Date Recorded Sex Assigned at Not on file Legal Sex Male 4:47 PM CDT Gender Identity Not on file Sexual Orientation Not on file documented as of this encounter Plan of Treatment Not on file documented as of this encounter Visit Diagnoses Not on filedocumented in this encounter Care Teams Continuous Mining Machine Coal Miner Relationship Specialty Start Date End Date None, Provider, PCP - General UNKNOWN PHYSICIAN SPECIALTY 12/01/22 documented as of this encounter
--- OUTSIDE RECORDS SUMMARY | 2024-12-03 07:06 | XMS_ITS | Clinical Summary ---
Author Organization [facility] Address [address] [place] [address] Phone Care Team Providers Care Men'S Custom Hair Piece Consultant Name Role Phone Livan Ryan DO Primary Care Provider Allergies Active Allergy Reactions Criticality Noted Date Comments Amoxicillin Rash Low 10/30/2011 Dulaglutide Anaphylaxis High 11/14/2018 Insulin Degludec 11/10/2020 Niacin 11/18/2018 Semaglutide 11/10/2020 Medications albuterol 0.63 MG/3ML nebulizer solution Take 0.63 mg by nebulization every 6 (six) hours if needed. Active amLODIPine (NORVASC) 10 MG tablet Take 10 mg by mouth 1 (one) time each day. Active insulin glargine (LANTUS) 100 UNIT/ML injection Inject under the skin every night. Active Tiotropium [place] Monohydrate (SPIRIVA RESPIMAT) 2.5 MCG/ACT aerosol solution Inhale 2 puffs daily Active CHANTIX CONTINUING MONTH ROMERO 1 MG tablet 08/19/19 20 Active HUMULIN R 500 UNIT/ML CONCENTRATED injection 03/30/20 20 Active clopidogrel (PLAVIX) 75 MG tablet clopidogrel 75 mg tablet Active pantoprazole (PROTONIX) 40 MG EC tablet 04/13/20 20 Active atorvastatin (LIPITOR) 20 MG tablet 03/09/20 20 Active cholecalciferol (VITAMIN D-3) 50 MCG (1999) capsule Vitamin D3 Active Rybelsus 7 MG tablet 09/27/19 22 Active Dapagliflozin Propanediol (Farxiga) 10 MG tablet daily Active BD Insulin Syringe U-500 31G X 6MM 0.5 ML misc See administration instructions 07/20/20 21 Active carvedilol (COREG) 12.5 MG tablet 09/29/19 22 Active Melatonin 10 MG capsule melatonin Active levothyroxine (SYNTHROID) 100 MCG tablet Take 200 mcg by mouth 1 (one) time each day Active terazosin (HYTRIN) 2 MG capsule Take 1 capsule (2 mg total) by mouth 2 (two) times a day First dose should be night time just as he is going to bed 60 capsule 11 10/07/19 22 Active losartan (COZAAR) 50 MG tablet Take 1 tablet (50 mg total) by mouth 1 (one) time each day 30 tablet 11 02/23/20 22 Active Active Problems Problem Noted Date Diagnosed Date Essential hypertension 02/03/2022 Chronic kidney disease, Stage IV (severe) 2021 Dyslipidemia 09/27/2021 Hypothyroidism 09/27/2021 Vitamin D deficiency 05/31/2020 Hyperlipidemia 11/18/2018 Obstructive sleep apnea syndrome 11/14/2018 Overview (05/05/2019): Added automatically from request for surgery [id number] Added automatically from request for surgery [id number] Diabetes mellitus 11/14/2018 Overview (05/05/2019): Added automatically from request for surgery [id number] Added automatically from request for surgery [id number] Resolved Problems Problem Noted Date Diagnosed Date Resolved Date Decreased renal function 11/18/2018 Immunizations Immunization Administration Dates Next Due Influenza TIV (IM) 10/06/2021(Deferred: Patient Refused),08/07/2019 Pneumococcal Conjugate 04/06/2018 Family History Medical History Relation Comments Heart attack Father Heart attack Mother Relation Status Comments Father Mother Social History Tobacco Use Types Packs/Day Years Used Date Smoking Tobacco: Light Smoker Smokeless Tobacco: Never Alcohol Use Standard Drinks/Week Comments Yes 0 (1 standard drink = 0.6 oz pur e alcohol) rare Sex and Gender Information Value Date Recorded Sex Assigned at Not on file Legal Sex Male 10:38 AM MDT Gender Identity Not on file Sexual Orientation Not on file Last Filed Vital Signs Vital Sign Reading Time Taken Comments Blood Pressure 168/80 02/22/2022 1:26 PM CDT Pulse 84 02/22/2022 1:26 PM CDT Temperature 36.4 C (97.5 F) 02/22/2022 1:26 PM CDT Respiratory Rate - - Oxygen Saturation - - Inhaled Oxygen Concentration - - Weight 128 kg (282 lb) 02/22/2022 1:26 PM CDT Height 172.7 cm (5' 8 ) 02/22/2022 1:26 PM CDT Body Mass Index 42.88 02/22/2022 1:26 PM CDT Plan of Treatment Health Maintenance Due Date Last Done Comments Pneumococcal PPSV23/PCV13 65 + Years / Low and Medium Risk (1 of 4 - PCV) 2003 Influenza Vaccine (Season Ended) 2025 08/07/19 Insurance [employer] MEDICARE Care Teams Men'S Custom Hair Piece Consultant Relationship Specialty Start Date End Date Livan Ryan DO PCP - General Family Medicine 05/04/20
[2024-12-03 10:54] LABS: Creatinine Urine 165.37 mg/dL (40-278)
[2024-12-03 10:58] LABS: MALB Creatinine Ratio 196.2 mg/g (0-30); Microalbumin Urine Random 324.6 mg/L
== END 2024-12-03 07:02 | disposition home or self-care (01) ==
LOC: CHSLAB 07:03
PROVIDERS: PCP Family Medicine; Visit Provider Family Medicine
DX: R79.89 Other specified abnormal findings of blood chemistry (principal); R82.90 Unspecified abnormal findings in urine
CPT/HCPCS: 82043

== ENCOUNTER 2025-02-23 14:25 | Emergency (ER) | payer MEDICARE, SELFPAY ==
[2025-02-23] VITALS (9 sets, daily range): BP systolic 121–188; BP diastolic 66–90; PULSE 88–108; RESP 14–28; TEMP 36; O2SAT 76–98
--- NOTE | ~2025-02-23 | XR_ITS ---
EXAMINATION: XR chest 1V portable Exam Date/Time: 02/23/2025 14:45 CDT HISTORY: sob Comparison: 06/03/2024. RESULT: Lines, tubes, and devices: None. Lungs and pleura: Lordotic positioning. Subsegmental airspace opacity in the left lung base, with bi basilar streaky atelectasis/scar. Stable right upper lung granuloma/hamartoma. Cardiomediastinal silhouette: Stable. Other: No acute osseous or upper abdominal finding. IMPRESSION: Subsegmental left basilar atelectasis/consolidation. Reviewed, dictated and finalized at location K.
--- OUTSIDE RECORDS SUMMARY | 2025-02-23 14:28 | XMS_ITS | Patient Health Record ---
Author Organization [facility] Address [address] [place], [place] [address] Care Team Providers Care Bone Drier Name Role Phone REMIGIO Poole Unavailable [phone] Livan Ryan Unavailable Unavailable Reason For Referral No Information Medications Medication SIG (Take, Route, Frequency, Duration) Notes Start Date End Date Status 120 ACTUAT budesonide 0.16 MG/ACTUAT / formoterol fumarate 0.0045 MG/ACTUAT Metered Dose Inhaler [Symbicort] INTRAPULMONARY 120 ACTUAT budesonide 0.16 MG/ACTUAT / formoterol fumarate 0.0045 MG/ACTUAT Metered Dose Inhaler [Symbicort]Original [id number] ACTUAT budesonide 0.16 MG/ACTUAT / formoterol fumarate 0.0045 MG/ACTUAT Metered 2018 Active amlodipine 10 MG Oral Tablet ORAL amlodipine 10 MG Oral TabletOriginal Medicationamlodipine 10 MG Oral Tablet *Reorder from [employer] for eRx and Interaction Alerts* 2018 Active atorvastatin 80 MG Oral Tablet ORAL atorvastatin 80 MG Oral TabletOriginal Medicationatorvastatin 80 MG Oral Tablet *Reorder from [employer] for eRx and Interaction Alerts* 2018 Active ranitidine 150 MG Oral Capsule ORAL ranitidine 150 MG Oral CapsuleOriginal Medicationranitidine 150 MG Oral Capsule *Reorder from [employer] for eRx and Interaction Alerts* 2018 Active Aspirin 325 MG Oral Tablet ORAL aspirin 325 MG Oral TabletOriginal Medicationaspirin 325 MG Oral Tablet *Reorder from [employer] for eRx and Interaction Alerts* 2018 Active terazosin 5 MG Oral Capsule ORAL terazosin 5 MG Oral CapsuleOriginal Medicationterazosin 5 MG Oral Capsule *Reorder from [facility] for eRx and Interaction Alerts* 2018 Active Carvedilol 25 MG Oral Tablet ORAL carvedilol 25 MG Oral TabletOriginal Medicationcarvedilol 25 MG Oral Tablet *Reorder from [facility] for eRx and Interaction Alerts* 2018 Active Meloxicam 15 MG Oral Tablet ORAL meloxicam 15 MG Oral TabletOriginal Medicationmeloxicam 15 MG Oral Tablet *Reorder from [facility] for eRx and Interaction Alerts* 2018 Active cyclobenzaprine hydrochloride 10 MG Oral Tablet ORAL cyclobenzaprine hydrochlorid e 10 MG Oral TabletOriginal Medicationcyclobenzaprine hydrochloride 10 MG Oral Tablet *Reorder from [facility] for eRx and Interaction Alerts* 2018 Active hydrochlorothiazide 25 MG / lisinopril 20 MG Oral Tablet ORAL hydrochlorothiazide 25 MG / lisinopril 20 MG Oral TabletOriginal Medicationhydrochlorothiazide 25 MG / lisinopril 20 MG Oral Tablet *Reorder from [facility] for eRx and Interaction Alerts* 2018 Active insulin aspart, human 100 UNT/ML Injectable Solution [NovoLog] insulin aspart, human 100 UNT/ML Injectable Solution [NovoLog]Original Medicationinsulin aspart, human 100 UNT/ML Injectable Solution [NovoLog] *Reorder from [facility] for eRx and Interaction Alerts* 2018 Active insulin glargine 100 UNT/ML Injectable Solution [Lantus] insulin glargine 100 UNT/ML Injectable Solution [Lantus]Original Medicationinsulin glargine 100 UNT/ML Injectable Solution [Lantus] *Reorder from [facility] for eRx and Interaction Alerts* 2018 Active Plan Of Treatment No Information Insurance Providers Payer Name Payer Address Payer Phone Subscriber Number Group Number Insured Name Patient Relationship to Insured Coverage Start Date Coverage End Date AARP MedicareComp lete ([facility]) [address] [place], [place] [id number] MALIK HUFF Self - patient is the insured
--- OUTSIDE RECORDS SUMMARY | 2025-02-23 14:28 | XMS_ITS | Encounter Summary ---
Author Organization [facility] Address [address] [place] [address] Care Team Providers Care Leather Grader Name Role Phone None, Provider Primary Care Provider Unavaila ble Encounter Details Date Type Department Care Team (Late st Contact Info) Description 01/11/2019 Abstract SFL CONVERSION [address] [place] [address] , Generic Conversion, Social History Tobacco Use [...] on filedocumented in this encounter Care Teams Leather Grader Relationship Specialty Start Date End Date None, Provider, PCP - General UNKNOWN PHYSICIAN SPECIALTY 12/01/22 documented as of this encounter
--- OUTSIDE RECORDS SUMMARY | 2025-02-23 14:28 | XMS_ITS | Clinical Summary ---
Author Organization [facility] [email or web address] Address [address] [place] [address] Care Team Providers Care Burrer Machine Name Role Phone Unavailable Primary Care Provider Unavailabl e Source Comments [facility],non-owned Affiliates and Associated Physician Practices is amultiple site organization consisting of ambulatory clinics and hospital sitesin [place], [place], [place] and [place]. This disclosure is being madepursuant to the Care Everywhere program and may not contain all information available regarding this patient. Last updated 18.[facility] [email or web address] Allergies Active Allergy Reactions Criticality Noted Date [...] 06/14/2024 Assessment & Plan (06/15/2024 9:16 AM COMPOSITION ROOFER): Patient has talked to multiple members of the medical care team and told them that he wants to . Evaluated by psych. Started on Zoloft Assessment & Plan (06/14/2024 2:34 PM COMPOSITION ROOFER): Patient has talked to multiple members of the medical care team and told them that he wants to . Evaluated by psych. Started on Zoloft Acute hypoxic respiratory failure 06/14/2024 Assessment & Plan (06/15/2024 10:54 AM COMPOSITION ROOFER): Respiratory failure occurred during hospital stay due to aspiration. Patient is now on comfort care measures. Patient understands risk of continuing with comfort eating. Appreciate pulmonary's assistance. Continue with oxygen as needed. Last dose of Rocephin today. Assessment & Plan (06/14/2024 2:34 PM COMPOSITION ROOFER): Respiratory failure occurred during hospital stay due to aspiration. Patient is now on comfort care measures. Patient understands risk of continuing with comfort eating.. Appreciate pulmonary's assistance. Continue with oxygen as needed. Continue with Rocephin (today is day 4.) Aspiration pneumonia of left lower lobe 06/14/20 24 Assessment & Plan (06/15/2024 10:54 AM COMPOSITION ROOFER): Patient now comfort care only. Waiting on hospice. Patient understands risk of aspiration with comfort eating. Complete antibiotic treatment today. Assessment & Plan (06/14/2024 2:34 PM COMPOSITION ROOFER): Patient now comfort care only. Waiting on [...] Entered By: TANYA LOPEZ Comment: RUL nodule [id number] Assessment & Plan (06/15/2024 9:16 AM COMPOSITION ROOFER): No further workup needed. Assessment & Plan (06/14/2024 2:34 PM COMPOSITION ROOFER): No further workup needed. 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 Initially treated with levothyroxine IV. Endocrinology on case. Symptoms improved since receiving treatment. Continue current regimen of levothyroxine 175 mcg and Cytomel 10 mg a day Patient is now refusing to take levothyroxine. Continue with comfort care measures and encourage him to take medication. Assessment & Plan (06/14/2024 2:34 PM COMPOSITION ROOFER): Secondary to severe hypothyroidism due to noncompliance. Initially treated with levothyroxine IV. Endocrinology on case. Symptoms improved since receiving treatment. Continue current regimen of levothyroxine 175 mcg and Cytomel 10 mg a day Bradycardia 06/05/2024 Assessment & Plan (06/15/2024 9:16 AM COMPOSITION ROOFER): Secondary to severe hypothyroidism Resolved as hypothyroid treatment continues. Assessment & Plan (06/14/2024 2:34 PM COMPOSITION ROOFER): Secondary to severe hypothyroidism Resolved as hypothyroid treatment continues. Aortic dissection 03/03/2022 Abdominal aortic aneurysm (AAA) 03/02/2022 Alcohol abuse 03/02/2022 Carotid arterial disease 03/02/2022 Morbid obesity 03/02/2022 Tobacco dependence syndrome 03/02/2022 Chronic kidney disease, stage IV (severe) 2021 Assessment & Plan (06/15/2024 9:16 AM COMPOSITION ROOFER): Most likely due to diabetic nephropathy. Nephrology on case. Patient now comfort care. Assessment & Plan (06/14/2024 2:34 PM COMPOSITION ROOFER): Most likely due to diabetic nephropathy. Nephrology on case. Patient now comfort care. Dyslipidemia 09/27/2021 Diabetes mellitus, type 2 11/14/2018 Overview (06/06/2024): Nov 14, 2013 Entered By: FRANK SHUKLA Comment: [facility] [employer] Oct 02, 2014 Entered By: RFANK SHUKLA Comment: Discharged 09/30/2014 Feb 08, 2017 Entered By: TANYA LOPEZ Comment: HOME [employer] 02/08/17 Assessment & Plan (06/15/2024 10:54 AM COMPOSITION ROOFER): Patient refusing blood sugar monitoring. Discontinue insulin. Assessment & Plan (06/14/2024 2:34 PM COMPOSITION ROOFER): Continue with insulin sliding scale and insulin [...] care, and heating? Not very hard 06/13/2024 [facility] [place] of Occupat ional Health - Occupational Stress [...] any time in the past 12 m [facility], were you homeless or living in a alf (including now)? No 06/13/2024 Sex and Gender [...] Comments Blood Pressure 195/116 06/16/2024 10:38 AM COMPOSITION ROOFER Pulse 69 06/16/2024 10:38 AM COMPOSITION ROOFER Temperature 36.6 C (97.9 F) 06/16/2024 10:38 AM COMPOSITION ROOFER Respiratory Rate 22 06/16/2024 10:3 8 AM COMPOSITION ROOFER Oxygen Saturation 97% 06/16/2024 10: 38 AM COMPOSITION ROOFER Inhaled Oxygen Concentration 35% 06/12/2024 9 :15 AM COMPOSITION ROOFER Weight 112.6 kg (248 lb 4.8 oz) 06/16/2024 5:20 AM COMPOSITION ROOFER Height 177.8 cm (5' 10) 06/06/2024 1:55 AM CDT Body Mass Index [...] 2024 DIABETES-HGB A1C 12/04/2024 06/06/2024 INFLUENZA VACCINE (#1) 2025 0, 08/07/2019, 07/06/2018 DIABETES-SERUM CREATININE 06/12/20252023, 06/11/2024, 06/10/2024, [...] (CALCIUM TOTAL) AM Draw 06/12/2024 4:22 AM COMPOSITION ROOFER HEMOGLOBIN A1C STAT 06/06/2024 3:07 AM CDT from Last 3 Months or Most Recently Relevant to Health Maintenance Results * (ABNORMAL) BASIC METABOLIC PANEL (CALCIUM TOTAL) (06/12/2024 4:22 AM COMPOSITION ROOFER) Glucose 173(H) 70 - 99 mg/dL 06/12/2024 4:51 AM COMPOSITION ROOFER [facility] Sodium 139 136 - 145 mmol/L 06/12/2024 4:51 AM COMPOSITION ROOFER [facility] Potassium 3.9 3.5 - 5.1 mmol/L 06/12/2024 4:51 AM COMPOSITION ROOFER [facility] Chloride 107 98 - 107 mmol/L 06/12/2024 4:51 AM COMPOSITION ROOFER [facility] CO2 21(L) 22 - 29 mmol/L 06/12/2024 4:51 AM [facility] Calcium 8.6 8.4 - 10.4 mg/dL 06/12/2024 4:51 AM [facility] Anion Gap 11 6 - 16 mmol/L 06/12/2024 4:51 AM [facility] BUN 56(H) 7 - 26 mg/dL 06/12/2024 4:51 AM [facility] Creatinine 2.91(H) 0.72 - 1.25 mg/dL 06/12/2024 4:51 AM [facility] eGFR by CKD-EPI 22(L) >=90 mL/min/1.7 3 m2 06/12/2024 4:51 AM [facility] Blood BLOOD SPECIMEN / Unknown Lab Venipuncture / Unknown 06/12/2024 4:22 AM COMPOSITION ROOFER 06/12/2024 4:33 AM [facility] Fortunelexi Vincent MD LAB - CHEMISTRY ORD ERABLES Final Result [facility] [address] [place] [address] * (ABNORMAL) HEMOGLOBIN A1C (06/06/2024 3:07 AM CDT) Hemoglobin A1c 9.6(H) <5.7 % 06/06/2024 3:20 AM T [facility] Estimated Average Glucose 229 mg/dL 06/06/2024 3:20 AM CDT [facility] Blood BLOOD SPECIMEN / Unknown Venipuncture / Unknown 06/06/2024 3:07 AM CDT 06/06/2024 3:09 AM CDT Narrative [facility] - 06/06/2024 3:20 AM CDT [...] ORDERA BLES Final Result Performing Organization Address City/State/[facility] Co de Phone Number [facility] [address] [place] [address] from Last 3 Months or Most Recently Relevant to Health Maintenance Insurance Advance Directives Documents on File Type Date Recorded Patient Grant Specialist Expl 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
--- OUTSIDE RECORDS SUMMARY | 2025-02-23 14:28 | XMS_ITS | Clinical Summary ---
Author Organization [facility] Address [address] [place] [id number] Phone Care Team Providers Care Anthropology Department Chair Name Role Phone Livan Ryan DO Primary Care Provider [phone] Allergies Active Allergy Reactions Criticality Noted Date [...] under the skin every night. Active Tiotropium [place] Monohydrate (SPIRIVA RESPIMAT) 2.5 MCG/ACT aerosol solution [...] (05/05/2019): Added automatically from request for surgery [id number] Added automatically from request for surgery [id number] Diabetes mellitus 11/14/2018 Overview (05/05/2019): Added automatically from request for surgery [id number] Added automatically from request for surgery [id number] Resolved Problems Problem Noted Date Diagnosed Date [...] 1:26 PM CDT Height 172.7 cm (5' 8) 02/22/2022 1:26 PM CDT Body Mass Index 42.88 02/22/2022 1:26 PM CDT Plan of Treatment Health Maintenance Due Date Last Done Comments Pneumococcal PPSV23/PCV13 65 + Years / Low and Medium Risk (1 of 2 - PCV) 2003 Influenza Vaccine (#1) 2025 08/07/2019 Insurance [employer] MEDICARE Care Teams Anthropology Department Chair Relationship Specialty Start Date End Date Livan Ryan DO PCP - General Family Medicine 05/04/20
--- OUTSIDE RECORDS SUMMARY | 2025-02-23 14:28 | XMS_ITS | Clinical Summary ---
Author Organization [facility] Address [facility] [place] [address] Care Team Providers Care Playground Supervisor Name Role Phone None, Provider MD Primary [...] 1:54 PM CDT Height 175.3 cm (5' 9) 12/01/2022 1:54 PM CDT Body Mass Index [...] Diagnosis Comments COLONOSCOPY Routine 1899 12:00 AM DATA PROCESSING SPECIALIST from Last 3 Months or Most Recently Relevant to Health Maintenance Results * Colonoscopy (1899 12:00 AM DATA PROCESSING SPECIALIST) 1899 1899 Narrative [facility] TO EPIC CONVERSION - 1899 12:00 AM DATA PROCESSING SPECIALIST Documented hx of procedure Procedure Note , Generic Conversion, - 06/09/2018 Documented hx of procedure us Generic Conversion Md [facility] PROCEDURE ORDERABLES Final Result [facility] TO EPIC CONVERSION from Last 3 Months or Most Recently Relevant to Health Maintenance Insurance [facility] Care Teams Playground Supervisor Relationship Specialty Start Date End Date None, Provider, PCP - General UNKNOWN PHYSICIAN SPECIALTY 12/01/22
--- OUTSIDE RECORDS SUMMARY | 2025-02-23 14:28 | XMS_ITS | Continuity of Care Document ---
Author Name [facility] Organization [facility] Care Team Providers Care Coil Winder Hand Name Role Phone [facility] Unavailable Unavailable Problems Combined list of problems from Department of Defense and Veterans Affairs facilities. It does not include entries that were removed or entered in error. Problem Status Onset Date Problem Type Date of Resolution Comments Source Diverticulosis Active 06/02/20 16 Condition [facility] Long-Term (current) Use of Insulin (ICD-9-CM V58.67) Active 08/06/19 09 Condition Dec 02, 2009 Entered By: YUNIOR FRANCOIS Comment: Rosanne mckoy [facility] Abdominal aortic aneurysm Active Condition [facility] Acute low back pain Active Condition [place] [facility] Alcohol abuse, in remission (ICD-9-CM 305.03) Active Condition [facility] Allergic rhinitis (SNOMED CT 05802283) Active Condition [facility] Benign essential hypertension (SNOMED CT 1838887) Active Condition [facility] Carotid artery stenosis Active Condition [facility] Cervicalgia Active Condition [facility] Chronic kidney disease stage 3 Active Condition [facility] Chronic kidney disease stage 4 Active Condition [facility] COPD - Chronic Obstructive Pulmonary Disease (SCT 17151921) Active Condition [facility] Decreased, vision NEC (ICD-9-CM 369.9) Active Condition [facility] Depression * (ICD-9-CM 311.) [facility] Depressive disorder Active Condition [facility] Diabetes Mellitus Type 2 (SCT 88316677) Active Condition [facility] Dissection of Thoracic Aorta (ICD-9-CM 441.01) Active Condition [facility] DM Type II Dm W/O Complications Active Condition [facility] Double vision Active Condition [facility] Gastroesophageal reflux disease (SNOMED CT 894417314) Active Condition [facility] GERD * (ICD-9-CM 530.81) Active Condition [facility] Herpes Zoster * (ICD-9-CM 053.9) Active Condition [facility] History of polyp of colon Active Condition Aug 18, 2014 Entered By: FRANK SHUKLA Comment: S/P Excision of 7 polyps, May 2014. 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 Active Condition [facility] Hyperlipidemia (SCT 06590324) Active Condition [facility] Hyperlipidemia (SNOMED CT 04824786) Active Condition [facility] Hyperlipidemia * (ICD-9-CM 272.4) Active Condition [facility] Hypothyroid Active Condition [facility] Hypothyroidism (SNOMED CT 57211444) Active Condition [facility] Hypothyroidism * (ICD-9-CM 244.9) Active Condition [facility] Impaired FASTING Glucose (ICD-9-CM 790.21) Active Condition [facility] Ingrown toenail (ICD-9-CM 735.8) Active Condition [facility] Lichenification Active Condition [facility] Liver function tests outside reference range Active Condition [facility] Localized swelling, mass and lump, upper limb Active Condition Apr 25, 2011 Entered By: FRANK SHUKLA Comment: 1 cm round, nodular mass with central ulcer, right forearm. [facility] Microscopic hematuria Active Condition [facility] Morbid obesity (SNOMED CT 467182272) Active Condition [facility] Multiple nodules of lung Active Condition [facility] Multiple nodules of lung Active Condition Feb 05, 2018 Entered By: CARRINGTON LOPEZ Comment: RUL nodule [id number] [facility] Noncompliance with medication regimen Active Condition [facility] Obesity Active Condition [facility] Pain in joint involving shoulder region (ICD-9-CM 719.41) Active Condition [facility] Pain in right hip joint Active Condition [facility] Pain in right knee (SNOMED CT 213642275161373) Active Condition [facility] Pain radiating to left shoulder (SNOMED CT 864626603) Active Condition Jan 17, 2013 Entered By: FRANK SHUKLA Comment: Right Deltoid muscle. [facility] Pancreatic mass Active Condition [facility] Peripheral vascular disease Active Condition May 21, 2017 Entered By: CARRINGTON LOPEZ Comment: 03/21/17 TIMOTHY 50-79%, LICA 50-79% [facility] Personal History of Transient Ischemic Attack (Tia), and Cerebral Infarction wit Active Condition [facility] Polyp Colon (SCT 15940174) Active Condition [facility] Rotator Cuff Synd Nos Active Condition [facility] Sensori-neural hearing loss Active Condition [facility] 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 Condition Nov 13, 2011 Entered By: FRANK SHUKLA Comment: on CT Thorax at [facility] 11/13/11.Nov 14, 2011 Entered By: FRANK SHUKLA Comment: Stable dissection since 09/13 dated 09/22/2008pr 2011 Entered By: FRANK SHUKLA Comment: Stable right upper pulmonary nodule dated 09/22/2008.Oc t 2016 Entered By: CARRINGTON LOPEZ Comment: 01/20/17 ascending 3.3cm, descend thoracic 3.7cm, below renals 2.8cm - type B dissection from arch to bifurcation of iliacsJul 2017 Entered By: CARRINGTON LOPEZ Comment: 01/31/18 ascending 3.4 cm, descending 3.7 cm [facility] TOBACCO USE DISORDER, UNSPECIFIED USE Active Condition Sep 23, 2004 Entered By: CORDELL LEIVA Comment: SMOKES 1 PACK OF CIGARETTES A DAY [facility] Tobacco User (SCT 129378583) Active Condition [facility] Tobacco user (SNOMED CT 856963588) Active Condition [facility] Type 2 diabetes mellitus (SNOMED CT 04812394) Active Condition Nov 14, 2013 Entered By: FRANK SHUKLA Comment: HOME [employer] Fe b 2014 Entered By: FRANK SHUKLA Comment: Discharged 09/30/2014Jul 2016 Entered By: CARRINGTON LOPEZ Comment: HOME TELEHEALTH 02/08/17 [facility] Unsteady gait Active Condition [facility] Vitamin D deficiency Active Condition [facility] Xerosis cutis Active Condition [facility] Alcohol Abuse (ICD-9-CM 305.00) Inactive Condition 12/13/2016 [facility] Cervical radiculopathy (SNOMED CT 02096525) Inactive Condition 12/13/2016 [facility] Chronic kidney disease stage 2 (SNOMED CT 741639814) Inactive Condition 01/01/2018 [facility] Neck pain (SNOMED CT 92206083) Inactive Condition 12/13/2016 May 23, 2013 Entered By: FRANK SHUKLA Comment: S/P Fusion of C5-C6 in 1987 or 1988. [facility] Medications Combined list of outpatient medications from Department of Defense and Veterans Affairs facilities.Medications provided include 1) outpatient medications from the last 15 months, and 2) patient-reported medications. Medication Details Route Status Patient Instructions Prescription Expires Prescription Number Last Dispense Date Ordering Provider Order Date Order Qty Source ASPIRIN 325MG TAB,EC TAKE ONE TABLET BY MOUTH EVERY DAY ORAL ACTIVE FRANK SHUKLA 2009 [facility] DAPAGLIFLOZ IN 10MG TAB TAKE ONE TABLET BY MOUTH ONCE A DAY ORAL ACTIVE REX JAMIL [address] [facility] ERGOCALCIFE ROL 1,250MCG (50,000UNIT ) CAP TAKE 1 CAPSULE BY MOUTH EVERY WEEK ORAL ACTIVE REX JAMIL [address] [facility] GLUCOSE 4GM TAB,CHEW CHEW AND SWALLOW FOUR TABLETS BY MOUTH PRN ORAL ACTIVE Bianca CALVO 2019 [facility] PANTOPRAZOL E NA 40MG TAB,EC TAKE ONE TABLET BY MOUTH EVERY MORNING BEFORE A MEAL ORAL ACTIVE LESLIE BROWN MD 2021 [facility] SEMAGLUTIDE 7MG TAB TAKE ONE TABLET BY MOUTH ONCE A DAY ORAL ACTIVE REX JAMIL [address] [facility] ZZRANITIDIN E HCL 150MG TAB TAKE ONE TABLET BY MOUTH TWICE A DAY ORAL ACTIVE FRANK SHUKLA 2011 [facility] Allergies, Adverse Reactions, Alerts Combined list of allergies from Department of [facility] and Veterans Affairs facilities. It does not include entries that were removed or entered in error. Substance Category Reaction Severity Reaction type Status Date Reported Comments Source AMOXICILLIN Propensity to adverse reactions to drug (finding) Eruption active 0 [facility] AMOXICILLIN Propensity to adverse reactions to drug (finding) active 7 [facility] DULAGLUTIDE Propensity to adverse reactions to drug (finding) Angioedema active 0 [facility] NIACIN Propensity to adverse reactions to drug (finding) Flushing active 2 [facility] OZEMPIC Propensity to adverse reactions to drug (finding) Angioedema active 0 [facility] Immunizations Combined list of available immunizations from the Department of [facility] and [facility] facilities. Immunization Series Date Given Administered By Site Reaction Lot Number CVX Code Drug Exercise Instructor Status Comments Source COVID-19 (MODERNA), MRNA, LNP-S, PF, 100 MCG/0.5ML DOSE OR 50 MCG/0.25ML DOSE 3 2020 207 complet ed HISTORICA L INFORMATI ON - FROM OTHER [facility], [facility] COVID-19 (MODERNA), MRNA, LNP-S, PF, 100 MCG/0.5ML DOSE OR 50 MCG/0.25ML DOSE 2 2020 207 complet ed HISTORICA L INFORMATI ON - [facility]-19 (MODERNA), MRNA, LNP-S, PF, 100 MCG/0.5ML DOSE OR 50 MCG/0.25ML DOSE 1 2020 207 complet ed HISTORICA L INFORMATI ON - FROM OTHER [facility] INFLUENZA, HIGH DOSE SEASONAL 1 2019 135 complet ed HISTORICA L INFORMATI ON - FROM OTHER [facility] N PNEUMOCOCCAL CONJUGATE PCV 13 1 2019 133 complet ed HISTORICA L INFORMATI ON - FROM OTHER REGISTRY, [facility] INFLUENZA, UNSPECIFIED FORMULATION 2017 88 complet ed [facility] ZOSTER LIVE 2014 121 complet ed [facility] TD(ADULT) UNSPECIFIED FORMULATION 2009 139 complet ed Left Deltoid 0.5ml IM [facility] TD(ADULT) UNSPECIFIED FORMULATION 2004 NONE 139 complet ed [facility] Encounters Combined list of: 1) Encounters from Department of Veterans Affairs facilities going backup to the last 18 months, not all VA inpatient encounters are included; 2) Encounters from the Department of Defense facilities going backup to 280 months. Location Location Details Encounter Type Encounter Number Reason For Visit Attending Provider ADM Date DC Date Status Disposition Source [facility] Outpatient Encounter [id number] 3 09/25 [facility] Social History Combined list of available smoking, tobacco, and other social history from Department of Defense and Veterans Affairs facilities. Social History Type Response Date Comment Sourc e Tobacco smoking status NHIS VA-TOBACCO FORMER USER 12/01/2022 [facility] History of tobacco use [place]-TOBACCO QUIT < 1 YEAR 12/01/2022 [facility] History of tobacco use VA-TOBACCO USER EVERY DAY 11/01/2020 [facility] History of tobacco use TOBACCO OFFERED PT MEDS (PROVIDER) 06/11/2020 [facility] History of tobacco use VA-TOBACCO USE COATER NO 02/14/2019 [facility] History of tobacco use VA-TOBACCO USER EVERY DAY 02/08/2018 [facility] History of tobacco use TOBACCO USER OFFERED MEDS 01/16/2018 [facility] History of tobacco use ANGELIA TOBACCO MEDS INTERESTED 06/25/2017 [facility] History of tobacco use TOBACCO CESSATION MEDS REFUSED 05/12/2016 [facility] History of tobacco use TOBACCO OFFERRED PT MEDS (PROVIDER) 04/19/2015 [facility] History of tobacco use TOBACCO OFFERRED PT MEDS (PROVIDER) 01/30/2014 [facility] History of tobacco use ANGELIA TOBACCO MEDS INTERESTED 12/20/2012 [facility] History of tobacco use TOBACCO OFFERRED PT MEDS (PROVIDER) 01/09/2012 [facility] History of tobacco use CURRENT SMOKER 12/08/2011 [facility] History of tobacco use TOBACCO OFFERRED PT MEDS (PROVIDER) 01/04/2011 [facility] History of tobacco use ANGELIA TOBACCO MEDS INTERESTED 12/19/2010 [facility] History of tobacco use TOBACCO OFFERRED PT MEDS (PROVIDER) 11/05/2009 [facility] History of tobacco use CURRENT SMOKER 05/05/2005 smoking 1 ppd [facility] History of tobacco use CURRENT SMOKER 11/07/2004 [facility] History of tobacco use CURRENT SMOKER 09/23/2004 1 [facility] Advance Directives List of completed, amended, or rescinded Advance Directives on record at Department of Veterans Affairs facilities. An actual copy of the Directive is not included. Date Advance Directive Provider Source 06/13/2012 ADVANCE DIRECTIVE STEVE MENJIVAR [facility] 06/11/2012 ADVANCE DIRECTIVE ROBERT CASPER [facility]
--- NOTE | 2025-02-23 14:46 | ECG_ITS ---
Test Date: 2025-02-23 15:06:39 Measurements Intervals [place] Rate: 105 P: 54 [place]: 135 QRS: -47 QRSD: 132 T: 110 QT: 391 QTc: 517 Interpretive Statements SINUS TACHYCARDIA INTRAVENTRICULAR CONDUCTION DELAY [130+ ms QRS DURATION] ANTEROSEPTAL MYOCARDIAL INFARCTION , PROBABLY OLD [40+ ms Q WAVE IN V1-V4] Compared to ECG 06/05/2024 19:01:32 Intraventricular conduction delay now present Sinus bradycardia no longer present Myocardial infarct finding still present Electronically Signed On 02-23-2025 15:28:03 CDT by Severino Marvin M.D.
--- NOTE | 2025-02-23 14:53 | ED.SOB ---
HPI - SOB/Dyspnea General Chief Complaint: Shortness of Breath/Dyspnea Stated Complaint: respiratory distress Time Seen by Provider: 02/23/25 14:45 Source: patient Mode of arrival: ambulatory Limitations: no limitations History of Present Illness HPI Narrative: Patient is a 69-year-old male that was currently on hospice at the nursing facility for noncompliance of multiple medical problems and having respiratory distress this evening. Patient was sent to the emergency room per request of the senior living/family. It appears patient aspirated. He was hypoxic. He was in respiratory distress. Family at bedside and discussed the fact that they would like to follow his wishes for DNR and back to hospice after looking into the problem. No heroic measures desired. Patient presented obtunded. MD elicited complaint: shortness of breath and cough Pertinent past history: other ( CKD) Onset (ago): minute(s) ( 30) Context: other ( patient possibly choked on food and started to have respiratory distress at the senior living) Timing: constant Severity: moderate Exacerbating factors: coughing Relieving factors: other ( deep suction and oxygen in the emergency room) Known history of: other ( CKD) Associated symptoms: denies other symptoms ( patient obtunded) Treatment prior to arrival: oxygen Related Data Home oxygen amount: none Home Medications ?Medication ?Instructions ?Recorded ?Confirmed ?Last Taken ?Type morphine 20 mg/5 mL (4 mg/mL) oral 10 mg PO Q4H PRN 06/18/24 01/28/25 Unknown History solution hydrocodone 7.5 mg-acetaminophen 30 ml PO Q6H PRN 08/20/24 01/28/25 Unknown History 325 mg/15 mL oral solution albuterol sulfate 90 mcg/actuation 1 puff inhalation Q4H PRN 12/03/24 01/28/25 Unknown History aerosol inhaler (Ventolin HFA) magnesium hydroxide 400 mg/5 mL 400 mg PO DAILY PRN 12/03/24 01/28/25 Unknown History oral suspension (Lucas Milk of Magnesia) hydrocortisone 1 % topical cream 1 applic topical BID PRN 01/28/25 01/28/25 Unknown History (Anti-Itch (hydrocortisone)) Allergies Allergy/AdvReac Type Severity Reaction Status Date / Time amoxicillin Allergy Unknown HEAD TURNS Verified 12/03/24 13:20 RED Penicillins Allergy Unknown Unknown,HEAD Verified 12/03/24 13:20 TURNS RED semaglutide Allergy Unknown Unknown,Kevin Verified 12/03/24 13:20 h [facility] Allergy Swelling Verified 12/03/24 13:20 of Lip/Tongue/Throat niacin AdvReac Unknown Verified 12/03/24 13:20 Review of Systems Review of Systems: All systems reviewed & are unremarkable except as noted in HPI and below Constitutional: Constitutional: Reports no additional constitutional complaints Eyes: Eyes: Reports no additional eye complaints ENT: Reports system reviewed and no additional complaints, except as documented Cardiovascular: Cardiovascular: Reports no additional cardiovascular complaints Respiratory: Respiratory: Reports no additional respiratory complaints Gastrointestinal: Gastrointestinal: Reports no additional gastrointestinal complaints Genitourinary: Genitourinary: Reports no additional male genitourinary complaints Musculoskeletal: Musculoskeletal: Reports no additional musculoskeletal complaints Integumentary/Breasts: Skin/Breast: Reports system reviewed and no additional complaints, except as docu Neurologic: Reports system reviewed and no additional complaints, except as documented Psychiatric: Psychiatric: Reports no additional psychiatric complaints Endocrine: Endocrine: Reports no additional endocrine complaints Hematologic/Lymphatic: Hematologic/Lymphatic: Reports no additional hematologic/lymphatic complaints Allergic/Immunologic: Allergic/Immunologic: Reports no additional allergic/immunologic complaints [facility] Past Medical History Medical History Acute kidney injury Chronic kidney disease, stage 4 (severe) Chronic obstructive pulmonary disease Gastroesophageal reflux disease Cerebrovascular accident Left facial numbness Dysphagia Arthritis Hyperthyroidism Stomach ulcer Emphysema of lung Hearing loss Functional burping disorder Ulcer, esophagus Polyarthritis Hypertension Stenosis of left carotid artery greater than 50% Chronic urticaria Hypothyroidism Hyperlipidemia Type 2 diabetes mellitus Tobacco dependence Surgical History Surgical History History of arthroscopy History of cervical discectomy Status post trigger finger release History of carpal tunnel surgery History of vasectomy Family History Family History Father , Unknown cause of Cerebrovascular accident Mother , Unknown cause of Acute myocardial infarction Cerebrovascular accident Sibling Hypertension Other Diabetes mellitus Parkinson disease Social History Social History Social History: Surrogate medical decision maker: Jaelyn Hankins, matthias. Code status: Full code. Smoking packs per day: 1 Smoking cigarettes per day: 20.0 Years smoked: 40 Smoking pack-years: 40.00 Smoking status: Former smoker Tobacco type: cigarettes Second hand tobacco smoke exposure: No Smoking end date: 12/05/23 Alcohol intake: former Alcohol use details: Perhaps 1 drink a month. Substance use: former Substance use type: does not use Do You Feel Safe in your Home?: No Lack of Transportation: YES Lack of Food: Sometimes True Current Housing: I Have Housing Concerned About Future Housing: YES Difficulty Paying Gas/Electric Bills: No Difficulty Paying for Meds: No Currently Unemployed: YES Education: Bachelor's Degree Difficulty w/ Childcare or Family Care: No Living arrangements: alone Additional living arrangements comments: . 2 Children. Lives in [place]. Occupation/Education: occupation Additional occupation/education comments: Worked at [employer] in [employer]. Spiritual care concerns: No Agree to blood products: Yes Exam Const: General: ill appearing Limitations: altered mental status Other: acute distress HENMT: Head: normal to inspection Ears: external ears normal Face/Nose/Sinus: Normal external nose present Eyes: Conjunctivae: conjunctivae normal Pupils: Equal, round and reactive pupils present EOM: EOMs intact bilaterally Neck: Neck: normal visual inspection Chest: Chest palpation & inspection: normal inspection of the chest Resp: Effort & Inspection: abnormal respiratory effort, labored, no retractions, tachypneic and no use of accessory muscles Auscultation: not clear to auscultation bilaterally, crackles, no rales, no rhonchi, wheezes, breath sounds present and diminished lung sounds Cardio: Rate: tachycardic Rhythm: regular rhythm Heart sounds: no murmurs GI: Inspection: non-distended GI Palp: Yes Soft to palpation and No Tenderness to palpation present (GI) Auscultation: normal bowel sounds : General: Yes bladder normal to palpation Back/Spine/Pelvis: Back: no CVA tenderness Skin: General skin exam: normal color Rashes: no rashes Wounds: no wounds Neuro: General: moves all extremities, no meningeal signs and no focal motor deficits Other: fast exam appears negative, NIH unobtainable due to obtunded, GCS is 7 Extrem: General: normal to inspection Psych: Other: altered mental status Course Vital Signs Vital signs: Vital Signs Temperature 36.0 C L 02/23/25 14:25 Pulse Rate 108 H 02/23/25 14:25 Respiratory Rate 28 H 02/23/25 14:25 Blood Pressure 181/83 H 02/23/25 14:25 Pulse Oximetry 76 L 02/23/25 14:25 Oxygen Delivery Nasal Cannula 02/23/25 14:25 Oxygen Flow Rate 6 02/23/25 14:25 Temperature 36.0 C L 02/23/25 14:25 Pulse Rate 96 02/23/25 16:17 Respiratory Rate 14 02/23/25 16:17 Blood Pressure 188/90 H 02/23/25 16:17 Pulse Oximetry 98 02/23/25 16:01 Oxygen Delivery Nasal Cannula 02/23/25 14:44 Oxygen Flow Rate 2 02/23/25 14:44 MDM - SOB/Dyspnea MDM Narrative Medical decision making narrative: patient is a 69-year-old male with suspect aspiration with hypoxia at the senior living. Patient on hospice. Family would like a workup done to see his condition and situation but no further interventions. We discussed all the results and it was felt that he should go back on hospice with some oxygen if he will allow it to stay in his nose and otherwise care and comfort measures at this time. Family understands that he will likely within the next couple of weeks due to renal failure and hypoxemia with coronary disease. Lab Data Attestation: I reviewed the patient's lab results. 02/23/25 15:12 02/23/25 15:12 Labs: Lab Results 02/23/25 02/23/25 Range/Units 15:12 15:13 WBC 8.9 (4.8-10.8) K/mm3 RBC 4.25 L (4.70-6.10) M/mm3 Hgb 12.2 L (12.4-15.3) g/dL Hct 39.4 (37.0-46.0) % MCV 92.7 (78.0-102.0) fL MCH 28.7 (27.0-31.0) pg MCHC 31.0 L (32-36) g/dL RDW 14.4 (11.6-14.4) % Plt Count 711 H (150-420) K/mm3 MPV 9.4 (8.7-11.0) fl Immature Gran % (Auto) 0.4 H (0.0-0.0) % Neut % (Auto) 85.5 H (50.0-70.0) % Lymph % (Auto) 5.7 L (18.0-42.0) % [place] % (Auto) 4.0 (2.0-11.0) % Eos % (Auto) 3.5 (1.0-6.0) % Baso % (Auto) 0.9 (0.0-1.0) % Lymph # (Auto) 0.51 L (1.10-4.50) K/mm3 [place] # (Auto) 0.36 (0.10-0.90) K/mm3 Eos # (Auto) 0.31 (0.02-0.50) K/mm3 Baso # (Auto) 0.08 (0.00-0.10) K/mm3 Abs Immat Gran (auto) 0.04 H (0.00-0.00) K/mm3 Absolute Neuts (auto) 7.59 H (1.70-7.20) K/mm3 Absolute Nucleated RBC 0.00 (0.00-0.00) K/mm3 Nucleated RBC % 0.0 (0-0.0) % % Immature Plt Fraction 1.3 (1.0-7.0) % Sodium 138 (137-145) mmol/L Potassium 4.8 (3.4-5.0) mmol/L Chloride 105 (98-107) mmol/L Carbon Dioxide 22 (22-30) mmol/L Anion Gap 11 (4-12) mmol/L BUN 64 H D (9-20) mg/dL Creatinine 8.24 H (0.7-1.3) mg/dL Estim Creat Clear Calc 9 ml/min Estimated GFR 6 L (59 - ) Glucose 167 H (65-110) mg/dL Calculated Osmolality 308 H (285-295) mOsm/kg Lactic Acid 1.8 (0.4-2.0) mmol/L Calcium 8.9 (8.4-10.2) mg/dL Total Bilirubin 0.6 (0.2-1.3) mg/dL AST 26 (17-59) U/L ALT 13 (6-50) U/L Alkaline Phosphatase 78 (38-126) U/L Troponin I 1.220 H* (0.000-0.034) ng/mL NT-Pro-B Natriuret Pep 53979 H (19.9-100) pg/mL Total Protein 7.2 (6.3-8.2) g/dL Albumin 4.1 (3.5-5.1) g/dL Influenza A (RT-PCR) Negative (Negative) Influenza B (RT-PCR) Negative (Negative) RSV (RT-PCR) Negative (Negative) SARS-CoV-2 RNA (RT-PCR) Negative (Negative) ABG Data ABG results: 02/23/25 15:19 Puncture Site Right radial ABG pH 7.23 L ABG pCO2 44.8 ABG pO2 53.8 L ABG HCO3 18.5 L ABG O2 Saturation 84.4 L ABG Base Excess -8.8 L Oxyhemoglobin 83.7 L O2 Delivery Device Nasal cannula O2 Liters/Min 5.0 Imaging Data Attestation: I personally reviewed and interpreted this imaging study as follows: Radiologist's impression: chest x-ray shows left basilar consolidation ECG Data EKG #1: Attestation: I personally reviewed and interpreted this ECG as follows: ECG completion date: 02/24/25 ECG completion time: 04:12 EKG Interpretation: tachycardia, sinus rhythm, non-specific ST changes, widened QRS ( IVCD), normal QT and left axis Discharge Plan Discharge Clinical Impression: Acute non-ST elevation myocardial infarction (NSTEMI), Hypoxia Respiratory failure Qualifiers: Chronicity: acute Respiratory failure complication: hypoxia Qualified Code(s): J96.01 - Acute respiratory failure with hypoxia Acute renal failure Qualifiers: Acute renal failure type: unspecified Qualified Code(s): N17.9 - Acute kidney failure, unspecified CHF (congestive heart failure) Qualifiers: Heart failure type: unspecified Heart failure chronicity: unspecified Qualified Code(s): I50.9 - Heart failure, unspecified Patient Disposition: Home Condition: Guarded Prognosis Instructions: Acute Coronary Syndrome (ED), Acute Respiratory Failure (ED) Additional Instructions: patient to go back to senior living on hospice with oxygen. Hospice was called to notify about oxygen needs. Patient Language: Frisian Prescriptions: No Action morphine 20 mg/5 mL (4 mg/mL) solution 10 mg PO Q4H PRN hydrocodone-acetaminophen 7.5-325 mg/15 mL solution 30 ml PO Q6H PRN albuterol sulfate [Ventolin HFA] 90 mcg/actuation HFA aerosol inhaler 1 puff inhalation Q4H PRN magnesium hydroxide [Lucas Milk of Magnesia] 400 mg/5 mL suspension 400 mg PO DAILY PRN gabapentin 600 mg tablet 600 mg PO TID Qty: 90 11RF hydrocortisone [Anti-Itch (HC)] 1 % cream 1 applic topical BID PRN Follow-up/Referrals: UNKNOWN,DOCTOR [Non-Staff] - Time of Disposition: 16:13
--- OUTSIDE RECORDS SUMMARY | 2025-02-23 14:58 | XMS_ITS | Clinical Summary ---
Author Organization [facility] Address [address] [place] [address] Care Team Providers Care Solutions Consultant Name Role Phone Unavailable Primary Care Provider Unavailabl e Source Comments [facility],non-owned Affiliates and Associated Physician Practices is amultiple site organization consisting of ambulatory clinics and hospital sitesin [place], [place], [place] and [place]. This disclosure is being madepursuant to the Care Everywhere program and may not contain all information available regarding this patient. Last updated 18.[facility] Allergies Active Allergy Reactions Criticality Noted Date [...] 06/14/2024 Assessment & Plan (06/15/2024 9:16 AM ASSOCIATE FIELD SERVICE ENGINEER): Patient has talked to multiple members of the medical care team and told them that he wants to . Evaluated by psych. Started on Zoloft Assessment & Plan (06/14/2024 2:34 PM ASSOCIATE FIELD SERVICE ENGINEER): Patient has talked to multiple members of the medical care team and told them that he wants to . Evaluated by psych. Started on Zoloft Acute hypoxic respiratory failure 06/14/2024 Assessment & Plan (06/15/2024 10:54 AM ASSOCIATE FIELD SERVICE ENGINEER): Respiratory failure occurred during hospital stay due to aspiration. Patient is now on comfort care measures. Patient understands risk of continuing with comfort eating. Appreciate pulmonary's assistance. Continue with oxygen as needed. Last dose of Rocephin today. Assessment & Plan (06/14/2024 2:34 PM ASSOCIATE FIELD SERVICE ENGINEER): Respiratory failure occurred during hospital stay due to aspiration. Patient is now on comfort care measures. Patient understands risk of continuing with comfort eating.. Appreciate pulmonary's assistance. Continue with oxygen as needed. Continue with Rocephin (today is day 4.) Aspiration pneumonia of left lower lobe 06/14/20 24 Assessment & Plan (06/15/2024 10:54 AM ASSOCIATE FIELD SERVICE ENGINEER): Patient now comfort care only. Waiting on hospice. Patient understands risk of aspiration with comfort eating. Complete antibiotic treatment today. Assessment & Plan (06/14/2024 2:34 PM ASSOCIATE FIELD SERVICE ENGINEER): Patient now comfort care only. Waiting on [...] Entered By: TANYA LOPEZ Comment: RUL nodule [id number] Assessment & Plan (06/15/2024 9:16 AM ASSOCIATE FIELD SERVICE ENGINEER): No further workup needed. Assessment & Plan (06/14/2024 2:34 PM ASSOCIATE FIELD SERVICE ENGINEER): No further workup needed. 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 Initially treated with levothyroxine IV. Endocrinology on case. Symptoms improved since receiving treatment. Continue current regimen of levothyroxine 175 mcg and Cytomel 10 mg a day Patient is now refusing to take levothyroxine. Continue with comfort care measures and encourage him to take medication. Assessment & Plan (06/14/2024 2:34 PM ASSOCIATE FIELD SERVICE ENGINEER): Secondary to severe hypothyroidism due to noncompliance. Initially treated with levothyroxine IV. Endocrinology on case. Symptoms improved since receiving treatment. Continue current regimen of levothyroxine 175 mcg and Cytomel 10 mg a day Bradycardia 06/05/2024 Assessment & Plan (06/15/2024 9:16 AM ASSOCIATE FIELD SERVICE ENGINEER): Secondary to severe hypothyroidism Resolved as hypothyroid treatment continues. Assessment & Plan (06/14/2024 2:34 PM ASSOCIATE FIELD SERVICE ENGINEER): Secondary to severe hypothyroidism Resolved as hypothyroid treatment continues. Aortic dissection 03/03/2022 Abdominal aortic aneurysm (AAA) 03/02/2022 Alcohol abuse 03/02/2022 Carotid arterial disease 03/02/2022 Morbid obesity 03/02/2022 Tobacco dependence syndrome 03/02/2022 Chronic kidney disease, stage IV (severe) 2021 Assessment & Plan (06/15/2024 9:16 AM ASSOCIATE FIELD SERVICE ENGINEER): Most likely due to diabetic nephropathy. Nephrology on case. Patient now comfort care. Assessment & Plan (06/14/2024 2:34 PM ASSOCIATE FIELD SERVICE ENGINEER): Most likely due to diabetic nephropathy. Nephrology on case. Patient now comfort care. Dyslipidemia 09/27/2021 Diabetes mellitus, type 2 11/14/2018 Overview (06/06/2024): Nov 14, 2013 Entered By: FRANK SHUKLA Comment: HOME TELEHEALTH Oct 02, 2014 Entered By: FRANK SHUKLA Comment: Discharged 09/30/2014 Feb 08, 2017 Entered By: TANYA LOPEZ Comment: HOME TELEHEALTH 02/08/17 Assessment & Plan (06/15/2024 10:54 AM ASSOCIATE FIELD SERVICE ENGINEER): Patient refusing blood sugar monitoring. Discontinue insulin. Assessment & Plan (06/14/2024 2:34 PM ASSOCIATE FIELD SERVICE ENGINEER): Continue with insulin sliding scale and insulin [...] care, and heating? Not very hard 06/13/2024 [facility] - Occupational Stress [...] any time in the past 12 m [facility], were you homeless or living in a care home (including now)? No 06/13/2024 Sex and Gender [...] Comments Blood Pressure 195/116 06/16/2024 10:38 AM ASSOCIATE FIELD SERVICE ENGINEER Pulse 69 06/16/2024 10:38 AM ASSOCIATE FIELD SERVICE ENGINEER Temperature 36.6 C (97.9 F) 06/16/2024 10:38 AM ASSOCIATE FIELD SERVICE ENGINEER Respiratory Rate 22 06/16/2024 10:3 8 AM ASSOCIATE FIELD SERVICE ENGINEER Oxygen Saturation 97% 06/16/2024 10: 38 AM ASSOCIATE FIELD SERVICE ENGINEER Inhaled Oxygen Concentration 35% 06/12/2024 9 :15 AM ASSOCIATE FIELD SERVICE ENGINEER Weight 112.6 kg (248 lb 4.8 oz) 06/16/2024 5:20 AM ASSOCIATE FIELD SERVICE ENGINEER Height 177.8 cm (5' 10) 06/06/2024 1:55 [...] (CALCIUM TOTAL) AM Draw 06/12/2024 4:22 AM ASSOCIATE FIELD SERVICE ENGINEER HEMOGLOBIN A1C STAT 06/06/2024 3:07 AM CDT from Last 3 Months or Most Recently Relevant to Health Maintenance Results * (ABNORMAL) BASIC METABOLIC PANEL (CALCIUM TOTAL) (06/12/2024 4:22 AM ASSOCIATE FIELD SERVICE ENGINEER) Glucose 173(H) 70 - 99 mg/dL 06/12/2024 4:51 AM ASSOCIATE FIELD SERVICE ENGINEER [facility] Sodium 139 136 - 145 mmol/L 06/12/2024 4:51 AM ASSOCIATE FIELD SERVICE ENGINEER [facility] Potassium 3.9 3.5 - 5.1 mmol/L 06/12/2024 4:51 AM ASSOCIATE FIELD SERVICE ENGINEER [facility] Chloride 107 98 - 107 mmol/L 06/12/2024 4:51 AM ASSOCIATE FIELD SERVICE ENGINEER [facility] CO2 21(L) 22 - 29 mmol/L 06/12/2024 4:51 AM [facility] Calcium 8.6 8.4 - 10.4 mg/dL 06/12/2024 4:51 AM [facility] Anion Gap 11 6 - 16 mmol/L 06/12/2024 4:51 AM [facility] BUN 56(H) 7 - 26 mg/dL 06/12/2024 4:51 AM [facility] Creatinine 2.91(H) 0.72 - 1.25 mg/dL 06/12/2024 4:51 AM [facility] eGFR by CKD-EPI 22(L) >=90 mL/min/1.7 3 m2 06/12/2024 4:51 AM [facility] Blood BLOOD SPECIMEN / Unknown Lab Venipuncture / Unknown 06/12/2024 4:22 AM ASSOCIATE FIELD SERVICE ENGINEER 06/12/2024 4:33 AM [facility] Fortunelexi Vincent MD LAB - CHEMISTRY ORD ERABLES Final Result [facility] [address] [place] [address] * (ABNORMAL) HEMOGLOBIN A1C (06/06/2024 3:07 AM CDT) Hemoglobin A1c 9.6(H) <5.7 % 06/06/2024 3:20 AM T [facility] Estimated Average Glucose 229 mg/dL 06/06/2024 3:20 AM CDT [facility] Blood BLOOD SPECIMEN / Unknown Venipuncture / Unknown 06/06/2024 3:07 AM CDT 06/06/2024 3:09 AM CDT Narrative [facility] - 06/06/2024 3:20 AM CDT [...] ORDERA BLES Final Result Performing Organization Address City/State/RUST Co de Phone Number [facility] [address] [place] [address] from Last 3 Months or Most Recently Relevant to Health Maintenance Insurance Advance Directives Documents on File Type Date Recorded 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
--- OUTSIDE RECORDS SUMMARY | 2025-02-23 14:58 | XMS_ITS | Encounter Summary ---
Author Organization [facility] Address [address] [place] [address] Care Team Providers Care Grinder Operator Automatic Name Role Phone None, Provider Primary Care Provider Unavaila ble Encounter Details Date Type Department Care Team (Late st Contact Info) Description 01/11/2019 Abstract [facility] CONVERSION [address] [place] [address] , Generic Conversion, Social History Tobacco Use [...] on filedocumented in this encounter Care Teams Grinder Operator Automatic Relationship Specialty Start Date End Date None, Provider, PCP - General UNKNOWN PHYSICIAN SPECIALTY 12/01/22 documented as of this encounter
--- OUTSIDE RECORDS SUMMARY | 2025-02-23 14:58 | XMS_ITS | Clinical Summary ---
Author Organization [facility] Address [address] [place] [address] Care Team Providers Care Hat Forming Machine Operator Name Role Phone None, Provider MD Primary [...] Diagnosis Comments COLONOSCOPY Routine 1899 12:00 AM ASSISTANT TRACK AND FIELD COACH from Last 3 Months or Most Recently Relevant to Health Maintenance Results * Colonoscopy (1899 12:00 AM ASSISTANT TRACK AND FIELD COACH) 1899 1899 Narrative [facility] TO EPIC CONVERSION - 1899 12:00 AM ASSISTANT TRACK AND FIELD COACH Documented hx of procedure Procedure Note , Generic Conversion, - 06/09/2018 Documented hx of procedure us Generic Conversion Md [facility] PROCEDURE ORDERABLES Final Result [facility] TO EPIC CONVERSION from Last 3 Months or Most Recently Relevant to Health Maintenance Insurance [facility] Care Teams Hat Forming Machine Operator Relationship Specialty Start Date End Date None, Provider, PCP - General UNKNOWN PHYSICIAN SPECIALTY 12/01/22
--- OUTSIDE RECORDS SUMMARY | 2025-02-23 14:58 | XMS_ITS | Continuity of Care Document ---
Author Name [facility] Organization [facility] Care Team Providers Care Computer Operations Supervisor Name Role Phone [facility] Unavailable Unavailable Problems Combined list of problems from Department of Defense and Veterans Affairs facilities. It does not include entries that were removed or entered in error. 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) Active Condition [facility] Allergic rhinitis (SNOMED CT 64044135) Active Condition [facility] Benign essential hypertension (SNOMED CT 8228195) Active Condition [facility] Carotid artery stenosis Active Condition [facility] Cervicalgia Active Condition [facility] S Chronic kidney disease stage 3 Active Condition [facility] Chronic kidney disease stage 4 Active Condition [facility] COPD - Chronic Obstructive Pulmonary Disease (SCT 08540624) Active Condition [facility] Decreased, vision NEC (ICD-9-CM 369.9) Active Condition [facility] Depression * (ICD-9-CM 311.) Active Condition [facility] Depressive disorder Active Condition [facility] Diabetes Mellitus Type 2 (SCT 45793696) Active Condition [facility] 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 GERD * (ICD-9-CM 530.81) Active Condition [facility] Herpes Zoster * (ICD-9-CM 053.9) Active Condition [facility] History of polyp of colon Active Condition Aug 18, 2014 Entered By: FRANK SHUKLA Comment: S/P Excision of 7 polyps, May 2014. 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 Condition [facility] Hyperlipidemia (SCT 68816073) Active Condition [facility] Hyperlipidemia (SNOMED CT 05982075) Active Condition [facility] Hyperlipidemia * (ICD-9-CM 272.4) Active Condition [facility] Hypothyroid Active Condition [facility] Hypothyroidism (SNOMED CT 85184831) Active Condition [facility] Hypothyroidism * (ICD-9-CM 244.9) Active Condition [facility] Impaired FASTING Glucose (ICD-9-CM 790.21) Active Condition [facility] Ingrown toenail (ICD-9-CM 735.8) Active Condition [facility] Lichenification Active Condition [facility] Liver function tests outside reference range Active Condition [facility] Localized swelling, mass and lump, upper limb Active Condition Apr 25, 2011 Entered By: FRANK SHUKLA Comment: 1 cm round, nodular mass with central ulcer, right forearm. [facility] Microscopic hematuria Active Condition [facility] Morbid obesity (SNOMED CT 980020666) Active Condition [facility] Multiple nodules of lung Active Condition [facility] Multiple nodules of lung Active Condition Feb 05, 2018 Entered By: CARRINGTON LOPEZ Comment: RUL nodule [id number] [facility] Noncompliance with medication regimen Active Condition [facility] Obesity Active Condition [facility] Pain in joint involving shoulder region (ICD-9-CM 719.41) Active Condition [facility] Pain in right hip joint Active Condition [facility] Pain in right knee (SNOMED CT 873462877732668) Active Condition [facility] Pain radiating to left shoulder (SNOMED CT 373863002) Active Condition Jan 17, 2013 Entered By: FRANK SHUKLA Comment: Right Deltoid muscle. [facility] Pancreatic mass Active Condition [facility] Peripheral vascular disease Active Condition May 21, 2017 Entered By: CARRINGTON LOPEZ Comment: 03/21/17 TIMOTHY 50-79%, LICA 50-79% [facility] Personal History of Transient Ischemic Attack (Tia), and Cerebral Infarction wit Active Condition [facility] Polyp Colon (SCT 72764743) Active Condition [facility] Rotator Cuff Synd Nos Active Condition [facility] Sensori-neural hearing loss Active Condition 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 Tobacco user (SNOMED CT 249091880) Active Condition [facility] Type 2 diabetes mellitus (SNOMED CT 02514569) Active Condition Nov 14, 2013 Entered By: FRANK SHUKLA Comment: HOME TELEHEALTH Fe b 2014 Entered By: FRANK SHUKLA Comment: Discharged 09/30/2014Jul 2016 Entered By: CARRINGTON LOPEZ Comment: HOME TELEHEALTH 02/08/17 [facility] Unsteady gait Active Condition [facility] Vitamin D deficiency Active Condition [facility] Xerosis cutis Active Condition [facility] Alcohol Abuse (ICD-9-CM 305.00) Inactive Condition 12/13/2016 [facility] Cervical radiculopathy (SNOMED CT 84123237) Inactive Condition 12/13/2016 [facility] Chronic kidney disease stage 2 (SNOMED CT 711181921) Inactive Condition 01/01/2018 [facility] Neck pain (SNOMED CT 02773980) Inactive Condition 12/13/2016 May 23, 2013 Entered By: FRANK SHUKLA Comment: S/P Fusion of C5-C6 in 1987 or 1988. [facility] Medications Combined list of outpatient medications [...] EVERY DAY ORAL ACTIVE FRANK SHUKLA 2009 [facility] DAPAGLIFLOZ IN 10MG TAB TAKE ONE TABLET BY MOUTH ONCE A DAY ORAL ACTIVE REX JAMIL 2021 [facility] ERGOCALCIFE ROL 1,250MCG (50,000UNIT ) CAP TAKE 1 CAPSULE BY MOUTH EVERY WEEK ORAL ACTIVE REX JAMIL 2021 [facility] GLUCOSE 4GM TAB,CHEW CHEW AND SWALLOW FOUR TABLETS BY MOUTH PRN ORAL ACTIVE Bianca CALVO [address] [facility] PANTOPRAZOL E NA 40MG TAB,EC TAKE ONE TABLET BY MOUTH EVERY MORNING BEFORE A MEAL ORAL ACTIVE LESLIE BROWN MD 2021 [facility] SEMAGLUTIDE 7MG TAB TAKE ONE TABLET BY MOUTH ONCE A DAY ORAL ACTIVE REX JAMIL 2021 [facility] ZZRANITIDIN E HCL 150MG TAB TAKE ONE TABLET BY MOUTH TWICE A DAY ORAL ACTIVE FRANK SHUKLA 2011 [facility] Allergies, Adverse Reactions, Alerts Combined list of allergies from Department of [facility] and Veterans Affairs facilities. It does not include entries that were removed or entered in error. Substance Category Reaction Severity Reaction type Status Date Reported Comments Source AMOXICILLIN Propensity to adverse reactions to drug (finding) Eruption active 0 [facility] AMOXICILLIN Propensity to adverse reactions to drug (finding) active 7 [facility] DULAGLUTIDE Propensity to adverse reactions to drug (finding) Angioedema active 0 [facility] NIACIN Propensity to adverse reactions to drug (finding) Flushing active 2 [facility] OZEMPIC Propensity to adverse reactions to drug (finding) Angioedema active 0 [facility] Immunizations Combined list of available immunizations from the Department of [facility] and [facility] facilities. Immunization Series Date Given Administered By Site Reaction Lot Number CVX Code Drug Chief Development Officer Status Comments Source COVID-19 (MODERNA), MRNA, LNP-S, PF, 100 MCG/0.5ML DOSE OR 50 MCG/0.25ML DOSE 3 2020 207 complet ed HISTORICA L INFORMATI ON - FROM OTHER [facility], [facility] COVID-19 (MODERNA), MRNA, LNP-S, PF, 100 MCG/0.5ML DOSE OR 50 MCG/0.25ML DOSE 2 2020 207 complet ed [facility]ISTORICA L INFORMATI ON [facility] (MODERNA), MRNA, LNP-S, PF, 100 MCG/0.5ML DOSE OR 50 MCG/0.25ML DOSE 1 2020 207 complet ed HISTORICA L INFORMATI ON - FROM OTHER [facility] INFLUENZA, HIGH DOSE SEASONAL 1 2019 135 complet ed HISTORICA L INFORMATI ON - FROM OTHER [facility] N PNEUMOCOCCAL CONJUGATE PCV 13 1 2019 133 complet ed HISTORICA L INFORMATI ON - FROM OTHER REGISTRY, [facility] INFLUENZA, UNSPECIFIED FORMULATION 2017 88 complet ed [facility] ZOSTER LIVE 2014 121 complet ed [facility] TD(ADULT) UNSPECIFIED FORMULATION 2009 139 complet ed Left Deltoid 0.5ml IM [facility] TD(ADULT) UNSPECIFIED FORMULATION 2004 NONE 139 [...] ADM Date DC Date Status Disposition Source [facility] Outpatient Encounter [id number] 3 09/[address] [facility] Social History Combined list of available smoking, tobacco, and other social history from Department of Defense and Veterans Affairs facilities. 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 02/14/2019 [facility] History of tobacco use VA-TOBACCO USER EVERY DAY 02/08/2018 [facility] History of tobacco use TOBACCO USER OFFERED MEDS 01/16/2018 [facility] History of tobacco use ANGELIA TOBACCO MEDS INTERESTED 06/25/2017 [facility] History of tobacco use TOBACCO CESSATION MEDS REFUSED 05/12/2016 [facility] History of tobacco use TOBACCO OFFERRED PT MEDS (PROVIDER) 04/19/2015 [facility] History of tobacco use TOBACCO OFFERRED PT MEDS (PROVIDER) 01/30/2014 [facility] History of tobacco use ANGELIA TOBACCO MEDS INTERESTED 12/20/2012 [facility] History of tobacco use TOBACCO OFFERRED PT MEDS (PROVIDER) 01/09/2012 [facility] History of tobacco use CURRENT SMOKER 12/08/2011 [facility] History of tobacco use TOBACCO OFFERRED PT MEDS (PROVIDER) 01/04/2011 [facility] History of tobacco use ANGELIA TOBACCO MEDS INTERESTED 12/19/2010 [facility] History of tobacco use TOBACCO OFFERRED PT MEDS (PROVIDER) 11/05/2009 [facility] History of tobacco use CURRENT SMOKER [...] Provider Source 06/13/2012 ADVANCE DIRECTIVE STEVE MENJIVAR [facility] 06/11/2012 ADVANCE DIRECTIVE ROBERT CASPER [facility]
--- OUTSIDE RECORDS SUMMARY | 2025-02-23 14:58 | XMS_ITS | Clinical Summary ---
Author Organization [facility] utimoisés Address [address] [place] [address] Phone Care Team Providers Care Taker Off Drying Kiln Name Role Phone Livan Ryan DO Primary Care Provider [phone] Allergies Active Allergy Reactions Criticality Noted Date [...] under the skin every night. Active Tiotropium [place] Monohydrate (SPIRIVA RESPIMAT) 2.5 MCG/ACT aerosol solution [...] (05/05/2019): Added automatically from request for surgery [id number] Added automatically from request for surgery [id number] Diabetes mellitus 11/14/2018 Overview (05/05/2019): Added automatically from request for surgery [id number] Added automatically from request for surgery [id number] Resolved Problems Problem Noted Date Diagnosed Date [...] 08/07/2019 Insurance [employer] MEDICARE Care Teams Taker Off Drying Kiln Relationship Specialty Start Date End Date Livan Ryan DO PCP - General Family Medicine 05/04/20
[2025-02-23 15:24] LABS: HCO3 ABG 18.5 mmol/L (23-29); Oxygen Saturation ABG 84.4 % (95-97); PCO2 ABG 44.8 mmHg (35-45); PO2 ABG 53.8 mmHg (75-85)
[2025-02-23 15:25] LABS: Liters per Minute 5.0 LPM; Modified Allen's Test Pass; Site Drawn RIGHT RADIAL
[2025-02-23 15:29] LABS: Hematocrit 39.4 % (37.0-46.0); Hemoglobin 12.2 g/dL (12.4-15.3); Immature Granulocyte Percent A 0.4 % (0.0-0.0); Immature Platelet Fraction Pct 1.3 % (1.0-7.0); Lymphocytes Absolute Auto 0.51 K/mm3 (1.10-4.50); Mean Corpuscular HGB Conc 31.0 g/dL (32-36); Mean Corpuscular Hemoglobin 28.7 pg (27.0-31.0); Mean Corpuscular Volume 92.7 fL (78.0-102.0); Nucleated Red Blood Cells Absolute Auto 0.00 K/mm3 (0.00-0.00); Nucleated Red Blood Cells Perc 0.0 % (0-0.0); Platelet Count Result 711 K/mm3 (150-420); Red Blood Count 4.25 M/mm3 (4.70-6.10); White Blood Count 8.9 K/mm3 (4.8-10.8)
[2025-02-23 15:39] LABS: Alanine Aminotransferase 13 U/L (6-50); Albumin Level 4.1 g/dL (3.5-5.1); Alkaline Phosphatase 78 U/L (38-126); Anion Gap 11 mmol/L (4-12); Aspartate Amino Transferase 26 U/L (17-59); Bilirubin,Total 0.6 mg/dL (0.2-1.3); Blood Urea Nitrogen 64 mg/dL (9-20); Calcium 8.9 mg/dL (8.4-10.2); Carbon Dioxide 22 mmol/L (22-30); Chloride 105 mmol/L (98-107); Estimated CRCL calculation 9 ml/min; Estimated Glomerular Filt Rate 6; Glucose 167 mg/dL (65-110); Osmolality Calculated 308 mOsm/kg (285-295); Potassium 4.8 mmol/L (3.4-5.0); Sodium 138 mmol/L (137-145); Total Protein 7.2 g/dL (6.3-8.2)
[2025-02-23 15:48] LABS: NT Pro B Type Natriuretic Pept 20900 pg/mL (19.9-100)
[2025-02-23 15:54] LABS: Troponin I 1.220 ng/mL (0.000-0.034)
[2025-02-23 16:02] LABS: Influenza A QL RT-PCR Negative (Negative); Influenza B QL RT-PCR Negative (Negative); RSV RNA, RT-PCR Negative (Negative); SARS-CoV-2 RNA PCR Negative (Negative)
--- NOTE | 2025-02-26 12:13 | PC.NURSE ---
Preliminary blood culture; no growth detected at this time.
--- NOTE | 2025-02-27 12:19 | PC.NURSE ---
blood culture, no growth preliminary
--- NOTE | 2025-02-28 12:58 | PC.NURSE ---
preliminary blood cultures x2 reviewed. no growth to date
--- NOTE | 2025-03-03 13:13 | PC.NURSE ---
FINAL BLOOD CULTURE REPORT; NO GROWTH IN 5 DAYS.
== END 2025-02-23 16:31 ==
PROVIDERS: Emergency Provider Emergency Medicine; PCP Family Medicine
DX: I21.4 Non-ST elevation (NSTEMI) myocardial infarction (principal); J96.01 Acute respiratory failure with hypoxia; I13.0 Hypertensive heart and chronic kidney disease with heart failure and stage 1 through stage 4 chronic kidney disease, or unspecified chronic kidney disease; I50.9 Heart failure, unspecified; N18.4 Chronic kidney disease, stage 4 (severe); E11.22 Type 2 diabetes mellitus with diabetic chronic kidney disease; E03.9 Hypothyroidism, unspecified; E78.5 Hyperlipidemia, unspecified; Z87.891 Personal history of nicotine dependence; Z20.822 Contact with and (suspected) exposure to COVID-19
CPT/HCPCS: 36415; 36600; 71045; 80053; 82805; 83605; 83880; 84484; 85025; 85055; 87637; 93005; 99284